=== PATIENT | male | born 1950 | race Caucasian/White ===

== ENCOUNTER 2016-04-07 10:38 | Outpatient (CLI) | payer MEDICAID | END 2016-04-07 10:39 | disposition home or self-care (01) | DX: E11.49 Type 2 diabetes mellitus with other diabetic neurological complication (principal); E03.9 Hypothyroidism, unspecified ==

== ENCOUNTER 2016-07-21 09:23 | Outpatient (CLI) | payer MEDICAID ==
[2016-07-21 18:27] LABS: HEMOGLOBIN A1C 0.77 g/dL
[2016-07-21 18:33] LABS: ALBUMIN/GLOBULIN RATIO 1.4 (1.0-2.2); BILIRUBIN,TOTAL 0.8 mg/dL (0.2-1.0); BUN - BLOOD UREA NITROGEN 20 mg/dL (6-20); CALCIUM 10.1 mg/dL (8.5-10.3); CARBON DIOXIDE - CO2 28 mmol/L (21-32); CHLORIDE 103 mmol/L (101-111); CHOL/HDL RATIO 6.4 (<5.0); CHOLESTEROL 173 mg/dL; CREATININE 0.9 mg/dL (0.6-1.2); GFR - MDRD 85 (>89); GLUCOSE 120 mg/dL (70-100); HDL CHOLESTEROL 27 mg/dL; LDL/HDL RATIO 2.9 (<3.6); POTASSIUM 3.9 mmol/L (3.5-5.0); SODIUM 140 mmol/L (135-145); TOTAL PROTEIN 7.6 g/dL (6.7-8.2); TRIGLYCERIDES 347 mg/dL; VLDL CHOLESTEROL 69 mg/dL
== END 2016-07-21 09:24 | disposition home or self-care (01) ==
LOC: LAB.F 09:23
PROVIDERS: ATTEND Nurse Practitioner Family
DX: E11.49 Type 2 diabetes mellitus with other diabetic neurological complication (principal); I10 Essential (primary) hypertension; E78.1 Pure hyperglyceridemia
CPT/HCPCS: 36415; 80053; 80061; 82043; 83036

== ENCOUNTER 2016-09-29 07:29 | Outpatient (CLI) | payer MEDICAID ==
[2016-09-29 10:47] LABS: HEMOGLOBIN A1C 0.65 g/dL
[2016-09-29 11:02] LABS: BILIRUBIN,DIRECT 0.1 mg/dL (0.1-0.5); BILIRUBIN,TOTAL 0.6 mg/dL (0.2-1.0); CHOLESTEROL 96 mg/dL; HDL CHOLESTEROL 32 mg/dL; LDL/HDL RATIO 1.2 (<3.6); TOTAL PROTEIN 7.4 g/dL (6.7-8.2); TRIGLYCERIDES 125 mg/dL; VLDL CHOLESTEROL 25 mg/dL
== END 2016-09-29 07:30 | disposition home or self-care (01) ==
LOC: LAB.F 07:29
PROVIDERS: ATTEND Nurse Practitioner Family
DX: E78.1 Pure hyperglyceridemia (principal); E78.6 Lipoprotein deficiency; E11.49 Type 2 diabetes mellitus with other diabetic neurological complication
CPT/HCPCS: 36415; 80061; 80076; 83036

== ENCOUNTER 2016-12-15 09:31 | Outpatient (CLI) | payer MEDICAID ==
[2016-12-15 19:07] LABS: HEMOGLOBIN A1C 0.73 g/dL
== END 2016-12-15 09:32 | disposition home or self-care (01) ==
LOC: LAB.F 09:31
PROVIDERS: ATTEND Nurse Practitioner Family
DX: E11.40 Type 2 diabetes mellitus with diabetic neuropathy, unspecified (principal)
CPT/HCPCS: 36415; 83036

== ENCOUNTER 2017-06-19 07:14 | Outpatient (CLI) | payer MEDICARE ==
[2017-06-19 10:44] LABS: BUN - BLOOD UREA NITROGEN 22 mg/dL (6-20); CARBON DIOXIDE - CO2 27 mmol/L (21-32); CHLORIDE 102 mmol/L (101-111); GFR - MDRD 75 (>89); GLUCOSE 130 mg/dL (70-100); SODIUM 137 mmol/L (135-145); URIC ACID 6.6 mg/dL (2.6-7.2)
[2017-06-19 11:17] LABS: HB2 TOTAL 15.3 g/dL; HEMOGLOBIN A1C 0.82 g/dL; HEMOGLOBIN A1C % 7.1 % (4.6-6.2)
== END 2017-06-19 07:15 | disposition home or self-care (01) ==
LOC: LAB.F 07:14
PROVIDERS: ATTEND Nurse Practitioner Family
DX: E11.49 Type 2 diabetes mellitus with other diabetic neurological complication (principal); I10 Essential (primary) hypertension; E03.9 Hypothyroidism, unspecified; M10.9 Gout, unspecified
CPT/HCPCS: 36415; 80048; 83036; 84443; 84550

== ENCOUNTER 2017-09-24 07:12 | Outpatient (CLI) | payer MEDICARE ==
[2017-09-24 11:41] LABS: HEMOGLOBIN A1C 0.69 g/dL; HEMOGLOBIN A1C % 6.7 % (4.6-6.2)
[2017-09-24 11:42] LABS: BUN - BLOOD UREA NITROGEN 21 mg/dL (6-20); CARBON DIOXIDE - CO2 24 mmol/L (21-32); CHLORIDE 106 mmol/L (101-111); CHOL/HDL RATIO 3.5 (<5.0); CHOLESTEROL 116 mg/dL; CREATININE 0.9 mg/dL (0.6-1.2); GFR - MDRD 85 (>89); GLUCOSE 123 mg/dL (70-100); HDL CHOLESTEROL 33 mg/dL; LDL CHOLESTEROL,CALCULATED 52 mg/dL; LDL/HDL RATIO 1.6 (<3.6); SODIUM 138 mmol/L (135-145); VLDL CHOLESTEROL 31 mg/dL
== END 2017-09-24 07:13 | disposition home or self-care (01) ==
LOC: LAB.F 07:12
PROVIDERS: ATTEND Nurse Practitioner Family
DX: E11.49 Type 2 diabetes mellitus with other diabetic neurological complication (principal); E78.1 Pure hyperglyceridemia
CPT/HCPCS: 36415; 80048; 80061; 83036; 83721

== ENCOUNTER 2018-02-04 07:25 | Outpatient (CLI) | payer MEDICARE ==
[2018-02-04 12:23] LABS: HB2 TOTAL 13.9 g/dL; HEMOGLOBIN A1C 0.73 g/dL
== END 2018-02-04 07:26 | disposition home or self-care (01) ==
LOC: LAB.F 07:25
PROVIDERS: ATTEND Nurse Practitioner
DX: E11.49 Type 2 diabetes mellitus with other diabetic neurological complication (principal)
CPT/HCPCS: 36415; 83036

== ENCOUNTER 2018-07-12 12:57 | Outpatient (CLI) | payer MEDICARE ==
--- NOTE | 2018-07-12 14:15 | CT Report ---
Reason: KIDNEY STONES Procedure Date: 07/12/2018 Accession Number: [id number] / [id number] Procedure: CT - Abdomen/Pelvis WO CPT Code: FULL RESULT: EXAM: CT ABDOMEN AND PELVIS (CT KUB) EXAM DATE: 07/12/2018 01:22 PM. CLINICAL HISTORY: Right flank pain, cloudy urine. KIDNEY STONES. COMPARISONS: 07/14/2007. TECHNIQUE: Routine axial helical CT imaging was performed through the abdomen and pelvis without IV contrast. Reconstructions: Coronal and sagittal. In accordance with CT protocol optimization, one or more of the following dose reduction techniques were utilized for this exam: automated exposure control, adjustment of mA and/or KV based on patient size, or use of iterative reconstructive technique. FINDINGS: Evaluation of solid abdominal organs is limited without intravenous contrast. Lung Bases: A simple fluid attenuation right pericardial cyst measures 6.8 cm, mildly increased since 2007. Right Kidney/Ureter: There are 2 punctate nonobstructing stones measuring 2-3 mm. Left Kidney/Ureter: There are several tiny nonobstructing left renal stone is measuring 2-3 mm in the superior collecting system. No hydronephrosis or perinephric inflammation. No ureteral stone. Other Solid Organs: Noncontrast images of the solid organs are grossly unremarkable. Gallbladder/Bile Ducts: There are tiny layering gallstones. No bile duct dilation. Peritoneal Cavity: No bowel obstruction. Probable small diverticulum of the second portion of the duodenum. Mild diverticulosis without diverticulitis. No free fluid, free air or nickolas adenopathy. Pelvic Organs: No bladder stones or wall thickening. The prostate gland is mild to moderately and indents the bladder base, measuring 5.7 cm in diameter. Vasculature: Mild atherosclerosis. No aortic aneurysm. Other: None. IMPRESSION: 1. Tiny nonobstructing renal stones bilaterally. No obstructing stone or hydronephrosis. 2. Enlarged prostate gland. 3. Diverticulosis without diverticulitis. 4. Cholelithiasis. RADIA
== END 2018-07-12 12:58 | disposition home or self-care (01) ==
LOC: DI 12:57
PROVIDERS: ATTEND Physician Assistant Medical
DX: N20.0 Calculus of kidney (principal); N40.0 Benign prostatic hyperplasia without lower urinary tract symptoms; K57.90 Diverticulosis of intestine, part unspecified, without perforation or abscess without bleeding; K80.20 Calculus of gallbladder without cholecystitis without obstruction
CPT/HCPCS: 74176

== ENCOUNTER 2018-10-02 07:11 | Outpatient (CLI) | payer MEDICARE ==
[2018-10-02 10:45] LABS: BASOPHILS % (AUTO) 0.7 %; EOSINOPHILS # (AUTO) 0.5 10^3/uL (0.0-0.7); EOSINOPHILS % (AUTO) 8.4 %; HGB - HEMOGLOBIN 12.8 g/dL (14.0-18.0); LYMPHOCYTES # (AUTO) 2.2 10^3/uL (1.5-3.5); LYMPHOCYTES % (AUTO) 39.1 %; MEAN CORPUSCULAR HEMOGLOBIN 31.3 pg (27.0-31.0); MEAN CORPUSCULAR HGB CONC 32.6 g/dL (32.0-36.0); MEAN CORPUSCULAR VOLUME 96.1 fL (80.0-94.0); MEAN PLATELET VOLUME 10.3 fL (7.4-11.4); MONOCYTES # (AUTO) 0.4 10^3/uL (0.0-1.0); MONOCYTES % (AUTO) 6.5 %; NEUTROPHILS # (AUTO) 2.5 10^3/uL (1.5-6.6); NEUTROPHILS % (AUTO) 44.9 %; PLT - PLATELET COUNT 162 10^3/uL (130-450); RED BLOOD COUNT 4.09 10^6/uL (4.70-6.10); RED CELL DISTRIBUTION WIDTH 14.6 % (12.0-15.0); WHITE BLOOD COUNT 5.6 x10^3/uL (4.8-10.8)
[2018-10-02 10:52] LABS: CREATININE,URINE 84.6 mg/dL; MICROALBUM/CREATININE RATIO,UR 7.1 ug/mg (<30.0); MICROALBUMIN,URINE 0.6 mg/dL (0-300.0)
[2018-10-02 10:53] LABS: BUN - BLOOD UREA NITROGEN 23 mg/dL (6-20); CALCIUM 9.8 mg/dL (8.5-10.3); CARBON DIOXIDE - CO2 24 mmol/L (21-32); CHLORIDE 103 mmol/L (101-111); CHOL/HDL RATIO 3.5 (<5.0); CHOLESTEROL 101 mg/dL; GFR - MDRD 75 (>89); GLUCOSE 122 mg/dL (70-100); HDL CHOLESTEROL 29 mg/dL; LDL CHOLESTEROL,CALCULATED 44 mg/dL; LDL/HDL RATIO 1.5 (<3.6); SODIUM 138 mmol/L (135-145); VLDL CHOLESTEROL 28 mg/dL
[2018-10-02 10:59] LABS: HB2 TOTAL 14.1 g/dL; HEMOGLOBIN A1C 0.8 g/dL; HEMOGLOBIN A1C % 7.3 % (4.6-6.2)
== END 2018-10-02 07:12 | disposition home or self-care (01) ==
LOC: LAB.S 07:11
PROVIDERS: ATTEND Physician Assistant Medical
DX: E11.49 Type 2 diabetes mellitus with other diabetic neurological complication (principal); E78.1 Pure hyperglyceridemia; E03.9 Hypothyroidism, unspecified; I10 Essential (primary) hypertension
CPT/HCPCS: 36415; 80048; 80061; 82043; 82570; 83036; 83721; 84443; 85025

== ENCOUNTER 2018-11-13 11:53 | Outpatient (CLI) | payer MEDICARE | END 2018-11-13 11:54 | disposition home or self-care (01) | LOC: LAB.S 11:53 | PROVIDERS: ATTEND Physician Assistant Medical | DX: M10.9 Gout, unspecified (principal) | CPT/HCPCS: 36415; 84550 ==

== ENCOUNTER 2019-01-16 15:48 | Day surgery (SDC) | payer MEDICARE ==
[2019-01-16 16:32] LABS: BASOPHILS % (AUTO) 0.4 %; EOSINOPHILS # (AUTO) 0.2 10^3/uL (0.0-0.7); EOSINOPHILS % (AUTO) 1.9 %; LYMPHOCYTES # (AUTO) 2.3 10^3/uL (1.5-3.5); LYMPHOCYTES % (AUTO) 22.8 %; MEAN CORPUSCULAR HEMOGLOBIN 31.6 pg (27.0-31.0); MEAN CORPUSCULAR HGB CONC 33.3 g/dL (32.0-36.0); MEAN PLATELET VOLUME 8.6 fL (7.4-11.4); MONOCYTES # (AUTO) 0.8 10^3/uL (0.0-1.0); MONOCYTES % (AUTO) 7.3 %; NEUTROPHILS # (AUTO) 6.9 10^3/uL (1.5-6.6); NEUTROPHILS % (AUTO) 67.2 %; PLT - PLATELET COUNT 152 10^3/uL (130-450); RED BLOOD COUNT 4.43 10^6/uL (4.70-6.10); WHITE BLOOD COUNT 10.3 x10^3/uL (4.8-10.8)
[2019-01-16 17:05] LABS: ALBUMIN 4.6 g/dL (3.2-5.5); ALBUMIN/GLOBULIN RATIO 1.4 (1.0-2.2); CALCIUM 9.8 mg/dL (8.5-10.3); TOTAL PROTEIN 7.9 g/dL (6.7-8.2)
--- NOTE | 2019-01-16 20:46 | Ultrasound Report ---
Reason: right abd pain for few days Procedure Date: 01/16/2019 Accession Number: [id number] / [id number] Procedure: US - Abdomen Limited CPT Code: Final Report FULL RESULT: EXAM: ABDOMEN ULTRASOUND LIMITED, RUQ EXAM DATE: 01/16/2019 08:20 PM. CLINICAL HISTORY: Right abdomen pain for few days. COMPARISON: ABDOMEN/PELVIS W/O 07/12/2018 1:16 PM. TECHNIQUE: Real-time scanning was performed with static images obtained. FINDINGS: Liver: Large with hyperechoic echotexture. Focal hypoechoic area, likely fatty sparing, 6.9 x 3.8 x 5.2 cm. 21 cm. Main portal vein flow: Hepatopetal. Gallbladder: Multiple mobile gallstones with overlying tenderness. Gallbladder wall thickness. Biliary System: CBD measures 8 mm. Dilated. Other: The visualized pancreas and right kidney are unremarkable. No free fluid. IMPRESSION: 1. Large fatty liver. 2. Multiple cholelithiasis with overlying tenderness but no wall thickening. 3. Mildly dilated common bile duct. RADIA
[2019-01-16] MEDS ORDERED: ONDANSETRON 4 MG/2 ML VIAL IVP STA (22:34)
[2019-01-16] MEDS ORDERED: MORPHINE 2 MG/ML CARPUJECT IVP STA (22:34)
--- NOTE | 2019-01-16 22:44 | ED Physician Documentation ---
History of Present Illness - Stated complaint Stated Complaint: RT BACK, SIDE, ABD PAIN - Chief complaint Chief Complaint: Abd Pain - Additonal information Additional information: This is a 68-year-old male with history of diabetes, obesity, who presents with right upper quadrant pain. Patient states that beginning Sunday he began having some discomfort in his right lateral side which radiates from the front of his abdomen towards his back. It has come and gone somewhat and seems to be worse after he eats. The pain increased and prompted him to see primary care provider today, and he had focal tenderness in the right upper quadrants so was sent here for further evaluation. He has had some intermittent nausea, no vomiting. No fever. He was diagnosed with cholelithiasis in the past. Review of Systems Constitutional: denies: Fever Cardiac: denies: Chest pain / pressure Respiratory: denies: Dyspnea GI: reports: Abdominal Pain, Nausea : denies: Dysuria Immunocompromised: denies: Immunocompromised PD PAST MEDICAL HISTORY - Past Medical History Past Medical History: Yes Cardiovascular: Hypertension, High cholesterol Respiratory: None Endocrine/Autoimmune: Type 2 diabetes, HyPOthyroidism GI: GERD, Colon polyps : None HEENT: None Psych: None Musculoskeletal: Osteoarthritis, Gout Derm: None - Past Surgical History Past Surgical History: Yes General: Appendectomy, Colonoscopy Ortho: Shoulder arthroplasty, Carpal Tunnel surgery, Other - Present Medications Home Medications: Ambulatory Orders Medication Instructions Recorded Confirmed Allopurinol [Zyloprim] 300 mg ORAL DAILY 01/16/14 01/19/14 Hydrochlorothiazide 25 mg ORAL DAILY 01/16/14 01/19/14 Levothyroxine [Synthroid] 100 mcg ORAL DAILY 01/16/14 01/19/14 Lisinopril 40 mg ORAL DAILY 01/16/14 01/19/14 Omeprazole Magnesium [Prilosec Otc] 20 mg ORAL DAILY 01/16/14 01/19/14 Metformin HCl [Glucophage Xr] 500 mg ORAL BID 01/09/19 01/09/19 - Allergies Allergies/Adverse Reactions: Allergies Allergy/AdvReac Type Severity Reaction Status Date / Time Penicillins Allergy Rash Verified 01/16/19 16:07 - Social History Does the pt smoke?: No Smoking Status: Never smoker Does the pt drink ETOH?: Yes - POLST Patient has POLST: No PD ED PE NORMAL - Vitals Vital signs reviewed: Yes - General General: Alert and oriented X 3 - HEENT HEENT: Atraumatic - Neck Neck: Supple, no meningeal sign - Cardiac Cardiac: RRR - Respiratory Respiratory: No respiratory distress, Clear bilaterally - Abdomen Abdomen: Other (Soft, obese. Patient has focal tenderness in the right upper quadrant with Positive Issa sign, no guarding. No lower abdominal tenderness.) - Extremities Extremities: No: No deformity - Neuro Neuro: Alert and oriented X 3, Normal speech Results - Vitals Vitals: Vital Signs - 24 hr 01/16/19 01/17/19 01/17/19 16:07 00:20 02:00 Temperature 37.1 C 37.4 C Heart Rate 89 93 88 Respiratory 16 20 16 Rate Blood Pressure 151/79 H 121/70 97/52 L O2 Saturation 96 96 98 01/17/19 01/17/19 01/17/19 05:19 06:25 08:17 Temperature 36.8 C Heart Rate 83 88 86 Respiratory 16 16 16 Rate Blood Pressure 118/66 100/59 L 131/75 H O2 Saturation 94 94 94 Oxygen O2 Source Room air - Labs Labs: Laboratory Tests 01/16/19 01/16/19 01/17/19 16:27 16:27 07:00 WBC 10.3 RBC 4.43 L Hgb 14.0 Hct 42.1 MCV 95.0 H MCH 31.6 H MCHC 33.3 RDW 14.0 Plt Count 152 MPV 8.6 Neut # (Auto) 6.9 H Lymph # (Auto) 2.3 [place] # (Auto) 0.8 Eos # (Auto) 0.2 Baso # (Auto) 0.0 Absolute Nucleated RBC 0.00 Nucleated RBC % 0.0 Sodium 138 Potassium 3.8 Chloride 98 L Carbon Dioxide 28 Anion Gap 12.0 BUN 10 Creatinine 1.0 Estimated GFR (MDRD) 75 L Glucose 122 H POC Whole Bld Glucose Calcium 9.8 Total Bilirubin 1.0 AST 44 H ALT 36 Alkaline Phosphatase 78 Total Protein 7.9 Albumin 4.6 Globulin 3.3 Albumin/Globulin Ratio 1.4 Lipase 38 Urine Color DARK YELLOW Urine Clarity CLEAR Urine pH 6.0 Ur Specific [place] 1.025 Urine Protein NEGATIVE Urine Glucose (UA) NEGATIVE Urine Ketones NEGATIVE Urine Occult Blood NEGATIVE Urine Nitrite NEGATIVE Urine Bilirubin NEGATIVE Urine Urobilinogen 0.2 (NORMAL) Ur Leukocyte Esterase NEGATIVE Ur Microscopic Review NOT INDICATED Urine Culture Comments NOT INDICATED 01/17/19 08:22 WBC RBC Hgb Hct MCV MCH MCHC RDW Plt Count MPV Neut # (Auto) Lymph # (Auto) [place] # (Auto) Eos # (Auto) Baso # (Auto) Absolute Nucleated RBC Nucleated RBC % Sodium Potassium Chloride Carbon Dioxide Anion Gap BUN Creatinine Estimated GFR (MDRD) Glucose POC Whole Bld Glucose 135 H Calcium Total Bilirubin AST ALT Alkaline Phosphatase Total Protein Albumin Globulin Albumin/Globulin Ratio Lipase Urine Color Urine Clarity Urine pH Ur Specific [place] Urine Protein Urine Glucose (UA) Urine Ketones Urine Occult Blood Urine Nitrite Urine Bilirubin Urine Urobilinogen Ur Leukocyte Esterase Ur Microscopic Review Urine Culture Comments - Rads (name of study) RUQ US Radiology: Other (Cholelithiasis with tenderness over the gallbladder sonographically, no wall edema or pericholecystic fluid) PD MEDICAL DECISION MAKING - ED course Complexity details: considered differential (Biliary colic, symptomatically lithiasis, choledocholithiasis, cholecystitis, pancreatitis, gastritis.) ED course: Patient presents with right upper quadrant pain rating to his back that is worse after meals has been ongoing for several days waxing and waning. He does have focal right upper quadrant tenderness and a positive Issa sign on my exam. Labs are drawn and are notable for an elevated AST, although patient has had elevated AST in the past and this may be related to fatty liver disease. He was given morphine and Zofran for his symptoms. Ultrasound is obtained showing cholelithiasis, with no wall edema or pericholecystic fluid. On repeat examination patient continues to have significant tenderness in his right upper quadrant. Given his reproducible and significant tenderness in the right upper quadrant, and the fact that his symptoms are persistent despite pain medications I am concerned that he has cholecystitis. I spoke with Dr. Neves, who can perform cholecystectomy in the morning 8:30 AM. It does not sound like patient meets criteria for observation after discussion with our hospitalist, so we will watch him in the emergency department and he be in the morning. He is made n.p.o., started on maintenance fluids. His home medications were ordered. Pt is in agreement with the plan. Pt will be transferred to OR in the AM. Departure - Departure Disposition: ED Transfer to [facility] Clinical Impression: Cholecystitis Discharge Date/Time: 01/17/19 08:05
[2019-01-17] MEDS ORDERED: LACTATED RINGERS 1,000 ML IV STA (01:40)
[2019-01-17] MEDS ORDERED: LISINOPRIL 5 MG TABLET PO SCH (06:00)
[2019-01-17] MEDS ORDERED: metFORMIN 500 MG TABLET PO SCH (06:00)
[2019-01-17] MEDS ORDERED: NEOSTIGMINE 1 MG/1 ML 10 ML MDV IVP ONE (07:11)
[2019-01-17] MEDS ORDERED: MIDAZOLAM 2 MG/2 ML VIAL IVP ONE (07:11)
[2019-01-17] MEDS ORDERED: GLYCOPYRROLATE 1 MG/5 ML VIAL IVP ONE (07:11)
[2019-01-17] MEDS ORDERED: ROCURONIUM 50 MG/5 ML VIAL IVP ONE (07:11)
[2019-01-17] MEDS ORDERED: ePHEDrine 50 MG/ML VIAL IVP ONE (07:11)
[2019-01-17 07:13] LABS: BILIRUBIN,URINE NEGATIVE (NEGATIVE); GLUCOSE, URINE (UA) NEGATIVE (NEGATIVE); KETONES,URINE (UA) NEGATIVE (NEGATIVE); LEUKOCYTE ESTERASE, URINE NEGATIVE (NEGATIVE); NITRITE,URINE NEGATIVE (NEGATIVE); OCCULT BLOOD,URINE NEGATIVE (NEGATIVE); PROTEIN,URINE NEGATIVE (NEGATIVE); UROBILINOGEN,URINE 0.2 (NORMAL) E.U./dL (NORMAL)
[2019-01-17 07:14] LABS: CLARITY,URINE CLEAR (CLEAR)
[2019-01-17] MEDS ORDERED: cefTRIAXone 1 GM VIAL IVP STA (07:21)
--- NOTE | 2019-01-17 07:22 | ED Physician Documentation ---
ED Addendum - Addendum Addendum: 01/17/19 07:21 Patient was seen by the surgeon in preparation for taking him to the operating room. He requested a gram of Rocephin IV and has been ordered.
[2019-01-17] MEDS ORDERED: metFORMIN 500 MG TABLET PO STA (07:44)
[2019-01-17] MEDS ORDERED: LISINOPRIL 20 MG TABLET PO STA (07:45)
[2019-01-17] MEDS ORDERED: LACTATED RINGERS 1,000 ML IV ONE ×3 (08:17→13:43)
[2019-01-17] MEDS ORDERED: ENOXAPARIN 30 MG/0.3 ML SYRINGE SUBQ ONE (08:24)
--- NOTE | 2019-01-17 09:55 | ANESTHESIA ---
Pre-Anesthesia VS, & Labs - Diagnosis acute cholecystitis - Procedure laparoscopic cholecystectomy Vital Signs: Temp Pulse Resp BP Pulse Ox 36.8 C 86 16 131/75 H 94 01/17/19 08:17 01/17/19 08:17 01/17/19 08:17 01/17/19 08:17 01/17/19 08:17 Height 6 ft Weight (kg) 128 kg Body Mass Index 38.4 - Lab Results Current Lab Results: Laboratory Tests 01/17/19 08:22: POC Whole Bld Glucose 135 H 01/16/19 16:27: Sodium 138, Potassium 3.8, Chloride 98 L, Carbon Dioxide 28, Anion Gap 12.0, BUN 10, Creatinine 1.0, Estimated GFR (MDRD) 75 L, Glucose 122 H , Calcium 9.8, Total Bilirubin 1.0, AST 44 H, ALT 36, Alkaline Phosphatase 78, Total Protein 7.9, Albumin 4.6, Globulin 3.3, Albumin/Globulin Ratio 1.4, Lipase 38 01/16/19 16:27: WBC 10.3, RBC 4.43 L, Hgb 14.0, Hct 42.1, MCV 95.0 H, MCH 31.6 H , MCHC 33.3, RDW 14.0, Plt Count 152, MPV 8.6, Neut # (Auto) 6.9 H, Lymph # (Auto) 2.3, [place] # (Auto) 0.8, Eos # (Auto) 0.2, Baso # (Auto) 0.0, Absolute Nucleated RBC 0.00, Nucleated RBC % 0.0 Fish Bones: 01/16/19 16:27 01/16/19 16:27 Home Medications and Allergies Active Medications Lactated Ringer's (Lr) 1,000 mls @ 100 mls/hr IV .Q10H STA Stop: 01/17/19 11:39 Last Admin: 01/17/19 07:04 Dose: 100 mls/hr Allopurinol [Zyloprim] 300 mg ORAL DAILY 01/16/14 Hydrochlorothiazide 25 mg ORAL DAILY 01/16/14 Levothyroxine [Synthroid] 100 mcg ORAL DAILY 01/16/14 Lisinopril 40 mg ORAL DAILY 01/16/14 Omeprazole Magnesium [Prilosec Otc] 20 mg ORAL DAILY 01/16/14 Metformin HCl [Glucophage Xr] 500 mg ORAL BID 01/09/19 Allergies/Adverse Reactions: Allergies Allergy/AdvReac Type Severity Reaction Status Date / Time Penicillins Allergy Rash Verified 01/16/19 16:07 Anes History & Medical History - Anesthetic History Anesthesia Complications: reports: No previous complications - Medical History Cardiovascular: reports: Hypertension, High cholesterol Pulmonary: reports: None Gastrointestinal: reports: GERD, Colon polyps Urinary: reports: None Musculoskeletal: reports: Osteoarthritis, Gout Endocrine/Autoimmune: reports: Type 2 diabetes, HyPOthyroidism Skin: reports: None Smoking Status: Never smoker - Surgical History General: Appendectomy, Colonoscopy Orthopedic: Shoulder arthroplasty, Carpal Tunnel surgery, Other Exam General: Alert Dental: WNL Mouth Opening: Greater than 4 Fingerbreadths Neck Mobility: Normal Mallampati classification: II Respiratory: Lungs clear Cardiovascular: Regular rate, Normal S1, Normal S2 Plan Anesthesia Type: General Consent for Procedure(s) Verified and Reviewed: Yes Code Status: Attempt Resuscitation ASA classification: 2-Mild systemic disease Is this case an emergency?: Yes
[2019-01-17] MEDS: ONDANSETRON 4 MG/2 ML VIAL ONE ×2 (10:15→13:30)
[2019-01-17] MEDS ORDERED: IOTHALAMATE MEGLUMINE 50 ML VIAL ONE (10:51)
[2019-01-17] MEDS ORDERED: BUPIVACAINE 0.5% PF 30 ML VIAL ONE (10:52)
--- NOTE | 2019-01-17 10:55 | HISTORY & PHYSICAL EXAMINATION ---
HPI - Admitted From Admitted from: ED - History Obtained From Records Reviewed: RN notes reviewed History obtained from: Patient Exam limitations: No limitations - History of Present Illness Severity at the worst: reports: Moderate Pain Quality: reports: Sharp PMH/PSH - Past Medical History Cardiovascular: positive: Hypertension, High cholesterol Respiratory: positive: None Endocrine/Autoimmune: positive: Type 2 diabetes, HyPOthyroidism GI: positive: GERD, Colon polyps : positive: None HEENT: positive: None Psych: positive: None Musculoskeletal: positive: Osteoarthritis, Gout Derm: positive: None MRSA Hx?: No - Past Surgical History General: positive: Appendectomy, Colonoscopy Ortho: positive: Shoulder arthroplasty, Carpal Tunnel surgery, Other Social & Family Hx - Living Situation Living Arrangement: At home - Social History Does the pt smoke?: No Smoking Status: Never smoker Does the pt drink ETOH?: Yes - POLST Patient has POLST: No Meds/Allgy - Home Medications Home Medications: Ambulatory Orders Medication Instructions Recorded Confirmed Allopurinol [Zyloprim] 300 mg ORAL DAILY 01/16/14 01/19/14 Hydrochlorothiazide 25 mg ORAL DAILY 01/16/14 01/19/14 Levothyroxine [Synthroid] 100 mcg ORAL DAILY 01/16/14 01/19/14 Lisinopril 40 mg ORAL DAILY 01/16/14 01/19/14 Omeprazole Magnesium [Prilosec Otc] 20 mg ORAL DAILY 01/16/14 01/19/14 Metformin HCl [Glucophage Xr] 500 mg ORAL BID 01/09/19 01/09/19 - Allergies Allergies/Adverse Reactions: Allergies Allergy/AdvReac Type Severity Reaction Status Date / Time Penicillins Allergy Rash Verified 01/16/19 16:07 Exam - Vital Signs Reviewed Vital Signs: Yes Vital Signs: Vital Signs x48h Temp Pulse Resp BP Pulse Ox 01/17/19 08:17 36.8 C 86 16 131/75 H 94 01/17/19 06:25 88 16 100/59 L 94 01/17/19 05:19 83 16 118/66 94 - Physical Exam General Appearance: positive: Moderate distress Eyes Bilateral: positive: Normal inspection Neck: positive: Nml inspection Respiratory: positive: Chest non-tender, No respiratory distress, Breath sounds nml Abdomen: positive: Tenderness, Guarding (RUQ) Results - Lab Results Fish Bones: 01/16/19 16:27 01/16/19 16:27 Other Lab Results: Lab Results x24hrs 01/17/19 01/17/19 01/16/19 Range/Units 08:22 07:00 16:27 WBC (4.8-10.8) x10^3/uL RBC (4.70-6.10) 10^6/uL Hgb (14.0-18.0) g/dL Hct (42.0-52.0) % MCV (80.0-94.0) fL MCH (27.0-31.0) pg MCHC (32.0-36.0) g/dL RDW (12.0-15.0) % Plt Count (130-450) 10^3/uL MPV (7.4-11.4) fL Neut # (Auto) (1.5-6.6) 10^3/uL Lymph # (Auto) (1.5-3.5) 10^3/uL [place] # (Auto) (0.0-1.0) 10^3/uL Eos # (Auto) (0.0-0.7) 10^3/uL Baso # (Auto) (0.0-0.1) 10^3/uL Absolute Nucleated RBC x10^3/uL Nucleated RBC % /100WBC Sodium 138 (135-145) mmol/L Potassium 3.8 (3.5-5.0) mmol/L Chloride 98 L (101-111) mmol/L Carbon Dioxide 28 (21-32) mmol/L Anion Gap 12.0 (6-13) BUN 10 (6-20) mg/dL Creatinine 1.0 (0.6-1.2) mg/dL Estimated GFR (MDRD) 75 L (>89) Glucose 122 H (70-100) mg/dL POC Whole Bld Glucose 135 H (70 - 100) mg/dL Calcium 9.8 (8.5-10.3) mg/dL Total Bilirubin 1.0 (0.2-1.0) mg/dL AST 44 H (10-42) IU/L ALT 36 (10-60) IU/L Alkaline Phosphatase 78 (42-121) IU/L Total Protein 7.9 (6.7-8.2) g/dL Albumin 4.6 (3.2-5.5) g/dL Globulin 3.3 (2.1-4.2) g/dL Albumin/Globulin Ratio 1.4 (1.0-2.2) Lipase 38 (22-51) U/L Urine Color DARK YELLOW Urine Clarity CLEAR (CLEAR) Urine pH 6.0 (5.0-7.5) PH Ur Specific [place] 1.025 (1.002-1.030) Urine Protein NEGATIVE (NEGATIVE) mg/dL Urine Glucose (UA) NEGATIVE (NEGATIVE) mg/dL Urine Ketones NEGATIVE (NEGATIVE) mg/dL Urine Occult Blood NEGATIVE (NEGATIVE) Urine Nitrite NEGATIVE (NEGATIVE) Urine Bilirubin NEGATIVE (NEGATIVE) Urine Urobilinogen 0.2 (NORMAL) (NORMAL) E.U./dL Ur Leukocyte Esterase NEGATIVE (NEGATIVE) Ur Microscopic Review NOT INDICATED Urine Culture Comments NOT INDICATED 01/16/19 Range/Units 16:27 WBC 10.3 (4.8-10.8) x10^3/uL RBC 4.43 L (4.70-6.10) 10^6/uL Hgb 14.0 (14.0-18.0) g/dL Hct 42.1 (42.0-52.0) % MCV 95.0 H (80.0-94.0) fL MCH 31.6 H (27.0-31.0) pg MCHC 33.3 (32.0-36.0) g/dL RDW 14.0 (12.0-15.0) % Plt Count 152 (130-450) 10^3/uL MPV 8.6 (7.4-11.4) fL Neut # (Auto) 6.9 H (1.5-6.6) 10^3/uL Lymph # (Auto) 2.3 (1.5-3.5) 10^3/uL [place] # (Auto) 0.8 (0.0-1.0) 10^3/uL Eos # (Auto) 0.2 (0.0-0.7) 10^3/uL Baso # (Auto) 0.0 (0.0-0.1) 10^3/uL Absolute Nucleated RBC 0.00 x10^3/uL Nucleated RBC % 0.0 /100WBC Sodium (135-145) mmol/L Potassium (3.5-5.0) mmol/L Chloride (101-111) mmol/L Carbon Dioxide (21-32) mmol/L Anion Gap (6-13) BUN (6-20) mg/dL Creatinine (0.6-1.2) mg/dL Estimated GFR (MDRD) (>89) Glucose (70-100) mg/dL POC Whole Bld Glucose (70 - 100) mg/dL Calcium (8.5-10.3) mg/dL Total Bilirubin (0.2-1.0) mg/dL AST (10-42) IU/L ALT (10-60) IU/L Alkaline Phosphatase (42-121) IU/L Total Protein (6.7-8.2) g/dL Albumin (3.2-5.5) g/dL Globulin (2.1-4.2) g/dL Albumin/Globulin Ratio (1.0-2.2) Lipase (22-51) U/L Urine Color Urine Clarity (CLEAR) Urine pH (5.0-7.5) PH Ur Specific [place] (1.002-1.030) Urine Protein (NEGATIVE) mg/dL Urine Glucose (UA) (NEGATIVE) mg/dL Urine Ketones (NEGATIVE) mg/dL Urine Occult Blood (NEGATIVE) Urine Nitrite (NEGATIVE) Urine Bilirubin (NEGATIVE) Urine Urobilinogen (NORMAL) E.U./dL Ur Leukocyte Esterase (NEGATIVE) Ur Microscopic Review Urine Culture Comments Impression/Plan - Problem List Problem List: Acute cholecystitis/lithiasis Cholecystectomy w/possible IOC
[2019-01-17] MEDS ORDERED: BUPIVACAINE 0.5% PF 30 ML VIAL INFIL ONE ×2 (12:00)
--- NOTE | 2019-01-17 13:14 | IMMEDIATE POSTOPERATIVE NOTE ---
Immediate Postoperative Note - Procedure Note Procedure Date: 01/17/19 Pre-Op Diagnosis: Acute cholecystitis/lithiasis Procedure: [place] Post-Op Diagnosis: Same Primary Surgeon: Arianne Insurance Adviser: Romain Anesthesia Type: General ET tube, Local Findings: Mod severe acute cholecystitis w/ multiple pericholecystic adhesions Complications: No complications Estimated Blood Loss (in cc): 5 Specimens and Cultures: Gallbladder Plan of Care: See [place] post op order set Cont as outpatient same day surgery status
[2019-01-17] MEDS ORDERED: oxyCODONE 5 MG TABLET PO PRN (13:20)
[2019-01-17] MEDS ORDERED: IBUPROFEN 600 MG TABLET PO PRN (13:20)
[2019-01-17] MEDS ORDERED: ONDANSETRON 4 MG/2 ML VIAL IVP PRN (13:20)
[2019-01-17] MEDS ORDERED: ACETAMINOPHEN 325 MG TABLET PO PRN (13:20)
--- NOTE | 2019-01-17 13:22 | Discharge Plan ---
Discharge Plan Problem Reviewed?: Yes Disposition: Home, Self Care Diet: Regular Activity Restrictions: No lifting more than 20# for 6weeks Shower Restrictions: No Driving Restrictions: No Weight Bearing: Full Weight No Smoking: If you smoke, Please STOP! Call for help. Follow-up with: Angeles Landry PA-C [Primary Care Provider] -
[2019-01-17] MEDS ORDERED: SCOPOLAMINE PATCH TOP ONE (13:31)
[2019-01-17] MEDS: HYDROmorphone 1 MG/ML CARPUJECT ONE ×4 (13:31→14:01)
--- NOTE | 2019-01-17 14:01 | CONSULTATION NOTE ---
Referring Provider Consult Date: 01/17/19 History - Past Medical History Cardiovascular: reports: Hypertension, High cholesterol Respiratory: reports: None Endocrine/Autoimmune: reports: Type 2 diabetes, HyPOthyroidism GI: reports: GERD, Colon polyps : reports: None HEENT: reports: None Psych: reports: None Musculoskeletal: reports: Osteoarthritis, Gout Derm: reports: None MRSA Hx?: No - Past Surgical History General: reports: Appendectomy, Colonoscopy Ortho: reports: Shoulder arthroplasty, Carpal Tunnel surgery, Other - Family & Social History Living arrangement: At home - POLST Patient has POLST: No Meds/Allgy - Home Medications Home Medications: Ambulatory Orders Medication Instructions Recorded Confirmed Allopurinol [Zyloprim] 300 mg ORAL DAILY 01/16/14 01/19/14 Hydrochlorothiazide 25 mg ORAL DAILY 01/16/14 01/19/14 Levothyroxine [Synthroid] 100 mcg ORAL DAILY 01/16/14 01/19/14 Lisinopril 40 mg ORAL DAILY 01/16/14 01/19/14 Omeprazole Magnesium [Prilosec Otc] 20 mg ORAL DAILY 01/16/14 01/19/14 Metformin HCl [Glucophage Xr] 500 mg ORAL BID 01/09/19 01/09/19 - Allergies Allergies/Adverse Reactions: Allergies Allergy/AdvReac Type Severity Reaction Status Date / Time Penicillins Allergy Rash Verified 01/16/19 16:07 Exam - Vital Signs Vital Signs: Vital Signs x48h Temp Pulse Resp BP Pulse Ox 01/17/19 13:50 37.2 C 84 14 127/61 95 01/17/19 13:46 37.2 C 87 14 125/63 96 01/17/19 13:40 37.2 C 84 14 125/60 95 01/17/19 13:35 37.2 C 86 14 129/57 L 95 01/17/19 13:30 37.4 C 84 16 127/61 96 01/17/19 13:25 37.4 C 83 16 127/60 96 01/17/19 13:20 37.6 C H 87 16 138/74 H 95 01/17/19 13:13 37.2 C 71 16 135/88 H 94 01/17/19 08:17 36.8 C 86 16 131/75 H 94 01/17/19 06:25 88 16 100/59 L 94 - Physical Exam General Appearance: positive: No acute distress, Moderate distress Conclusion/Plan - Lab Results Fish Bones: 01/16/19 16:27 01/16/19 16:27
[2019-01-17] MEDS: fentaNYL 100 MCG/2 ML VIAL ONE ×2 (14:04→14:16)
[2019-01-17] MEDS ORDERED: oxyCODONE 5 MG TABLET ONE (14:35)
[2019-01-17 15:00] VITALS: BP 122/73
--- NOTE | 2019-01-20 17:27 | OPERATIVE REPORT ---
DATE OF SERVICE: 01/17/2019 Physician: Tra Acuña DO PREOPERATIVE DIAGNOSIS/INDICATIONS: Acute cholecystitis/cholelithiasis. POSTOPERATIVE DIAGNOSIS/INDICATIONS: Acute cholecystitis/cholelithiasis. PROCEDURE: Laparoscopic cholecystectomy. SURGEON: Tra Acuña DO. DIRECTOR OF QUALITY IMPROVEMENT SURGEON: Dr. Hoyos. ANESTHESIA: General endotracheal tube by local assist. [employer]IAL [employer] CLERK: Toy Atwood CRNA. ESTIMATED BLOOD LOSS: 5 mL. FINDINGS: Acute, moderately severe cholecystitis with pericholecystic inflammatory adhesions. COMPLICATIONS: None. CONDITION: Stable upon transport to recovery. HISTORY: The patient is a 68-year-old white male with a finding of acute cholecystitis on physical e xamination as well as imaging. He was ill for approximately 24 hours and was in moderate distress. PROCEDURE IN DETAIL: The patient was taken to the operating room following informed consent, placed on the operating table and prepped and draped in the usual manner. A midline infraumbilical incision was utilized to gain entrance into the abdominal cavity by way of the Lui port. This was secured in the usual manner, the pneumoperitoneum created, and subsequently the 3 working ports were placed under direct vision, and no complications. The gallbladder was identified, and placed on cephalad tr action. It was so enlarged and tense that it had to be drained intracorporeally, and then the infund ibulum was identified and placed on gentle anterolateral traction. Subsequently, the cystic duct and cystic artery were mobilized and dissected. At no time was the common bile duct manipulated, injure d or otherwise harmed. A staple was placed across the cystic duct at the neck of the gallbladder and two more additional gila below those, and the cystic duct divided between the top two gila. T he cystic artery was likewise triply stapled and divided between the top two gila. The gallbladde r was then excised out of the liver bed using electrocautery and eventually removed through the umbil ical port in an EndoCatch bag. Re-examination of the liver bed revealed no bleeding or bile leak res pectively, and after copious irrigation with sterile saline solution and evacuation of as much of the irrigant as possible, a piece of Surgicel was placed in the liver bed for added hemostasis and bacte riostasis as well. The working ports were then withdrawn under direct vision and no bleeding was not ed. The pneumoperitoneum was released. The fascia was closed with several inverted interrupted 0 Vi cryl sutures and the skin margins all joined with undyed subcuticular 4-0 Monocryl. Dermabond was ap plied over the incisions. The patient transported to recovery in stable condition. TD: 01/20/2019 16:03
== END 2019-01-17 07:11 | disposition home or self-care (01) ==
LOC: ED 15:48 → SDS 01-17 07:10
PROVIDERS: ATTEND Surgery
PROC: 0FT44ZZ Resection of Gallbladder, Percutaneous Endoscopic Approach (ICD-10-PCS; principal; 2019-01-17 09:30)
DX: K80.12 Calculus of gallbladder with acute and chronic cholecystitis without obstruction (principal); K83.8 Other specified diseases of biliary tract; K82.8 Other specified diseases of gallbladder; K76.0 Fatty (change of) liver, not elsewhere classified; I10 Essential (primary) hypertension; E11.9 Type 2 diabetes mellitus without complications; K21.9 Gastro-esophageal reflux disease without esophagitis; E66.9 Obesity, unspecified; Z86.010 Personal history of colon polyps; Z79.899 Other long term (current) drug therapy; Z79.84 Long term (current) use of oral hypoglycemic drugs; Z68.38 Body mass index [BMI] 38.0-38.9, adult
CPT/HCPCS: 36415; 47562; 76705; 80053; 81003; 83690; 85025; 96374; 99284; 99285; A9270; J1170; J1650; J3490; J7120; 81001; 87086

== ENCOUNTER 2019-01-21 15:17 | Inpatient (IN) | payer MEDICARE ==
[2019-01-21] MEDS ORDERED: IOVERSOL 320 100 ML VIAL IVP ONE ×2 (15:36→15:57)
[2019-01-21] MEDS ORDERED: SODIUM CHLORIDE 0.9% 1,000 ML IV ONE (15:39)
[2019-01-21] MEDS ORDERED: ACETAMINOPHEN 325 MG TABLET PO STA (15:39)
--- NOTE | 2019-01-21 15:47 | ED Physician Documentation ---
History of Present Illness - Stated complaint Stated Complaint: FEVER, PAIN - POST SURGERY - Chief complaint Chief Complaint: General - History obtained from History obtained from: Patient (Laparoscopic cholecystectomy on the . On or about the next day started to have fevers. He does have abdominal pain, but does not feel like it is in an inappropriate amount for being postoperative. He says that is less than it was preoperative with the gallstones. He also notes a cough. He was sent here by the surgeon for further work-up including but not limited to blood cultures and a CAT scan.) Review of Systems Ten Systems: 10 systems reviewed and negative Constitutional: reports: Fever, Chills Nose: denies: Rhinorrhea / runny nose Throat: denies: Sore throat Cardiac: denies: Chest pain / pressure, Palpitations Respiratory: reports: Cough. denies: Dyspnea GI: reports: Abdominal Pain. denies: Nausea, Constipation PD PAST MEDICAL HISTORY - Past Medical History Cardiovascular: Hypertension, High cholesterol Respiratory: None Endocrine/Autoimmune: Type 2 diabetes, HyPOthyroidism GI: GERD, Colon polyps : None HEENT: None Psych: None Musculoskeletal: Osteoarthritis, Gout Derm: None - Past Surgical History Past Surgical History: Yes General: Appendectomy, Colonoscopy Ortho: Shoulder arthroplasty, Carpal Tunnel surgery, Other - Present Medications Home Medications: Ambulatory Orders Medication Instructions Recorded Confirmed Allopurinol [Zyloprim] 300 mg ORAL DAILY 01/16/14 01/19/14 Hydrochlorothiazide 25 mg ORAL DAILY 01/16/14 01/19/14 Levothyroxine [Synthroid] 100 mcg ORAL DAILY 01/16/14 01/19/14 Lisinopril 40 mg ORAL DAILY 01/16/14 01/19/14 Omeprazole Magnesium [Prilosec Otc] 20 mg ORAL DAILY 01/16/14 01/19/14 Metformin HCl [Glucophage Xr] 500 mg ORAL BID 01/09/19 01/09/19 - Allergies Allergies/Adverse Reactions: Allergies Allergy/AdvReac Type Severity Reaction Status Date / Time Penicillins Allergy Rash Verified 01/21/19 15:19 - Social History Does the pt smoke?: No Smoking Status: Never smoker Does the pt drink ETOH?: Yes - POLST Patient has POLST: No PD ED PE NORMAL - Vitals Vital signs reviewed: Yes (febrile) - General General: Alert and oriented X 3, No acute distress - HEENT HEENT: PERRL, EOMI - Neck Neck: Supple, no meningeal sign, No bony TTP - Cardiac Cardiac: RRR, No murmur - Respiratory Respiratory: No respiratory distress, Other (Diminished at the right base) - Abdomen Abdomen: Other (Minimal right-sided abdominal tenderness, laparoscopic incisions look fine without evidence of infection. No surgical signs. Normal bowel sounds.) - Back Back: No CVA TTP, No spinal TTP - Derm Derm: Normal color, Warm and dry - Extremities Extremities: No edema, No calf tenderness / cord - Neuro Neuro: Alert and oriented X 3, Normal speech Results - Vitals Vitals: Vital Signs - 24 hr 01/21/19 01/21/19 01/21/19 15:19 16:27 16:44 Temperature 39.6 C H 38.1 C H Heart Rate 106 H 96 92 Respiratory 16 20 20 Rate Blood Pressure 127/67 175/69 H 112/51 L O2 Saturation 93 93 92 Oxygen O2 Source Room air - Labs Labs: Laboratory Tests 01/21/19 01/21/19 01/21/19 15:40 15:40 15:40 WBC 13.6 H RBC 3.97 L Hgb 12.6 L Hct 37.1 L MCV 93.5 MCH 31.7 H MCHC 34.0 RDW 13.6 Plt Count 236 MPV 9.0 Neut # (Auto) Not Reportable Lymph # (Auto) Not Reportable [place] # (Auto) Not Reportable Eos # (Auto) Not Reportable Baso # (Auto) Not Reportable Absolute Nucleated RBC Not Reportable Total Counted 100 Band Neuts % (Manual) 11 H Reactive Lymphs % (Man) 1 Abnorm Lymph % (Manual) 0 Nucleated RBC % Not Reportable Neutrophils # (Manual) 10.7 H Lymphocytes # (Manual) 2.0 Monocytes # (Manual) 0.8 Eosinophils # (Manual) 0.0 Basophils # (Manual) 0.0 Differential Comment MANUAL DIFFERENTIAL Manual Slide Review Indicated Platelet Estimate NORMAL (130-450,000) Platelet Morphology NORMAL APPEARANCE RBC Morph Micro Appear NORMAL APPEARANCE Sodium 133 L Potassium 3.6 Chloride 94 L Carbon Dioxide 25 Anion Gap 14.0 H BUN 19 Creatinine 1.2 Estimated GFR (MDRD) 61 L Glucose 131 H Lactic Acid 2.7 H Calcium 9.0 Total Bilirubin 1.1 H AST 78 H ALT 74 H Alkaline Phosphatase 94 Total Protein 7.4 Albumin 3.5 Globulin 3.9 Albumin/Globulin Ratio 0.9 L PD MEDICAL DECISION MAKING - ED course ED course: 68-year-old gentleman few days out from laparoscopic cholecystectomy presents with high fever and some abdominal tenderness. Found to have abdominal abscess. Radiologist felt it was related to perforated appendicitis, but he had a ppendicitis in 08 so that is inconsistent. Dr. Acuña will see him, he had received Levaquin and Flagyl after blood cultures. We spoke with the surgeon at 4:49 PM. Departure - Departure Disposition: ED Transfer to [facility] Clinical Impression: Abdominal abscess Condition: Serious
[2019-01-21 15:50] LABS: BASOPHILS % (AUTO) 0.4 %; EOSINOPHILS % (AUTO) 0.1 %; HGB - HEMOGLOBIN 12.6 g/dL (14.0-18.0); LYMPHOCYTES % (AUTO) 14.1 %; MEAN CORPUSCULAR HEMOGLOBIN 31.7 pg (27.0-31.0); MEAN CORPUSCULAR VOLUME 93.5 fL (80.0-94.0); MONOCYTES % (AUTO) 11.9 %; NEUTROPHILS % (AUTO) 72.3 %; PLT - PLATELET COUNT 236 10^3/uL (130-450); RED BLOOD COUNT 3.97 10^6/uL (4.70-6.10); RED CELL DISTRIBUTION WIDTH 13.6 % (12.0-15.0); WHITE BLOOD COUNT 13.6 x10^3/uL (4.8-10.8)
[2019-01-21 15:54] LABS: ABNORMAL LYMPHS % (MANUAL) 0 %
[2019-01-21] MEDS ORDERED: metroNIDAZOLE 500 MG/100 ML 500 MG/100 ML BAG IV ONE (15:58)
[2019-01-21] MEDS ORDERED: levoFLOXacin 750 MG/150 ML 750 MG/150 ML BAG IV ONE (15:58)
[2019-01-21 16:03] LABS: ALBUMIN 3.5 g/dL (3.2-5.5); ALBUMIN/GLOBULIN RATIO 0.9 (1.0-2.2); BILIRUBIN,TOTAL 1.1 mg/dL (0.2-1.0); CREATININE 1.2 mg/dL (0.6-1.2); TOTAL PROTEIN 7.4 g/dL (6.7-8.2)
[2019-01-21 16:17] LABS: BAND NEUTROPHILS % (MANUAL) 11 %; DIFFERENTIAL COMMENT MANUAL DIFFERENTIAL; LYMPHOCYTES % (MANUAL) 14 %; MONOCYTES # (MANUAL) 0.8 10^3/uL (0.0-1.0); PLATELET ESTIMATE, MANUAL NORMAL (130-450,000) (NORMAL); PLATELET MORPHOLOGY NORMAL APPEARANCE (NORMAL); RBC MORPHOLOGY (MULTIPLE) NORMAL APPEARANCE (NORMAL)
--- NOTE | 2019-01-21 16:32 | XRAY Report ---
Reason: fever cough Procedure Date: 01/21/2019 Accession Number: [id number] / [id number] Procedure: XR - Chest 2 View X-Ray CPT Code: 82585 Final Report FULL RESULT: EXAM: CHEST RADIOGRAPHY EXAM DATE: 01/21/2019 04:10 PM. CLINICAL HISTORY: Fever and cough. COMPARISON: None.. TECHNIQUE: 2 views. FINDINGS: Lungs/Pleura: No focal opacities evident. No pleural effusion. No pneumothorax. Normal volumes. Medial right hemidiaphragm eventration. Mediastinum: Heart and mediastinal contours are unremarkable. Other: None. IMPRESSION: No radiographic evidence of acute cardiopulmonary disease. RADIA
[2019-01-21 16:40] LABS: BILIRUBIN,URINE NEGATIVE (NEGATIVE); GLUCOSE, URINE (UA) NEGATIVE (NEGATIVE); KETONES,URINE (UA) NEGATIVE (NEGATIVE); LEUKOCYTE ESTERASE, URINE NEGATIVE (NEGATIVE); NITRITE,URINE NEGATIVE (NEGATIVE); OCCULT BLOOD,URINE NEGATIVE (NEGATIVE); PH,URINE 5.5 PH (5.0-7.5); PROTEIN,URINE NEGATIVE (NEGATIVE); UROBILINOGEN,URINE 0.2 (NORMAL) E.U./dL (NORMAL)
[2019-01-21 16:45] LABS: CLARITY,URINE CLEAR (CLEAR)
--- NOTE | 2019-01-21 16:45 | CT Report ---
Reason: Postoperative fever status post cholecystectomy Procedure Date: 01/21/2019 Accession Number: [id number] / [id number] Procedure: CT - Abdomen/Pelvis W CPT Code: Final Report FULL RESULT: EXAM: CT ABDOMEN AND PELVIS WITH CONTRAST EXAM DATE: 01/21/2019 03:56 PM. CLINICAL HISTORY: Postoperative fever status post cholecystectomy. COMPARISONS: ABDOMEN US LIMITED 01/16/2019 ABDOMEN/PELVIS W/O 07/12/2018 TECHNIQUE: Routine helical CT imaging was performed through the abdomen and pelvis. IV contrast: OPTI 320 100ML. Enteric contrast: No. Reconstructions: Coronal and sagittal. In accordance with CT protocol optimization, one or more of the following dose reduction techniques were utilized for this exam: automated exposure control, adjustment of mA and/or KV based on patient size, or use of iterative reconstructive technique. FINDINGS: Lung Bases: Stable fluid attenuation right pericardial cyst measuring 6.8 cm. No pleural effusion or pneumothorax. Liver: Stable. Gallbladder/Bile Ducts: Moderate stranding/inflammation of the gallbladder fossa consistent with recent cholecystectomy. Spleen: Stable. Pancreas: Stable. Adrenal Glands: Stable. Kidneys: Stable. No hydronephrosis or hydroureter. Peritoneal Cavity/Bowel: There is a complex fluid collection spanning approximately 6 cm with surrounding mesenteric inflammation adjacent to the cecum in the right lower quadrant - presumed ruptured appendicitis. A few shotty regional lymph nodes are noted. There is no free air. Mild retained stool in the colon. Few scattered diverticula without evidence for active diverticulitis. Pelvic Organs: The bladder and visualized pelvic organs are grossly unremarkable. Vasculature: Scant atherosclerotic calcifications affiliated with the aorta and visceral arteries. There is no aneurysmal dilation. Bones: Multilevel degenerative changes in the lumbar spine. IMPRESSION: 1. Findings consistent with ruptured appendicitis and loculated abscess formation - spanning 6 cm. 2. Surgical changes from recent cholecystectomy. 3. Stable simple pericardial cyst (6.8 cm). RADIA The above call report findings critical results were discussed with Bereket Black by Dr. Angeles Luther at 04:43 PM on 01/21/2019.
[2019-01-21 16:52] LABS: BACTERIA,URINE None Seen /HPF (None Seen); CASTS, URINE 0-2 Hyaline Casts /LPF; RBC,URINE None Seen /HPF (0-5); SQUAMOUS EPITHELIAL CELL,UR RARE Squamous (<= Few)
--- NOTE | 2019-01-21 17:52 | HISTORY & PHYSICAL EXAMINATION ---
HPI - Admitted From Admitted from: ED (Patient (Laparoscopic cholecystectomy on the . On or about the next day started to have fevers. He does have abdominal pain, but does not feel like it is in an inappropriate amount for being postoperative. He says that is less than it was preoperative with the gallstones. He also notes a cough. He was sent here by the surgeon for further work-up including but not limited to blood cultures and a CAT scan.)) - History Obtained From History obtained from: Patient Exam limitations: No limitations - History of Present Illness Severity at the worst: reports: Mild, Moderate Pain Quality: reports: Cramping Timing: reports: Other (Began 5 days post-op lap [place]) Associated symptoms: reports: Diaphoresis, Nausea, General Weakness PMH/PSH - Past Medical History Cardiovascular: positive: Hypertension, High cholesterol Respiratory: positive: None Endocrine/Autoimmune: positive: Type 2 diabetes, HyPOthyroidism GI: positive: GERD, Colon polyps : positive: None HEENT: positive: None Psych: positive: None Musculoskeletal: positive: Osteoarthritis, Gout Derm: positive: None MRSA Hx?: No - Past Surgical History General: positive: Cholecystectomy (Lap [place] 01/16/19), Appendectomy, Colonoscopy Ortho: positive: Shoulder arthroplasty, Carpal Tunnel surgery, Other Social & Family Hx - Social History Does the pt smoke?: No Smoking Status: Never smoker Does the pt drink ETOH?: Yes - POLST Patient has POLST: No Meds/Allgy - Home Medications Home Medications: Ambulatory Orders Medication Instructions Recorded Confirmed Allopurinol [Zyloprim] 300 mg ORAL DAILY 01/16/14 01/21/19 Hydrochlorothiazide 25 mg PO DAILY 01/16/14 01/21/19 Levothyroxine [Synthroid] 100 mcg PO DAILY 01/16/14 01/21/19 Metformin HCl [Glucophage Xr] 500 mg ORAL DAILY 01/09/19 01/21/19 Amitriptyline HCl 25 mg PO QPM 01/21/19 01/21/19 Atorvastatin Calcium 40 mg PO QPM 01/21/19 01/21/19 Gabapentin 300 mg PO TID 01/21/19 01/21/19 Lisinopril 20 mg PO DAILY 01/21/19 01/21/19 Metformin HCl [Metformin HCl ER] 1,000 mg PO QPM 01/21/19 01/21/19 Omeprazole 20 mg PO QDDINNER 01/21/19 01/21/19 - Allergies Allergies/Adverse Reactions: Allergies Allergy/AdvReac Type Severity Reaction Status Date / Time Penicillins Allergy Rash Verified 01/21/19 15:19 Review of Systems - Constitutional Constitutional: reports: Fever, Chills, Poor appetite, Diaphoresis - Gastrointestinal Gastrointestinal: reports: Abdominal pain, Nausea Exam - Vital Signs Reviewed Vital Signs: Yes Vital Signs: Vital Signs x48h Temp Pulse Resp BP Pulse Ox 01/21/19 16:44 38.1 C H 92 20 112/51 L 92 01/21/19 16:27 96 20 175/69 H 93 01/21/19 15:19 39.6 C H 106 H 16 127/67 93 - Physical Exam General Appearance: positive: Alert Eyes Bilateral: positive: Normal inspection Respiratory: positive: Chest non-tender, No respiratory distress, Breath sounds nml Cardiovascular: positive: Regular rate & rhythm Abdomen: positive: Tenderness (Right lower abdominal pain) Results - Lab Results Lab results reviewed: Yes Fish Bones: 01/21/19 15:40 01/21/19 15:40 Other Lab Results: Lab Results x24hrs 01/21/19 01/21/19 01/21/19 Range/Units 16:25 15:40 15:40 WBC (4.8-10.8) x10^3/uL RBC (4.70-6.10) 10^6/uL Hgb (14.0-18.0) g/dL Hct (42.0-52.0) % MCV (80.0-94.0) fL MCH (27.0-31.0) pg MCHC (32.0-36.0) g/dL RDW (12.0-15.0) % Plt Count (130-450) 10^3/uL MPV (7.4-11.4) fL Neut # (Auto) Lymph # (Auto) [place] # (Auto) Eos # (Auto) Baso # (Auto) Absolute Nucleated RBC Total Counted Band Neuts % (Manual) (0 - 10) % Reactive Lymphs % (Man) % Abnorm Lymph % (Manual) % Nucleated RBC % Neutrophils # (Manual) (1.5-6.6) 10^3/uL Lymphocytes # (Manual) (1.5-3.5) 10^3/uL Monocytes # (Manual) (0.0-1.0) 10^3/uL Eosinophils # (Manual) (0-0.7) 10^3/uL Basophils # (Manual) (0-0.1) 10^3/uL Differential Comment Manual Slide Review Platelet Estimate (NORMAL) Platelet Morphology (NORMAL) RBC Morph Micro Appear (NORMAL) Sodium 133 L (135-145) mmol/L Potassium 3.6 (3.5-5.0) mmol/L Chloride 94 L (101-111) mmol/L Carbon Dioxide 25 (21-32) mmol/L Anion Gap 14.0 H (6-13) BUN 19 (6-20) mg/dL Creatinine 1.2 (0.6-1.2) mg/dL Estimated GFR (MDRD) 61 L (>89) Glucose 131 H (70-100) mg/dL Lactic Acid 2.7 H (0.5-2.2) mmol/L Calcium 9.0 (8.5-10.3) mg/dL Total Bilirubin 1.1 H (0.2-1.0) mg/dL AST 78 H (10-42) IU/L ALT 74 H (10-60) IU/L Alkaline Phosphatase 94 (42-121) IU/L Total Protein 7.4 (6.7-8.2) g/dL Albumin 3.5 (3.2-5.5) g/dL Globulin 3.9 (2.1-4.2) g/dL Albumin/Globulin Ratio 0.9 L (1.0-2.2) Urine Color YELLOW Urine Clarity CLEAR (CLEAR) Urine pH 5.5 (5.0-7.5) PH Ur Specific [place] 1.010 (1.002-1.030) Urine Protein NEGATIVE (NEGATIVE) mg/dL Urine Glucose (UA) NEGATIVE (NEGATIVE) mg/dL Urine Ketones NEGATIVE (NEGATIVE) mg/dL Urine Occult Blood NEGATIVE (NEGATIVE) Urine Nitrite NEGATIVE (NEGATIVE) Urine Bilirubin NEGATIVE (NEGATIVE) Urine Urobilinogen 0.2 (NORMAL) (NORMAL) E.U./dL Ur Leukocyte Esterase NEGATIVE (NEGATIVE) Urine RBC None Seen (0-5) /HPF Urine WBC 0-3 (0-3) /HPF Ur Squamous Epith Cells RARE Squamous (<= Few) Urine Bacteria None Seen (None Seen) /HPF Urine Casts 0-2 Hyaline Casts /LPF Urine Culture Comments NOT INDICATED 01/21/19 Range/Units 15:40 WBC 13.6 H (4.8-10.8) x10^3/uL RBC 3.97 L (4.70-6.10) 10^6/uL Hgb 12.6 L (14.0-18.0) g/dL Hct 37.1 L (42.0-52.0) % MCV 93.5 (80.0-94.0) fL MCH 31.7 H (27.0-31.0) pg MCHC 34.0 (32.0-36.0) g/dL RDW 13.6 (12.0-15.0) % Plt Count 236 (130-450) 10^3/uL MPV 9.0 (7.4-11.4) fL Neut # (Auto) Not Reportable Lymph # (Auto) Not Reportable [place] # (Auto) Not Reportable Eos # (Auto) Not Reportable Baso # (Auto) Not Reportable Absolute Nucleated RBC Not Reportable Total Counted 100 Band Neuts % (Manual) 11 H (0 - 10) % Reactive Lymphs % (Man) 1 % Abnorm Lymph % (Manual) 0 % Nucleated RBC % Not Reportable Neutrophils # (Manual) 10.7 H (1.5-6.6) 10^3/uL Lymphocytes # (Manual) 2.0 (1.5-3.5) 10^3/uL Monocytes # (Manual) 0.8 (0.0-1.0) 10^3/uL Eosinophils # (Manual) 0.0 (0-0.7) 10^3/uL Basophils # (Manual) 0.0 (0-0.1) 10^3/uL Differential Comment MANUAL DIFFERENTIAL Manual Slide Review Indicated Platelet Estimate NORMAL (130-450,000) (NORMAL) Platelet Morphology NORMAL APPEARANCE (NORMAL) RBC Morph Micro Appear NORMAL APPEARANCE (NORMAL) Sodium (135-145) mmol/L Potassium (3.5-5.0) mmol/L Chloride (101-111) mmol/L Carbon Dioxide (21-32) mmol/L Anion Gap (6-13) BUN (6-20) mg/dL Creatinine (0.6-1.2) mg/dL Estimated GFR (MDRD) (>89) Glucose (70-100) mg/dL Lactic Acid (0.5-2.2) mmol/L Calcium (8.5-10.3) mg/dL Total Bilirubin (0.2-1.0) mg/dL AST (10-42) IU/L ALT (10-60) IU/L Alkaline Phosphatase (42-121) IU/L Total Protein (6.7-8.2) g/dL Albumin (3.2-5.5) g/dL Globulin (2.1-4.2) g/dL Albumin/Globulin Ratio (1.0-2.2) Urine Color Urine Clarity (CLEAR) Urine pH (5.0-7.5) PH Ur Specific [place] (1.002-1.030) Urine Protein (NEGATIVE) mg/dL Urine Glucose (UA) (NEGATIVE) mg/dL Urine Ketones (NEGATIVE) mg/dL Urine Occult Blood (NEGATIVE) Urine Nitrite (NEGATIVE) Urine Bilirubin (NEGATIVE) Urine Urobilinogen (NORMAL) E.U./dL Ur Leukocyte Esterase (NEGATIVE) Urine RBC (0-5) /HPF Urine WBC (0-3) /HPF Ur Squamous Epith Cells (<= Few) Urine Bacteria (None Seen) /HPF Urine Casts /LPF Urine Culture Comments - Diagnostic Imaging Results Diagnostic Imaging Results: positive: Final report reviewed (Abscess collection Right gutter above the pelvic brim.) Sepsis Event Note (H) - Evaluation Current Stage of Sepsis: Sepsis Possible source of Sepsis: positive: GI tract/intra-abdominal (5 days s/p lap [place]) Impression/Plan - Problem List Problem List: Intra-abdominal abscess Lap drainage
--- NOTE | 2019-01-21 18:02 | ANESTHESIA ---
Pre-Anesthesia VS, & Labs - Diagnosis intra-abdominal abscess - Procedure laparoscopy, possible open exploration for abscess drainage Vital Signs: Temp Pulse Resp BP Pulse Ox 38.1 C H 92 20 112/51 L 92 01/21/19 16:44 01/21/19 16:44 01/21/19 16:44 01/21/19 16:44 01/21/19 16:44 Height 6 ft Weight (kg) 127.2 kg Body Mass Index 38.0 - NPO >8 hours - Lab Results Current Lab Results: Laboratory Tests 01/21/19 15:40: Lactic Acid 2.7 H 01/21/19 15:40: Sodium 133 L, Potassium 3.6, Chloride 94 L, Carbon Dioxide 25, Anion Gap 14.0 H, BUN 19, Creatinine 1.2, Estimated GFR (MDRD) 61 L, Glucose 131 H, Calcium 9.0, Total Bilirubin 1.1 H, AST 78 H, ALT 74 H, Alkaline Phosphatase 94, Total Protein 7.4, Albumin 3.5, Globulin 3.9, Albumin/Globulin Ratio 0.9 L 01/21/19 15:40: WBC 13.6 H, RBC 3.97 L, Hgb 12.6 L, Hct 37.1 L, MCV 93.5, MCH 31.7 H, MCHC 34.0, RDW 13.6, Plt Count 236, MPV 9.0, Neut # (Auto) Not Reportable, Lymph # (Auto) Not Reportable, [place] # (Auto) Not Reportable, Eos # (Auto) Not Reportable, Baso # (Auto) Not Reportable, Absolute Nucleated RBC Not Reportable, Total Counted 100, Band Neuts % (Manual) 11 H, Reactive Lymphs % (Man) 1, Abnorm Lymph % (Manual) 0, Nucleated RBC % Not Reportable, Neutrophils # (Manual) 10.7 H, Lymphocytes # (Manual) 2.0, Monocytes # (Manual) 0.8, Eosinophils # (Manual) 0.0, Basophils # (Manual) 0.0, Differential Comment MANUAL DIFFERENTIAL, Manual Slide Review Indicated, Platelet Estimate NORMAL (130-450,000), Platelet Morphology NORMAL APPEARANCE, RBC Morph Micro Appear NORMAL APPEARANCE Fish Bones: 01/21/19 15:40 01/21/19 15:40 Home Medications and Allergies Home Medications: Ambulatory Orders Amitriptyline HCl 25 mg PO QPM 01/21/19 Atorvastatin Calcium 40 mg PO QPM 01/21/19 Gabapentin 300 mg PO TID 01/21/19 Lisinopril 20 mg PO DAILY 01/21/19 Metformin HCl [Metformin HCl ER] 1,000 mg PO QPM 01/21/19 Omeprazole 20 mg PO QDDINNER 01/21/19 Allopurinol [Zyloprim] 300 mg ORAL DAILY 01/16/14 Hydrochlorothiazide 25 mg PO DAILY 01/16/14 Levothyroxine [Synthroid] 100 mcg PO DAILY 01/16/14 Metformin HCl [Glucophage Xr] 500 mg ORAL DAILY 01/09/19 Amitriptyline HCl 25 mg PO QPM 01/21/19 Atorvastatin Calcium 40 mg PO QPM 01/21/19 Gabapentin 300 mg PO TID 01/21/19 Lisinopril 20 mg PO DAILY 01/21/19 Metformin HCl [Metformin HCl ER] 1,000 mg PO QPM 01/21/19 Omeprazole 20 mg PO QDDINNER 01/21/19 Allergies/Adverse Reactions: Allergies Allergy/AdvReac Type Severity Reaction Status Date / Time Penicillins Allergy Rash Verified 01/21/19 15:19 Anes History & Medical History - Anesthetic History Anesthesia Complications: reports: No previous complications - Medical History Cardiovascular: reports: Hypertension, High cholesterol Pulmonary: reports: None Gastrointestinal: reports: GERD, Colon polyps Urinary: reports: None Musculoskeletal: reports: Osteoarthritis, Gout Endocrine/Autoimmune: reports: Type 2 diabetes, HyPOthyroidism Skin: reports: None Smoking Status: Never smoker - Surgical History General: Cholecystectomy (Lap [place] 01/16/19), Appendectomy, Colonoscopy Orthopedic: Shoulder arthroplasty, Carpal Tunnel surgery, Other Exam General: Alert Dental: WNL Mouth Opening: Greater than 4 Fingerbreadths Mallampati classification: II Thyromental Distance: greater than 6 cm Respiratory: Lungs clear Cardiovascular: Regular rate, Normal S1, Normal S2 Mental/Cognitive Status: Alert/Oriented X3 Plan Anesthesia Type: General Consent for Procedure(s) Verified and Reviewed: Yes Code Status: Attempt Resuscitation ASA classification: 3-Severe systemic disease Is this case an emergency?: Yes
[2019-01-21] MEDS ORDERED: ceFAZolin 1 GM VIAL ONE (18:22)
[2019-01-21] MEDS ORDERED: LIDOCAINE 1%-EPI 1:100000 20 ML MDV ONE (18:23)
[2019-01-21] MEDS ORDERED: ENOXAPARIN 30 MG/0.3 ML SYRINGE SUBQ STA (18:44)
[2019-01-21] MEDS ORDERED: LIDOCAINE-MPF 2% 5 ML VIAL IM ONE (18:55)
[2019-01-21] MEDS ORDERED: NEOSTIGMINE 1 MG/1 ML 10 ML MDV IVP ONE (18:55)
[2019-01-21] MEDS ORDERED: PHENYLEPHRINE 50 MG/5 ML VIAL IV ONE (18:55)
[2019-01-21] MEDS ORDERED: ONDANSETRON 4 MG/2 ML VIAL IVP ONE (18:55)
[2019-01-21] MEDS ORDERED: fentaNYL 100 MCG/2 ML VIAL IVP ONE (18:55)
[2019-01-21] MEDS ORDERED: ROCURONIUM 50 MG/5 ML VIAL IVP ONE (18:55)
[2019-01-21] MEDS ORDERED: LACTATED RINGERS 1,000 ML IV ONE ×2 (18:55→19:55)
[2019-01-21] MEDS ORDERED: MIDAZOLAM 2 MG/2 ML VIAL IVP ONE (18:55)
[2019-01-21] MEDS ORDERED: PROPOFOL 200 MG/20 ML VIAL IVP ONE (18:55)
[2019-01-21] MEDS ORDERED: GLYCOPYRROLATE 1 MG/5 ML VIAL IVP ONE (18:55)
[2019-01-21] MEDS ORDERED: LIDOCAINE 1%-EPI 1:100000 20 ML MDV SUBQ ONE ×2 (19:46)
[2019-01-21] MEDS ORDERED: ceFAZolin 1 GM VIAL IR ONE (19:56)
--- NOTE | 2019-01-21 21:08 | IMMEDIATE POSTOPERATIVE NOTE ---
Immediate Postoperative Note - Procedure Note Procedure Date: 01/21/19 Pre-Op Diagnosis: Intra-abdominal abscess (post-op) Procedure: Lap exploratory Post-Op Diagnosis: Phlegmon. No purulence. Primary Surgeon: [employer] Sales Manager: Magdalene Anesthesia Type: General ET tube Findings: Phlegmonous region of inflammation R lateral gutter Complications: No complications Estimated Blood Loss (in cc): 5 Plan of Care: Continue IV Levoquin and Flagyl Closely monitor See order set
[2019-01-21] MEDS ORDERED: ONDANSETRON 4 MG/2 ML VIAL IVP PRN (21:11)
[2019-01-21] MEDS: HYDROmorphone 1 MG/ML CARPUJECT ONE ×2 (21:16→21:23)
--- NOTE | 2019-01-21 21:23 | Discharge Plan ---
Discharge Plan Problem Reviewed?: Yes Disposition: Home, Self Care Condition: Stable Diet: Regular Activity Restrictions: No lifting of more than 20# x 1mo Shower Restrictions: No Driving Restrictions: Yes (1 week) Weight Bearing: Full Weight No Smoking: If you smoke, Please STOP! Call for help. Follow-up with: Angeles Landry PA-C [Primary Care Provider] -
[2019-01-21] MEDS ORDERED: HYDROmorphone 0.5 MG/0.5 ML SYRINGE ONE (21:41)
[2019-01-21] MEDS: ACETAMINOPHEN 325 MG TABLET PO PRN (22:44)
[2019-01-21] MEDS: oxyCODONE 5 MG TABLET PO PRN (22:45)
[2019-01-22] MEDS: LACTATED RINGERS 1,000 ML IV SCH ×3 (01:03→23:48)
--- NOTE | 2019-01-22 01:27 | OPERATIVE REPORT ---
DATE OF SERVICE: 01/21/2019 Physician: Tra Acuña DO PREOPERATIVE DIAGNOSIS/INDICATIONS: Intraabdominal abscess/phlegmon. POSTOPERATIVE DIAGNOSIS: Phlegmon, no visible sign of purulence. PROCEDURE: Laparoscopic exploratory and drainage of right lateral phlegmon. SURGEON: Tra Acuña M.D. PROFILING MACHINE SETUP OPERATOR: Doris Shin CRNA. TYPE OF ANESTHESIA: General endotracheal tube with local assist. ESTIMATED BLOOD LOSS: 5 mL. FINDINGS: There was no actual abscess or loculated pocket of purulence that I could find. The area of phlegmon; however, showed acute inflammatory changes, and I was able to evacuate some phlegmonous material and placed a 10 mm Hardy-Gallo drain. COMPLICATIONS: None. CONDITION: Stable upon transport to recovery. HISTORY: The patient is a 68-year-old white male, 4 days status post uncomplicated laparoscopic chol ecystectomy for severe acute cholecystitis/cholelithiasis. He apparently began to develop a fever fo llowing discharge and has progressed to chills and sweats associated with this. He came to the [facility] today, and I felt he needed to be imaged and have blood work drawn, so he was sent to the emergency department for that. He was found to have a leukocytosis and a CT scan indicating a phlegmonous pos sible abscess loculated area in the right lower quadrant, resembling a ruptured appendicitis. The [facility], however, has already had a ruptured appendicitis a number of years ago and underwent an open a ppendectomy for that. DESCRIPTION OF PROCEDURE: After informed consent was obtained, the patient was taken to the operatin g room, and under the above-mentioned anesthetic, prepped and draped in the usual sterile manner. An intraumbilical incision was utilized through the prior umbilical incision to gain entrance into the abdominal cavity. The Lui trocar was placed and secured in the usual fashion, and a 0.10 mm scope introduced. No obvious sign of purulence was identified and 3 additional 5 mm ports were placed, up per left quadrant, right upper quadrant, and suprapubic area to assist with mobilization of the bowel and omentum. The omentum in the liver bed was very densely adhered, and no evidence for purulence o n some minimal mobilization of this. The main area of inflammatory phlegmonous change was over in th e right lateral gutter area, above the pelvic brim, but again no purulent pus pocket was identified. After irrigation, and some more mobilization of this, I decided to place the drain, and this was bro ught out through the upper right quadrant incision. At this time, there was no bleeding or other nile dence of intraabdominal complication, and after a correct sponge and needle count was reported, the w orking ports were withdrawn under direct vision, and no bleeding was noted. The Lui trocar was wi thdrawn after the pneumoperitoneum was released, and the fascia closed with 2-0 Vicryl sutures. The skin margins were joined with undyed subcuticular 4-0 Monocryl, Dermabond over that, and the patient transported to recovery in stable condition. Of course, the drain was sewn in with 2-0 Ethilon and a ppropriately dressed. TD: 01/21/2019 21:23
[2019-01-22] MEDS: oxyCODONE 5 MG TABLET PO PRN ×2 (03:22→22:57)
[2019-01-22] MEDS: IBUPROFEN 600 MG TABLET PO PRN ×3 (03:23→22:57)
--- NOTE | 2019-01-22 12:05 | PROVIDER PROGRESS NOTE ---
Subjective - General Procedure Date: 01/21/19 Post Op Days: 1 Procedure Performed: Lap exploratory - Review of Systems Wound/Incisions: positive: Healing well, Other (TEJAS drain w/serosanguinous drainage) Drain Type: TEJAS Drain Output Description: serosanguinous Approximate mls Output: See nursing General: positive: Other (Improved after surgery. Nofurther fever,chills,diaphoresis) Pulmonary: positive: No symptoms Cardiovascular: positive: No symptoms Gastrointestinal: positive: No symptoms Genitourinary: positive: Retention (Had to be straight cathed x 1) Objective - Patient Data Reviewed Vital Signs: Yes Vital Signs: Vital Signs x48h Temp Pulse Resp BP Pulse Ox 01/22/19 09:45 36.4 C L 67 16 105/53 L 97 01/22/19 07:08 36.5 C 66 16 112/59 L 95 Weight: Weight 01/20/19 01/21/19 01/22/19 23:59 23:59 23:59 Weight (kg) 127.2 kg Intake & Output: Intake and Output Totals x24h 01/20/19 01/21/19 01/22/19 23:59 23:59 23:59 Intake Total 1250 1000 Output Total 5 700 Balance 1245 300 - Lab Results Lab Results: 01/21/19 15:40 01/21/19 15:40 Other Lab Results: Lab Results x24hrs 01/22/19 01/21/19 01/21/19 Range/Units 05:20 21:26 16:25 WBC (4.8-10.8) x10^3/uL RBC (4.70-6.10) 10^6/uL Hgb (14.0-18.0) g/dL Hct (42.0-52.0) % MCV (80.0-94.0) fL MCH (27.0-31.0) pg MCHC (32.0-36.0) g/dL RDW (12.0-15.0) % Plt Count (130-450) 10^3/uL MPV (7.4-11.4) fL Neut # (Auto) Lymph # (Auto) [place] # (Auto) Eos # (Auto) Baso # (Auto) Absolute Nucleated RBC Total Counted Band Neuts % (Manual) (0 - 10) % Reactive Lymphs % (Man) % Abnorm Lymph % (Manual) % Nucleated RBC % Neutrophils # (Manual) (1.5-6.6) 10^3/uL Lymphocytes # (Manual) (1.5-3.5) 10^3/uL Monocytes # (Manual) (0.0-1.0) 10^3/uL Eosinophils # (Manual) (0-0.7) 10^3/uL Basophils # (Manual) (0-0.1) 10^3/uL Differential Comment Manual Slide Review Platelet Estimate (NORMAL) Platelet Morphology (NORMAL) RBC Morph Micro Appear (NORMAL) Sodium (135-145) mmol/L Potassium (3.5-5.0) mmol/L Chloride (101-111) mmol/L Carbon Dioxide (21-32) mmol/L Anion Gap (6-13) BUN (6-20) mg/dL Creatinine (0.6-1.2) mg/dL Estimated GFR (MDRD) (>89) Glucose (70-100) mg/dL POC Whole Bld Glucose 120 H (70 - 100) mg/dL Lactic Acid 2.0 (0.5-2.2) mmol/L Calcium (8.5-10.3) mg/dL Total Bilirubin (0.2-1.0) mg/dL AST (10-42) IU/L ALT (10-60) IU/L Alkaline Phosphatase (42-121) IU/L Total Protein (6.7-8.2) g/dL Albumin (3.2-5.5) g/dL Globulin (2.1-4.2) g/dL Albumin/Globulin Ratio (1.0-2.2) Urine Color YELLOW Urine Clarity CLEAR (CLEAR) Urine pH 5.5 (5.0-7.5) PH Ur Specific [place] 1.010 (1.002-1.030) Urine Protein NEGATIVE (NEGATIVE) mg/dL Urine Glucose (UA) NEGATIVE (NEGATIVE) mg/dL Urine Ketones NEGATIVE (NEGATIVE) mg/dL Urine Occult Blood NEGATIVE (NEGATIVE) Urine Nitrite NEGATIVE (NEGATIVE) Urine Bilirubin NEGATIVE (NEGATIVE) Urine Urobilinogen 0.2 (NORMAL) (NORMAL) E.U./dL Ur Leukocyte Esterase NEGATIVE (NEGATIVE) Urine RBC None Seen (0-5) /HPF Urine WBC 0-3 (0-3) /HPF Ur Squamous Epith Cells RARE Squamous (<= Few) Urine Bacteria None Seen (None Seen) /HPF Urine Casts 0-2 Hyaline Casts /LPF Urine Culture Comments NOT INDICATED 01/21/19 01/21/19 01/21/19 Range/Units 15:40 15:40 15:40 WBC 13.6 H (4.8-10.8) x10^3/uL RBC 3.97 L (4.70-6.10) 10^6/uL Hgb 12.6 L (14.0-18.0) g/dL Hct 37.1 L (42.0-52.0) % MCV 93.5 (80.0-94.0) fL MCH 31.7 H (27.0-31.0) pg MCHC 34.0 (32.0-36.0) g/dL RDW 13.6 (12.0-15.0) % Plt Count 236 (130-450) 10^3/uL MPV 9.0 (7.4-11.4) fL Neut # (Auto) Not Reportable Lymph # (Auto) Not Reportable [place] # (Auto) Not Reportable Eos # (Auto) Not Reportable Baso # (Auto) Not Reportable Absolute Nucleated RBC Not Reportable Total Counted 100 Band Neuts % (Manual) 11 H (0 - 10) % Reactive Lymphs % (Man) 1 % Abnorm Lymph % (Manual) 0 % Nucleated RBC % Not Reportable Neutrophils # (Manual) 10.7 H (1.5-6.6) 10^3/uL Lymphocytes # (Manual) 2.0 (1.5-3.5) 10^3/uL Monocytes # (Manual) 0.8 (0.0-1.0) 10^3/uL Eosinophils # (Manual) 0.0 (0-0.7) 10^3/uL Basophils # (Manual) 0.0 (0-0.1) 10^3/uL Differential Comment MANUAL DIFFERENTIAL Manual Slide Review Indicated Platelet Estimate NORMAL (130-450,000) (NORMAL) Platelet Morphology NORMAL APPEARANCE (NORMAL) RBC Morph Micro Appear NORMAL APPEARANCE (NORMAL) Sodium 133 L (135-145) mmol/L Potassium 3.6 (3.5-5.0) mmol/L Chloride 94 L (101-111) mmol/L Carbon Dioxide 25 (21-32) mmol/L Anion Gap 14.0 H (6-13) BUN 19 (6-20) mg/dL Creatinine 1.2 (0.6-1.2) mg/dL Estimated GFR (MDRD) 61 L (>89) Glucose 131 H (70-100) mg/dL POC Whole Bld Glucose (70 - 100) mg/dL Lactic Acid 2.7 H (0.5-2.2) mmol/L Calcium 9.0 (8.5-10.3) mg/dL Total Bilirubin 1.1 H (0.2-1.0) mg/dL AST 78 H (10-42) IU/L ALT 74 H (10-60) IU/L Alkaline Phosphatase 94 (42-121) IU/L Total Protein 7.4 (6.7-8.2) g/dL Albumin 3.5 (3.2-5.5) g/dL Globulin 3.9 (2.1-4.2) g/dL Albumin/Globulin Ratio 0.9 L (1.0-2.2) Urine Color Urine Clarity (CLEAR) Urine pH (5.0-7.5) PH Ur Specific [place] (1.002-1.030) Urine Protein (NEGATIVE) mg/dL Urine Glucose (UA) (NEGATIVE) mg/dL Urine Ketones (NEGATIVE) mg/dL Urine Occult Blood (NEGATIVE) Urine Nitrite (NEGATIVE) Urine Bilirubin (NEGATIVE) Urine Urobilinogen (NORMAL) E.U./dL Ur Leukocyte Esterase (NEGATIVE) Urine RBC (0-5) /HPF Urine WBC (0-3) /HPF Ur Squamous Epith Cells (<= Few) Urine Bacteria (None Seen) /HPF Urine Casts /LPF Urine Culture Comments - Current Medications Current Medications: Current Medications Generic Name Dose Route Start Last Admin Trade Name Freq PRN Reason Stop Dose Admin Acetaminophen 650 mg 01/21/19 21:11 01/21/19 22:44 Tylenol PO 650 mg Q6H PRN Administration Pain or Fever > 38C (100.4F) Lactated Ringer's 1,000 mls @ 100 mls/hr 01/21/19 23:45 01/22/19 11:47 Lr IV 100 mls/hr .Q10H DAYAMI Administration Ibuprofen 600 mg 01/21/19 21:11 01/22/19 03:23 Motrin PO 600 mg Q6HR PRN Administration PAIN Oxycodone HCl 5 mg 01/21/19 21:11 01/22/19 03:22 Roxicodone PO 5 mg Q4HR PRN Administration PAIN ABX Reporting Has patient been on IV antibiotics over the past 48 hours?: Yes Impression/Plan - Problem List Problem List: POD#1 s/p lap exploratory and drainage phlegmon RLQ Much improved. Will discharge at 1415 w/drain and instructions Rx: Levaquin 750mgpo q/daily x 7 days Flagyl 500mg po tid x 7 days F/U as scheduled 01/29/19
[2019-01-22] MEDS: metroNIDAZOLE 500 MG/100 ML 500 MG/100 ML BAG IV SCH ×2 (12:13→20:16)
[2019-01-22] MEDS: levoFLOXacin 750 MG/150 ML 750 MG/150 ML BAG IV SCH (12:13)
[2019-01-22] MEDS ORDERED: SODIUM CHLORIDE FLUSH 0.9% 10 ML SYRINGE IVP PRN (15:47)
[2019-01-22] MEDS: ACETAMINOPHEN 325 MG TABLET PO PRN (15:52)
[2019-01-22] MEDS: SODIUM CHLORIDE FLUSH 0.9% 10 ML SYRINGE IVP SCH (18:00)
[2019-01-23] MEDS: metroNIDAZOLE 500 MG/100 ML 500 MG/100 ML BAG IV SCH ×2 (04:02→11:26)
[2019-01-23] MEDS: SODIUM CHLORIDE FLUSH 0.9% 10 ML SYRINGE IVP SCH ×2 (04:02→09:01)
[2019-01-23 05:15] LABS: BASOPHILS % (AUTO) 0.4 %; EOSINOPHILS # (AUTO) 0.1 10^3/uL (0.0-0.7); EOSINOPHILS % (AUTO) 1.4 %; HGB - HEMOGLOBIN 10.9 g/dL (14.0-18.0); LYMPHOCYTES # (AUTO) 1.3 10^3/uL (1.5-3.5); LYMPHOCYTES % (AUTO) 17.1 %; MEAN CORPUSCULAR HEMOGLOBIN 31.6 pg (27.0-31.0); MEAN CORPUSCULAR HGB CONC 33.3 g/dL (32.0-36.0); MEAN CORPUSCULAR VOLUME 94.8 fL (80.0-94.0); MEAN PLATELET VOLUME 8.8 fL (7.4-11.4); MONOCYTES # (AUTO) 0.8 10^3/uL (0.0-1.0); MONOCYTES % (AUTO) 10.6 %; NEUTROPHILS # (AUTO) 5.4 10^3/uL (1.5-6.6); NEUTROPHILS % (AUTO) 69.1 %; PLT - PLATELET COUNT 189 10^3/uL (130-450); RED BLOOD COUNT 3.45 10^6/uL (4.70-6.10); RED CELL DISTRIBUTION WIDTH 13.9 % (12.0-15.0); WHITE BLOOD COUNT 7.8 x10^3/uL (4.8-10.8)
[2019-01-23 05:24] LABS: ALBUMIN 2.5 g/dL (3.2-5.5); ALBUMIN/GLOBULIN RATIO 0.7 (1.0-2.2); BILIRUBIN,TOTAL 0.9 mg/dL (0.2-1.0); CALCIUM 8.8 mg/dL (8.5-10.3); TOTAL PROTEIN 6.2 g/dL (6.7-8.2)
[2019-01-23 07:50] VITALS: BP 125/65
[2019-01-23] MEDS ORDERED: POLYETHYLENE GLYCOL 3350 17 GM PACKET PO SCH (09:00)
--- NOTE | 2019-01-23 10:28 | PROVIDER PROGRESS NOTE ---
Subjective - General Admit Date: 01/22/19 Procedure Date: 01/21/19 Post Op Days: 2 Procedure Performed: Lap exploratory - Review of Systems Wound/Incisions: positive: Healing well, Other (TEJAS drain w/serosanguinous drainage) Drain Type: TEJAS Drain Output Description: serosanguinous Approximate mls Output: 20cc overnight General: positive: No symptoms (Patient feels well.), Other (Improved after surgery. Nofurther fever,chills,diaphoresis) Pulmonary: positive: No symptoms Cardiovascular: positive: No symptoms Gastrointestinal: positive: No symptoms Genitourinary: positive: Retention (Had to be straight cathed x 1) Objective - Patient Data Reviewed Vital Signs: Yes Vital Signs: Vital Signs x48h Temp Pulse Resp BP Pulse Ox 01/23/19 07:47 36.4 C L 71 19 125/65 95 Weight: Weight 01/21/19 01/22/19 01/23/19 23:59 23:59 23:59 Weight (kg) 127.2 kg Intake & Output: Intake and Output Totals x24h 01/21/19 01/22/19 01/23/19 23:59 23:59 23:59 Intake Total 1250 3135.000 460 Output Total 5 1430 320 Balance 1245 1705.000 140 - Lab Results Lab Results: 01/23/19 05:05 01/23/19 05:05 Other Lab Results: Lab Results x24hrs 01/23/19 01/23/19 01/23/19 Range/Units 05:05 05:05 05:05 WBC 7.8 (4.8-10.8) x10^3/uL RBC 3.45 L (4.70-6.10) 10^6/uL Hgb 10.9 L (14.0-18.0) g/dL Hct 32.7 L (42.0-52.0) % MCV 94.8 H (80.0-94.0) fL MCH 31.6 H (27.0-31.0) pg MCHC 33.3 (32.0-36.0) g/dL RDW 13.9 (12.0-15.0) % Plt Count 189 (130-450) 10^3/uL MPV 8.8 (7.4-11.4) fL Neut # (Auto) 5.4 (1.5-6.6) 10^3/uL Lymph # (Auto) 1.3 L (1.5-3.5) 10^3/uL [place] # (Auto) 0.8 (0.0-1.0) 10^3/uL Eos # (Auto) 0.1 (0.0-0.7) 10^3/uL Baso # (Auto) 0.0 (0.0-0.1) 10^3/uL Absolute Nucleated RBC 0.00 x10^3/uL Nucleated RBC % 0.0 /100WBC Sodium 138 (135-145) mmol/L Potassium 3.5 (3.5-5.0) mmol/L Chloride 100 L (101-111) mmol/L Carbon Dioxide 30 (21-32) mmol/L Anion Gap 8.0 (6-13) BUN 16 (6-20) mg/dL Creatinine 1.0 (0.6-1.2) mg/dL Estimated GFR (MDRD) 75 L (>89) Glucose 122 H (70-100) mg/dL Calcium 8.8 (8.5-10.3) mg/dL Total Bilirubin 0.9 (0.2-1.0) mg/dL AST 61 H (10-42) IU/L ALT 56 (10-60) IU/L Alkaline Phosphatase 79 (42-121) IU/L Lactate Dehydrogenase 98 (91-225) IU/L Total Protein 6.2 L (6.7-8.2) g/dL Albumin 2.5 L (3.2-5.5) g/dL Globulin 3.7 (2.1-4.2) g/dL Albumin/Globulin Ratio 0.7 L (1.0-2.2) - Current Medications Current Medications: Current Medications Generic Name Dose Route Start Last Admin Trade Name Freq PRN Reason Stop Dose Admin Acetaminophen 650 mg 01/21/19 21:11 01/22/19 15:52 Tylenol PO 650 mg Q6H PRN Administration Pain or Fever > 38C (100.4F) Lactated Ringer's 1,000 mls @ 100 mls/hr 01/21/19 23:45 01/22/19 23:48 Lr IV 100 mls/hr .Q10H DAYAMI Administration Levofloxacin 750 mg in 150 mls @ 100 mls/hr 01/22/19 12:00 01/22/19 14:37 Levaquin 750 Mg/150 Ml IV Infused Q24H DAYAMI Infusion Metronidazole 500 mg in 100 mls @ 100 mls/hr 01/22/19 12:00 01/23/19 05:02 Flagyl 500 Mg/100 Ml IV Infused Q8H DAYAMI Infusion Ibuprofen 600 mg 01/21/19 21:11 01/22/19 22:57 Motrin PO 600 mg Q6HR PRN Administration PAIN Oxycodone HCl 5 mg 01/21/19 21:11 01/22/19 22:57 Roxicodone PO 5 mg Q4HR PRN Administration PAIN Polyethylene Glycol 17 gm 01/23/19 09:00 01/23/19 09:01 Miralax PO 17 gm DAILY DAYAMI Administration Sodium Chloride 10 ml 01/22/19 17:00 01/23/19 09:01 Normal Saline Flush 0.9% IVP Not Given 0100,0900,1700 [facility] - Physical Exam Abdomen: positive: Non-tender (JPdrain removed and dressed) ABX Reporting Has patient been on IV antibiotics over the past 48 hours?: Yes Impression/Plan - Problem List Problem List: Sepsis resolved Dschg Rx Levaquin 750mg po q/daily x 7days Flagyl 500mg po tid x 7 days Follow up in office as scheduled
--- NOTE | 2019-01-23 10:32 | Discharge Plan ---
Discharge Plan Problem Reviewed?: Yes Disposition: Home, Self Care Condition: Good Prescriptions: levoFLOXacin [Levaquin] 750 mg PO QD #21 tablet metroNIDAZOLE [Flagyl] 500 mg PO Q8H #42 tablet Diet: Regular Activity Restrictions: No lifting of more than 20# x 1mo Shower Restrictions: No Driving Restrictions: Yes (1 week) Weight Bearing: Full Weight Instruction Topics: Laparotomy Exploratory, Tube Hardy Gallo Drainage Care No Smoking: If you smoke, Please STOP! Call for help. Follow-up with: Angeles Landry PA-C [Primary Care Provider] -
--- NOTE | 2019-01-23 10:35 | DISCHARGE SUMMARY ---
"Discharge Summary Admit Date: 01/21/19 Discharge Date: 01/23/19 Discharging Provider: ragini Condition at Discharge: Good Discharge Disposition: 01 Home, Self Care - DIAGNOSES Admission Diagnoses: Intra-abdominal abscess s/p lap [place] 01/17/19 Discharge Diagnoses with Status of Each Condition: Sepsis resolved - HPI History of Present Illness: Pt underwent uncomplicated lap [place] for mod-severe acute cholecystitis/lithiasis 01/17/19 and went home in [facility]. A couple of days later he began to suffer from fever/chills, nausea. He presented to my office 01/21/19 and I sent him to the ED for labs and imaging. CTrevealed a multil oculated phlegmon in the RLQ. He had a leukocytosis and LH of 2.7. I took him to surgery for exp laparoscopy where a phlegmonous area in the RLQ was identified but no pus pocket or purulence of any kind was encountered. I irrigated the area copiously w/abx saline and placed a 10mm TEJAS drain. His post op course was complicated by a fever spike but his LH is now normal. Heis now alert and feeling well. No abd tenderness. Incisions healing well. He wishes to go home and I feel this is reasonable although I will keep him on the Levaquin and Flagyl for a week. - CONSULTS | PROCEDURES Procedures: Exp laparoscopy and drainage - HOSPITAL COURSE Hospital Course: Seeabove - ALLERGIES Allergies/Adverse Reactions: Allergies Allergy/AdvReac Type Severity Reaction Status Date / Time Penicillins Allergy Rash Verified 01/21/19 15:19 - MEDICATIONS Home Medications: Ambulatory Orders Medication Instructions Recorded Confirmed Allopurinol [Zyloprim] 300 mg ORAL DAILY 01/16/14 01/21/19 Hydrochlorothiazide 25 mg PO DAILY 01/16/14 01/21/19 Levothyroxine [Synthroid] 100 mcg PO DAILY 01/16/14 01/21/19 Metformin HCl [Glucophage Xr] 500 mg ORAL DAILY 01/09/19 01/21/19 Amitriptyline HCl 25 mg PO QPM 01/21/19 01/21/19 Atorvastatin Calcium 40 mg PO QPM 01/21/19 01/21/19 Gabapentin 300 mg PO TID 01/21/19 01/21/19 Lisinopril 20 mg PO DAILY 01/21/19 01/21/19 Metformin HCl [Metformin HCl ER] 1,000 mg PO QPM 01/21/19 01/21/19 Omeprazole 20 mg PO QDDINNER 01/21/19 01/21/19 levoFLOXacin [Levaquin] 750 mg PO QD #21 tablet 01/22/19 metroNIDAZOLE [Flagyl] 500 mg PO Q8H #42 tablet 01/22/19 - PHYSICAL EXAM AT DISCHARGE General Appearance: positive: No acute distress, Alert Eyes Bilateral: positive: Normal inspection Respiratory: positive: Chest non-tender, No respiratory distress Abdomen: positive: Non-tender - LABS Result Diagrams: 01/23/19 05:05 01/23/19 05:05 - SEPSIS Current Stage of Sepsis: Sepsis Possible source of Sepsis: GI tract/intra-abdominal (5 days s/p lap [place]) - FOLLOW UP Follow Up: As scheduled - TIME SPENT Time Spent in Discharge (Minutes): 30"
[2019-01-23] MEDS: levoFLOXacin 750 MG/150 ML 750 MG/150 ML BAG IV SCH (12:33)
[2019-01-23] MEDS: ACETAMINOPHEN 325 MG TABLET PO PRN (15:08)
[2019-01-23] MEDS: oxyCODONE 5 MG TABLET PO PRN (15:09)
== END 2019-01-23 15:15 | disposition home or self-care (01) | DRG 871 ==
LOC: ED 15:17 → SDS 17:22 → MS3 20:18 → SDS 01-22 15:46 → MS3 01-22 15:47
PROVIDERS: ADMIT Surgery; ATTEND Surgery
PROC: 0W9G4ZZ Drainage of Peritoneal Cavity, Percutaneous Endoscopic Approach (ICD-10-PCS; principal; 2019-01-21 18:45)
DX: A41.9 Sepsis, unspecified organism (principal); K65.1 Peritoneal abscess; R33.9 Retention of urine, unspecified; I10 Essential (primary) hypertension; E11.9 Type 2 diabetes mellitus without complications; E78.00 Pure hypercholesterolemia, unspecified; E03.9 Hypothyroidism, unspecified; M19.90 Unspecified osteoarthritis, unspecified site; M10.9 Gout, unspecified; K21.9 Gastro-esophageal reflux disease without esophagitis; Z90.49 Acquired absence of other specified parts of digestive tract; Z88.0 Allergy status to penicillin; Z79.899 Other long term (current) drug therapy; Z79.84 Long term (current) use of oral hypoglycemic drugs; Z87.898 Personal history of other specified conditions
CPT/HCPCS: 36415; 49329; 51701; 71046; 74177; 80053; 81001; 81599; 83605; 83615; 85025; 87040; 99283; 99285; A9270; J1170; J1650; J7120; Q9967; 87086

== ENCOUNTER 2019-01-31 13:39 | Outpatient (CLI) | payer MEDICARE ==
[2019-01-31] MEDS ORDERED: IOVERSOL 320 100 ML VIAL IVP ONE ×2 (13:43→19:03)
[2019-01-31] MEDS ORDERED: IOVERSOL 320 50 ML VIAL ONE (13:43)
[2019-01-31] MEDS ORDERED: IOVERSOL 320 50 ML VIAL PO ONE (19:05)
--- NOTE | 2019-02-03 00:52 | CT Report ---
Reason: INTRAABDOMINAL ABSCESS Procedure Date: 01/31/2019 Accession Number: [id number] / [id number] Procedure: CT - Abdomen/Pelvis W CPT Code: Final Report FULL RESULT: EXAM: CT ABDOMEN AND PELVIS EXAM DATE: 01/31/2019 03:05 PM. CLINICAL HISTORY: Follow-up intra-abdominal abscess. COMPARISONS: ABDOMEN/PELVIS W/ 01/21/2019 3:51 PM. TECHNIQUE: Routine helical CT imaging was performed through the abdomen and pelvis. IV contrast: OPTI 320 90ML. Enteric contrast: Yes. Reconstructions: Coronal and sagittal. In accordance with CT protocol optimization, one or more of the following dose reduction techniques were utilized for this exam: automated exposure control, adjustment of mA and/or KV based on patient size, or use of iterative reconstructive technique. FINDINGS: Lung Bases: Mild bibasilar atelectasis. Pericardial cyst again seen on the right. Liver: Possible fatty infiltration. Gallbladder/Bile Ducts: Status post cholecystectomy. Minimal amount of residual fluid or hematoma in the gallbladder fossa. Gas previously seen in the gallbladder fossa has resolved. Spleen: Enlarged at 16.5 cm. Pancreas: Normal. Adrenal Glands: Normal. Kidneys: Small nonobstructing stones in both kidneys. No masses or hydronephrosis. Peritoneal Cavity/Bowel: No bowel obstruction seen. No free air. No ascites. Colonic diverticula without evidence of diverticulitis. Prominent yoni hepatis lymph nodes, unchanged. Residual inflammatory changes are seen in the right lower quadrant but no definite residual abscess is noted. Probable appendix measuring 10 mm. Pelvic Organs: Small amount of air in the urinary bladder. Has the patient been catheterized? The visualized pelvic organs are otherwise unremarkable. Vasculature: Mild atherosclerosis. No aortic aneurysm. Bones: Degenerative changes in the spine. Ankylosis of the sacroiliac joints. Other: None. IMPRESSION: 1. There is some residual inflammatory change in the right lower quadrant but no definite residual abscess is seen. 2. Probable borderline dilated appendix measuring 10 mm. 3. Fatty liver and splenomegaly. 4. Evolving post cholecystectomy changes are seen in the gallbladder fossa. 5. Small nonobstructing stones in both kidneys. RADIA
== END 2019-01-31 13:40 | disposition home or self-care (01) ==
LOC: DI 13:39
PROVIDERS: ATTEND Surgery
DX: K76.0 Fatty (change of) liver, not elsewhere classified (principal); R16.1 Splenomegaly, not elsewhere classified; N20.0 Calculus of kidney; Z90.49 Acquired absence of other specified parts of digestive tract
CPT/HCPCS: 74177; Q9967

== ENCOUNTER 2019-02-14 07:28 | Outpatient (CLI) | payer MEDICARE | END 2019-02-14 07:29 | disposition home or self-care (01) | LOC: LAB.S 07:28 | PROVIDERS: ATTEND Physician Assistant Medical | DX: M10.9 Gout, unspecified (principal) | CPT/HCPCS: 36415; 84550 ==

== ENCOUNTER 2019-02-28 07:05 | Outpatient (CLI) | payer MEDICARE ==
[2019-02-28 10:06] LABS: BASOPHILS % (AUTO) 0.6 %; EOSINOPHILS # (AUTO) 0.4 10^3/uL (0.0-0.7); EOSINOPHILS % (AUTO) 6.3 %; HGB - HEMOGLOBIN 13.4 g/dL (14.0-18.0); LYMPHOCYTES # (AUTO) 2.6 10^3/uL (1.5-3.5); LYMPHOCYTES % (AUTO) 39.1 %; MEAN CORPUSCULAR HEMOGLOBIN 31.1 pg (27.0-31.0); MEAN CORPUSCULAR HGB CONC 32.5 g/dL (32.0-36.0); MEAN CORPUSCULAR VOLUME 95.6 fL (80.0-94.0); MEAN PLATELET VOLUME 10.1 fL (7.4-11.4); MONOCYTES # (AUTO) 0.5 10^3/uL (0.0-1.0); MONOCYTES % (AUTO) 7.6 %; NEUTROPHILS # (AUTO) 3.1 10^3/uL (1.5-6.6); NEUTROPHILS % (AUTO) 46.1 %; PLT - PLATELET COUNT 178 10^3/uL (130-450); RED BLOOD COUNT 4.31 10^6/uL (4.70-6.10); RED CELL DISTRIBUTION WIDTH 14.7 % (12.0-15.0); WHITE BLOOD COUNT 6.7 x10^3/uL (4.8-10.8)
[2019-02-28 10:16] LABS: ALBUMIN 4.5 g/dL (3.2-5.5); ALBUMIN/GLOBULIN RATIO 1.4 (1.0-2.2); CALCIUM 9.7 mg/dL (8.5-10.3); TOTAL PROTEIN 7.8 g/dL (6.7-8.2)
== END 2019-02-28 07:06 | disposition home or self-care (01) ==
LOC: LAB.S 07:05
PROVIDERS: ATTEND Surgery
DX: K65.1 Peritoneal abscess (principal)
CPT/HCPCS: 36415; 80053; 85025

== ENCOUNTER 2019-04-04 07:00 | Outpatient (CLI) | payer MEDICARE ==
[2019-04-04 10:10] LABS: HEMOGLOBIN A1C 0.68 g/dL; HEMOGLOBIN A1C % 6.9 % (4.6-6.2)
[2019-04-04 10:27] LABS: ALBUMIN 4.3 g/dL (3.2-5.5); BILIRUBIN,DIRECT 0.2 mg/dL (0.1-0.5); TOTAL PROTEIN 7.2 g/dL (6.7-8.2)
== END 2019-04-04 07:01 | disposition home or self-care (01) ==
LOC: LAB.S 07:00
PROVIDERS: ATTEND Physician Assistant Medical
DX: E11.49 Type 2 diabetes mellitus with other diabetic neurological complication (principal); R74.8 Abnormal levels of other serum enzymes
CPT/HCPCS: 36415; 80076; 83036

== ENCOUNTER 2019-05-12 09:01 | Emergency (ER) | payer MEDICARE ==
[2019-05-12 09:38] LABS: BASOPHILS % (AUTO) 0.6 %; EOSINOPHILS # (AUTO) 0.4 10^3/uL (0.0-0.7); EOSINOPHILS % (AUTO) 6.5 %; HGB - HEMOGLOBIN 13.5 g/dL (14.0-18.0); LYMPHOCYTES # (AUTO) 1.7 10^3/uL (1.5-3.5); LYMPHOCYTES % (AUTO) 30.6 %; MEAN CORPUSCULAR HEMOGLOBIN 31.8 pg (27.0-31.0); MEAN CORPUSCULAR HGB CONC 33.8 g/dL (32.0-36.0); MEAN CORPUSCULAR VOLUME 94.1 fL (80.0-94.0); MEAN PLATELET VOLUME 9.1 fL (7.4-11.4); MONOCYTES # (AUTO) 0.4 10^3/uL (0.0-1.0); MONOCYTES % (AUTO) 6.5 %; NEUTROPHILS % (AUTO) 55.6 %; PLT - PLATELET COUNT 141 10^3/uL (130-450); RED BLOOD COUNT 4.25 10^6/uL (4.70-6.10); RED CELL DISTRIBUTION WIDTH 14.4 % (12.0-15.0); WHITE BLOOD COUNT 5.4 x10^3/uL (4.8-10.8)
[2019-05-12] MEDS ORDERED: KETOROLAC 30 MG/ML VIAL IVP STA (09:42)
[2019-05-12] MEDS ORDERED: SODIUM CHLORIDE 0.9% 1,000 ML IV ONE (09:42)
[2019-05-12] MEDS ORDERED: ONDANSETRON 4 MG/2 ML VIAL IVP STA (09:42)
--- NOTE | 2019-05-12 09:44 | ED Physician Documentation ---
PD HPI ABD PAIN - Stated complaint Stated Complaint: R SIDE BACK PX - Chief complaint Chief Complaint: Abd Pain - History obtained from History obtained from: Patient - History of Present Illness Timing - onset: Last night (69-year-old gentleman with kidney history of conservatively managed renal colic presents with pain, it was mild last night on the right side in the back. A more severe today radiating into the right groin. It is consistent with prior episode of renal colic. Denies fevers or chills. Of note he had a coworker that was sick, that person evidently tested negative for coronavirus but his boss is requesting that this patient be tested. He has no cough or fever and as such does not fit current criteria for testing.) Review of Systems Ten Systems: 10 systems reviewed and negative Constitutional: denies: Fever, Chills Cardiac: denies: Chest pain / pressure, Palpitations Respiratory: denies: Dyspnea, Cough PD PAST MEDICAL HISTORY - Past Medical History Cardiovascular: Hypertension, High cholesterol Respiratory: None Endocrine/Autoimmune: Type 2 diabetes, HyPOthyroidism GI: GERD, Colon polyps : None HEENT: None Psych: None Musculoskeletal: Osteoarthritis, Gout Derm: None - Past Surgical History Past Surgical History: Yes General: Cholecystectomy (Lap [place] 01/16/19), Appendectomy, Colonoscopy Ortho: Shoulder arthroplasty, Carpal Tunnel surgery, Other - Present Medications Home Medications: Ambulatory Orders Medication Instructions Recorded Confirmed Allopurinol [Zyloprim] 300 mg ORAL DAILY 01/16/14 01/21/19 Hydrochlorothiazide 25 mg PO DAILY 01/16/14 01/21/19 Levothyroxine [Synthroid] 100 mcg PO DAILY 01/16/14 01/21/19 Metformin HCl [Glucophage Xr] 500 mg ORAL DAILY 01/09/19 01/21/19 Amitriptyline HCl 25 mg PO QPM 01/21/19 01/21/19 Atorvastatin Calcium 40 mg PO QPM 01/21/19 01/21/19 Gabapentin 300 mg PO TID 01/21/19 01/21/19 Metformin HCl [Metformin HCl ER] 1,000 mg PO QPM 01/21/19 01/21/19 Omeprazole 20 mg PO QDDINNER 01/21/19 01/21/19 lisinopriL [Lisinopril] 20 mg PO DAILY 11/26/19 11/26/19 levoFLOXacin [Levaquin] 750 mg PO QD #21 tablet 01/22/19 metroNIDAZOLE [Flagyl] 500 mg PO Q8H #42 tablet 01/22/19 Hydrocodone/Acetaminophen 1 - 2 each PO Q6H PRN #14 tablet 05/12/19 [Hydrocodon-Acetaminophen 5-325] Tamsulosin [Flomax] 0.4 mg PO DAILY #14 capsule 05/12/19 - Allergies Allergies/Adverse Reactions: Allergies Allergy/AdvReac Type Severity Reaction Status Date / Time Penicillins Allergy Rash Verified 05/12/19 09:14 - Social History Does the pt smoke?: No Smoking Status: Never smoker Does the pt drink ETOH?: Yes - POLST Patient has POLST: No PD ED PE NORMAL - Vitals Vital signs reviewed: Yes - General General: Alert and oriented X 3 - Cardiac Cardiac: RRR, No murmur - Respiratory Respiratory: No respiratory distress, Clear bilaterally - Abdomen Abdomen: Normal bowel sounds, Soft, Non tender - Back Back: No CVA TTP - Derm Derm: Normal color, Warm and dry - Extremities Extremities: No edema, No calf tenderness / cord - Neuro Neuro: Alert and oriented X 3, Normal speech Results - Vitals Vitals: Vital Signs - 24 hr 05/12/19 05/12/19 09:09 10:39 Temperature 36.7 C Heart Rate 68 64 Respiratory 20 14 Rate Blood Pressure 147/75 H 139/61 H O2 Saturation 98 98 Oxygen O2 Source Room air - Labs Labs: Laboratory Tests 05/12/19 05/12/19 05/12/19 09:29 09:29 10:53 WBC 5.4 RBC 4.25 L Hgb 13.5 L Hct 40.0 L MCV 94.1 H MCH 31.8 H MCHC 33.8 RDW 14.4 Plt Count 141 MPV 9.1 Neut # (Auto) 3.0 Lymph # (Auto) 1.7 [place] # (Auto) 0.4 Eos # (Auto) 0.4 Baso # (Auto) 0.0 Absolute Nucleated RBC 0.00 Nucleated RBC % 0.0 Sodium 141 Potassium 3.8 Chloride 106 Carbon Dioxide 25 Anion Gap 10.0 BUN 17 Creatinine 1.1 Estimated GFR (MDRD) 67 L Glucose 177 H Calcium 10.1 Total Bilirubin 0.6 AST 61 H ALT 47 Alkaline Phosphatase 81 Total Protein 7.5 Albumin 4.3 Globulin 3.2 Albumin/Globulin Ratio 1.3 Lipase 82 H Urine Color YELLOW Urine Clarity CLEAR Urine pH 6.0 Ur Specific [place] 1.020 Urine Protein NEGATIVE Urine Glucose (UA) NEGATIVE Urine Ketones NEGATIVE Urine Occult Blood MODERATE H Urine Nitrite NEGATIVE Urine Bilirubin NEGATIVE Urine Urobilinogen 0.2 (NORMAL) Ur Leukocyte Esterase NEGATIVE Ur Microscopic Review INDICATED Urine Culture Comments Not Reportable - Rads (name of study) CT KUB Radiology: EMP read contemporaneously (2 mm right UVJ J stone with mild hydronephrosis and hydroureter) PD MEDICAL DECISION MAKING - ED course ED course: 69-year-old gentleman presents with recurrent renal colic, found to have 2 mm right UVJ stone. Pain was easy to control with Toradol here. Departure - Departure Disposition: 01 Home, Self Care Clinical Impression: Renal colic Condition: Good Record reviewed to determine appropriate education?: Yes Instructions: ED Stone Renal W Colic Prescriptions: Hydrocodone/Acetaminophen [Hydrocodon-Acetaminophen 5-325] 1 - 2 each PO Q6H PRN #14 tablet PRN Reason: pain Tamsulosin [Flomax] 0.4 mg PO DAILY #14 capsule Comments: Call your doctor to arrange a follow-up appointment, make the next available appointment. In the interim, return anytime if worse or if new symptoms develop.
[2019-05-12 10:02] LABS: ALBUMIN 4.3 g/dL (3.2-5.5); ALBUMIN/GLOBULIN RATIO 1.3 (1.0-2.2); BILIRUBIN,TOTAL 0.6 mg/dL (0.2-1.0); CALCIUM 10.1 mg/dL (8.5-10.3); CREATININE 1.1 mg/dL (0.6-1.2); TOTAL PROTEIN 7.5 g/dL (6.7-8.2)
--- NOTE | 2019-05-12 10:35 | CT Report ---
Reason: right flank pain Procedure Date: 05/12/2019 Accession Number: [id number] / [id number] Procedure: CT - Abdomen/Pelvis WO CPT Code: Final Report FULL RESULT: EXAM: CT ABDOMEN AND PELVIS (CT KUB) EXAM DATE: 05/12/2019 10:16 AM. CLINICAL HISTORY: Right flank pain. COMPARISONS: ABDOMEN/PELVIS W/ 01/31/2019 3:00 PM. TECHNIQUE: Routine axial helical CT imaging was performed through the abdomen and pelvis without IV contrast. Reconstructions: Coronal and sagittal. In accordance with CT protocol optimization, one or more of the following dose reduction techniques were utilized for this exam: automated exposure control, adjustment of mA and/or KV based on patient size, or use of iterative reconstructive technique. FINDINGS: Lung Bases: Lung bases appear clear. Stable right epicardial cyst. Right Kidney/Ureter: There is a 2 mm calculus at the right UVJ causing mild right-sided hydronephrosis and minimal right-sided hydroureter. There is a nonobstructing 1 mm calculus laterally in the mid pole of the right kidney. Left Kidney/Ureter: There are adjacent 1-2 mm calculi in the mid pole of the left kidney. No left-sided hydronephrosis or hydroureter. Other Solid Organs: Noncontrast images of the solid organs are grossly unremarkable. Gallbladder/Bile Ducts: Previous cholecystectomy. No biliary ductal dilatation. Peritoneal Cavity: Scattered diverticula of the sigmoid, without evidence of diverticulitis or colitis. No bowel obstruction. No evidence of appendicitis. Pelvic Organs: No bladder stones or wall thickening. Noncontrast images of the visualized pelvic organs are unremarkable. Vasculature: Unremarkable. Other: None. IMPRESSION: 2 mm calculus at the right UVJ causing mild right-sided hydronephrosis and minimal right-sided hydroureter. RADIA
[2019-05-12 10:39] VITALS: BP 139/61
[2019-05-12 11:01] LABS: BILIRUBIN,URINE NEGATIVE (NEGATIVE); GLUCOSE, URINE (UA) NEGATIVE (NEGATIVE); KETONES,URINE (UA) NEGATIVE (NEGATIVE); LEUKOCYTE ESTERASE, URINE NEGATIVE (NEGATIVE); NITRITE,URINE NEGATIVE (NEGATIVE); OCCULT BLOOD,URINE MODERATE (NEGATIVE); PROTEIN,URINE NEGATIVE (NEGATIVE); UROBILINOGEN,URINE 0.2 (NORMAL) E.U./dL (NORMAL)
[2019-05-12 11:07] LABS: CLARITY,URINE CLEAR (CLEAR)
[2019-05-12 11:11] LABS: BACTERIA,URINE Few /HPF (None Seen); SQUAMOUS EPITHELIAL CELL,UR MOD Squamous (<= Few)
== END 2019-05-12 11:18 | disposition home or self-care (01) ==
LOC: ED 09:01
DX: N13.2 Hydronephrosis with renal and ureteral calculous obstruction (principal); I10 Essential (primary) hypertension; E11.9 Type 2 diabetes mellitus without complications; Z79.84 Long term (current) use of oral hypoglycemic drugs
CPT/HCPCS: 36415; 74176; 80053; 81001; 81003; 83690; 85025; 87086; 96361; 96374; 99284

== ENCOUNTER 2019-06-27 12:12 | Emergency (ER) | payer MEDICARE ==
[2019-06-27 12:43] LABS: BASOPHILS # (AUTO) 0.1 10^3/uL (0.0-0.1); BASOPHILS % (AUTO) 0.6 %; EOSINOPHILS # (AUTO) 0.1 10^3/uL (0.0-0.7); EOSINOPHILS % (AUTO) 0.6 %; HGB - HEMOGLOBIN 13.1 g/dL (14.0-18.0); LYMPHOCYTES # (AUTO) 0.4 10^3/uL (1.5-3.5); LYMPHOCYTES % (AUTO) 4.5 %; MEAN CORPUSCULAR HEMOGLOBIN 31.9 pg (27.0-31.0); MEAN CORPUSCULAR HGB CONC 34.1 g/dL (32.0-36.0); MEAN CORPUSCULAR VOLUME 93.4 fL (80.0-94.0); MEAN PLATELET VOLUME 9.6 fL (7.4-11.4); MONOCYTES # (AUTO) 0.3 10^3/uL (0.0-1.0); MONOCYTES % (AUTO) 3.2 %; NEUTROPHILS % (AUTO) 90.6 %; PLT - PLATELET COUNT 122 10^3/uL (130-450); RED BLOOD COUNT 4.11 10^6/uL (4.70-6.10); RED CELL DISTRIBUTION WIDTH 14.6 % (12.0-15.0); WHITE BLOOD COUNT 8.9 x10^3/uL (4.8-10.8)
[2019-06-27 12:56] LABS: ALBUMIN 4.2 g/dL (3.2-5.5); ALBUMIN/GLOBULIN RATIO 1.5 (1.0-2.2); BILIRUBIN,TOTAL 1.1 mg/dL (0.2-1.0); CALCIUM 9.8 mg/dL (8.5-10.3); CREATININE 1.4 mg/dL (0.6-1.2)
[2019-06-27] MEDS ORDERED: SODIUM CHLORIDE 0.9% 1,000 ML IV ONE (13:04)
[2019-06-27 13:37] LABS: BILIRUBIN,URINE NEGATIVE (NEGATIVE); GLUCOSE, URINE (UA) NEGATIVE (NEGATIVE); KETONES,URINE (UA) NEGATIVE (NEGATIVE); LEUKOCYTE ESTERASE, URINE NEGATIVE (NEGATIVE); NITRITE,URINE NEGATIVE (NEGATIVE); OCCULT BLOOD,URINE TRACE-INTA (NEGATIVE); PH,URINE 5.5 PH (5.0-7.5); PROTEIN,URINE TRACE mg/dL (NEGATIVE); UROBILINOGEN,URINE 0.2 (NORMAL) E.U./dL (NORMAL)
[2019-06-27 13:43] LABS: CLARITY,URINE CLEAR (CLEAR)
[2019-06-27] MEDS ORDERED: ACETAMINOPHEN 325 MG TABLET PO STA (14:51)
[2019-06-27] MEDS ORDERED: IBUPROFEN 600 MG TABLET PO STA (14:51)
--- NOTE | 2019-06-27 14:51 | XRAY Report ---
Reason: fever Procedure Date: 06/27/2019 Accession Number: [id number] / [id number] Procedure: XR - Chest 1 View X-Ray CPT Code: 69956 Final Report FULL RESULT: EXAM: CHEST RADIOGRAPHY EXAM DATE: 06/27/2019 02:14 PM. CLINICAL HISTORY: Fever. COMPARISON: CHEST 2 VIEW 01/21/2019 3:42 PM ABDOMEN/PELVIS W/O 05/12/2019 10:06 AM. TECHNIQUE: 1 view. FINDINGS: Lungs/Pleura: No evidence of acute consolidation or effusion. No pneumothorax. Mediastinum: Heart size is within normal limits. Focal opacity within the right medial lung bases consistent with epicardiac cyst. Other: None. IMPRESSION: No acute intrathoracic plain film abnormality. RADIA
[2019-06-27] MEDS ORDERED: IOVERSOL 320 100 ML VIAL IVP ONE ×2 (15:59→16:26)
--- NOTE | 2019-06-27 16:52 | CT Report ---
Reason: L flank pain Procedure Date: 06/27/2019 Accession Number: [id number] / [id number] Procedure: CT - Abdomen/Pelvis W CPT Code: Final Report FULL RESULT: EXAM: CT ABDOMEN AND PELVIS EXAM DATE: 06/27/2019 04:24 PM. CLINICAL HISTORY: Left flank pain. COMPARISONS: ABDOMEN/PELVIS W/O 05/12/2019 10:06 AM. TECHNIQUE: Routine helical CT imaging was performed through the abdomen and pelvis. IV contrast: OPTI 320 100 mL. Enteric contrast: No. Reconstructions: Coronal and sagittal. In accordance with CT protocol optimization, one or more of the following dose reduction techniques were utilized for this exam: automated exposure control, adjustment of mA and/or KV based on patient size, or use of iterative reconstructive technique. FINDINGS: Lung Bases: Stable right pericardial cyst measuring up to 8 x 5 cm in axial plane. Lung bases clear. Liver: Hepatic steatosis and hepatomegaly. Gallbladder/Bile Ducts: Surgically absent gallbladder. No intrahepatic or extrahepatic biliary ductal dilatation. Spleen: Normal. Pancreas: Normal. Adrenal Glands: Normal. Kidneys: Punctate nonobstructing stones in the left kidney measuring up to 1.5 mm in diameter. No suspicious renal lesions. No hydronephrosis. Normal course and caliber of the ureters without evidence of stones. Peritoneal Cavity/Bowel: Normal caliber of the small bowel without evidence of obstruction. No focal bowel wall thickening or inflammation. Descending and sigmoid colon diverticulosis without CT evidence of acute diverticulitis. The appendix is well visualized and normal. Peritoneum: No retroperitoneal lymphadenopathy. Pelvic Organs: Mild nonspecific prostatic enlargement. Vasculature: No aneurysms or other significant abnormality. Bones: No significant abnormality. Other: None. IMPRESSION: 1. No acute findings in the abdomen or pelvis including no obstructing ureteral stones. 2. Several tiny nonobstructing intrarenal stones in the left kidney. 3. Descending and sigmoid colon diverticulosis without CT evidence of acute diverticulitis. 4. Hepatic steatosis and hepatomegaly. 5. Mild nonspecific prostatic enlargement. 6. Several tiny nonobstructing intrarenal stones in the left kidney. RADIA
--- NOTE | 2019-06-27 17:04 | ED Physician Documentation ---
PD HPI ABD PAIN - Stated complaint Stated Complaint: BACK PX - Chief complaint Chief Complaint: Abd Pain - History obtained from History obtained from: Patient - Additional information Additional information: Patient comes emergency department complaining of right flank pain and fever.The patient denies any other symptoms. No frontal abdominal pain. No dysuria. No nausea, vomiting, or diarrhea. No cough or shortness of breath. No sore throat, rhinorrhea, or ear pain. The patient has a history of kidney stones and was seen last month for the same. He was found to have a small, 2 mm stone in his left ureter at that time. Patient states he has not noticed whether he has passed it or not. The patient states that he was feeling totally fine yesterday and just began to have a fever today. However, he does not feel all that bad in other ways he states except for the ongoing flank pain, which she has had for some weeks. Patient denies any other complaints at this time. No sick contact s. Review of Systems Ten Systems: 10 systems reviewed and negative Constitutional: reports: Fever. denies: Chills, Myalgias, Fatigue, Sweats Eyes: reports: Reviewed and negative Ears: reports: Reviewed and negative Nose: reports: Reviewed and negative Throat: reports: Reviewed and negative Cardiac: reports: Reviewed and negative Respiratory: reports: Reviewed and negative GI: reports: Abdominal Pain (Flank) : reports: Reviewed and negative Skin: reports: Reviewed and negative Musculoskeletal: reports: Reviewed and negative Neurologic: reports: Reviewed and negative Psychiatric: reports: Reviewed and negative Endocrine: reports: Reviewed and negative Immunocompromised: reports: Reviewed and negative PD PAST MEDICAL HISTORY - Past Medical History Past Medical History: Yes Cardiovascular: Hypertension, High cholesterol Respiratory: None Endocrine/Autoimmune: Type 2 diabetes, HyPOthyroidism GI: GERD, Colon polyps : Kidney stones HEENT: None Psych: None Musculoskeletal: Osteoarthritis, Gout Derm: None - Past Surgical History Past Surgical History: Yes General: Cholecystectomy, Appendectomy, Colonoscopy Ortho: Shoulder arthroplasty, Carpal Tunnel surgery, Other - Present Medications Home Medications: Ambulatory Orders Medication Instructions Recorded Confirmed Allopurinol [Zyloprim] 300 mg ORAL DAILY 01/16/14 01/21/19 Hydrochlorothiazide 25 mg PO DAILY 01/16/14 01/21/19 Levothyroxine [Synthroid] 100 mcg PO DAILY 01/16/14 01/21/19 Metformin HCl [Glucophage Xr] 500 mg ORAL DAILY 01/09/19 01/21/19 Amitriptyline HCl 25 mg PO QPM 01/21/19 01/21/19 Atorvastatin Calcium 40 mg PO QPM 01/21/19 01/21/19 Gabapentin 300 mg PO TID 01/21/19 01/21/19 Metformin HCl [Metformin HCl ER] 1,000 mg PO QPM 01/21/19 01/21/19 Omeprazole 20 mg PO QDDINNER 01/21/19 01/21/19 lisinopriL [Lisinopril] 20 mg PO DAILY 01/21/19 01/21/19 levoFLOXacin [Levaquin] 750 mg PO QD #21 tablet 01/22/19 metroNIDAZOLE [Flagyl] 500 mg PO Q8H #42 tablet 01/22/19 Hydrocodone/Acetaminophen 1 - 2 each PO Q6H PRN #14 tablet 05/12/19 [Hydrocodon-Acetaminophen 5-325] Tamsulosin [Flomax] 0.4 mg PO DAILY #14 capsule 05/12/19 - Allergies Allergies/Adverse Reactions: Allergies Allergy/AdvReac Type Severity Reaction Status Date / Time Penicillins Allergy Rash Verified 06/27/19 12:17 - Social History Does the pt smoke?: No Smoking Status: Never smoker Does the pt drink ETOH?: Yes Does the pt have substance abuse?: No - POLST Patient has POLST: No PD ED PE NORMAL - Vitals Vital signs reviewed: Yes - General General: Alert and oriented X 3, No acute distress (Patient is overall fairly well-appearing.), Well developed/nourished - HEENT HEENT: Atraumatic, PERRL, EOMI, Moist mucous membranes - Neck Neck: Supple, no meningeal sign - Cardiac Cardiac: RRR, No murmur, Strong equal pulses - Respiratory Respiratory: No respiratory distress, Clear bilaterally - Abdomen Abdomen: Soft, Non tender, Non distended - Back Back: Other (Moderate tenderness to palpation, right CVA.) - Derm Derm: Normal color, Warm and dry, No rash - Extremities Extremities: No deformity, No edema, No calf tenderness / cord - Neuro Neuro: Alert and oriented X 3, regional guide 2-12 intact, No motor deficit, No sensory deficit, Normal speech - Psych Psych: Normal mood, Normal affect Results - Vitals Vitals: Oxygen O2 Source Room air - Labs Labs: Laboratory Tests 06/27/19 06/27/19 06/27/19 12:38 12:38 13:20 WBC 8.9 RBC 4.11 L Hgb 13.1 L Hct 38.4 L MCV 93.4 MCH 31.9 H MCHC 34.1 RDW 14.6 Plt Count 122 L MPV 9.6 Neut # (Auto) 8.0 H Lymph # (Auto) 0.4 L [place] # (Auto) 0.3 Eos # (Auto) 0.1 Baso # (Auto) 0.1 Absolute Nucleated RBC 0.00 Nucleated RBC % 0.0 Sodium 135 Potassium 3.6 Chloride 100 L Carbon Dioxide 24 Anion Gap 11.0 BUN 23 H Creatinine 1.4 H Estimated GFR (MDRD) 51 L Glucose 200 H Calcium 9.8 Total Bilirubin 1.1 H AST 81 H ALT 49 Alkaline Phosphatase 88 Total Protein 7.0 Albumin 4.2 Globulin 2.8 Albumin/Globulin Ratio 1.5 Lipase 45 Urine Color DARK YELLOW Urine Clarity CLEAR Urine pH 5.5 Ur Specific [place] 1.025 Urine Protein TRACE Urine Glucose (UA) NEGATIVE Urine Ketones NEGATIVE Urine Occult Blood TRACE-INTA Urine Nitrite NEGATIVE Urine Bilirubin NEGATIVE Urine Urobilinogen 0.2 (NORMAL) Ur Leukocyte Esterase NEGATIVE Ur Microscopic Review NOT INDICATED Urine Culture Comments NOT INDICATED Influenza A (Rapid) Influenza B (Rapid) 06/27/19 14:11 WBC RBC Hgb Hct MCV MCH MCHC RDW Plt Count MPV Neut # (Auto) Lymph # (Auto) [place] # (Auto) Eos # (Auto) Baso # (Auto) Absolute Nucleated RBC Nucleated RBC % Sodium Potassium Chloride Carbon Dioxide Anion Gap BUN Creatinine Estimated GFR (MDRD) Glucose Calcium Total Bilirubin AST ALT Alkaline Phosphatase Total Protein Albumin Globulin Albumin/Globulin Ratio Lipase Urine Color Urine Clarity Urine pH Ur Specific [place] Urine Protein Urine Glucose (UA) Urine Ketones Urine Occult Blood Urine Nitrite Urine Bilirubin Urine Urobilinogen Ur Leukocyte Esterase Ur Microscopic Review Urine Culture Comments Influenza A (Rapid) Negative Influenza B (Rapid) Negative - Rads (name of study) chest xr Radiology: Final report received, EMP read indepedently, See rad report (Final radiologist impression: No acute intrathoracic plain film abnormality.) CT abdomen pelvis Radiology: Final report received, EMP read indepedently, See rad report (Final radiologist impression: No acute findings in the abdomen or pelvis including no obstructing ureteral stones; several tiny obstructing intrarenal stones in the left kidney; descending and sigmoid colon diverticulosis without CT evidence of acute diverticulitis; hepatic steatosis and hepatomegaly; mild nonspecific prostatic enlargement.) PD MEDICAL DECISION MAKING - ED course Complexity details: reviewed old records, reviewed results, re-evaluated patient, considered differential, d/w patient ED course: The patient was treated with IV fluids and antipyretics, and initially, worked up with urinalysis. I suspected most probably, given the patient's Positive and negative symptoms, that he most likely had a urinary tract infection of some sort. However, the patient's urinalysis was completely negative. At this point, I was concerned given the patient's age and height of fever, so I did order further work-up, including labs, influenza testing, chest x-ray, and COVID analysis. Patient's influenza and chest x-ray were negative. His labs showed a normal white blood cell count. He was hemodynamically stable and did begin to defervesce in the emergency department. He reported feeling much better. I finally ordered a CT scan of the abdomen and pelvis to assess his flank pain and fever, but this was also negative for acute or concerning findings. I discussed with the patient that despite extensive work-up, I have not found a cause of his fever and flank pain. I discussed with the patient that he will need to quarantine until his COVID results are back. I discussed with him that if he develops more specific symptoms, including worsening abdominal pain or respiratory symptoms, he should return to the emergency department. We have also discussed home management of symptoms. Departure - Departure Disposition: 01 Home, Self Care Clinical Impression: Flank pain Fever Qualifiers: Fever type: unspecified Qualified Code(s): R50.9 - Fever, unspecified Condition: Stable Instructions: ED Abdominal Pain Unkn Cause, ED Fever Unconf Cause Comments: Extensive work-up has not revealed a cause of your fever. You do not have any kidney stones that are actually passing at this time. Your influenza test, urinalysis, and chest x-ray are negative. Your COVID test is pending at this time. Until you get results back, you should self quarantine at home. Discharge Date/Time: 06/27/19 17:32
[2019-06-27 17:32] VITALS: BP 114/65
== END 2019-06-27 17:32 | disposition home or self-care (01) ==
LOC: ED 12:12
DX: R10.9 Unspecified abdominal pain (principal); R50.9 Fever, unspecified; I10 Essential (primary) hypertension; E11.9 Type 2 diabetes mellitus without complications; Z79.84 Long term (current) use of oral hypoglycemic drugs; Z20.828 Contact with and (suspected) exposure to other viral communicable diseases
CPT/HCPCS: 36415; 71045; 74177; 80053; 81003; 83690; 85025; 87275; 87276; 96360; 99283; 99284; A9270; Q9967; U0004; 81001; 81599; 87086

== ENCOUNTER 2020-03-24 07:11 | Outpatient (CLI) | payer MEDICARE ==
[2020-03-24 14:55] LABS: BASOPHILS # (AUTO) 0.1 10^3/uL (0.0-0.1); EOSINOPHILS # (AUTO) 0.3 10^3/uL (0.0-0.7); EOSINOPHILS % (AUTO) 6.2 %; HGB - HEMOGLOBIN 13.9 g/dL (14.0-18.0); LYMPHOCYTES % (AUTO) 40.7 %; MEAN CORPUSCULAR HEMOGLOBIN 30.5 pg (27.0-31.0); MEAN CORPUSCULAR HGB CONC 32.3 g/dL (32.0-36.0); MEAN CORPUSCULAR VOLUME 94.7 fL (80.0-94.0); MEAN PLATELET VOLUME 10.7 fL (7.4-11.4); MONOCYTES # (AUTO) 0.4 10^3/uL (0.0-1.0); MONOCYTES % (AUTO) 7.7 %; NEUTROPHILS # (AUTO) 2.1 10^3/uL (1.5-6.6); NEUTROPHILS % (AUTO) 44.2 %; PLT - PLATELET COUNT 146 10^3/uL (130-450); RED BLOOD COUNT 4.55 10^6/uL (4.70-6.10); RED CELL DISTRIBUTION WIDTH 14.6 % (12.0-15.0); WHITE BLOOD COUNT 4.8 x10^3/uL (4.8-10.8)
[2020-03-24 15:18] LABS: ALBUMIN 4.3 g/dL (3.2-5.5); ALBUMIN/GLOBULIN RATIO 1.3 (1.0-2.2); ALKALINE PHOSPHATASE 111 IU/L (42-121); ALT ALANINE AMINOTRANSFERASE 52 IU/L (10-60); AST ASPARTATE AMINOTRANSFERASE 69 IU/L (10-42); BUN - BLOOD UREA NITROGEN 18 mg/dL (6-20); CALCIUM 10.1 mg/dL (8.5-10.3); CARBON DIOXIDE - CO2 25 mmol/L (21-32); CHLORIDE 100 mmol/L (101-111); CHOLESTEROL 159 mg/dL; CREATININE 0.9 mg/dL (0.6-1.2); GLUCOSE 305 mg/dL (70-100); HDL CHOLESTEROL 32 mg/dL; HEMOGLOBIN A1c% 11.3 % (4.27-6.07); LDL CHOLESTEROL,CALCULATED 47 mg/dL; LDL/HDL RATIO 1.5 (<3.6); TOTAL PROTEIN 7.7 g/dL (6.7-8.2); VLDL CHOLESTEROL 80 mg/dL
== END 2020-03-24 07:12 | disposition home or self-care (01) ==
LOC: LAB.S 07:11
PROVIDERS: ATTEND Internal Medicine
DX: I10 Essential (primary) hypertension (principal); E11.49 Type 2 diabetes mellitus with other diabetic neurological complication; Z12.5 Encounter for screening for malignant neoplasm of prostate; E03.9 Hypothyroidism, unspecified; D64.9 Anemia, unspecified; Z11.59 Encounter for screening for other viral diseases; R74.8 Abnormal levels of other serum enzymes
CPT/HCPCS: 36415; 80053; 80061; 83036; 84443; 85025; G0103; 83721; 84153

== ENCOUNTER 2020-05-19 07:15 | Outpatient (CLI) | payer MEDICARE | END 2020-05-19 07:16 | disposition home or self-care (01) | LOC: LAB.S 07:15 | PROVIDERS: ATTEND Internal Medicine | DX: E11.8 Type 2 diabetes mellitus with unspecified complications (principal) | CPT/HCPCS: 36415; 82985 ==

== ENCOUNTER 2020-07-28 08:07 | Outpatient (CLI) | payer MEDICARE ==
[2020-07-28 15:29] LABS: CHOL/HDL RATIO 4.1 (<5.0); CHOLESTEROL 142 mg/dL; HDL CHOLESTEROL 35 mg/dL; LDL CHOLESTEROL,CALCULATED 71 mg/dL; TRIGLYCERIDES 179 mg/dL; VLDL CHOLESTEROL 36 mg/dL
[2020-07-28 20:29] LABS: ESTIMATED AVERAGE GLUCOSE 171 mg/dL (70-100); HEMOGLOBIN A1c% 7.6 % (4.27-6.07)
== END 2020-07-28 08:08 | disposition home or self-care (01) ==
LOC: LAB.S 08:07
PROVIDERS: ATTEND Internal Medicine
DX: E78.1 Pure hyperglyceridemia (principal); E11.8 Type 2 diabetes mellitus with unspecified complications
CPT/HCPCS: 36415; 80061; 83036; 83721

== ENCOUNTER 2021-05-10 07:21 | Outpatient (CLI) | payer MEDICARE ==
[2021-05-10 15:01] LABS: EOSINOPHILS # (AUTO) 0.4 10^3/uL (0.0-0.7); EOSINOPHILS % (AUTO) 9.4 %; HCT - HEMATOCRIT 38.1 % (42.0-52.0); HGB - HEMOGLOBIN 12.3 g/dL (14.0-18.0); LYMPHOCYTES # (AUTO) 1.4 10^3/uL (1.5-3.5); LYMPHOCYTES % (AUTO) 36.4 %; MEAN CORPUSCULAR HEMOGLOBIN 30.5 pg (27.0-31.0); MEAN CORPUSCULAR HGB CONC 32.3 g/dL (32.0-36.0); MEAN CORPUSCULAR VOLUME 94.5 fL (80.0-94.0); MEAN PLATELET VOLUME 10.6 fL (7.4-11.4); MONOCYTES # (AUTO) 0.3 10^3/uL (0.0-1.0); MONOCYTES % (AUTO) 8.1 %; NEUTROPHILS # (AUTO) 1.8 10^3/uL (1.5-6.6); NEUTROPHILS % (AUTO) 44.8 %; PLT - PLATELET COUNT 120 10^3/uL (130-450); RED BLOOD COUNT 4.03 10^6/uL (4.70-6.10); RED CELL DISTRIBUTION WIDTH 15.3 % (12.0-15.0); WHITE BLOOD COUNT 3.9 x10^3/uL (4.8-10.8)
[2021-05-10 15:20] LABS: ALBUMIN 3.8 g/dL (3.2-5.5); ALBUMIN/GLOBULIN RATIO 1.2 (1.0-2.2); ALKALINE PHOSPHATASE 104 IU/L (42-121); ALT ALANINE AMINOTRANSFERASE 42 IU/L (10-60); AST ASPARTATE AMINOTRANSFERASE 73 IU/L (10-42); BILIRUBIN,TOTAL 0.9 mg/dL (0.2-1.0); BUN - BLOOD UREA NITROGEN 14 mg/dL (6-20); CHOL/HDL RATIO 4.8 (<5.0); CHOLESTEROL 153 mg/dL; GFR - MDRD 74 (>89); HDL CHOLESTEROL 32 mg/dL; LDL CHOLESTEROL,CALCULATED 73 mg/dL; LDL/HDL RATIO 2.3 (<3.6); TRIGLYCERIDES 238 mg/dL; VLDL CHOLESTEROL 48 mg/dL
[2021-05-10 15:25] LABS: CREATININE,URINE 96.2 mg/dL; MICROALBUM/CREATININE RATIO,UR 13.5 ug/mg (<30.0); MICROALBUMIN,URINE 1.3 mg/dL (0-300.0)
[2021-05-10 15:26] LABS: THYROID STIMULATING HORMONE 2.73 uIU/mL (0.34-5.60)
[2021-05-10 16:06] LABS: CALCIUM 9.4 mg/dL (8.5-10.3); CARBON DIOXIDE - CO2 25 mmol/L (21-32); CHLORIDE 98 mmol/L (101-111); GLUCOSE 207 mg/dL (70-100); POTASSIUM 3.7 mmol/L (3.5-5.0); SODIUM 132 mmol/L (135-145)
[2021-05-10 20:02] LABS: ESTIMATED AVERAGE GLUCOSE 255 mg/dL (70-100); HEMOGLOBIN A1c% 10.5 % (4.27-6.07)
== END 2021-05-10 07:22 | disposition home or self-care (01) ==
LOC: LAB.S 07:21
PROVIDERS: ATTEND Internal Medicine
DX: I10 Essential (primary) hypertension (principal); E78.1 Pure hyperglyceridemia; E11.8 Type 2 diabetes mellitus with unspecified complications; E03.9 Hypothyroidism, unspecified
CPT/HCPCS: 36415; 80053; 80061; 82043; 82570; 83036; 83721; 84443; 85025

== ENCOUNTER 2021-05-18 09:45 | Outpatient (CLI) | payer MEDICARE ==
--- NOTE | 2021-05-18 13:11 | XRAY Report ---
PROCEDURE: Knee 4 View BILAT INDICATIONS: KNEE JOINT PAIN.BILAT TECHNIQUE: 4 views of the bilateral knee(s) were acquired. COMPARISON: None. FINDINGS: Bones: No fractures or dislocations. No suspicious bony lesions. Mild to moderate bilateral tricom partmental osteoarthritis is seen more prominent in lateral femoral tibial compartment of right knee. No patella subluxation is seen. Soft tissues: No joint effusion. No suspicious soft tissue calcifications. IMPRESSION: Right worse than left bilateral tricompartmental osteoarthritis as above. No fracture or dislocation. No significant joint effusion. Reviewed by: Gio Oglesby MD on 05/18/2021 1:10 PM PDT Approved by: Gio Oglesby MD on 05/18/2021 1:10 PM PDT Station ID: [id number]
== END 2021-05-18 09:46 | disposition home or self-care (01) ==
LOC: DI 09:45
PROVIDERS: ATTEND Internal Medicine
DX: M17.0 Bilateral primary osteoarthritis of knee (principal)

== ENCOUNTER 2021-05-27 11:58 | Outpatient (CLI) | payer MEDICARE ==
--- NOTE | 2021-05-27 12:44 | XRAY Report ---
PROCEDURE: Lumbar Spine w/Flex/Ext INDICATIONS: CHRNOIC LOW BACK PAIN TECHNIQUE: 5 views of the lumbar spine acquired. COMPARISON: None. FINDINGS: Bones: 5 [id number] vertebrae are present. There is straightening of normal lumbar lordosis. M inimal retrolisthesis at L1-2 and L2-3 levels are seen. Degenerative endplate changes and bilateral f acet arthrosis throughout lumbar spine is noted.. No vertebral body compression fractures. No suspi cious bony lesions. Soft tissues: Overlying bowel gas pattern is normal. No suspicious soft tissue calcifications. Flexion/extension: There is decreased range of motion with suggestion of abnormal motion at L1-2 and L2-3 levels seen on lateral extension view. IMPRESSION: 1. Degenerative disc disease throughout lumbar spine. No acute compression fracture. Minimal retrolis thesis at L1-2 and L2-3 levels. 2. Decreased range of motion on lateral flexion and extension views with suggestion of abnormal motio n seen at L1-2 and L2-3 levels on lateral extension view. Reviewed by: Gio Oglesby MD on 05/27/2021 12:43 PM PDT Approved by: Gio Oglesby MD on 05/27/2021 12:43 PM PDT Station ID: [id number]
== END 2021-05-27 11:59 | disposition home or self-care (01) ==
LOC: DI 11:58
PROVIDERS: ATTEND Internal Medicine
DX: M43.16 Spondylolisthesis, lumbar region (principal); M47.816 Spondylosis without myelopathy or radiculopathy, lumbar region; M51.36 Other intervertebral disc degeneration, lumbar region

== ENCOUNTER 2021-12-16 07:14 | Outpatient (CLI) | payer MEDICARE ==
[2021-12-16 14:55] LABS: CALCIUM 10.2 mg/dL (8.5-10.3); POTASSIUM 4.3 mmol/L (3.5-5.0)
[2021-12-16 20:20] LABS: CREATININE,URINE 62.2 mg/dL; MICROALBUM/CREATININE RATIO,UR 27.3 ug/mg (<30.0); MICROALBUMIN,URINE 1.7 mg/dL (0-300.0)
[2021-12-16 21:50] LABS: ESTIMATED AVERAGE GLUCOSE 151 mg/dL (70-100); HEMOGLOBIN A1c% 6.9 % (4.27-6.07)
== END 2021-12-16 07:15 | disposition home or self-care (01) ==
LOC: LAB.S 07:14
PROVIDERS: ATTEND Registered Nurse
DX: E11.8 Type 2 diabetes mellitus with unspecified complications (principal)
CPT/HCPCS: 36415; 80048; 82043; 82570; 83036

== ENCOUNTER 2022-04-06 10:51 | Outpatient (CLI) | payer MEDICARE ==
[2022-04-06 21:00] LABS: ESTIMATED AVERAGE GLUCOSE 157 mg/dL (70-100); HEMOGLOBIN A1c% 7.1 % (4.27-6.07)
== END 2022-04-06 10:52 | disposition home or self-care (01) ==
LOC: LAB.S 10:51
PROVIDERS: ATTEND Nurse Practitioner
DX: E11.65 Type 2 diabetes mellitus with hyperglycemia (principal)
CPT/HCPCS: 36415; 83036

== ENCOUNTER 2022-05-26 08:00 | Outpatient (CLI) | payer MEDICARE | END 2022-05-26 23:59 | disposition home or self-care (01) | LOC: LAB.S 08:00 | PROVIDERS: ATTEND Physician Assistant Medical | DX: R10.9 Unspecified abdominal pain (principal) | CPT/HCPCS: 87086 ==

== ENCOUNTER 2022-06-01 07:00 | Outpatient (CLI) | payer MEDICARE ==
--- NOTE | 2022-06-02 07:07 | XRAY Report ---
PROCEDURE: Thoracic Spine 3 View INDICATIONS: THORACIC BACK PAIN TECHNIQUE: 2 views of the thoracic spine were acquired. COMPARISON: None. FINDINGS: Bones: No fractures or dislocations. No suspicious bony lesions. 12 pairs of ribs are noted, and a ppear intact where visualized. Slight rightward curvature, centered at T5. Soft tissues: No paravertebral stripe thickening. IMPRESSION: No acute bony abnormality. Reviewed by: Ab Senior on 06/01/2022 1:02 PM PDT Approved by: Ab Senior on 06/01/2022 1:02 PM PDT Station ID: [id number]
== END 2022-06-01 23:59 | disposition home or self-care (01) ==
LOC: DI.S 07:00
PROVIDERS: ATTEND Emergency Medicine
DX: M54.6 Pain in thoracic spine (principal)

== ENCOUNTER 2022-08-15 07:05 | Outpatient (CLI) | payer MEDICARE ==
[2022-08-15 21:13] LABS: ESTIMATED AVERAGE GLUCOSE 131 mg/dL (70-100); HEMOGLOBIN A1c% 6.2 % (4.27-6.07)
== END 2022-08-15 07:06 | disposition home or self-care (01) ==
LOC: LAB.S 07:05
PROVIDERS: ATTEND Nurse Practitioner
DX: E11.65 Type 2 diabetes mellitus with hyperglycemia (principal)
CPT/HCPCS: 36415; 83036

== ENCOUNTER 2022-10-07 08:00 | Outpatient (CLI) | payer MEDICARE | END 2022-10-07 23:59 | disposition home or self-care (01) | LOC: LAB.S 08:00 | PROVIDERS: ATTEND Emergency Medicine | DX: L03.116 Cellulitis of left lower limb (principal) | CPT/HCPCS: 87070; 87205 ==

== ENCOUNTER 2022-12-20 08:55 | Outpatient (CLI) | payer MEDICARE ==
[2022-12-20 14:37] LABS: EOSINOPHILS # (AUTO) 0.4 10^3/uL (0.0-0.7); EOSINOPHILS % (AUTO) 10.9 %; HCT - HEMATOCRIT 29.9 % (42.0-52.0); HGB - HEMOGLOBIN 9.4 g/dL (14.0-18.0); LYMPHOCYTES # (AUTO) 1.2 10^3/uL (1.5-3.5); LYMPHOCYTES % (AUTO) 29.4 %; MEAN CORPUSCULAR HEMOGLOBIN 29.4 pg (27.0-31.0); MEAN CORPUSCULAR HGB CONC 31.4 g/dL (32.0-36.0); MEAN CORPUSCULAR VOLUME 93.4 fL (80.0-94.0); MEAN PLATELET VOLUME 10.9 fL (7.4-11.4); MONOCYTES # (AUTO) 0.4 10^3/uL (0.0-1.0); MONOCYTES % (AUTO) 8.9 %; NEUTROPHILS % (AUTO) 49.6 %; PLT - PLATELET COUNT 149 10^3/uL (130-450); RED CELL DISTRIBUTION WIDTH 16.1 % (12.0-15.0); WHITE BLOOD COUNT 4.1 x10^3/uL (4.8-10.8)
[2022-12-20 15:05] LABS: THYROID STIMULATING HORMONE 2.21 uIU/mL (0.34-5.60)
[2022-12-20 15:47] LABS: ALBUMIN 3.6 g/dL (3.2-5.5); ALBUMIN/GLOBULIN RATIO 1.2 (1.0-2.2); BILIRUBIN,TOTAL 0.7 mg/dL (0.2-1.0); CALCIUM 10.6 mg/dL (8.5-10.3); CREATININE 0.9 mg/dL (0.6-1.3); POTASSIUM 4.5 mmol/L (3.5-4.5); TOTAL PROTEIN 6.6 g/dL (6.4-8.9)
[2022-12-20 20:48] LABS: ESTIMATED AVERAGE GLUCOSE 126 mg/dL (70-100)
--- NOTE | 2022-12-20 21:33 | XRAY Report ---
PROCEDURE: Chest 2 View X-Ray INDICATIONS: HYPERTENSION TECHNIQUE: 2 views of the chest were acquired. COMPARISON: None. FINDINGS: Surgical changes and devices: None. Lungs and pleura: No pleural effusions or pneumothorax. Lungs are clear. Mediastinum: Mediastinal contours appear normal. Heart size is normal. Bones and chest wall: No suspicious bony lesions. Overlying soft tissues appear unremarkable. IMPRESSION: No acute cardiopulmonary process. Reviewed by: Gio Ramey MD on 12/20/2022 9:32 PM PDT Approved by: Gio Ramey MD on 12/20/2022 9:32 PM PDT Station ID: [id number]
== END 2022-12-20 23:59 | disposition home or self-care (01) ==
LOC: DI.S 08:55
PROVIDERS: ATTEND Physician Assistant
DX: I10 Essential (primary) hypertension (principal); I83.009 Varicose veins of unspecified lower extremity with ulcer of unspecified site
CPT/HCPCS: 36415; 80053; 83036; 84443; 85025

== ENCOUNTER 2022-12-25 07:15 | Outpatient (CLI) | payer MEDICARE ==
[2022-12-25 14:43] LABS: ABSOLUTE RETICS # AUTO 0.066 10^6/uL (0.020-0.110); RED BLOOD COUNT 3.11 10^6/uL (4.70-6.10); RETICULOCYTE COUNT % (AUTO) 2.12 % (0.5-2.3)
[2022-12-25 17:30] LABS: FERRITIN 14.6 ng/mL (23.9-336.2)
== END 2022-12-25 07:16 | disposition home or self-care (01) ==
LOC: LAB.S 07:15
PROVIDERS: ATTEND Internal Medicine
DX: D64.9 Anemia, unspecified (principal); I83.009 Varicose veins of unspecified lower extremity with ulcer of unspecified site; L97.909 Non-pressure chronic ulcer of unspecified part of unspecified lower leg with unspecified severity
CPT/HCPCS: 36415; 82607; 82728; 82746; 83540; 84466; 85045

== ENCOUNTER 2023-01-30 07:18 | Outpatient (CLI) | payer MEDICARE ==
[2023-01-30 14:35] LABS: ABSOLUTE RETICS # AUTO 0.069 10^6/uL (0.020-0.110); EOSINOPHILS # (AUTO) 0.5 10^3/uL (0.0-0.7); EOSINOPHILS % (AUTO) 11.9 %; HCT - HEMATOCRIT 28.2 % (42.0-52.0); HGB - HEMOGLOBIN 8.7 g/dL (14.0-18.0); LYMPHOCYTES # (AUTO) 1.2 10^3/uL (1.5-3.5); LYMPHOCYTES % (AUTO) 30.6 %; MEAN CORPUSCULAR HEMOGLOBIN 29.4 pg (27.0-31.0); MEAN CORPUSCULAR HGB CONC 30.9 g/dL (32.0-36.0); MEAN CORPUSCULAR VOLUME 95.3 fL (80.0-94.0); MEAN PLATELET VOLUME 11.1 fL (7.4-11.4); MONOCYTES # (AUTO) 0.4 10^3/uL (0.0-1.0); MONOCYTES % (AUTO) 9.6 %; NEUTROPHILS # (AUTO) 1.9 10^3/uL (1.5-6.6); NEUTROPHILS % (AUTO) 46.7 %; PLT - PLATELET COUNT 130 10^3/uL (130-450); RED BLOOD COUNT 2.96 10^6/uL (4.70-6.10); RED CELL DISTRIBUTION WIDTH 18.6 % (12.0-15.0); RETICULOCYTE COUNT % (AUTO) 2.32 % (0.5-2.3); WHITE BLOOD COUNT 4.1 x10^3/uL (4.8-10.8)
[2023-01-30 14:51] LABS: ALBUMIN 3.5 g/dL (3.2-5.5); ALBUMIN/GLOBULIN RATIO 1.5 (1.0-2.2); BILIRUBIN,TOTAL 0.7 mg/dL (0.2-1.0); CALCIUM 10.4 mg/dL (8.5-10.3); CREATININE 1.1 mg/dL (0.6-1.3); POTASSIUM 4.1 mmol/L (3.5-4.5); TOTAL PROTEIN 5.9 g/dL (6.4-8.9)
[2023-01-30 15:09] LABS: FERRITIN 21.2 ng/mL (23.9-336.2)
== END 2023-01-30 07:19 | disposition home or self-care (01) ==
LOC: LAB.S 07:18
PROVIDERS: ATTEND Physician Assistant Medical
DX: D64.9 Anemia, unspecified (principal)
CPT/HCPCS: 36415; 80053; 82607; 82728; 82746; 83540; 84466; 85025; 85045

== ENCOUNTER 2023-02-12 07:02 | Outpatient (CLI) | payer MEDICARE ==
[2023-02-12 15:14] LABS: ABSOLUTE RETICS # AUTO 0.117 10^6/uL (0.020-0.110); BASOPHILS # (AUTO) 0.1 10^3/uL (0.0-0.1); BASOPHILS % (AUTO) 1.1 %; EOSINOPHILS # (AUTO) 0.5 10^3/uL (0.0-0.7); EOSINOPHILS % (AUTO) 9.7 %; HGB - HEMOGLOBIN 9.2 g/dL (14.0-18.0); LYMPHOCYTES # (AUTO) 1.3 10^3/uL (1.5-3.5); LYMPHOCYTES % (AUTO) 27.4 %; MEAN CORPUSCULAR HEMOGLOBIN 30.2 pg (27.0-31.0); MEAN CORPUSCULAR HGB CONC 30.7 g/dL (32.0-36.0); MEAN CORPUSCULAR VOLUME 98.4 fL (80.0-94.0); MONOCYTES # (AUTO) 0.5 10^3/uL (0.0-1.0); MONOCYTES % (AUTO) 9.9 %; NEUTROPHILS # (AUTO) 2.4 10^3/uL (1.5-6.6); NEUTROPHILS % (AUTO) 51.3 %; PLT - PLATELET COUNT 149 10^3/uL (130-450); RED BLOOD COUNT 3.05 10^6/uL (4.70-6.10); RED CELL DISTRIBUTION WIDTH 20.3 % (12.0-15.0); RETICULOCYTE COUNT % (AUTO) 3.83 % (0.5-2.3); WHITE BLOOD COUNT 4.8 x10^3/uL (4.8-10.8)
[2023-02-12 15:16] LABS: SLIDE REVIEW? Indicated
[2023-02-12 15:34] LABS: FERRITIN 215.5 ng/mL (23.9-336.2)
[2023-02-12 15:35] LABS: PLATELET MORPHOLOGY NORMAL APPEARANCE (NORMAL); RBC MORPHOLOGY (MULTIPLE) 2+ ANISOCYTOSIS (NORMAL)
[2023-02-12 15:36] LABS: PLATELET ESTIMATE, MANUAL NORMAL (130-450,000) (NORMAL)
== END 2023-02-12 07:03 | disposition home or self-care (01) ==
LOC: LAB.S 07:02
PROVIDERS: ATTEND Physician Assistant Medical
DX: D64.9 Anemia, unspecified (principal)
CPT/HCPCS: 36415; 82728; 83540; 84466; 85025; 85045

== ENCOUNTER 2023-03-29 07:11 | Outpatient (CLI) | payer MEDICARE ==
[2023-03-29 14:54] LABS: BASOPHILS % (AUTO) 0.7 %; EOSINOPHILS # (AUTO) 0.5 10^3/uL (0.0-0.7); EOSINOPHILS % (AUTO) 13.1 %; HCT - HEMATOCRIT 32.6 % (42.0-52.0); HGB - HEMOGLOBIN 10.2 g/dL (14.0-18.0); LYMPHOCYTES # (AUTO) 1.3 10^3/uL (1.5-3.5); LYMPHOCYTES % (AUTO) 33.1 %; MEAN CORPUSCULAR HEMOGLOBIN 30.7 pg (27.0-31.0); MEAN CORPUSCULAR HGB CONC 31.3 g/dL (32.0-36.0); MEAN CORPUSCULAR VOLUME 98.2 fL (80.0-94.0); MEAN PLATELET VOLUME 10.8 fL (7.4-11.4); MONOCYTES # (AUTO) 0.4 10^3/uL (0.0-1.0); MONOCYTES % (AUTO) 10.1 %; NEUTROPHILS # (AUTO) 1.7 10^3/uL (1.5-6.6); NEUTROPHILS % (AUTO) 42.8 %; PLT - PLATELET COUNT 124 10^3/uL (130-450); RED BLOOD COUNT 3.32 10^6/uL (4.70-6.10); RED CELL DISTRIBUTION WIDTH 18.3 % (12.0-15.0); WHITE BLOOD COUNT 4.1 x10^3/uL (4.8-10.8)
== END 2023-03-29 07:12 | disposition home or self-care (01) ==
LOC: LAB.S 07:11
PROVIDERS: ATTEND Physician Assistant Medical
DX: D64.9 Anemia, unspecified (principal)
CPT/HCPCS: 36415; 85025

== ENCOUNTER 2023-04-16 07:13 | Outpatient (CLI) | payer MEDICARE ==
[2023-04-16 15:37] LABS: CALCIUM 10.2 mg/dL (8.5-10.3); POTASSIUM 4.1 mmol/L (3.5-4.5)
[2023-04-16 15:51] LABS: ABSOLUTE RETICS # AUTO 0.068 10^6/uL (0.020-0.110); BASOPHILS # (AUTO) 0.1 10^3/uL (0.0-0.1); BASOPHILS % (AUTO) 1.2 %; EOSINOPHILS # (AUTO) 0.6 10^3/uL (0.0-0.7); HCT - HEMATOCRIT 32.4 % (42.0-52.0); HGB - HEMOGLOBIN 10.3 g/dL (14.0-18.0); LYMPHOCYTES # (AUTO) 1.5 10^3/uL (1.5-3.5); LYMPHOCYTES % (AUTO) 34.4 %; MEAN CORPUSCULAR HEMOGLOBIN 31.3 pg (27.0-31.0); MEAN CORPUSCULAR HGB CONC 31.8 g/dL (32.0-36.0); MEAN CORPUSCULAR VOLUME 98.5 fL (80.0-94.0); MEAN PLATELET VOLUME 10.5 fL (7.4-11.4); MONOCYTES # (AUTO) 0.4 10^3/uL (0.0-1.0); MONOCYTES % (AUTO) 9.8 %; NEUTROPHILS # (AUTO) 1.8 10^3/uL (1.5-6.6); NEUTROPHILS % (AUTO) 40.6 %; PLT - PLATELET COUNT 120 10^3/uL (130-450); RED BLOOD COUNT 3.29 10^6/uL (4.70-6.10); RED CELL DISTRIBUTION WIDTH 17.6 % (12.0-15.0); RETICULOCYTE COUNT % (AUTO) 2.08 % (0.5-2.3); WHITE BLOOD COUNT 4.3 x10^3/uL (4.8-10.8)
[2023-04-16 15:57] LABS: ESTIMATED AVERAGE GLUCOSE 120 mg/dL (70-100); FERRITIN 48.8 ng/mL (23.9-336.2); HEMOGLOBIN A1c% 5.8 % (4.27-6.07)
== END 2023-04-16 07:14 | disposition home or self-care (01) ==
LOC: LAB.S 07:13
PROVIDERS: ATTEND Physician Assistant Medical
DX: E11.49 Type 2 diabetes mellitus with other diabetic neurological complication (principal); D64.9 Anemia, unspecified
CPT/HCPCS: 36415; 80048; 82607; 82728; 82746; 83036; 83540; 84466; 85025; 85045

== ENCOUNTER 2023-05-21 07:00 | Outpatient (CLI) | payer MEDICARE ==
--- NOTE | 2023-05-21 11:34 | XRAY Report ---
PROCEDURE: Ribs w/PA Chest 3+V RT INDICATIONS: RIGHT SIDED RIB PAIN TECHNIQUE: 5 views of the ribs were acquired, along with a single view chest. COMPARISON: Chest radiograph on December 20, 2022. FINDINGS: Surgical changes and devices: Cholecystectomy clips. Bones and chest wall: No fractures or dislocations. No suspicious bony lesions. Overlying soft tis sues appear unremarkable. Lungs and pleura: No pleural effusions or pneumothorax. Lungs appear clear. Mediastinum: Mediastinal contours appear normal. Heart size is normal. IMPRESSION: No displaced rib fracture or pneumothorax. Reviewed by: Jayro Azar MD on 05/21/2023 11:33 AM PDT Approved by: Jayro Azar MD on 05/21/2023 11:33 AM PDT Station ID: [id number]
== END 2023-05-21 23:59 | disposition home or self-care (01) ==
LOC: DI.S 07:00
PROVIDERS: ATTEND Registered Nurse
DX: R07.81 Pleurodynia (principal)

== ENCOUNTER 2023-06-05 16:08 | Outpatient (CLI) | payer MEDICARE ==
--- NOTE | 2023-06-05 17:17 | CT Report ---
PROCEDURE: Head WO INDICATIONS: HEAD INJURY, SLURRED SPEECH TECHNIQUE: Noncontrast 4.5 mm thick angled axial sections acquired from the foramen magnum to the vertex. For r adiation dose reduction, the following was used: automated exposure control, adjustment of mA and/or kV according to patient size. COMPARISON: None. FINDINGS: Image quality: Excellent. The ventricular system and cortical sulci demonstrate atrophy, consistent for patient's stated age. There are areas of hypodensity in the periventricular and subcortical white matter. There is no acut e intra or extra-axial fluid collection. No acute hemorrhage, mass lesion or midline shift. Brainst em is unremarkable. Globes are symmetrical. Sinuses are aerated with minimal scattered areas of mucosal thickening.. Osse ous structures are intact. IMPRESSION: 1. No acute intracranial process. 2. Mild atrophy and chronic microvascular ischemic changes. Reviewed by: Xiomara Shah MD on 06/05/2023 5:16 PM PDT Approved by: Xiomara Shah MD on 06/05/2023 5:16 PM PDT Station ID: [id number]
== END 2023-06-05 16:09 | disposition home or self-care (01) ==
LOC: DI 16:08
PROVIDERS: ATTEND Physician Assistant Medical
DX: S09.90XA Unspecified injury of head, initial encounter (principal); R47.81 Slurred speech; R53.83 Other fatigue

== ENCOUNTER 2023-06-12 07:09 | Outpatient (CLI) | payer MEDICARE ==
[2023-06-12 14:51] LABS: ABSOLUTE RETICS # AUTO 0.068 10^6/uL (0.020-0.110); BASOPHILS % (AUTO) 0.8 %; EOSINOPHILS # (AUTO) 0.4 10^3/uL (0.0-0.7); EOSINOPHILS % (AUTO) 11.1 %; HCT - HEMATOCRIT 32.1 % (42.0-52.0); HGB - HEMOGLOBIN 9.9 g/dL (14.0-18.0); LYMPHOCYTES # (AUTO) 1.5 10^3/uL (1.5-3.5); LYMPHOCYTES % (AUTO) 36.4 %; MEAN CORPUSCULAR HEMOGLOBIN 31.3 pg (27.0-31.0); MEAN CORPUSCULAR HGB CONC 30.8 g/dL (32.0-36.0); MEAN CORPUSCULAR VOLUME 101.6 fL (80.0-94.0); MEAN PLATELET VOLUME 10.5 fL (7.4-11.4); MONOCYTES # (AUTO) 0.4 10^3/uL (0.0-1.0); MONOCYTES % (AUTO) 10.3 %; NEUTROPHILS # (AUTO) 1.7 10^3/uL (1.5-6.6); NEUTROPHILS % (AUTO) 41.4 %; PLT - PLATELET COUNT 130 10^3/uL (130-450); RED BLOOD COUNT 3.16 10^6/uL (4.70-6.10); RED CELL DISTRIBUTION WIDTH 16.5 % (12.0-15.0); RETICULOCYTE COUNT % (AUTO) 2.15 % (0.5-2.3)
[2023-06-12 15:25] LABS: FERRITIN 38.6 ng/mL (23.9-336.2)
[2023-06-12 16:11] LABS: ALBUMIN 3.3 g/dL (3.2-5.5); ALBUMIN/GLOBULIN RATIO 1.1 (1.0-2.2); CALCIUM 10.5 mg/dL (8.5-10.3); POTASSIUM 4.2 mmol/L (3.5-4.5); TOTAL PROTEIN 6.2 g/dL (6.4-8.9)
[2023-06-12 20:14] LABS: ESTIMATED AVERAGE GLUCOSE 105 mg/dL (70-100); HEMOGLOBIN A1c% 5.3 % (4.27-6.07)
== END 2023-06-12 07:10 | disposition home or self-care (01) ==
LOC: LAB.S 07:09
PROVIDERS: ATTEND Physician Assistant Medical
DX: D64.9 Anemia, unspecified (principal); R53.83 Other fatigue
CPT/HCPCS: 36415; 80053; 81599; 82607; 82728; 82746; 83036; 83540; 83880; 84466; 85025; 85045

== ENCOUNTER 2023-07-18 07:06 | Outpatient (CLI) | payer MEDICARE ==
[2023-07-18 15:09] LABS: THYROID STIMULATING HORMONE 1.57 uIU/mL (0.34-5.60)
[2023-07-18 21:12] LABS: ESTIMATED AVERAGE GLUCOSE 114 mg/dL (70-100); HEMOGLOBIN A1c% 5.6 % (4.27-6.07)
== END 2023-07-18 07:07 | disposition home or self-care (01) ==
LOC: LAB.S 07:06
PROVIDERS: ATTEND Physician Assistant Medical
DX: E11.8 Type 2 diabetes mellitus with unspecified complications (principal); E03.9 Hypothyroidism, unspecified
CPT/HCPCS: 36415; 80048; 82043; 82570; 83036; 84443

== ENCOUNTER 2023-08-09 13:26 | Outpatient (CLI) | payer MEDICARE ==
[2023-08-09 20:12] LABS: BASOPHILS # (AUTO) 0.1 10^3/uL (0.0-0.1); BASOPHILS % (AUTO) 1.1 %; EOSINOPHILS # (AUTO) 0.5 10^3/uL (0.0-0.7); EOSINOPHILS % (AUTO) 12.1 %; HCT - HEMATOCRIT 32.8 % (42.0-52.0); HGB - HEMOGLOBIN 10.8 g/dL (14.0-18.0); LYMPHOCYTES # (AUTO) 1.5 10^3/uL (1.5-3.5); LYMPHOCYTES % (AUTO) 33.8 %; MEAN CORPUSCULAR HEMOGLOBIN 32.3 pg (27.0-31.0); MEAN CORPUSCULAR HGB CONC 32.9 g/dL (32.0-36.0); MEAN CORPUSCULAR VOLUME 98.2 fL (80.0-94.0); MEAN PLATELET VOLUME 10.3 fL (7.4-11.4); MONOCYTES # (AUTO) 0.4 10^3/uL (0.0-1.0); MONOCYTES % (AUTO) 8.5 %; NEUTROPHILS % (AUTO) 44.5 %; PLT - PLATELET COUNT 128 10^3/uL (130-450); RED BLOOD COUNT 3.34 10^6/uL (4.70-6.10); RED CELL DISTRIBUTION WIDTH 15.9 % (12.0-15.0); WHITE BLOOD COUNT 4.5 x10^3/uL (4.8-10.8)
[2023-08-09 20:43] LABS: % IRON SATURATION 19 % (20-50); AMYLASE 58 U/L (28-100); CHOL/HDL RATIO 4.3 (<5.0); CHOLESTEROL 164 mg/dL; CRP - C-REACTIVE PROTEIN < 0.5 mg/dL (<0.5); HDL CHOLESTEROL 38 mg/dL; IRON 66 ug/dL (50-212); LDL CHOLESTEROL,CALCULATED 72 mg/dL; LDL/HDL RATIO 1.9 (<3.6); LIPASE 115 U/L (11-82); MAGNESIUM 1.4 mg/dL (1.7-2.3); PHOSPHORUS 1.3 mg/dL (2.5-5.0); TOTAL IRON BINDING CAPACITY 343 ug/dL (250-450); TRANSFERRIN 245 mg/dL (203-362); TRIGLYCERIDES 270 mg/dL (48-352); URIC ACID 4.8 mg/dL (4.4-7.6); VLDL CHOLESTEROL 54 mg/dL
[2023-08-09 20:51] LABS: FERRITIN 27.8 ng/mL (23.9-336.2)
== END 2023-08-09 13:27 | disposition home or self-care (01) ==
LOC: LAB.S 13:26
PROVIDERS: ATTEND Internal Medicine
DX: E83.52 Hypercalcemia (principal); R74.8 Abnormal levels of other serum enzymes; D64.9 Anemia, unspecified; L30.9 Dermatitis, unspecified
CPT/HCPCS: 36415; 80061; 81599; 82150; 82306; 82330; 82728; 83540; 83690; 83721; 83735; 84100; 84466; 84550; 85025; 86140

== ENCOUNTER 2023-08-10 12:11 | Outpatient (CLI) | payer MEDICARE ==
[2023-08-10 13:19] LABS: BASOPHILS # (AUTO) 0.1 10^3/uL (0.0-0.1); BASOPHILS % (AUTO) 1.1 %; EOSINOPHILS # (AUTO) 0.6 10^3/uL (0.0-0.7); EOSINOPHILS % (AUTO) 12.8 %; HCT - HEMATOCRIT 32.6 % (42.0-52.0); HGB - HEMOGLOBIN 10.9 g/dL (14.0-18.0); LYMPHOCYTES # (AUTO) 1.6 10^3/uL (1.5-3.5); LYMPHOCYTES % (AUTO) 35.6 %; MEAN CORPUSCULAR HEMOGLOBIN 32.3 pg (27.0-31.0); MEAN CORPUSCULAR HGB CONC 33.4 g/dL (32.0-36.0); MEAN CORPUSCULAR VOLUME 96.7 fL (80.0-94.0); MEAN PLATELET VOLUME 9.1 fL (7.4-11.4); MONOCYTES # (AUTO) 0.4 10^3/uL (0.0-1.0); MONOCYTES % (AUTO) 9.3 %; NEUTROPHILS # (AUTO) 1.9 10^3/uL (1.5-6.6); PLT - PLATELET COUNT 118 10^3/uL (130-450); RED BLOOD COUNT 3.37 10^6/uL (4.70-6.10); RED CELL DISTRIBUTION WIDTH 15.2 % (12.0-15.0); WHITE BLOOD COUNT 4.6 x10^3/uL (4.8-10.8)
[2023-08-10 13:29] LABS: CALCIUM, IONIZED 1.3 mmol/L (1.15-1.33); VBG PH 7.393 (7.31-7.41)
[2023-08-10 13:41] LABS: ALBUMIN 3.6 g/dL (3.2-5.5); ALBUMIN/GLOBULIN RATIO 1.2 (1.0-2.2); BILIRUBIN,DIRECT 0.26 mg/dL (0.03-0.18); CALCIUM 10.7 mg/dL (8.5-10.3); CREATININE 1.1 mg/dL (0.6-1.3); POTASSIUM 3.8 mmol/L (3.5-4.5); TOTAL PROTEIN 6.5 g/dL (6.4-8.9)
== END 2023-08-10 12:12 | disposition home or self-care (01) ==
LOC: LAB 12:11
PROVIDERS: ATTEND Internal Medicine
DX: E83.52 Hypercalcemia (principal); R74.8 Abnormal levels of other serum enzymes; D64.9 Anemia, unspecified
CPT/HCPCS: 36415; 80053; 81599; 82248; 82306; 82330; 82977; 83970; 85025

== ENCOUNTER 2023-08-16 07:11 | Outpatient (CLI) | payer MEDICARE ==
[2023-08-16 15:35] LABS: INR 1.2 (0.8-1.2)
== END 2023-08-16 07:12 | disposition home or self-care (01) ==
LOC: LAB.S 07:11
PROVIDERS: ATTEND Internal Medicine
DX: R16.0 Hepatomegaly, not elsewhere classified (principal); R74.8 Abnormal levels of other serum enzymes
CPT/HCPCS: 36415; 82550; 82784; 85610; 86038; 86334; 86376

== ENCOUNTER 2023-08-22 07:51 | Outpatient (CLI) | payer MEDICARE ==
[2023-08-22] MEDS ORDERED: iohexoL-300 100 ML VIAL ONE (08:07)
[2023-08-22] MEDS ORDERED: DIATRIZOATE MEGLU/DIATRIZO SOD 30 ML BOTTLE PO ONE (08:07)
[2023-08-22] MEDS: iohexoL-300 100 ML VIAL IVP ONE (09:57)
[2023-08-22] MEDS: DIATRIZOATE MEGLU/DIATRIZO SOD 30 ML BOTTLE PO ONE (10:28)
--- NOTE | 2023-08-22 19:45 | CT Report ---
PROCEDURE: Abdomen/Pelvis W INDICATIONS: S/P CHOLECYSTECTOMY, ELEVATED LAPS, SPENOMEGALY CONTRAST: Omni 300 100ml TECHNIQUE: After the administration of intravenous contrast, a CT scan of the abdomen and pelvis was performed. Images were recorded and evaluated at appropriate window settings. Reformats: coronal and sagittal. F or radiation dose reduction, the following was used: automated exposure control, adjustment of mA and /or kV according to patient size. COMPARISON: 07/15, 05/12/2019. FINDINGS: Image quality: Diagnostic. Lower chest: Stable right pericardial, partially imaged. Lung bases are clear. Heart size is normal. Liver: Hepatic steatosis. Nodular liver contour suggestive of cirrhosis. No focal intrahepatic lesion s. Gallbladder: Surgically absent. Biliary tree: No intrahepatic or extrahepatic dilation, accounting for age. Spleen: Enlarged. Pancreas: No pancreatic ductal dilation. Adrenals: No adrenal nodule. Kidneys and ureters: No hydronephrosis. No renal cystic lesion which requires follow up. No solid mas s. Bilateral ureters are normal in course and caliber. Tiny punctate non-obstructing bilateral renal sto magdalene. Stomach, bowel and peritoneum: No gastric or small bowel dilation. No abnormal wall thickening. No pa thologic free fluid. Small duodenal diverticulum. Colonic diverticulosis without acute diverticuliti s. Normal appendix. Lymph nodes: No central or retroperitoneal adenopathy.Prominent periportal lymph nodes. Vessels: No infrarenal aortic aneurysm. Patent portal vein. Findings of portal hypertension with nume nadira right abdominal, periportal varices. PELVIS Reproductive organs: Prominent prostate gland. Bladder: No abnormal wall thickening, accounting for underdistention. Pelvic lymph nodes: No pelvic adenopathy by size criteria. Bones: No aggressive osseous abnormality. No acute compression fractures. Multilevel spondylosis. Other: No significant ventral or inguinal hernia. IMPRESSION: CT abdomen and pelvis without acute abnormalities. Cirrhosis and splenomegaly with findings consistent with portal hypertension. Status post cholecystectomy. Hepatic steatosis. Non-obstructing tiny punctate bilateral renal stones. Other chronic findings as above. Reviewed by: Patel Mckeon MD on 08/22/2023 7:44 PM PDT Approved by: Patel Mckeon MD on 08/22/2023 7:44 PM PDT Station ID: [id number]
== END 2023-08-22 07:52 | disposition home or self-care (01) ==
LOC: DI 07:51
PROVIDERS: ATTEND Internal Medicine
DX: R74.8 Abnormal levels of other serum enzymes (principal); R16.1 Splenomegaly, not elsewhere classified; R16.0 Hepatomegaly, not elsewhere classified; E83.42 Hypomagnesemia; E83.52 Hypercalcemia; K74.60 Unspecified cirrhosis of liver; Z90.49 Acquired absence of other specified parts of digestive tract; K76.0 Fatty (change of) liver, not elsewhere classified; N20.0 Calculus of kidney; K57.30 Diverticulosis of large intestine without perforation or abscess without bleeding; K76.6 Portal hypertension; R59.0 Localized enlarged lymph nodes
CPT/HCPCS: 74177; Q9963; Q9967

== ENCOUNTER 2023-09-12 07:33 | Outpatient (CLI) | payer MEDICARE ==
[2023-09-12 15:48] LABS: BASOPHILS # (AUTO) 0.1 10^3/uL (0.0-0.1); BASOPHILS % (AUTO) 1.2 %; EOSINOPHILS # (AUTO) 0.5 10^3/uL (0.0-0.7); EOSINOPHILS % (AUTO) 13.4 %; HCT - HEMATOCRIT 33.8 % (42.0-52.0); HGB - HEMOGLOBIN 10.6 g/dL (14.0-18.0); LYMPHOCYTES # (AUTO) 1.3 10^3/uL (1.5-3.5); LYMPHOCYTES % (AUTO) 31.8 %; MEAN CORPUSCULAR HEMOGLOBIN 31.6 pg (27.0-31.0); MEAN CORPUSCULAR HGB CONC 31.4 g/dL (32.0-36.0); MEAN CORPUSCULAR VOLUME 100.9 fL (80.0-94.0); MONOCYTES # (AUTO) 0.4 10^3/uL (0.0-1.0); MONOCYTES % (AUTO) 8.7 %; NEUTROPHILS # (AUTO) 1.8 10^3/uL (1.5-6.6); NEUTROPHILS % (AUTO) 44.7 %; PLT - PLATELET COUNT 114 10^3/uL (130-450); RED BLOOD COUNT 3.35 10^6/uL (4.70-6.10); RED CELL DISTRIBUTION WIDTH 16.2 % (12.0-15.0)
[2023-09-12 16:15] LABS: MAGNESIUM 1.9 mg/dL (1.7-2.3)
[2023-09-12 16:37] LABS: FERRITIN 82.1 ng/mL (23.9-336.2)
[2023-09-13 08:11] LABS: IMMUNOGLOBULIN A (IGA) 340 mg/dL (61-437); IMMUNOGLOBULIN G (IGG) 1168 mg/dL (603-1613); IMMUNOGLOBULIN M (IGM) 214 mg/dL (15-143)
== END 2023-09-12 07:34 | disposition home or self-care (01) ==
LOC: LAB.S 07:33
PROVIDERS: ATTEND Internal Medicine
DX: E83.52 Hypercalcemia (principal); D89.2 Hypergammaglobulinemia, unspecified; E83.42 Hypomagnesemia; D64.9 Anemia, unspecified; R79.89 Other specified abnormal findings of blood chemistry
CPT/HCPCS: 36415; 82330; 82728; 82784; 83540; 83735; 84155; 84165; 84466; 85025; 86334

== ENCOUNTER 2023-10-19 08:40 | Outpatient (CLI) | payer MEDICARE ==
--- NOTE | 2023-10-19 13:56 | MRI Report ---
PROCEDURE: Brain WO INDICATIONS: SLURRED SPEECH TECHNIQUE: Noncontrast axial T1 spin echo, axial T2 fast spin echo, sagittal and axial FLAIR, coronal T2 fast sp in echo, axial gradient echo, axial diffusion and ADC through the brain. COMPARISON: CT head 06/05/2023 FINDINGS: Image quality: Excellent. CSF Spaces: Basal cisterns are patent. No extra-axial fluid collections. Ventricles are normal in size and shape. Brain: No intracranial masses or hemorrhage. Ortiz/white matter interface is normal. Brainstem appe ars normal. Diffusion-weighted images demonstrate no acute ischemic insult. No chronic ischemic ins ults. Normal intravascular flow voids are present. Skull and face: Calvarium has normal marrow signal. Orbits appear normal. Sinuses: Sinuses demonstrate minimal mucosal thickening. IMPRESSION: 1. No acute intracranial process. 2. Mild atrophy and chronic microvascular ischemic changes. Reviewed by: Xiomara Shah MD on 10/19/2023 1:54 PM PDT Approved by: Xiomara Shah MD on 10/19/2023 1:54 PM PDT Station ID: [id number]
== END 2023-10-19 08:41 | disposition home or self-care (01) ==
LOC: DI 08:40
PROVIDERS: ATTEND Internal Medicine
DX: G31.9 Degenerative disease of nervous system, unspecified (principal); I67.82 Cerebral ischemia; R47.81 Slurred speech

== ENCOUNTER 2023-11-07 11:38 | Outpatient (CLI) | payer MEDICARE | END 2023-11-07 11:39 | disposition home or self-care (01) | LOC: LAB.S 11:38 | PROVIDERS: ATTEND Internal Medicine | DX: E11.8 Type 2 diabetes mellitus with unspecified complications (principal); Z87.442 Personal history of urinary calculi | CPT/HCPCS: 81599 ==

== ENCOUNTER 2025-01-24 16:25 | Inpatient (IN) ==
--- NOTE | 2025-01-24 16:42 | ED Physician Documentation ---
History of Present Illness Stated complaint Stated Complaint: AMS Chief complaint Chief Complaint: Fever History obtained from History obtained from: Patient History of Present Illness Timing: Prior to arrival Additonal information Additional information: Patient 74-year-old male with past medical history of cirrhosis, history of diabetes, history of hypothyroidism presents to the emergency department with increased confusion and fatigue and fevers today. Patient recently had stent placed on 01/19. He removed the stent by himself on the at recommendations of urology. Per family patient has been worsening over the last few days he currently resides at home. He is much more altered today they note that in the past he has been altered secondary to a high ammonia level secondary to a history of a cirrhosis [place] Coma Scale Assess Eye opening: Spontaneous Verbal response: Confused Motor response: Obeys Commands Total score: 14 Meds/Allgy Home Medications Ambulatory Orders Medication Instructions Recorded Confirmed tamsulosin 0.4 mg capsule 0.8 mg (2 x 0.4 mg) PO QDAY 30 06/30/24 01/24/25 days #60 caps hydrocortisone 2.5 % topical cream 1 applic MN QDAY MN N itching 14 09/11/24 01/24/25 with perineal applicator days #30 grams Permanent Disabled Placard #1 ea 11/13/24 01/24/25 allopurinol 300 mg tablet 300 mg PO DAILY 90 days #90 tabs 11/13/24 01/24/25 gabapentin 300 mg capsule 600 mg (2 x 300 mg) PO HS 90 days 11/13/24 01/24/25 #180 caps lactulose 10 gram/15 mL oral 20 g (30 mL) PO QAM AND Q HS liver 11/13/24 01/24/25 solution (Enulose) cirrhosis #946 mL levothyroxine 100 mcg tablet 100 mcg PO DAILY 90 days #90 tabs 11/13/24 01/24/25 omeprazole 20 mg capsule,delayed 20 mg PO QDAY PRN RE #90 caps 11/13/24 01/24/25 release blood sugar diagnostic (WangluotianxiaTouch #100 ea 11/18/2412/28 Verio test strips) blood-glucose meter (OneTouch #1 ea 11/18/24 01/24/25 Verio Flex Meter) lancets 33 gauge (OneTouch Deldennis #100 ea 11/18/24 Plus Lancet) metformin 500 mg tablet,extended 500 mg PO BID #180 ta bs 01/06/25 01/24/25 release 24 hr (Glucophage XR) trazodone 50 mg tablet 50 mg PO QDAY #90 tabs 01/1401/24/25 phenazopyridine 200 mg tablet 200 mg PO TID PRN pain 9 doses #9 01/19/25 tabs tramadol 50 mg tablet 50 mg PO BID PRN pain #10 ta bs 01/19/25 01/24/25 Allergies Allergies Allergy/AdvReac Type Severity Reaction Status Date / Time Penicillins Allergy Rash Verified 01/24/25 16:34 PFSH Active Problems All Active Problems (Updated 01/24/25 @ 18:31 by ) UTI (urinary tract infection) (Acute) Altered mental status (Acute) RAMSES (acute kidney injury) (Acute) Cirrhosis (Acute) Contusion of left middle finger (Acute) Finger injury (Acute) Poor balance (Acute) Venous stasis dermatitis (Acute) Visit for suture removal (Acute) Cirrhosis (Acute) Encounter for wound care (Acute) Laceration of left hand (Acute) HTN (hypertension) (Chronic) Skin lesion of chest wall (Acute) Pancytopenia (Acute) Atopic dermatitis (Acute) Ureteral stone (Acute) Anemia (Acute) Tinea cruris (Acute) Strain of chest wall (Acute) Cellulitis (Acute) Iron deficiency anemia (Acute) Kidney stones (Acute) Bilateral flank pain (Acute) Hematuria (Acute) Peripheral edema (Acute) Hypothyroid (Acute) Peripheral neuropathy (Acute) Itch (Acute) Rash (Acute) Neuroforaminal stenosis of lumbar spine (Acute) Low back pain with sciatica (Acute) Pasteurella cellulitis due to cat bite (Acute) Insomnia (Acute) Psoriasiform dermatitis (Acute) Hepatic encephalopathy (Acute) Healthcare maintenance (Acute) Confusion and disorientation (Acute) BMI 39.0-39.9,adult (Acute) Cellulitis of right leg (Acute) Monoclonal gammopathy of undetermined significance (Acute) Cirrhosis of liver (Acute) Sleep apnea (Acute) Diabetic foot (Acute) Splenomegaly, congestive, chronic (Acute) Portal hypertension (Acute) Dermatitis (Acute) Diabetes mellitus type 2, controlled, with complications (Acute) Hypertension (Acute 12/20/22) Gout (Acute 11/05/12) GERD (gastroesophageal reflux disease) (Acute 11/05/12) Diabetic peripheral neuropathy (Acute 07/21/16) Anemia (Acute 12/21/22) Foreign body of left heel (Acute) Hypercalcemia (Acute) Non-pressure chronic ulcer of other part of right lower leg limited to breakdown of skin (Acute) Non-pressure chronic ulcer of other part of left lower leg limited to breakdown of skin (Acute) Venous insufficiency (chronic) (peripheral) (Acute) Flank pain (Acute) Fever (Acute) Renal colic (Acute) Abdominal abscess (Acute) Cholecystitis (Acute) Medical History Medical History Colon polyp Obstructive sleep apnea Chest pain Decompensated liver disease Cholelithiasis (11/13/18) Cholecystitis, acute (01/16/19) Cellulitis of left lower limb (10/07/22) Bright red blood per rectum (04/13/23) H/O renal calculi Surgical History Surgical History History of esophagogastroduodenoscopy (EGD) H/O colonoscopy Hx of cholecystectomy H/O laparoscopy abdominal cyst H/O shoulder surgery right x3 S/P right rotator cuff repair History of open reduction and internal fixation (ORIF) procedure left ankle Hx of appendectomy H/O arthroscopy of right knee History of carpal tunnel release right hand Family History Family History Father Heart disease Diabetes Heart attack Mother H/O mastoidectomy Cancer Social History Social History (Updated 01/24/25 @ 17:01 by Hope Mcgill RN) Smoking Status: Former smoker If you are a former smoker, when did you quit? 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 HENMT normocephalic, head/scalp atraumatic and hearing grossly normal bilaterally Eyes PERRL, EOMs intact bilaterally and conjunctivae normal Neck/C-Spine visual inspection normal Chest inspection of chest normal Respiratory breath sounds equal bilaterally, normal respiratory effort and clear to auscultation bilaterally Cardiovascular normal heart rate noted, regular rhythm noted, no gallop and no rub Gastrointestinal Abdomen soft and nontender on examination Results Vitals Vitals: Vital Signs - 24 hr 01/24/25 16:27 01/24/25 16:53 01/24/25 17:10 Temperature 38.9 C H Temperature Source Oral Pulse Rate 111 H 119 H Respiratory Rate 24 21 Blood Pressure 129/69 138/87 H O2 Saturation 99 100 O2 Source Room air Room air Pain Intensity 0 0 0 01/24/25 17:41 Temperature 37.4 C Temperature Source Oral Pulse Rate 118 H Respiratory Rate 15 Blood Pressure 134/86 H O2 Saturation 100 O2 Source Room air Pain Intensity 0 Oxygen O2 Source Room air Labs Labs: Laboratory Tests 01/24/25 01/24/25 16:40 16:50 WBC 15.3 H RBC 3.53 L Hgb 11.5 L Hct 37.0 L MCV 104.8 H MCH 32.6 H MCHC 31.1 L RDW 19.4 H Plt Count 142 MPV 9.5 Neut # (Auto) 12.6 H Lymph # (Auto) 1.3 L [place] # (Auto) 1.0 Eos # (Auto) 0.1 Baso # (Auto) 0.1 Absolute Nucleated RBC 0.00 Nucleated RBC % 0.0 Sodium 151 H Potassium 4.9 H Chloride 118 H Carbon Dioxide 21 Anion Gap 12.0 BUN 24 H Creatinine 1.4 H Estimated GFR (MDRD) 50 L Glucose 105 H Lactic Acid 7.4 H* Calcium 11.7 H Total Bilirubin 2.4 H AST 107 H ALT 38 Alkaline Phosphatase 101 Ammonia 62.4 Total Protein 5.4 L Albumin 2.8 L Globulin 2.6 Albumin/Globulin Ratio 1.1 Urine Color ORANGE Urine Clarity CLEAR Urine pH 6.0 Ur Specific [place] 1.025 Urine Protein TRACE Urine Glucose (UA) NEGATIVE Urine Ketones NEGATIVE Urine Occult Blood MODERATE Urine Nitrite NEGATIVE Urine Bilirubin NEGATIVE Urine Urobilinogen 0.2 (NORMAL) Ur Leukocyte Esterase TRACE H Urine RBC TNTC H Urine WBC 6-10 H Urine WBC Clumps PRESENT Ur Epithelial Cells RARE Transitional Ur Squamous Epith Cells FEW Squamous Urine Bacteria Rare Urine Culture Comments INDICATED PD Medical Decision Making ED course Complexity details: reviewed old records and reviewed results ED course: Patient 74-year-old male presenting to the emergency department from home with increasing altered mental status fevers and fatigue. Patient recently had on 0 for a ureteral stent which he removed at home on Sunday. Per he has progressively worsened with increasing confusion and is febrile on arrival at 102. Patient tachycardic and sepsis criteria met here in the ED. IV fluids were started and labs are pending at this time will scan head and abdomen to evaluate for altered mental status and possible pyelonephritis versus abscess given worsening symptoms post ureteral stent CT abd pelvis: No acute abnormality is seen. No hydronephrosis is seen. CT head: No imaging explanation is found for the patient's presenting symptoms.To the limits of this noncontrast study, no findings of masses or mass effect can be seen. Similar to the prior. CXR: Mild interstitial opacities, may represent mild pulmonary edema versus atypical infection. Labs remarkable here in the emergency department for leukocytosis of 15.3 has mild anemia 11.5 but this appears stable for him patient significantly hyponatremic at 151 with potassium of 4.9 and a creatinine of 1.4. Baseline closer to 1.0 for patient he has elevated lactic acid of 7.4 antibiotics of ceftriaxone and vancomycin ordered and a slight elevation of AST at 107 however this is baseline for patient with history of cirrhosis. He has a normal and ammonia level and a CT head that is negative symptoms most likely secondary to sepsis. His CT abdomen shows no acute intra-abdominal process or hydronephrosis seen. Urine concerning for red blood cells or white blood cells. Patient did have an episode of bigeminy here in the ED not captured on EKG but he has some mild persistent tachycardia. Blood pressure remained stable he is on lactated Ringer's for his hypernatremia pending urine and serum osmolality at this time. Discussed Case with Dr. La over the phone and he reviewed imaging recommends continue with antibiotics patient had recent E. coli UTI about a month ago and it was pansensitive. Recommends getting bladder for second void as it appeared full on the CT to him. Recommends Fregoso for adequate drainage and believes it is most likely urosepsis even though the urine looks fine so far.. Discussed case with And who accepts patient to the ICU at this time. Discharge Plan Discharge Patient Disposition: 66 [facility] DC/Xfer Condition: Stable Clinical Impression: Cirrhosis, RAMSES (acute kidney injury), Altered mental status, UTI (urinary tract infection)
[2025-01-24 16:51] LABS: HCT - HEMATOCRIT 37.0 % (42.0-52.0); HGB - HEMOGLOBIN 11.5 g/dL (14.0-18.0); MEAN PLATELET VOLUME 9.5 fL (7.4-11.4); NRBC ABSOLUTE COUNT (AUTO) 0.00 x10^3/uL; NUCLEATED RED BLOOD CELLS AUTO 0.0 /100WBC; PLT - PLATELET COUNT 142 10^3/uL (130-450); RED CELL DISTRIBUTION WIDTH 19.4 % (12.0-15.0)
[2025-01-24] MEDS: SODIUM CHLORIDE 0.9% 1,000 ML IV STA (16:57)
[2025-01-24 17:13] LABS: GLUCOSE, URINE (UA) NEGATIVE (NEGATIVE); KETONES,URINE (UA) NEGATIVE (NEGATIVE); OCCULT BLOOD,URINE MODERATE (NEGATIVE)
--- NOTE | 2025-01-24 17:13 | XRAY Report ---
PROCEDURE: XR Chest 1V INDICATIONS: Sepsis TECHNIQUE: One view of the chest was acquired. COMPARISON: None. FINDINGS: Surgical changes and devices: None. Lungs and pleura: Mild central pulmonary vascular congestion. Mild interstitial opacities. No pleural effusion. No pneumothorax Mediastinum: Mediastinal contours appear normal. Heart size is normal. Bones and chest wall: No suspicious bony lesions. Overlying soft tissues appear unremarkable. IMPRESSION: Mild interstitial opacities, may represent mild pulmonary edema versus atypical infection. Reviewed by: Jeremiah Brian MD on 01/24/2025 5:09 PM PST Approved by: Jeremiah Brian MD on 01/24/2025 5:09 PM PST Station ID: [email or web address]
[2025-01-24 17:14] LABS: EPITHELIAL CELLS,UR RARE Transitional /HPF (<= Few); SQUAMOUS EPITHELIAL CELL,UR FEW Squamous (<= Few); WBC CLUMPS,URINE PRESENT
[2025-01-24 17:15] LABS: ALT ALANINE AMINOTRANSFERASE 38.0 IU/L (10-60); AST ASPARTATE AMINOTRANSFERASE 107.0 IU/L (10-42); BUN - BLOOD UREA NITROGEN 24.0 mg/dL (6-20); CARBON DIOXIDE - CO2 21.0 mmol/L (21-32); CREATININE 1.4 mg/dL (0.6-1.3); GFR - MDRD 50.0 (>89)
[2025-01-24] MEDS: LACTATED RINGERS 1,000 ML IV STA (17:21)
--- OUTSIDE RECORDS SUMMARY | 2025-01-24 17:47 | EXTERNAL MEDICAL SUMMARY RPT | Continuity of Care Document ---
Author Organization [place] Address [address] [place] [id number] Phone Problems date description facility 2024-11-05 09:56 Iron deficiency anemia, [facility]ied [facility] 2024-11-05 09:56 Encounter for genera l adult medical examination without abnormal findings [facility] 2024-11-05 09:56 Encounter for screen ing for diseases of the blood and blood-forming organs and certain disorders involving the immune mechanism [facility] 2024-11-06 00:04 Iron deficiency anemia, [facility]speci fied [facility] 2024-11-06 00:04 Encounter for genera l adult medical examination without abnormal findings [facility] 2024-11-06 00:04 Encounter for screen ing for diseases of the blood and blood-forming organs and certain disorders involving the immune mechanism [facility] 2024-11-06 09:34 Encounter for genera l adult medical examination without abnormal findings [facility] 2024-11-11 06:31 Calculus of ureter [facility] 2024-11-11 06:31 Personal history of urinary andrei culi [facility] 2024-11-14 00:01 Iron deficiency anemia, [facility] 2024-11-14 00:01 Other pancytopenia [facility] 2024-11-14 00:01 Hypothyroidism, unspecified [facility] 2024-11-14 00:01 Type 2 diabetes rosalino itus with unspecified complications [facility] 2024-11-14 00:01 Polyneuropathy, unspecified [facility] 2024-11-14 00:01 Essential (primary) [facility]ensio [facility] 2024-11-14 00:01 Gastro-esophageal reflux diseas e without esophagitis [facility] 2024-11-14 00:01 Alcoholic cirrhosis of liver wi thout ascites [facility] 2024-11-14 00:01 Hepatic failure, unspecified wi thout coma [facility] 2024-11-14 00:01 Unspecified cirrhosis of liver [facility] 2024-11-14 00:01 Gout, unspecified [facility] 2024-11-14 00:01 [facility]24-[facility]-14 10:01 Calculus of ureter [facility] 2024-11-14 10:01 Personal history of urinary andrei culi [facility] 2024-11-14 10:02 Calculus of ureter [facility] 2024-11-14 10:02 Personal history of urinary andrei culi [facility] 2024-11-18 09:15 Calculus of ureter [facility] 2024-11-18 09:15 Personal history of urinary andrei culi [facility] 2024-11-18 10:14 Laceration without f oreign body of left hand, [facility] 2024-11-21 08:21 Calculus of ureter [facility] 2024-11-21 08:21 Personal history of urinary andrei culi [facility] 2024-11-21 08:51 Cellulitis of other sites [facility] 2024-11-21 08:51 Laceration without f oreign body of left hand, [facility] 2024-11-24 08:47 Calculus of ureter [facility] 2024-11-24 08:47 Personal history of urinary andrei culi [facility] 2024-11-25 00:02 Calculus of ureter [facility] 2024-11-25 00:02 Personal history of urinary andrei culi [facility] 2024-11-26 08:20 Calculus of ureter [facility] 2024-11-29 00:02 Laceration without f oreign body of left hand, [facility] 00:02 Encounter for other specified a [facility]tercare [facility] 2024-12-02 00:02 Biliary cirrhosis, unspecified [facility] 2024-12-02 00:02 Encounter for removal of suture s [facility] 2024-12-11 14:59 Calculus of ureter [facility] 2024-12-11 15:03 Calculus of ureter [facility] 2024-12-15 06:37 [facility]culus [facility] ureter [facility] 2024-12-16 00:01 Calculus of ureter [facility] 2024-12-18 09:39 Calculus of ureter [facility] 2024-12-18 09:39 Hematuria, unspecified [facility] 2024-12-18 09:40 Calculus of ureter [facility] 2024-12-18 09:40 Hematuria, unspecified [facility] 2024-12-18 13:41 Hematuria, unspecified [facility] 2024-12-19 10:09 Hematuria, unspecified [facility] 2024-12-23 09:34 Encounter for observ ation for other suspected diseases and conditions ruled out [facility] 2024-12-24 09:40 Obstructive sleep apnea (adult) (pediatric) [facility] 2024-12-29 06:12 Contusion of left mi ddle finger without damage to nail, initial encounter [facility] 2024-12-29 13:52 Unspecified cirrhosis of liver [facility] 2024-12-30 07:09 Unspecified cirrhosis of liver [facility] 2024-12-30 07:14 Unspecified injury o f unspecified wrist, hand and finger(s), initial encounter [facility] 2024-12-30 07:17 Unspecified cirrhosis of liver [facility] 2024-12-30 07:19 Unspecified injury o f unspecified wrist, hand and finger(s), initial encounter [facility] 2024-12-30 08:16 Unspecified injury o f unspecified wrist, hand and finger(s), initial encounter [facility] 2024-12-31 00:03 Unspecified injury o f unspecified wrist, hand and finger(s), initial encounter [facility] 2024-12-31 00:06 Unspecified cirrhosis of liver [facility] 2025-01-09 07:23 Unspecified cirrhosis of liver [facility] 2025-01-12 07:55 Unspecified cirrhosis of liver [facility] 2025-01-12 08:00 Unspecified cirrhosis of liver [facility] [facility] 2025-01-12 09:08 Unspecified cirrhosis of liver [facility] 2025-01-13 00:06 Unspecified cirrhosis of liver [facility] 2025-01-14 16:07 Tinea cruris [facility] 2025-01-14 16:07 Strain of muscle and tendon of front wall of thorax, initial encounter [facility] 2025-01-14 16:14 Iron deficiency anemia, unspeci fied [facility] 2025-01-14 16:14 Anemia, [facility] 2025-01-14 16:14 [facility], [facility]25-[facility]-14 16:14 Type 2 diabetes mellitus with d iabetic polyneuropathy [facility] 2025-01-14 16:14 Type 2 diabetes rosalino itus with unspecified complications [facility] 2025-01-14 16:14 Insomnia, unspecified [facility] 2025-01-14 16:14 Essential (primary) hypertensio n [facility] 2025-01-14 16:14 Gout, unspecified [facility] 2025-01-14 16:14 Localized edema [facility] 2025-01-16 14:11 Unspecified cirrhosis of liver [facility] 2025-01-19 10:15 Calculus of ureter [facility] 2025-01-20 09:39 Calculus of ureter [facility] 2025-01-21 01:55 Unspecified cirrhosis of liver [facility] Results/Labs test date facility value unit notes Result panel 1 LDL/HDL RATIO 2024-11-05 10:10 [facility] 1.2 (missing) (missing) MEAN CORPUSCULAR VOLUME 2024-11-05 10:10 [facility] 101.4 fl (missing) PLT - PLATELET COUNT 2024-11-05 10:10 [facility] 125 10 3/ul (missing) VLDL CHOLESTEROL 2024-11-05 10:10 [facility] 13 mg/dl (missing) CHOLESTEROL 2024-11-05 10:10 [facility] 156 mg/dl Total Cholesterol Risk Classification Cholesterol Level Risk Classification <200 mg/dL Desirable 200-239 mg/dL Borderline High >240 mg/dL High As of August 2022 testing method has changed, this may include reference ranges. IRON 2024-11-05 10:10 [facility] 169 ug/dl As of August 2022 testing method has changed, this may include reference ranges. CHOL/HDL RATIO 2024-11-05 10:10 [facility] 2.4 (missing) NATIONAL CHOLESTEROL GUIDELINE [facility] ([facility]) guidelines for classificaton, testing and management of cholesterol levels in adults over 20 years of age. This new classification creates three categories of risk for coronary heart disease, regardless of age or sex, according to total amd LDL cholesterols levels: Based on total cholesterol level Desirable <200 mg/dl Borderline-high 200-239 mg/dl High >=240 mg/dl Based on cholesterol ratio CHD RISK CHOL/HDL RATIO MALE FEMALE 0.5 x Average 3.4 3.3 1.0 x Average 5.0 4.4 2.0 x Average 9.6 7.1 3.0 x Average 13.5 11.0 RED BLOOD COUNT 2024-11-05 10:10 [facility] 2.88 10 6/ul (missing) RED CELL DISTRIBUTION WIDTH 2024-11-05 10:10 [facility] 20.2 % (missing) HCT - HEMATOCRIT 2024-11-05 10:10 [facility] 29.2 % (missing) MEAN CORPUSCULAR HGB CONC 2024-11-05 10:10 [facility] 31.2 g/dl (missing) MEAN CORPUSCULAR HEMOGLOBIN 2024-11-05 10:10 [facility] 31.6 pg (missing) FERRITIN 2024-11-05 10:10 [facility] 34.9 ng/ml (missing) WHITE BLOOD COUNT 2024-11-05 10:10 [facility] 5.8 x10 3/ul (missing) HDL CHOLESTEROL 2024-11-05 10:10 [facility] 64 mg/dl Coronary Heart Disease Risk Classification HDL Level Risk factor < 40 mg/dL major risk > 60 mg/dL negative risk As of August 2022 testing method has changed, this may include reference ranges. TRIGLYCERIDES 2024-11-05 10:10 [facility] 66 mg/dl Triglyceride Risk Classification <150 mg/dL Normal 150-199 mg/dL Borderline High 200-499 mg/dL High >500 mg/dL Very High As of August 2022 testing method has changed, this may include reference ranges. LDL CHOLESTEROL,CALCULAT ED 2024-11-05 10:10 [facility] 79 mg/dl LDLD REFERENCE RANGE AND CARDIOVASCULAR RISK: <130 mg/dL Desirable 130-159 mg/dL Borderline High Risk >160 mg/dL High Risk HGB - HEMOGLOBIN 2024-11-05 10:10 [facility] 9.1 g/dl (missing) MEAN PLATELET VOLUME 2024-11-05 10:10 [facility] 9.4 fl (missing) Result panel 2 CEFEPIME 2024-12-18 09:20 [facility] <=0.12 (missing) (missing) ERTAPENEM 2024-12-18 09:20 [facility] <=0.12 (missing) (missing) LEVOFLOXACIN 2024-12-18 09:20 [facility] <=0.12 (missing) (missing) CEFTRIAXONE 2024-12-18 09:20 [facility] <=0.25 (missing) (missing) CIPROFLOXACIN 2024-12-18 09:20 [facility] <=0.25 (missing) (missing) IMIPENEM 2024-12-18 09:20 [facility] <=0.25 (missing) (missing) GENTAMICIN 2024-12-18 09:20 [facility] <=1 (missing) (missing) TOBRAMYCIN 2024-12-18 09:20 [facility] <=1 (missing) (missing) NITROFURANTOIN 2024-12-18 09:20 [facility] <=16 (missing) (missing) TRIMETHOPRIM/SULFA METHOXAZOLE 2024-12-18 09:20 [facility] <=20 (missing) (missing) CEFAZOLIN 2024-12-18 09:20 [facility] <=4 (missing) (missing) AMPICILLIN/SULBACT AM 2024-12-18 09:20 [facility] 4 (missing) (missing) CUL, URINE 2024-12-18 09:20 [facility] 5050,000-100,000 CFU/mL (missing) (missing) AMPICILLIN 2024-12-18 09:20 [facility] 8 (missing) This organism is NEGATIVE for Extended Spectrum Beta Lactamase O:ESCCOL 2024-12-18 09:20 [facility] ESCCOLESCHERICHIA COLIESCHERICHIA COLI (missing) (missing) CUL, URINE 2024-12-18 09:20 [facility] IDMICID/SOPHIA COM* (missing) (missing) CUL, URINE 2024-12-18 09:20 [facility] SENSISENSITIVITIES TO FOLLOW (missing) (missing) CUL, URINE 2024-12-18 09:20 [facility] UCC.6COLONY COUNT (missing) (missing) Result panel 3 ABNORMAL LYMPHS % (MANUAL) 2024-12-30 07:10 [facility] 0 % (missing) BASOPHILS # (MANUAL) 2024-12-30 07:10 [facility] 0.2 10 3/ul (missing) MONOCYTES # (MANUAL) 2024-12-30 07:10 [facility] 0.7 10 3/ul (missing) ALBUMIN/GLOBULIN RATIO 2024-12-30 07:10 [facility] 0.9 (missing ) (missing) CREATININE 2024-12-30 07:10 [facility] 1.1 mg/dl As of August 2022 testing method has changed, this may include reference ranges. INR 2024-12-30 07:10 [facility] 1.4 (missing ) Oral Anticoagulant Indication INR range Venous Thrombosis, P.E. 2.0 - 3.0 Mechanical Valve 2.5 - 3.5 LYMPHOCYTES # (MANUAL) 2024-12-30 07:10 [facility] 1.7 10 3/ul (missing) MEAN PLATELET VOLUME 2024-12-30 07:10 [facility] 10.1 fl (missing) CALCIUM 2024-12-30 07:10 [facility] 10.7 mg/dl As of August 2022 testing method has changed, this may include reference ranges. TOTAL CELLS COUNTED 2024-12-30 07:10 [facility] 100 (missing ) (missing) MEAN CORPUSCULAR VOLUME 2024-12-30 07:10 [facility] 105.2 fl (missing) ALKALINE PHOSPHATASE 2024-12-30 07:10 [facility] 107 iu/l As of August 2022 testing method has changed, this may include reference ranges. CHLORIDE 2024-12-30 07:10 [facility] 110 mmol/l As of August 2022 testing method has changed, this may include reference ranges. PLT - PLATELET COUNT 2024-12-30 07:10 [facility] 137 10 3/ul (missing) SODIUM 2024-12-30 07:10 [facility] 139 mmol/l Unknown BUN - BLOOD UREA NITROGEN 2024-12-30 07:10 [facility] 14 mg/dl As of August 2022 testing method has changed, this may include reference ranges. PT - PROTHROMBIN TIME 2024-12-30 07:10 [facility] 15.6 secs N UNK RED CELL DISTRIBUTION WIDTH 2024-12-30 07:10 [facility] 16.8 % (missing) BAND NEUTROPHILS % (MANUAL) 2024-12-30 07:10 [facility] 2 % (missing) EOSINOPHILS # (MANUAL) 2024-12-30 07:10 [facility] 2.0 10 3/ul (missing) NEUTROPHILS # (MANUAL) 2024-12-30 07:10 [facility] 2.0 10 3/ul (missing) BILIRUBIN,TOTAL 2024-12-30 07:10 [facility] 2.0 mg/dl As of August 2022 testing method has changed, this may include reference ranges. ALBUMIN 2024-12-30 07:10 [facility] 2.5 g/dl As of August 2022 testing method has changed, this may include reference ranges. GLOBULIN 2024-12-30 07:10 [facility] 2.7 g/dl (missing) RED BLOOD COUNT 2024-12-30 07:10 [facility] 2.89 10 6/ul (missing) CARBON DIOXIDE - CO2 2024-12-30 07:10 [facility] 25 mmol/l As of August 2022 testing method has changed, this may include reference ranges. HCT - HEMATOCRIT 2024-12-30 07:10 [facility] 30.4 % (missing) MEAN CORPUSCULAR HGB CONC 2024-12-30 07:10 [facility] 31.9 g/dl (missing) MEAN CORPUSCULAR HEMOGLOBIN 2024-12-30 07:10 [facility] 33.6 pg (missing) ANION GAP 2024-12-30 07:10 [facility] 4.0 (missing ) (missing) POTASSIUM 2024-12-30 07:10 [facility] 4.6 mmol/l As of August 2022 testing method has changed, this may include reference ranges. ALT ALANINE AMINOTRANSFERASE 2024-12-30 07:10 [facility] 44 iu/l As of August 2022 testing method has changed, this may include reference ranges. TOTAL PROTEIN 2024-12-30 07:10 [facility] 5.2 g/dl As of August 2022 testing method has changed, this may include reference ranges. WHITE BLOOD COUNT 2024-12-30 07:10 [facility] 6.5 x10 3/ul (missing) GFR - MDRD 2024-12-30 07:10 [facility] 66 (missing ) The IDMS-traceable MDRD Study Equation has been validated extensively in and populations between the ages of 18 and 70 with impaired kidney function (eGFR < 60 mL/min/1.73m2) and has shown good performance for patients with all common causes of kidney disease. Although this equation has not been validated for patients older than 70, an MDRD-derived eGFR may still be a useful tool for providers caring for patients older than 70. References: http://www.nkdep .nih.gov/lab-car luation/gfr/crea tinine-stand ardization, last updated April 2011. AST ASPARTATE AMINOTRANSFERASE 2024-12-30 07:10 [facility] 79 iu/l As of August 2022 testing method has changed, this may include reference ranges. HGB - HEMOGLOBIN 2024-12-30 07:10 [facility] 9.7 g/dl (missing) GLUCOSE 2024-12-30 07:10 [facility] 93 mg/dl As of August 2022 testing method has changed, this may include reference ranges. DIFFERENTIAL COMMENT 2024-12-30 07:10 [facility] MANUAL DIFFERENTIAL (missing ) (missing) Result panel 4 HERED.HEMOCHROMATOSIS DNA 2025-01-12 07:55 [facility] (missing) (missing) Hereditary Hemochromatosis Result: c.845G>A (p.Wla311Xma) - Not Detected c.187C>G (p.Fjw23Aqw) - Not Detected c.193A>T (p.Pvd83Apw) - Not Detected Not associated with increased risk to develop clinical symptoms of Hereditary Hemochromatosis. In symptomatic individuals, other causes of iron overload should be evaluated. See Additional Information and Comments Please Note: Additional Clinical Information: Hereditary hemochromatosis (HFE related) is an autosomal recessive iron storage disorder. Patients may have a genetic diagnosis of hereditary hemochromatosis and never show clinical symptoms. Clinical symptoms typically appear between 40 to 60 years in males and after menopause in females. Signs and symptoms may include organ damage, primarily in the liver, risk for hepatocellular carcinoma, diabetes, and heart disease due to iron accumulation. Life expectancy may be decreased in individuals who develop cirrhosis. Treatment for clinically symptomatic individuals may include therapeutic phlebotomy. Liver transplant may be used to treat end stage liver failure. For preventive care, monitoring for iron overload is recommended for patients who are homozygous for c.845G>A (p.Srq879Quz) and have yet to experience clinical symptoms. Comments: The most common HFE variants associated with hereditary hemochromatosis are c.845G>A (p.Zov142Lgj), c.187C>G (p.Era91Ivi), c.193A>T (p.Qot57Ekq). While patients homozygous for c.845G>A (p.Bdj177Qox) are the most likely to present clinical symptoms, less than 10% develop clinically significant iron overload with tissue and organ damage. Genetic counseling is recommended to discuss the potential clinical implications of positive results, as well as recommendations for testing family members. Genetic Coordinators are available for health care providers to discuss results [place] [phone] [phone] Test Details: Three variants analyzed: c.845G>A (p.Kjt801Jom), commonly referred to as C282Y c.187C>G (p.Une76Iyb), commonly referred to as H63D c.193A>T (p.Kgt85Nuq), commonly referred to as S65C Methods/Limitations: DNA Analysis of the HFE gene (NM_[id number]) was performed by PCR amplification followed by restriction enzyme digestion analyses. Results must be combined with clinical information for the most accurate interpretation. Molecular-based testing is highly accurate, but as in any laboratory test, diagnostic errors may occur. False positive or false negative results may occur for reasons that include genetic variants, blood transfusions, bone marrow transplantation, somatic or tissue-specific mosaicism, mislabeled samples, or erroneous representation of family relationships. This test was developed and its performance characteristics determined by [facility]. It has not been cleared or approved by the Food and Drug Administration. Technical Component [facility] at [facility] Professional Component performed by: Mini Paul, PhD, [facility] [id number], [facility], [address] [facility] [id number] Performing Labs 01: - [facility], [address] [place] [address] Dir: Krissy Hopkins, [facility] For inquiries, the physician may contact Branch: [phone] Lab: [phone] NUCLEATED RED BLOOD CELLS AUTO 2025-01-12 07:55 [facility] 0.0 /100wbc (missing) NRBC ABSOLUTE COUNT (AUTO) 2025-01-12 07:55 [facility] 0.00 x10 3/ul (missing) BASOPHILS # (AUTO) 2025-01-12 07:55 [facility] 0.1 10 3/ul (missing) MONOCYTES # (AUTO) 2025-01-12 07:55 [facility] 0.6 10 3/ul (missing) RBC MORPHOLOGY (MULTIPLE) 2025-01-12 07:55 [facility] 1+ ANISOCYTOSIS (missing) (missing) RBC MORPHOLOGY (MULTIPLE) 2025-01-12 07:55 [facility] 1+ HYPOCHROMASIA (missing) (missing) ALBUMIN/GLOBULIN RATIO 2025-01-12 07:55 [facility] 1.0 (missing) (missing) CREATININE 2025-01-12 07:55 [facility] 1.0 mg/dl As of August 2022 testing method has changed, this may include reference ranges. INR 2025-01-12 07:55 [facility] 1.3 (missing) Oral Anticoagulant Indication INR range Venous Thrombosis, P.E. 2.0 - 3.0 Mechanical Valve 2.5 - 3.5 BILIRUBIN,TOTAL 2025-01-12 07:55 [facility] 1.9 mg/dl As of August 2022 testing method has changed, this may include reference ranges. MEAN PLATELET VOLUME 2025-01-12 07:55 [facility] 10.2 fl (missing) HGB - HEMOGLOBIN 2025-01-12 07:55 [facility] 10.5 g/dl (missing) ALKALINE PHOSPHATASE 2025-01-12 07:55 [facility] 100 iu/l As of August 2022 testing method has changed, this may include reference ranges. MEAN CORPUSCULAR VOLUME 2025-01-12 07:55 [facility] 103.1 fl (missing) CALCIUM 2025-01-12 07:55 [facility] 11.5 mg/dl As of August 2022 testing method has changed, this may include reference ranges. CHLORIDE 2025-01-12 07:55 [facility] 110 mmol/l As of August 2022 testing method has changed, this may include reference ranges. PLT - PLATELET COUNT 2025-01-12 07:55 [facility] 137 10 3/ul (missing) PT - PROTHROMBIN TIME 2025-01-12 07:55 [facility] 14.2 secs N UNK SODIUM 2025-01-12 07:55 [facility] 140 mmol/l Unknown BUN - BLOOD UREA NITROGEN 2025-01-12 07:55 [facility] 16 mg/dl As of August 2022 testing method has changed, this may include reference ranges. RED CELL DISTRIBUTION WIDTH 2025-01-12 07:55 [facility] 17.2 % (missing) ANION GAP 2025-01-12 07:55 [facility] 2.0 (missing) (missing) NEUTROPHILS # (AUTO) 2025-01-12 07:55 [facility] 2.2 10 3/ul (missing) LYMPHOCYTES # (AUTO) 2025-01-12 07:55 [facility] 2.4 10 3/ul (missing) ALBUMIN 2025-01-12 07:55 [facility] 2.6 g/dl As of August 2022 testing method has changed, this may include reference ranges. EOSINOPHILS # (AUTO) 2025-01-12 07:55 [facility] 2.7 10 3/ul (missing) GLOBULIN 2025-01-12 07:55 [facility] 2.7 g/dl (missing) CARBON DIOXIDE - CO2 2025-01-12 07:55 [facility] 28 mmol/l As of August 2022 testing method has changed, this may include reference ranges. RED BLOOD COUNT 2025-01-12 07:[address] [facility] 3.20 10 6/ul (missing) MEAN CORPUSCULAR HGB CONC 2025-01-12 07:55 [facility] 31.8 g/dl (missing) MEAN CORPUSCULAR HEMOGLOBIN 2025-01-12 07:55 [facility] 32.8 pg (missing) HCT - HEMATOCRIT 2025-01-12 07:[address] [facility] [facility] 33.0 % (missing) ALT ALANINE AMINOTRANSFERASE 2025-01-12 07:[address] [facility] 35 iu/l As of August 2022 testing method has changed, this may include reference ranges. POTASSIUM 2025-01-12 07:55 [facility] 4.3 mmol/l As of August 2022 testing method has changed, this may include reference ranges. TOTAL PROTEIN 2025-01-12 07:55 [facility] 5.3 g/dl As of August 2022 testing method has changed, this may include reference ranges. AST ASPARTATE AMINOTRANSFERASE 2025-01-12 07:55 [facility] 59 iu/l As of August 2022 testing method has changed, this may include reference ranges. GFR - MDRD 2025-01-12 07:55 [facility] 73 (missing) The IDMS-traceable MDRD Study Equation has been validated extensively in and populations between the ages of 18 and 70 with impaired kidney function (eGFR < 60 mL/min/1.73m2) and has shown good performance for patients with all common causes of kidney disease. Although this equation has not been validated for patients older than 70, an MDRD-derived eGFR may still be a useful tool for providers caring for patients older than 70. References: http://www.nkdep.nih. gov/lab-evaluation/gf r/creatinine-stand ardization, last updated April 2011. WHITE BLOOD COUNT 2025-01-12 07:55 [employer] 8.1 x10 3/ul (missing) GLUCOSE 2025-01-12 07:55 [employer] 98 mg/dl As of August 2022 testing method has changed, this may include reference ranges. SLIDE REVIEW? 2025-01-12 07:55 [employer] Indicated (missing) (missing) DIFFERENTIAL COMMENT 2025-01-12 07:55 [employer] MANUAL=AUTO DIFF (missing) MANUAL DIFFERENTIAL AGREES WITH AUTO DIFFERENTIAL PLATELET ESTIMATE, MANUAL 2025-01-12 07:55 [employer] NORMAL (130-450,000) (missing) (missing) PLATELET MORPHOLOGY 2025-01-12 07:55 [employer] NORMAL APPEARANCE (missing) (missing) Result panel 5 MISC TEST [facility] 2025-01-12 08:04 [employer] COMMENT (missing) Phosphatidylethanol (PEth) 356856 Phosphatidylethanol (PEth) Test Ordered: 227310 Phosphatidylethanol (PEth) PHOSPHATIDYLETHANOL Negative MX Reference Range: . Phosphatidylethanol (PEth) Negative ng/mL MX Reference Range: . Analyzed compound: PEth 16:0/18:1. 2-arbeuvuol-0-dkbnws-fh-umghesi-3-phosphoethanol. Analysis performed by Liquid Chromatography with Tandem Mass Spectrometry (LC/MS/MS). Detection limit: 20 ng/mL PEth levels in excess of 20 ng/mL are considered evidence of moderate to heavy ethanol consumption. However, the [facility] Abuse [facility] (CSAT) advises caution in interpretation and use of biomarkers alone to assess alcohol use. Results should be interpreted in the context of all available clinical and behavioral information. Reference: Substance Abuse and Mental Health Services Administration (2012). 'The Role of Biomarkers in the Treatment of Alcohol Use Disorders', 2012 Revision. Advisory, Volume 11, Issue 2. This test was developed and its performance characteristics determined by [employer]. It has not been cleared or approved by the Food and Drug Administration. Performed at: [facility] [address] [place] [phone] [employer]: Mckenna Moore [facility], Phone: [phone] Performed at: [place] [address], [place], [place] [id number] [employer]: Jesus Mota MD, Phone: [phone] Result panel 6 GLUCOSE, WHOLE BLOOD 2025-01-19 09:01 [facility] 113 (missing) (missing) Result panel 7 GLUCOSE, WHOLE BLOOD 2025-01-19 10:35 [facility] 109 (missing) (missing) Result panel 8 NUCLEATED RED BLOOD CELLS AUTO 2025-01-24 16:40 [facility] 0.0 /100wbc (missing) NRBC ABSOLUTE COUNT (AUTO) 2025-01-24 16:40 [facility] 0.00 x10 3/ul (missing) BASOPHILS # (AUTO) 2025-01-24 16:40 [facility] 0.1 10 3/ul (missing) EOSINOPHILS # (AUTO) 2025-01-24 16:40 [facility] 0.1 10 3/ul (missing) MONOCYTES # (AUTO) 2025-01-24 16:40 [facility] 1.0 10 3/ul (missing) LYMPHOCYTES # (AUTO) 2025-01-24 16:40 [facility] 1.3 10 3/ul (missing) MEAN CORPUSCULAR VOLUME 2025-01-24 16:40 [facility] 104.8 fl (missing) HGB - HEMOGLOBIN 2025-01-24 16:40 [facility] 11.5 g /dl (missing) NEUTROPHILS # (AUTO) 2025-01-24 16:40 [facility] 12.6 10 3/ul (missing) PLT - PLATELET COUNT 2025-01-24 16:40 [facility] 142 10 3/ul (missing) WHITE BLOOD COUNT 2025-01-24 16:40 [facility] 15.3 x10 3/ul (missing) RED CELL DISTRIBUTION WIDTH 2025-01-24 16:40 [employer] 19.4 % (missing) RED BLOOD COUNT 2025-01-24 16:40 [employer] 3.53 10 6/ul (missing) MEAN CORPUSCULAR HGB CONC 2025-01-24 16:40 [employer] 31.1 g/dl (missing) MEAN CORPUSCULAR HEMOGLOBIN 2025-01-24 16:40 [employer] 32.6 pg (missing) HCT - HEMATOCRIT 2025-01-24 16:40 [employer] [facility] 37.0 % (missing) AMMONIA 2025-01-24 16:40 [facility] [facility] 62.4 umol/l As of August 2022 testing method has changed, this may include reference ranges. LACTIC ACID, VENOUS 2025-01-24 16:40 [employer] [facility] 7.4 mmol/l Y Critical result LAC 7.4 mmol/L called to and read back by GABRIELA/MADISON SEN at 24-Jan-2025 17:17 by fortino. As of August 2022 testing method has changed, this may include reference ranges. MEAN PLATELET VOLUME 2025-01-24 16:40 [employer] 9.5 fl (missing) Result panel 9 UROBILINOGEN,URINE 2025-01-24 16:50 [facility] [facility] 0.2 (NORMAL) e.u./dl (missing) SPECIFIC GRAVITY,URINE 2025-01-24 16:50 [employer] [facility] 1.025 (missing) (missing) ALBUMIN/GLOBULIN RATIO 2025-01-24 16:50 [facility] 1.1 (missing) (missing) CREATININE 2025-01-24 16:50 [facility] 1.4 mg/dl As of August 2022 testing method has changed, this may include reference ranges. ALKALINE PHOSPHATASE 2025-01-24 16:50 [facility] 101 iu/l As of August 2022 testing method has changed, this may include reference ranges. GLUCOSE 2025-01-24 16:50 [facility] [facility] 105 mg/dl As of August 2022 testing method has changed, this may include reference ranges. AST ASPARTATE AMINOTRANSFERASE 2025-01-24 16:50 [facility] 107 iu/l Slightly Hemolyzed: Results may be affected. As of August 2022 testing method has changed, this may include reference ranges. CALCIUM 2025-01-24 16:50 [facility] 11.7 mg/dl As of August 2022 testing method has changed, this may include reference ranges. CHLORIDE 2025-01-24 16:50 [facility] 118 mmol/l As of August 2022 testing method has changed, this may include reference ranges. ANION GAP 2025-01-24 16:50 [facility] 12.0 (missing) (missing) SODIUM 2025-01-24 16:50 [facility] 151 mmol/l (missing) BILIRUBIN,TOTAL 2025-01-24 16:50 [facility] 2.4 mg/dl As of August 2022 testing method has changed, this may include reference ranges. GLOBULIN 2025-01-24 16:50 [facility] 2.6 g/dl (missing) ALBUMIN 2025-01-24 16:50 [facility] 2.8 g/dl As of August 2022 testing method has changed, this may include reference ranges. CARBON DIOXIDE - CO2 2025-01-24 16:50 [employer] [facility] [employer] 21 mmol/l As of August 2022 testing method has changed, this may include reference ranges. BUN - BLOOD UREA NITROGEN 2025-01-24 16:50 [facility] [facility] 24 mg/dl As of August 2022 testing method has changed, this may include reference ranges. ALT ALANINE AMINOTRANSFERASE 2025-01-24 16:50 [employer] [facility] 38 iu/l As of August 2022 testing method has changed, this may include reference ranges. POTASSIUM 2025-01-24 16:50 [employer] [facility] 4.9 mmol/l Slightly Hemolyzed: Results may be affected. As of August 2022 testing method has changed, this may include reference ranges. TOTAL PROTEIN 2025-01-24 16:50 [employer] 5.4 g/dl As of August 2022 testing method has changed, this may include reference ranges. GFR - MDRD 2025-01-24 16:50 [employer] [facility] 50 (missing) The IDMS-traceable MDRD Study Equation has been validated extensively in and populations between the ages of 18 and 70 with impaired kidney function (eGFR < 60 mL/min/1.73m2) and has shown good performance for patients with all common causes of kidney disease. Although this equation has not been validated for patients older than 70, an MDRD-derived eGFR may still be a useful tool for providers caring for patients older than 70. References: http://www.nkde p.nih.gov/lab-e valuation/gfr/c reatinine-stand ardization, last updated April 2011. WBC,URINE 2025-01-24 16:50 [facility] 6-10 /hpf (missing) PH,URINE 2025-01-24 16:50 [facility] 6.0 ph (missing) CLARITY,URINE 2025-01-24 16:50 [facility] CLEAR (missing) (missing) SQUAMOUS EPITHELIAL CELL,UR 2025-01-24 16:50 [facility] FEW [employer] (missing) (missing) UR CULTURE IF IND 2025-01-24 16:50 [facility] INDICATED (missing) (missing) OCCULT BLOOD,URINE 2025-01-24 16:50 [facility] MODERATE (missing) (missing) NITRITE,URINE 2025-01-24 16:50 [facility] NEGATIVE (missing) (missing) BILIRUBIN,URINE 2025-01-24 16:50 [facility] NEGATIVE (missing) Bilirubin can be influenced by color interference. Please correlate positive results with clinical presentation GLUCOSE, URINE (UA) 2025-01-24 16:50 [facility] NEGATIVE mg/dl (missing) KETONES,URINE (UA) 2025-01-24 16:50 [facility] NEGATIVE mg/dl (missing) COLOR,URINE 2025-01-24 16:50 [facility] ORANGE (missing) URINE CATHETERIZED WBC CLUMPS,URINE 2025-01-24 16:50 [facility] PRESENT (missing) (missing) EPITHELIAL CELLS,UR 2025-01-24 16:50 [facility] RARE Transitional /hpf (missing) BACTERIA,URINE 2025-01-24 16:50 [facility] Rare /hpf (missing) RBC,URINE 2025-01-24 16:50 [facility] TNTC /hpf (missing) LEUKOCYTE ESTERASE, URINE 2025-01-24 16:50 [employer] TRACE (missing) (missing) PROTEIN,URINE 2025-01-24 16:50 [employer] TRACE mg/dl (missing) Social History date description facility
--- NOTE | 2025-01-24 18:02 | CT Report ---
PROCEDURE: CT Head WO INDICATIONS: ams TECHNIQUE: CT of the head was performed, without intravenous contrast. Reformats: Coronal and sagittal. For radiation dose reduction, the following was used: automated exposure control, adjustment of mA and/or kV according to patient size. COMPARISON: 10/12/2024, 06/05/2023. Correlation is made with the accompanying imaging. FINDINGS: Image quality: Diagnostic. CSF spaces: Basal cisterns are patent. A mild arachnoid cyst can be seen involving the posterior aspect of the posterior fossa. Ventricles are normal in size and shape. Brain: No midline shift. No intracranial mass effect or hemorrhage. Ortiz- white matter interface is normal. Symmetric calcification of the basal ganglia can be seen, which is considered to be within normal limits for age. Age- appropriate brain parenchymal volume loss and chronic small vessel ischemic change can be seen. Skull and face: Calvarium and visualized facial bones are intact, without suspicious lesions. Sinuses: Visualized sinuses and mastoids are clear. IMPRESSION: No imaging explanation is found for the patient's presenting symptoms. To the limits of this noncontrast study, no findings of masses or mass effect can be seen. Similar to the prior. Reviewed by: Víctor Cartagena MD on 01/24/2025 4:59 PM [facility] Approved by: Víctor Cartagena MD on 01/24/2025 4:59 PM [facility] Station ID: [id number]
--- NOTE | 2025-01-24 18:07 | CT Report ---
PROCEDURE: CT Abdomen/Pelvis W INDICATIONS: recent stent procedure CONTRAST: OMNI 300 100 ML TECHNIQUE: After the administration of intravenous contrast, a CT scan of the abdomen and pelvis was performed. Images were recorded and evaluated at appropriate window settings. Reformats: coronal and sagittal. For radiation dose reduction, the following was used: automated exposure control, adjustment of mA and/or kV according to patient size. COMPARISON: 12/15/2024, 08/21/2024. Correlation is made with the accompanying imaging. FINDINGS: Image quality: Diagnostic. Lower chest: On the right, there is a prominent pericardial cyst. Liver: No solid mass. Gallbladder: Removed. Biliary tree: No intrahepatic or extrahepatic dilation, accounting for age. Spleen: No splenomegaly. Pancreas: No pancreatic ductal dilation. Adrenals: No adrenal nodule. Kidneys and ureters: No hydronephrosis. No renal cystic lesion which requires follow up. No solid mass. Nonobstructing left-sided kidney stones are seen that measure up to 3 mm. Stomach, bowel and peritoneum: No gastric or small bowel dilation. No abnormal wall thickening. No pathologic free fluid. Lymph nodes: No central or retroperitoneal adenopathy. Vessels: No infrarenal aortic aneurysm. Patent portal vein. Atherosclerotic calcification is seen. PELVIS Reproductive organs: Unremarkable. Bladder: No abnormal wall thickening. Pelvic lymph nodes: No pelvic adenopathy by size criteria. Bones: No aggressive osseous abnormality. Focal L5-S1 degenerative change is seen. Milder degenerative changes are seen elsewhere. Other: Bilateral fat-containing inguinal hernias are seen, right worse than left. IMPRESSION: No acute abnormality is seen. No hydronephrosis is seen. Additional findings: Prominent right-sided cyst, stable Cholecystectomy Nonobstructing left-sided kidney stones Fat-containing bilateral inguinal hernias Reviewed by: Víctor Cartagena MD on 01/24/2025 5:03 PM [place] Approved by: Víctor Cartagena MD on 01/24/2025 5:03 PM [facility] Station ID: [id number]
[2025-01-24] MEDS: cefTRIAXone 1 GM VIAL IVP STA (18:13)
[2025-01-24] MEDS ORDERED: VANCOMYCIN 1 GM VIAL ONE (18:29)
--- OUTSIDE RECORDS SUMMARY | 2025-01-24 18:32 | EXTERNAL MEDICAL SUMMARY RPT | Continuity of Care Document ---
Author Organization [facility] Address [address] [place] [id number] Phone Problems date description facility 2024-11-05 09:56 Iron deficiency anemia, unspeci fied [facility] 2024-11-05 09:56 Encounter for genera l adult medical examination without abnormal findings [facility] 2024-11-05 09:56 Encounter for screen ing for diseases of the blood and blood-forming organs and certain disorders involving the immune mechanism [facility] 2024-11-06 00:04 Iron deficiency anemia, unspeci fied [facility] 2024-11-06 00:04 Encounter for genera l adult medical examination without abnormal findings [facility] 2024-11-06 00:04 Encounter for screen ing for diseases of the blood and blood-forming organs and certain disorders involving the immune mechanism [facility] 2024-11-06 09:34 Encounter for genera l adult medical examination without abnormal findings [facility] 2024-11-11 06:31 Calculus of ureter [facility] 2024-11-11 06:31 Personal history of urinary andrei culi [facility] 2024-11-14 00:01 Iron deficiency anemia, unspec[facility]ied [facility] 2024-11-14 00:01 Other pancytopenia [facility] 2024-11-14 00:01 Hypothyroidism, unspecified [facility] 2024-11-14 00:01 Type 2 diabetes rosalino itus with unspecified complications [facility] 2024-11-14 00:01 Polyneuropathy, unspecified [facility] 2024-11-14 00:01 Essential (primary) hypertensio n [facility] 2024-11-14 00:01 Gastro-esophageal reflux diseas e without esophagitis [facility] 2024-11-14 00:01 Alcoholic cirrhosis of liver wi thout ascites [facility] 2024-11-14 00:01 Hepatic failure, unspecified wi thout coma [facility] 2024-11-14 00:01 Unspecified cirrhosis of liver [facility] 2024-11-14 00:01 Gout, unspecified [facility] 2024-11-14 00:01 Localized edema [facility] 2024-11-14 10:01 Calculus of ureter [facility] 2024-11-14 10:01 Personal history of urinary andrei culi [facility] 2024-11-14 10:02 Calculus of ureter [facility] 2024-11-14 10:02 Personal history of urinary andrei culi [facility] 2024-11-18 09:15 Calculus of ureter [facility] 2024-11-18 09:15 Personal history of urinary andrei culi [facility] 2024-11-18 10:14 Laceration without f oreign body of left hand, initial encounter [facility] 2024-11-21 08:21 Calculus of ureter [facility] 2024-11-21 08:21 Personal history of urinary andrei culi [facility] 2024-11-21 08:51 Cellulitis of other sites [facility] 2024-11-21 08:51 Laceration without f oreign body of left hand, initial encounter [facility] 2024-11-24 08:47 Calculus of ureter [facility] 2024-11-24 08:47 Personal history of urinary andrei culi [facility] 2024-11-25 00:02 Calculus of ureter [facility] 2024-11-25 00:02 Personal history of urinary andrei culi [facility] 2024-11-26 08:20 Calculus of ureter [facility] 2024-11-29 00:02 Laceration without f oreign body of left hand, subsequent encounter [facility] 2024-11-29 00:02 Encounter for other specified a ftercare [facility] 2024-12-02 00:02 Biliary cirrhosis, unspecified [facility] 2024-12-02 00:02 Encounter for removal of suture s [facility] 2024-12-11 14:59 Calculus of ureter [facility] 2024-12-11 15:03 Calculus of ureter [facility] 2024-12-15 06:37 Calculus of ureter [facility] 2024-12-16 00:01 Calculus of ureter [facility] 2024-12-18 09:39 Calculus of ureter [facility] 2024-12-18 09:39 Hematuria, unspecified [facility] 2024-12-18 09:40 Calculus of ureter [facility] 2024-12-18 09:40 Hematuria, unspecified [facility] 2024-12-18 13:41 Hematuria, unspecified [facility] 2024-12-19 10:09 Hematuria, unspecified [facility] 2024-12-23 09:34 Encounter for observ ation for other suspected diseases and conditions ruled out [facility] 2024-12-24 09:40 Obstructive sleep apnea (adult) (pediatric) [facility] 2024-12-29 06:12 Contusion of left mi ddle finger without damage to nail, initial encounter [facility] 2024-12-29 13:52 Unspecified cirrhosis of liver [facility] 2024-12-30 07:09 Unspecified cirrhosis of liver [facility] 2024-12-30 07:14 Unspecified injury o f unspecified wrist, hand and finger(s), initial encounter [facility] 2024-12-30 07:17 Unspecified cirrhosis of liver [facility] 2024-12-30 07:19 Unspecified injury o f unspecified wrist, hand and finger(s), initial encounter [facility] 2024-12-30 08:16 Unspecified injury o f unspecified wrist, hand and finger(s), initial encounter [facility] 2024-12-31 00:03 Unspecified injury o f unspecified wrist, hand and finger(s), initial encounter [facility] 2024-12-31 00:06 Unspecified cirrhosis of liver [facility] 2025-01-09 07:23 Unspecified cirrhosis of liver [facility] 2025-01-12 07:55 Unspecified cirrhosis of liver [facility] 2025-01-12 08:00 Unspecified cirrhosis of liver [facility] 2025-01-12 09:08 Unspecified cirrhosis of liver [facility] 2025-01-13 00:06 Unspecified cirrhosis of liver [facility] 2025-01-14 16:07 Tinea cruris [facility] 2025-01-14 16:07 Strain of muscle and tendon of front wall of thorax, initial encounter [facility] 2025-01-14 16:14 Iron deficiency anemia, unspeci fied [email or web address] 2025-01-14 16:14 Anemia, unspecified [facility] 2025-01-14 16:14 Hypothyroidism, unspecified [facility] 2025-01-14 16:14 Type 2 diabetes mellitus with d iabetic polyneuropathy [facility] 2025-01-14 16:14 Type 2 diabetes rosalino itus with unspecified complications [facility] 2025-01-14 16:14 Insomnia, unspecified [email or web address] 2025-01-14 16:14 Essential (primary) hypertensio n [facility] 2025-01-14 16:14 Gout, unspecified [email or web address] 2025-01-14 16:14 Localized edema [facility] 2025-01-16 14:11 Unspecified cirrhosis of liver [facility] 2025-01-19 10:15 Calculus of ureter [email or web address] 2025-01-20 09:39 Calculus of ureter [email or web address] 2025-01-21 01:55 Unspecified cirrhosis of liver [facility] Results/Labs test date facility value unit notes Result panel 1 LDL/HDL RATIO 2024-11-05 10:10 [facility] 1.2 (missing) (missing) MEAN CORPUSCULAR VOLUME 2024-11-05 10:10 [facility] 101.4 fl (missing) PLT - PLATELET COUNT 2024-11-05 10:10 [facility] 125 10 3/ul (missing) VLDL CHOLESTEROL 2024-11-05 10:10 [facility] 13 mg/dl (missing) CHOLESTEROL 2024-11-05 10:10 [facility] 156 mg/dl Total Cholesterol Risk Classification Cholesterol Level Risk Classification <200 mg/dL Desirable 200-239 mg/dL Borderline High >240 mg/dL High As of August 2022 testing method has changed, this may include reference ranges. IRON 2024-11-05 10:10 [facility] 169 ug/dl As of August 2022 testing method has changed, this may include reference ranges. CHOL/HDL RATIO 2024-11-05 10:10 [facility] 2.4 (missing) NATIONAL CHOLESTEROL GUIDELINE NATIONAL HEART, [...] 13.5 11.0 RED BLOOD COUNT 2024-11-05 10:10 [facility] 2.88 10 6/ul (missing) RED CELL DISTRIBUTION WIDTH 2024-11-05 10:10 [facility] 20.2 % (missing) HCT - HEMATOCRIT 2024-11-05 10:10 [facility] 29.2 % (missing) MEAN CORPUSCULAR HGB CONC 2024-11-05 10:10 [facility] 31.2 g/dl (missing) MEAN CORPUSCULAR HEMOGLOBIN 2024-11-05 10:10 [facility] 31.6 pg (missing) FERRITIN 2024-11-05 10:10 [facility] 34.9 ng/ml (missing) WHITE BLOOD COUNT 2024-11-05 10:10 [facility] 5.8 x10 3/ul (missing) HDL CHOLESTEROL 2024-11-05 10:10 [facility] 64 mg/dl Coronary Heart Disease Risk Classification HDL Level Risk factor < 40 mg/dL major risk > 60 mg/dL negative risk As of August 2022 testing method has changed, this may include reference ranges. TRIGLYCERIDES 2024-11-05 10:10 [facility] 66 mg/dl Triglyceride Risk Classification <150 mg/dL Normal 150-199 mg/dL Borderline High 200-499 mg/dL High >500 mg/dL Very High As of August 2022 testing method has changed, this may include reference ranges. LDL CHOLESTEROL,CALCULAT ED 2024-11-05 10:10 [facility] 79 mg/dl LDLD REFERENCE RANGE AND CARDIOVASCULAR RISK: <130 mg/dL Desirable 130-159 mg/dL Borderline High Risk >160 mg/dL High Risk HGB - HEMOGLOBIN 2024-11-05 10:10 [facility] 9.1 g/dl (missing) MEAN PLATELET VOLUME 2024-11-05 10:10 [facility] 9.4 fl (missing) Result panel 2 CEFEPIME [...] Health <=1 (missing) (missing) NITROFURANTOIN 2024-12-18 09:20 [facility] <=16 (missing) (missing) TRIMETHOPRIM/SULFA METHOXAZOLE 2024-12-18 09:20 [facility] <=20 (missing) (missing) CEFAZOLIN 2024-12-18 09:20 [facility] <=4 (missing) (missing) AMPICILLIN/SULBACT AM 2024-12-18 09:20 [facility] 4 (missing) (missing) CUL, URINE 2024-12-18 09:20 [facility] 5050,000-100,000 CFU/mL (missing) (missing) AMPICILLIN 2024-12-18 09:20 [facility] 8 (missing) This organism is NEGATIVE for Extended Spectrum Beta Lactamase O:ESCCOL 2024-12-18 09:20 [facility] ESCCOLESCHERICHIA COLIESCHERICHIA COLI (missing) (missing) CUL, URINE 2024-12-18 09:20 [facility] IDMICID/SOPHIA COM* (missing) (missing) CUL, URINE 2024-12-18 09:20 [facility] SENSISENSITIVITIES TO FOLLOW (missing) (missing) CUL, URINE 2024-12-18 09:20 [facility] UCC.6COLONY COUNT (missing) (missing) Result panel 3 ABNORMAL LYMPHS % (MANUAL) 2024-12-30 07:10 [facility] 0 % (missing) BASOPHILS # (MANUAL) 2024-12-30 07:10 [facility] 0.2 10 3/ul (missing) MONOCYTES # (MANUAL) 2024-12-30 07:10 [facility] 0.7 10 3/ul (missing) ALBUMIN/GLOBULIN RATIO 2024-12-30 07:10 [facility] 0.9 (missing ) (missing) CREATININE 2024-12-30 07:10 [facility] 1.1 mg/dl As of August 2022 testing method has changed, this may include reference ranges. INR 2024-12-30 07:10 [facility] 1.4 (missing ) Oral Anticoagulant Indication INR range Venous Thrombosis, P.E. 2.0 - 3.0 Mechanical Valve 2.5 - 3.5 LYMPHOCYTES # (MANUAL) 2024-12-30 07:10 [facility] 1.7 10 3/ul (missing) MEAN PLATELET VOLUME 2024-12-30 07:10 [facility] 10.1 fl (missing) CALCIUM 2024-12-30 07:10 [facility] 10.7 mg/dl As of August 2022 testing method has changed, this may include reference ranges. TOTAL CELLS COUNTED 2024-12-30 07:10 [facility] 100 (missing ) (missing) MEAN CORPUSCULAR VOLUME 2024-12-30 07:10 [facility] 105.2 fl (missing) ALKALINE PHOSPHATASE 2024-12-30 07:10 [facility] 107 iu/l As of August 2022 testing method has changed, this may include reference ranges. CHLORIDE 2024-12-30 07:10 [facility] 110 mmol/l As of August 2022 testing method has changed, this may include reference ranges. PLT - PLATELET COUNT 2024-12-30 07:10 [facility] 137 10 3/ul (missing) SODIUM 2024-12-30 07:10 [facility] 139 mmol/l Unknown BUN - BLOOD UREA NITROGEN 2024-12-30 07:10 [facility] 14 mg/dl As of August 2022 testing method has changed, this may include reference ranges. PT - PROTHROMBIN TIME 2024-12-30 07:10 [facility] 15.6 secs N UNK RED CELL DISTRIBUTION WIDTH 2024-12-30 07:10 [facility] 16.8 % (missing) BAND NEUTROPHILS % (MANUAL) 2024-12-30 07:10 [facility] 2 % (missing) EOSINOPHILS # (MANUAL) 2024-12-30 07:10 [facility] 2.0 10 3/ul (missing) NEUTROPHILS # (MANUAL) 2024-12-30 07:10 [facility] 2.0 10 3/ul (missing) BILIRUBIN,TOTAL 2024-12-30 07:10 [facility] 2.0 mg/dl As of August 2022 testing method has changed, this may include reference ranges. ALBUMIN 2024-12-30 07:10 [facility] 2.5 g/dl As of August 2022 testing method has changed, this may include reference ranges. GLOBULIN 2024-12-30 07:10 [facility] 2.7 g/dl (missing) RED BLOOD COUNT 2024-12-30 07:10 [facility] 2.89 10 6/ul (missing) CARBON DIOXIDE - CO2 2024-12-30 07:10 [facility] 25 mmol/l As of August 2022 testing method has changed, this may include reference ranges. HCT - HEMATOCRIT 2024-12-30 07:10 [facility] 30.4 % (missing) MEAN CORPUSCULAR HGB CONC 2024-12-30 07:10 [facility] 31.9 g/dl (missing) MEAN CORPUSCULAR HEMOGLOBIN 2024-12-30 07:10 [facility] 33.6 pg (missing) ANION GAP 2024-12-30 07:10 [facility] 4.0 (missing ) (missing) POTASSIUM 2024-12-30 07:10 [facility] 4.6 mmol/l As of August 2022 testing method has changed, this may include reference ranges. ALT ALANINE AMINOTRANSFERASE 2024-12-30 07:10 [facility] 44 iu/l As of August 2022 testing method has changed, this may include reference ranges. TOTAL PROTEIN 2024-12-30 07:10 [facility] 5.2 g/dl As of August 2022 testing method has changed, this may include reference ranges. WHITE BLOOD COUNT 2024-12-30 07:10 [facility] 6.5 x10 3/ul (missing) GFR - MDRD 2024-12-30 07:10 [facility] 66 (missing ) The IDMS-traceable MDRD Study [...] April 2011. AST ASPARTATE AMINOTRANSFERASE 2024-12-30 07:10 [facility] 79 iu/l As of August 2022 testing method has changed, this may include reference ranges. HGB - HEMOGLOBIN 2024-12-30 07:10 [facility] 9.7 g/dl (missing) GLUCOSE 2024-12-30 07:10 [facility] 93 mg/dl As of August 2022 testing method has changed, this may include reference ranges. DIFFERENTIAL COMMENT 2024-12-30 07:10 [facility] MANUAL DIFFERENTIAL (missing ) (missing) Result panel 4 HERED.HEMOCHROMATOSIS DNA 2025-01-12 07:55 [facility] (missing) (missing) Hereditary Hemochromatosis Result: c.845G>A (p.Yfz866Igj) - Not Detected c.187C>G (p.Upz58Pjy) - Not Detected c.193A>T (p.Cfd33Tuf) - Not Detected Not associated with increased [...] for patients who are homozygous for c.845G>A (p.Uwr284Nww) and have yet to experience clinical symptoms. Comments: The most common HFE variants associated with hereditary hemochromatosis are c.845G>A (p.Qro793Eie), c.187C>G (p.Jye99Pxo), c.193A>T (p.Zdu97Feu). While patients homozygous for c.845G>A (p.Rwb843Jbr) are the most likely to present clinical symptoms, less than 10% develop clinically significant iron overload with tissue and organ damage. Genetic counseling is recommended to discuss the potential clinical implications of positive results, as well as recommendations for testing family members. Genetic Coordinators are available for health care providers to discuss results at [phone] ([phone]). Test Details: Three variants analyzed: c.845G>A (p.Jrw306Jir), commonly referred to as C282Y c.187C>G (p.Bex20Uxl), commonly referred to as H63D c.193A>T (p.Lja38Mln), commonly referred to as S65C Methods/Limitations: DNA [...] developed and its performance characteristics determined by [employer]. It has not been cleared or approved by the Food and Drug Administration. Technical [facility] Professional Component performed by: Mini Paul, PhD, [facility] [id number], [facility], [address] [facility] [address] Performing Labs 01: - [facility], [address] [place] [address] Dir: Krissy Hopkins, [facility] For inquiries, the physician may contact Branch: [phone] Lab: [phone] NUCLEATED RED BLOOD CELLS AUTO 2025-01-12 07:55 [facility] 0.0 /100wbc (missing) NRBC ABSOLUTE COUNT (AUTO) 2025-01-12 07:55 [facility] 0.00 x10 3/ul (missing) BASOPHILS # (AUTO) 2025-01-12 07:55 [facility] 0.1 10 3/ul (missing) MONOCYTES # (AUTO) 2025-01-12 07:55 [facility] 0.6 10 3/ul (missing) RBC MORPHOLOGY (MULTIPLE) 2025-01-12 07:55 [facility] 1+ ANISOCYTOSIS (missing) (missing) RBC MORPHOLOGY (MULTIPLE) 2025-01-12 07:55 [facility] 1+ HYPOCHROMASIA (missing) (missing) ALBUMIN/GLOBULIN RATIO 2025-01-12 07:55 [facility] 1.0 (missing) (missing) CREATININE 2025-01-12 07:55 [facility] 1.0 mg/dl As of August 2022 testing method has changed, this may include reference ranges. INR 2025-01-12 07:55 [facility] 1.3 (missing) Oral Anticoagulant Indication INR range Venous Thrombosis, P.E. 2.0 - 3.0 Mechanical Valve 2.5 - 3.5 BILIRUBIN,TOTAL 2025-01-12 07:55 [facility] 1.9 mg/dl As of August 2022 testing method has changed, this may include reference ranges. MEAN PLATELET VOLUME 2025-01-12 07:55 [facility] 10.2 fl (missing) HGB - HEMOGLOBIN 2025-01-12 07:55 [facility] 10.5 g/dl (missing) ALKALINE PHOSPHATASE 2025-01-12 07:55 [facility] 100 iu/l As of August 2022 testing method has changed, this may include reference ranges. MEAN CORPUSCULAR VOLUME 2025-01-12 07:55 [facility] 103.1 fl (missing) CALCIUM 2025-01-12 07:55 [facility] 11.5 mg/dl As of August 2022 testing method has changed, this may include reference ranges. CHLORIDE 2025-01-12 07:55 [facility] 110 mmol/l As of August 2022 testing method has changed, this may include reference ranges. PLT - PLATELET COUNT 2025-01-12 07:55 [facility] 137 10 3/ul (missing) PT - PROTHROMBIN TIME 2025-01-12 07:55 [facility] 14.2 secs N UNK SODIUM 2025-01-12 07:55 [facility] 140 mmol/l Unknown BUN - BLOOD UREA NITROGEN 2025-01-12 07:55 [facility] 16 mg/dl As of August 2022 testing method has changed, this may include reference ranges. RED CELL DISTRIBUTION WIDTH 2025-01-12 07:55 [facility] 17.2 % (missing) ANION GAP 2025-01-12 07:55 [facility] 2.0 (missing) (missing) NEUTROPHILS # (AUTO) 2025-01-12 07:55 [facility] 2.2 10 3/ul (missing) LYMPHOCYTES # (AUTO) 2025-01-12 07:55 [facility] 2.4 10 3/ul (missing) ALBUMIN 2025-01-12 07:55 [facility] 2.6 g/dl As of August 2022 testing method has changed, this may include reference ranges. EOSINOPHILS # (AUTO) 2025-01-12 07:55 [facility] 2.7 10 3/ul (missing) GLOBULIN 2025-01-12 07:55 [facility] 2.7 g/dl (missing) CARBON DIOXIDE - CO2 2025-01-12 07:55 [facility] 28 mmol/l As of August 2022 testing method has changed, this may include reference ranges. RED BLOOD COUNT 2025-01-12 07:55 [facility] 3.20 10 6/ul (missing) MEAN CORPUSCULAR HGB CONC 2025-01-12 07:55 [facility] 31.8 g/dl (missing) MEAN CORPUSCULAR HEMOGLOBIN 2025-01-12 07:55 [facility] 32.8 pg (missing) HCT - HEMATOCRIT 2025-01-12 07:55 [facility] 33.0 % (missing) ALT ALANINE AMINOTRANSFERASE 2025-01-12 07:55 [facility] 35 iu/l As of August 2022 testing method has changed, this may include reference ranges. POTASSIUM 2025-01-12 07:55 [facility] 4.3 mmol/l As of August 2022 testing method has changed, this may include reference ranges. TOTAL PROTEIN 2025-01-12 07:55 [facility] 5.3 g/dl As of August 2022 testing method has changed, this may include reference ranges. AST ASPARTATE AMINOTRANSFERASE 2025-01-12 07:55 [facility] 59 iu/l As of August 2022 testing method has changed, this may include reference ranges. GFR - MDRD 2025-01-12 07:55 [facility] 73 (missing) The IDMS-traceable MDRD Study Equation [...] April 2011. WHITE BLOOD COUNT 2025-01-12 07:55 [facility] 8.1 x10 3/ul (missing) GLUCOSE 2025-01-12 07:55 [facility] 98 mg/dl As of August 2022 testing method has changed, this may include reference ranges. SLIDE REVIEW? 2025-01-12 07:55 [facility] Indicated (missing) (missing) DIFFERENTIAL COMMENT 2025-01-12 07:55 [facility] MANUAL=AUTO DIFF (missing) MANUAL DIFFERENTIAL AGREES WITH AUTO DIFFERENTIAL PLATELET ESTIMATE, MANUAL 2025-01-12 07:55 [facility] NORMAL (130-450,000) (missing) (missing) PLATELET MORPHOLOGY 2025-01-12 07:55 [facility] NORMAL APPEARANCE (missing) (missing) Result panel 5 MISC TEST [facility] 2025-01-12 08:04 [facility] COMMENT (missing) Phosphatidylethanol (PEth) [id number] Phosphatidylethanol (PEth) Test Ordered: [id number] Phosphatidylethanol (PEth) PHOSPHATIDYLETHANOL Negative MX Reference Range: . Phosphatidylethanol (PEth) Negative ng/mL MX Reference Range: . Analyzed compound: [facility]th 16:0/18:1. 8-yhfxtdwwr-5-mmmvzb-gf-urkfwkd-3-phosphoethanol. Analysis performed by Liquid Chromatography with [employer] [...] developed and its performance characteristics determined by [employer]. It has not been cleared or approved by the Food and Drug Administration. Performed at: [facility] [employer] [address] [place] [id number] Clinical Education Academic Coordinator: Mckenna Moore [facility], Phone: [phone] Performed at: [place] [address], [place], [place] [id number] Clinical Education Academic Coordinator: Jesus Mota MD, Phone: [phone] Result panel 6 GLUCOSE, WHOLE BLOOD 2025-01-19 [...] (missing) RED CELL DISTRIBUTION WIDTH 2025-01-24 16:40 [facility] 19.4 % (missing) RED BLOOD COUNT 2025-01-24 16:40 [facility] 3.53 10 6/ul (missing) MEAN CORPUSCULAR HGB CONC 2025-01-24 16:40 [facility] 31.1 g/dl (missing) MEAN CORPUSCULAR HEMOGLOBIN 2025-01-24 16:40 [facility] 32.6 pg (missing) HCT - HEMATOCRIT 2025-01-24 16:40 [facility] 37.0 % (missing) AMMONIA 2025-01-24 16:40 [facility] 62.4 umol/l As of August 2022 testing method has changed, this may include reference ranges. LACTIC ACID, VENOUS 2025-01-24 16:40 [facility] 7.4 mmol/l Y Critical result LAC 7.4 mmol/L called to and read back by GABRIELA/MADISON SEN at 24-Jan-2025 17:17 by fortino. As of August 2022 testing method has changed, this may include reference ranges. MEAN PLATELET VOLUME 2025-01-24 16:40 [facility] 9.5 fl (missing) Result panel 9 UROBILINOGEN,URINE 2025-01-24 16:50 [facility] 0.2 (NORMAL) e.u./dl (missing) SPECIFIC GRAVITY,URINE 2025-01-24 16:50 [facility] 1.025 (missing) (missing) ALBUMIN/GLOBULIN RATIO 2025-01-24 16:50 [facility] 1.1 (missing) (missing) CREATININE 2025-01-24 16:50 [facility] 1.4 mg/dl As of August 2022 testing method has changed, this may include reference ranges. ALKALINE PHOSPHATASE 2025-01-24 16:50 [facility] 101 iu/l As of August 2022 testing method has changed, this may include reference ranges. GLUCOSE 2025-01-24 16:50 [facility] 105 mg/dl As of August 2022 testing method has changed, this may include reference ranges. AST ASPARTATE AMINOTRANSFERASE 2025-01-24 16:50 [facility] 107 iu/l Slightly Hemolyzed: Results may be affected. As of August 2022 testing method has changed, this may include reference ranges. CALCIUM 2025-01-24 16:50 [facility] 11.7 mg/dl As of August 2022 testing method has changed, this may include reference ranges. CHLORIDE 2025-01-24 16:50 [facility] 118 mmol/l As of August 2022 testing method has changed, this may include reference ranges. ANION GAP 2025-01-24 16:50 [facility] 12.0 (missing) (missing) SODIUM 2025-01-24 16:50 [facility] 151 mmol/l (missing) BILIRUBIN,TOTAL 2025-01-24 16:50 [facility] 2.4 mg/dl As of August 2022 testing method has changed, this may include reference ranges. GLOBULIN 2025-01-24 16:50 [facility] 2.6 g/dl (missing) ALBUMIN 2025-01-24 16:50 [facility] 2.8 g/dl As of August 2022 testing method has changed, this may include reference ranges. CARBON DIOXIDE - CO2 2025-01-24 16:50 [facility] 21 mmol/l As of August 2022 testing method has changed, this may include reference ranges. BUN - BLOOD UREA NITROGEN 2025-01-24 16:50 [facility] 24 mg/dl As of August 2022 testing method has changed, this may include reference ranges. ALT ALANINE AMINOTRANSFERASE 2025-01-24 16:50 [facility] 38 iu/l As of August 2022 testing method has changed, this may include reference ranges. POTASSIUM 2025-01-24 16:50 [facility] 4.9 mmol/l Slightly Hemolyzed: Results may be affected. As of August 2022 testing method has changed, this may include reference ranges. TOTAL PROTEIN 2025-01-24 16:50 [facility] 5.4 g/dl As of August 2022 testing method has changed, this may include reference ranges. GFR - MDRD 2025-01-24 16:50 [facility] 50 (missing) The IDMS-traceable MDRD Study Equation [...] /hpf (missing) LEUKOCYTE ESTERASE, URINE 2025-01-24 16:50 [facility] TRACE (missing) (missing) PROTEIN,URINE 2025-01-24 16:50 [facility] TRACE mg/dl (missing) Social History date description facility
[2025-01-24] MEDS: ACETAMINOPHEN 500 MG TABLET PO STA (18:35)
[2025-01-24] MEDS: VANCOMYCIN INJ 2 GM in SODIUM CHLORIDE 0.9% 500 ML IV STA (18:35)
--- NOTE | 2025-01-24 19:05 | HISTORY & PHYSICAL EXAMINATION ---
Chief Complaint Chief Complaint Chief Complaint: AMS History of Present Illness Admitted From Admitted From:: home History Obtained From Records Reviewed: hepatology consult Dec 2024, derm consult , PCP note 01/06/25, urology 12/28 History obtained from: Patient and daughter Kathryn at bedside Exam Limitations: patient with AMS History of Present Illness HPI Comment/Other: 74-year-old male who presents to the emergency department via EMS this evening with fever and altered mental status. He has a past medical history of diabetes, MASH, hypothyroidism. He had a urological procedure on 01/19/2025. This was cystoscopy with right ureteroscopy, laser lithotripsy and right ureteral stent placement. He pulled the stent on 1125 as instructed at home. Since that time he has not been doing well. He has been aching all over and has not gotten out of bed. He has eaten once in the last several days. His family has been concerned and noted his worsening and he has refused to come to the hospital several times. He complains of aching all over. He is not able to give much history he seems to understand my questions but then does not give me an answer.He also complains of itching all over. He has had this problem for many many months. He was recently diagnosed with end-stage cirrhosis and is being treated for hepatic encephalopathy. He is on lactulose 20 g twice daily. He has not had a bowel movement for several days because he is not eating. He has had fever at home. he is not having any cough or cold symptoms. His daughter Kathryn is at the bedside and gives most of the history. She states that he is DNR DNI. She states that his Lexi is his surrogate medical decision maker. He does not have a POLST. Meds/Allgy Home Medications Ambulatory Orders Medication Instructions Recorded Confirmed tamsulosin 0.4 mg capsule 0.8 mg (2 x 0.4 mg) PO QDAY 30 06/30/24 01/24/25 days #60 caps hydrocortisone 2.5 % topical cream 1 applic ND QDAY ND N itching 14 09/11/24 01/24/25 with perineal applicator days #30 grams Permanent Disabled Placard #1 ea 11/13/24 01/24/25 allopurinol 300 mg tablet 300 mg PO DAILY 90 days #90 tabs 11/13/24 01/24/25 gabapentin 300 mg capsule 600 mg (2 x 300 mg) PO HS 90 days 11/13/24 01/24/25 #180 caps lactulose 10 gram/15 mL oral 20 g (30 mL) PO QAM AND Q HS liver 11/13/24 01/24/25 solution (Enulose) cirrhosis #946 mL levothyroxine 100 mcg tablet 100 mcg PO DAILY 90 days #90 tabs 11/13/24 01/24/25 omeprazole 20 mg capsule,delayed 20 mg PO QDAY PRN RE #90 caps 11/13/24 01/24/25 release blood sugar diagnostic (OneTouch #100 ea 11/18/2412/28 Verio test strips) blood-glucose meter (OneTouch #1 ea 11/18/24 01/24/25 Verio Flex Meter) lancets 33 gauge (OneTouch Delica #100 ea 11/18/24 Plus Lancet) metformin 500 mg tablet,extended 500 mg PO BID #180 ta bs 01/06/25 01/24/25 release 24 hr (Glucophage XR) trazodone 50 mg tablet 50 mg PO QDAY #90 tabs 01/1401/24/25 phenazopyridine 200 mg tablet 200 mg PO TID PRN pain 9 doses #9 01/19/25 01/24/25 tabs tramadol 50 mg tablet 50 mg PO BID PRN pain #10 ta bs 01/19/25 01/24/25 Allergies Allergies Allergy/AdvReac Type Severity Reaction Status Date / Time Penicillins Allergy Rash Verified 01/24/25 16:34 PFSH Active Problems All Active Problems (Updated 01/24/25 @ 20:25 by PATRICIA Mclaughlin) Hypernatremia (Acute) Hyperkalemia (Acute) Sepsis (Acute) Dermatitis (Acute) UTI (urinary tract infection) (Acute) Altered mental status (Acute) RAMSES (acute kidney injury) (Acute) Cirrhosis (Acute) Contusion of left middle finger (Acute) Finger injury (Acute) Poor balance (Acute) Venous stasis dermatitis (Acute) Visit for suture removal (Acute) Cirrhosis (Acute) Encounter for wound care (Acute) Laceration of left hand (Acute) HTN (hypertension) (Chronic) Skin lesion of chest wall (Acute) Pancytopenia (Acute) Atopic dermatitis (Acute) Ureteral stone (Acute) Anemia (Acute) Tinea cruris (Acute) Strain of chest wall (Acute) Cellulitis (Acute) Iron deficiency anemia (Acute) Kidney stones (Acute) Bilateral flank pain (Acute) Hematuria (Acute) Peripheral edema (Acute) Hypothyroid (Acute) Peripheral neuropathy (Acute) Itch (Acute) Rash (Acute) Neuroforaminal stenosis of lumbar spine (Acute) Low back pain with sciatica (Acute) Pasteurella cellulitis due to cat bite (Acute) Insomnia (Acute) Psoriasiform dermatitis (Acute) Hepatic encephalopathy (Acute) Healthcare maintenance (Acute) Confusion and disorientation (Acute) BMI 39.0-39.9,adult (Acute) Cellulitis of right leg (Acute) Monoclonal gammopathy of undetermined significance (Acute) Cirrhosis of liver (Acute) Sleep apnea (Acute) Diabetic foot (Acute) Splenomegaly, congestive, chronic (Acute) Portal hypertension (Acute) Diabetes mellitus type 2, controlled, with complications (Acute) Hypertension (Acute 12/20/22) Gout (Acute 11/05/12) GERD (gastroesophageal reflux disease) (Acute 11/05/12) Diabetic peripheral neuropathy (Acute 07/21/16) Anemia (Acute 12/21/22) Foreign body of left heel (Acute) Hypercalcemia (Acute) Non-pressure chronic ulcer of other part of right lower leg limited to breakdown of skin (Acute) Non-pressure chronic ulcer of other part of left lower leg limited to breakdown of skin (Acute) Venous insufficiency (chronic) (peripheral) (Acute) Flank pain (Acute) Fever (Acute) Renal colic (Acute) Abdominal abscess (Acute) Cholecystitis (Acute) Medical History Medical History (Updated 01/24/25 @ 20:25 by PATRICIA Mclaughlin) Colon polyp Obstructive sleep apnea Chest pain Decompensated liver disease Cholelithiasis (11/13/18) Cholecystitis, acute (01/16/19) Cellulitis of left lower limb (10/07/22) Bright red blood per rectum (04/13/23) H/O renal calculi Surgical History Surgical History History of esophagogastroduodenoscopy (EGD) H/O colonoscopy Hx of cholecystectomy H/O laparoscopy abdominal cyst H/O shoulder surgery right x3 S/P right rotator cuff repair History of open reduction and internal fixation (ORIF) procedure left ankle Hx of appendectomy H/O arthroscopy of right knee History of carpal tunnel release right hand Family History Family History Father Heart disease Diabetes Heart attack Mother H/O mastoidectomy Cancer Social History Social History (Updated 01/24/25 @ 17:01 by Hope Mcgill RN) Smoking Status: Former smoker If you are a former smoker, when did you quit? 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 does not drive. Exam Exam Vital Signs: Vital Signs x48h Temp Pulse Pulse Resp BP BP Pulse Ox 01/24/25 21:00 36.5 C 106 H 16 155/57 H 100 01/24/25 20:00 104 H 22 102/77 99 01/24/25 19:03 36.4 C 107 H 23 149/87 H 97 01/24/25 18:47 108 H 20 148/86 H 99 01/24/25 18:22 115 H 20 150/89 H 100 01/24/25 17:41 37.4 C 118 H 15 134/86 H 100 01/24/25 17:10 119 H 21 138/87 H 100 01/24/25 16:27 38.9 C H 111 H 24 129/69 99 Constitutional sleepy, appears ill, appears chronically ill HENMT normocephalic, head/scalp atraumatic, hearing grossly normal bilaterally and nasal mucous membranes normal mucous membranes are dry, blood staining on his teeth Eyes conjunctivae normal and no scleral icterus Neck/C-Spine visual inspection normal and trachea midline Lymph no lymphadenopathy noted Chest inspection of chest normal Respiratory breath sounds equal bilaterally, normal respiratory effort and clear to auscultation bilaterally Cardiovascular regular rhythm noted and no murmur tacycardia Gastrointestinal abdomen soft to palpation and nontender to palpation Genitourinary bilateral CVA tenderness Extremities severe dermatitis with erythema, mild edema and skin scaling below the knees. Neurology no movement abnormality noted and no focal motor deficit noted oriented to self, place and year, knows who is daughter is, knows why he is here. Skin on the skin of his trunk he has xerosis with fine scaling and underlying angiopathy- diffuse telangectasia Sepsis Event Note (H) Evaluation Current Stage of Sepsis: Sepsis Possible source of Sepsis: positive Genitourinary Sepsis Criteria Sepsis Criteria: Recorded Heart Rate greater than 90 bpm, WBC count greater than 12,000 or less than 4000, REWORKER: altered consciousness (unrelated to primary neuro pathology), Renal: urine output less than 0.5ml/kg/hr for 2 hours or creatinine gr, Metabolic: lactate > 2 mmol/L and Hepatic: Bilirubin greater than 2mg/dl Conclusion/Plan Problem List (1) Sepsis: Plan: This patient meets sepsis criteria and will be admitted to the ICU. He is tachycardic. His lactate is 7. He has altered mental status. His creatinine is above baseline. His white blood cell count is 15.3. I believe his sepsis is of urinary origin. He had recent instrumentation of the urinary tract. His urinalysis appears infected. He has blood cultures drawn by the ED prior to the start of antibiotics. His chest x-ray does show some interstitial opacities. This could be an atypical infection. Given his overall clinical appearance I think it safest to cover for both pulmonary and genitourinary etiologies of his sepsis. Due to his degree of critical illness and the appearance of enlargement of his bladder on the CT scan I am going to place a Fregoso catheter for accurate ins and outs. Lactate remains around 7 after 2L fluid, I am giving another liter of fluid and repeating the lactate in 2 hours. discussed this patient with Carolee Hodges PA-C in the ED and will admit to inpatient status, to the ICU, to treat his sepsis. Will support him with fluids, trend lactate, strictly monitor his I/O. (2) UTI (urinary tract infection): Plan: He is postop day 5 cystoscopy ureteroscopy lithotripsy with stent placement. He has been sick at home for about 3 days. Not getting out of bed running a fever. He has had minimal oral intake is not urinating much at all at home. On exam the patient has bilateral CVA tenderness. His urine culture is pending at this time. He also has blood cultures pending. His urinalysis is significant for a trace of leukocyte esterase, too numerous to count red blood cells 6-10 white blood cells. He has had recent instrumentation of the urinary tract , therefore should be covered with vancomycin. He had an E. coli urinary tract infection about a month ago which was pansensitive. I will treat him therefore with ceftriaxone in addition. I discussed this patient with Chuy La, urology. he has reviewed the CT showing no obstruction, no hydronephrosis, non obstructing ureteral stones, 3mm, on the left side. (3) RAMSES (acute kidney injury): Plan: Likely due to acute illness and dehydration. Baseline Cr is normal, around 1.0, it is mildly up at 1.4, 40% higher than baseline. I am treating his sepsis and (4) Cirrhosis: Plan: He has been seen by hepatology at [facility] earlier this month. being treated with BID lactulose, which per their note is appropriate. He has portal HTN, and the recommendation is for EGD annually to assess for esophageal varicies. this remains pending. He has a hx of pancytopenia. last seen by Dr Monique of oncology 09/24/2024. Note reviewed. Dr. 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 HE has been struggling with severe pruritis which is very lifestyle limiting and making him miserable. it was recommended that he stop antihistamines. (5) Dermatitis: Plan: This dermatitis and severe pruritus may be related to his liver disease. I am going to try some cholestyramine, 4 mg twice daily and see how the patient does with this. There is also some evidence that rifampin can be helpful. With the patient's cirrhosis and hepatic encephalopathy may be helpful to start him on rifaximin. I am not sure if he can afford this expensive medication but we can look into this further dependent on how successful treatment with cholestyramine is. (6) Hyperkalemia: Plan: On admission has a potassium of 4.9. I believe this is due to volume contraction. He has received 2 L of fluids in the emergency department. Due to his elevated lactate I am giving him an additional liter on arrival here to the floor and will repeat the BMP with the next lactic acid draw. (7) Hypernatremia: Plan: Sodium of 151 on admission, likely due to volume contraction. Repeat BMP with next lab draw while trending lactate. (8) Hypothyroid: Plan: Home Synthroid, 100 mcg daily will be resumed once medication reconciliation is complete. Qualifiers: Hypothyroidism type: unspecified Qualified Code(s): E03.9 - Hypothyroidism, unspecified (9) Diabetes mellitus type 2, controlled, with complications: Plan: Most recent hemoglobin A1c in February 2024 at 5.5%. Patient is on metformin at home. This will be held while he is in the hospital looking back several years his hemoglobin A1c has been as high as 10.5%.. He has lost a significant amount of weight. Looking back several years ago his weight was 117 kg. He is currently 109 kg. I wonder if he still needs the metformin. I have started him on a diabetic diet and sliding scale insulin. (10) Hypertension: Plan: He is tachycardic and hypertensive this evening. At home he is on Lasix 20 mg every other day. This is per the primary care note on 01/06/2025. He is also on lisinopril 20 mg/day. I will resume these home medications when it is appropriate and once medication reconciliation is complete. Qualifiers: Hypertension type: primary hypertension Qualified Code(s): I10 - Essential (primary) hypertension Plan I have spent 85 minutes in the care of this patient today. This includes time [id number], review and ordering of diagnostic imaging and laboratory studies and consultation with other providers. Monitoring the patient's signs symptoms, evaluation of medication effectiveness and patient's response to treatment. Lab Results Lab results reviewed: Yes 01/24/25 16:40 01/24/25 16:50 Diagnostic Imaging Results Diagnostic Imaging Results: positive Final report reviewed
[2025-01-24] MEDS: SODIUM CHLORIDE 0.9% 1,000 ML IV SCH ×2 (20:00→20:57)
[2025-01-24] MEDS: SODIUM CHLORIDE 0.9% 500 ML IV ONE (20:15)
[2025-01-24] MEDS: LACTULOSE 10 GM /15 ML UDC PO SCH (20:46)
[2025-01-24] MEDS: CHOLESTYRAMINE 4 GM PACKET PO SCH (20:46)
[2025-01-24] MEDS: oxyCODONE 5 MG TABLET PO PRN (20:47)
[2025-01-24] MEDS: TAMSULOSIN 0.4 MG CAPSULE PO SCH (20:47)
[2025-01-24] MEDS: INSULIN LISPRO 300 UNIT/3 ML PEN SUBQ SCH (20:48)
[2025-01-24] MEDS: AZITHROMYCIN INJ 500 MG in SODIUM CHLORIDE 0.9% 250 ML IV SCH (21:16)
[2025-01-24 22:23] LABS: BUN - BLOOD UREA NITROGEN 22.0 mg/dL (6-20); CARBON DIOXIDE - CO2 16.0 mmol/L (21-32); CREATININE 1.2 mg/dL (0.6-1.3); GFR - MDRD 60.0 (>89)
[2025-01-25] MEDS: SODIUM CHLORIDE FLUSH 0.9% 10 ML SYRINGE IVP SCH (01:06)
[2025-01-25 04:38] LABS: HCT - HEMATOCRIT 32.3 % (42.0-52.0); HGB - HEMOGLOBIN 10.2 g/dL (14.0-18.0); MEAN PLATELET VOLUME 8.8 fL (7.4-11.4); NRBC ABSOLUTE COUNT (AUTO) 0.00 x10^3/uL; NUCLEATED RED BLOOD CELLS AUTO 0.0 /100WBC; PLT - PLATELET COUNT 91 10^3/uL (130-450); RED CELL DISTRIBUTION WIDTH 19.5 % (12.0-15.0)
[2025-01-25 04:40] LABS: VBG PH 7.462 (7.31-7.41)
[2025-01-25 04:54] LABS: BUN - BLOOD UREA NITROGEN 23.0 mg/dL (6-20); CARBON DIOXIDE - CO2 24.0 mmol/L (21-32); CREATININE 1.2 mg/dL (0.6-1.3); GFR - MDRD 60.0 (>89); PHOSPHORUS 2.3 mg/dL (2.5-5.0)
[2025-01-25] MEDS: LEVOTHYROXINE 100 MCG TABLET PO SCH (06:04)
[2025-01-25] MEDS: LACTATED RINGERS 1,000 ML IV SCH (06:28)
[2025-01-25] MEDS: ACETAMINOPHEN 325 MG TABLET PO PRN (08:45)
[2025-01-25] MEDS: ENOXAPARIN 40 MG/0.4 ML SYRINGE SUBQ SCH (08:45)
[2025-01-25] MEDS: POTASSIUM PHOSPHATE 15 MMOL in SODIUM CHLORIDE 0.9% 250 ML IV ONE (09:06)
[2025-01-25 09:22] LABS: ESTIMATED AVERAGE GLUCOSE 74 mg/dL (70-100); HEMOGLOBIN A1c% 4.2 % (4.27-6.07)
--- NOTE | 2025-01-25 09:37 | PROVIDER PROGRESS NOTE ---
Subjective Prog Note Date Prog Note Date: 01/25/25 Prog Note Time: 09:37 Subjective Pt reports feeling: No change Subjective: Pt is still altered (place and person only), relates he is still very uncomfortable and itchy, feels like he "has to get up", or reposition. He relates his main concern today is his Lactulose medication, and pt was reassured by PA student that his back on a therapeutic dose during his stay here. Pt denies any respiratory s/s, endorses feverish feeling but denies rigors, is largely unable to answer other ROS questions appropriately due to mentation. Current Medications Current Medications Current Medications: Current Medications Generic Name Dose Route Start Last Admin Trade Name Freq PRN Reason Stop Dose Admin Acetaminophen 650 mg 01/24/25 18:19 01/25/25 08:45 Acetaminophen 325 Mg Tablet PO 650 mg Q4HR PRN Administration Pain 1 to 4, or Fever Cholestyramine/Sucrose 4 gm 01/24/25 21:00 01/25/25 08:45 Cholestyramine 4 Gm Packet PO 4 gm BID DAYAMI Administration Enoxaparin Sodium 40 mg 01/25/25 09:00 01/25/25 08:45 Enoxaparin 40 Mg/0.4 Ml Syringe SUBQ 40 mg DAILY DAYAMI Administration Azithromycin 500 mg/ Sodium 250 mls @ 250 mls/hr 01/24/25 21:00 01/24/25 23:04 Chloride IV 01/26/25 21:59 Infused Q24H DAYAMI Infusion Ceftriaxone Sodium 2 gm/ 100 mls @ 200 mls/hr 01/25/25 18:00 Sodium Chloride IV 01/29/25 18:29 Q24H DAYAMI Vancomycin HCl 1.5 gm/ Sodium 500 mls @ 250 mls/hr 01/25/25 18:00 Chloride IV Q24H DAYAMI Potassium Phosphate 15 mmol/ 255 mls @ 42.5 mls/hr 01/25/25 05:08 01/25/25 09:15 Sodium Chloride IV 01/25/25 11:07 42.5 mls/hr ONCE ONE Infusion Lactated Ringer's 1,000 mls @ 125 mls/hr 01/25/25 06:00 01/25/25 06:28 Lr IV 125 mls/hr .Q8H DAYAMI Administration Insulin Human Lispro 1 - 5 unit 01/24/25 21:00 01/25/25 08:45 Insulin Lispro 300 Unit/3 Ml Pen SUBQ Not Given 0800,1200,1700,2100 [facility] Protocol Lactulose 20 gm 01/24/25 21:00 01/25/25 08:45 Lactulose 10 Gm /15 Ml Udc PO 20 gm BID DAYAMI Administration Levothyroxine Sodium 100 mcg 01/25/25 07:00 01/25/25 06:04 Levothyroxine 100 Mcg Tablet PO 100 mcg QDAC DAYAMI Administration Oxycodone HCl 5 mg 01/24/25 18:19 01/25/25 06:03 Oxycodone 5 Mg Tablet PO 5 mg Q4HR PRN Administration Pain 5 to 7 Sodium Chloride 10 ml 01/24/25 18:19 Sodium Chloride Flush 0.9% 10 Ml Syringe IVP PRN PRN NEEDED PER PROVIDER ORDERS Sodium Chloride 10 ml 01/25/25 01:00 01/25/25 08:46 Sodium Chloride Flush 0.9% 10 Ml Syringe IVP 10 ml 0100,0900,1700 DAYAMI Administration Tamsulosin HCl 0.8 mg 01/24/25 21:00 01/24/25 20:47 Tamsulosin 0.4 Mg Capsule PO 0.8 mg HS DAYAMI Administration Trazodone HCl 50 mg 01/24/25 21:00 01/24/25 22:30 Trazodone 50 Mg Tablet PO 50 mg HS DAYAMI Administration Objective Vital Signs/Intake & Output Reviewed Vital Signs: Yes Vital Signs: Vital Signs x48h Temp Pulse Resp BP BP Pulse Ox 01/25/25 08:00 36.3 C L 111 H 16 101/54 L 98 01/25/25 07:00 35.9 C L 105 H 13 123/64 96 01/25/25 06:00 36.1 C L 106 H 23 113/55 L 98 01/25/25 05:00 36.1 C L 100 20 106/52 L 99 01/25/25 04:00 36.4 C L 109 H 23 111/52 L 96 01/25/25 03:00 36.3 C L 108 H 12 120/54 L 99 01/25/25 02:00 36.3 C L 113 H 10 L 107/70 99 Intake & Output: Intake & Output 01/22/25 01/23/25 01/24/25 01/25/25 23:59 23:59 23:59 23:59 Intake Total 3250 / 3250 2364 / 2364 Output Total 253 / 253 245 / 245 Balance 2997 / 2997 2119 / 2119 Weight (kg) 109 kg 111 kg Objective General Appearance: positive Moderate distress Eyes Bilateral: positive Normal inspection; negative No scleral icterus (Minor scleral icterus observed, but improved from previous night. ) Neck: positive Nml inspection Respiratory: positive No respiratory distress and Breath sounds nml Cardiovascular: positive Regular rate & rhythm and Systolic murmur (PA student believes he can appreciate a 2/6 holosystolic murmur) Abdomen: positive Nml bowel sounds, No distention and Other (Pt endorses suprapubic tenderness on palpation, positive fluid wave.); negative Guarding, Rebound or Mass Skin: positive Warm, Dry, Skin rash and Other (Xerosis, telengectasias noted on UE and abdomen; xerosis and flaky plaques with erythematous margins noted on bilat LE, onchomycosis observed, no diabetic foot ulceration appreciated. ); negative No rash Extremities: positive Pedal edema (2+ pitting edema in LE bilat) Neurologic/Psychiatric: positive Disoriented to time; negative Oriented x3 Lab Results 01/25/25 11:59 01/25/25 14:56 Other Labs: Lab Results x24hrs 01/25/25 01/25/25 01/24/25 Range/Units 07:47 04:27 21:59 WBC 6.6 (4.8-10.8) x10^3/uL RBC 3.10 L (4.70-6.10) 10^6/uL Hgb 10.2 L (14.0-18.0) g/dL Hct 32.3 L (42.0-52.0) % MCV 104.2 H (80.0-94.0) fL MCH 32.9 H (27.0-31.0) pg MCHC 31.6 L (32.0-36.0) g/dL RDW 19.5 H (12.0-15.0) % Plt Count 91 L (130-450) 10^3/uL MPV 8.8 (7.4-11.4) fL Neut # (Auto) 4.7 (1.5-6.6) 10^3/uL Lymph # (Auto) 1.3 L (1.5-3.5) 10^3/uL Broome # (Auto) 0.5 (0.0-1.0) 10^3/uL Eos # (Auto) 0.1 (0.0-0.7) 10^3/uL Baso # (Auto) 0.0 (0.0-0.1) 10^3/uL Absolute Nucleated RBC 0.00 x10^3/uL Nucleated RBC % 0.0 /100WBC VBG pH 7.462 H (7.31-7.41) Ionized Calcium 1.55 H* (1.09-1.30) mmol/L Sodium 147 H (135-145) mmol/L Potassium 3.4 L (3.5-4.5) mmol/L Chloride 118 H (101-111) mmol/L Carbon Dioxide 24 (21-32) mmol/L Anion Gap 5.0 L (6-13) BUN 23 H (6-20) mg/dL Creatinine 1.2 (0.6-1.3) mg/dL Estimated GFR (MDRD) 60 L (>89) Glucose 106 H (74-104) mg/dL POC Whole Bld Glucose 97 (70-100) mg/dL Lactic Acid 3.4 H* 6.4 H* (0.5-2.2) mmol/L Calcium 11.4 H (8.5-10.3) mg/dL Phosphorus 2.3 L (2.5-5.0) mg/dL Magnesium 1.8 (1.7-2.3) mg/dL Total Bilirubin (0.2-1.0) mg/dL AST (10-42) IU/L ALT (10-60) IU/L Alkaline Phosphatase (42-121) IU/L Ammonia (18-72) umol/L Total Protein (6.4-8.9) g/dL Albumin (3.2-5.5) g/dL Globulin (2.1-4.2) g/dL Albumin/Globulin Ratio (1.0-2.2) Urine Color Urine Clarity (CLEAR) Urine pH (5.0-7.5) PH Ur Specific [place] (1.002-1.030) Urine Protein (NEGATIVE) mg/dL Urine Glucose (UA) (NEGATIVE) mg/dL Urine Ketones (NEGATIVE) mg/dL Urine Occult Blood (NEGATIVE) Urine Nitrite (NEGATIVE) Urine Bilirubin (NEGATIVE) Urine Urobilinogen (NORMAL) E.U./dL Ur Leukocyte Esterase (NEGATIVE) Urine RBC (0-5) /HPF Urine WBC (0-3) /HPF Urine WBC Clumps Ur Epithelial Cells (<= Few) /HPF Ur Squamous Epith Cells (<= Few) Urine Bacteria (None Seen) /HPF Urine Culture Comments Nasal Screen MRSA (PCR) (NEGATIVE) 01/24/25 01/24/25 01/24/25 Range/Units 21:39 20:18 19:36 WBC (4.8-10.8) x10^3/uL RBC (4.70-6.10) 10^6/uL Hgb (14.0-18.0) g/dL Hct (42.0-52.0) % MCV (80.0-94.0) fL MCH (27.0-31.0) pg MCHC (32.0-36.0) g/dL RDW (12.0-15.0) % Plt Count (130-450) 10^3/uL MPV (7.4-11.4) fL Neut # (Auto) (1.5-6.6) 10^3/uL Lymph # (Auto) (1.5-3.5) 10^3/uL Broome # (Auto) (0.0-1.0) 10^3/uL Eos # (Auto) (0.0-0.7) 10^3/uL Baso # (Auto) (0.0-0.1) 10^3/uL Absolute Nucleated RBC x10^3/uL Nucleated RBC % /100WBC VBG pH (7.31-7.41) Ionized Calcium (1.09-1.30) mmol/L Sodium 146 H (135-145) mmol/L Potassium 3.7 (3.5-4.5) mmol/L Chloride 117 H (101-111) mmol/L Carbon Dioxide 16 L (21-32) mmol/L Anion Gap 13.0 (6-13) BUN 22 H (6-20) mg/dL Creatinine 1.2 (0.6-1.3) mg/dL Estimated GFR (MDRD) 60 L (>89) Glucose 137 H (74-104) mg/dL POC Whole Bld Glucose 117 (70-100) mg/dL Lactic Acid 7.3 H* (0.5-2.2) mmol/L Calcium 11.1 H (8.5-10.3) mg/dL Phosphorus (2.5-5.0) mg/dL Magnesium (1.7-2.3) mg/dL Total Bilirubin (0.2-1.0) mg/dL AST (10-42) IU/L ALT (10-60) IU/L Alkaline Phosphatase (42-121) IU/L Ammonia (18-72) umol/L Total Protein (6.4-8.9) g/dL Albumin (3.2-5.5) g/dL Globulin (2.1-4.2) g/dL Albumin/Globulin Ratio (1.0-2.2) Urine Color Urine Clarity (CLEAR) Urine pH (5.0-7.5) PH Ur Specific [place] (1.002-1.030) Urine Protein (NEGATIVE) mg/dL Urine Glucose (UA) (NEGATIVE) mg/dL Urine Ketones (NEGATIVE) mg/dL Urine Occult Blood (NEGATIVE) Urine Nitrite (NEGATIVE) Urine Bilirubin (NEGATIVE) Urine Urobilinogen (NORMAL) E.U./dL Ur Leukocyte Esterase (NEGATIVE) Urine RBC (0-5) /HPF Urine WBC (0-3) /HPF Urine WBC Clumps Ur Epithelial Cells (<= Few) /HPF Ur Squamous Epith Cells (<= Few) Urine Bacteria (None Seen) /HPF Urine Culture Comments Nasal Screen MRSA (PCR) (NEGATIVE) 01/24/25 01/24/25 01/24/25 Range/Units 19:00 16:50 16:40 WBC 15.3 H (4.8-10.8) x10^3/uL RBC 3.53 L (4.70-6.10) 10^6/uL Hgb 11.5 L (14.0-18.0) g/dL Hct 37.0 L (42.0-52.0) % MCV 104.8 H (80.0-94.0) fL MCH 32.6 H (27.0-31.0) pg MCHC 31.1 L (32.0-36.0) g/dL RDW 19.4 H (12.0-15.0) % Plt Count 142 (130-450) 10^3/uL MPV 9.5 (7.4-11.4) fL Neut # (Auto) 12.6 H (1.5-6.6) 10^3/uL Lymph # (Auto) 1.3 L (1.5-3.5) 10^3/uL Broome # (Auto) 1.0 (0.0-1.0) 10^3/uL Eos # (Auto) 0.1 (0.0-0.7) 10^3/uL Baso # (Auto) 0.1 (0.0-0.1) 10^3/uL Absolute Nucleated RBC 0.00 x10^3/uL Nucleated RBC % 0.0 /100WBC VBG pH (7.31-7.41) Ionized Calcium (1.09-1.30) mmol/L Sodium 151 H (135-145) mmol/L Potassium 4.9 H (3.5-4.5) mmol/L Chloride 118 H (101-111) mmol/L Carbon Dioxide 21 (21-32) mmol/L Anion Gap 12.0 (6-13) BUN 24 H (6-20) mg/dL Creatinine 1.4 H (0.6-1.3) mg/dL Estimated GFR (MDRD) 50 L (>89) Glucose 105 H (74-104) mg/dL POC Whole Bld Glucose (70-100) mg/dL Lactic Acid 7.4 H* (0.5-2.2) mmol/L Calcium 11.7 H (8.5-10.3) mg/dL Phosphorus (2.5-5.0) mg/dL Magnesium (1.7-2.3) mg/dL Total Bilirubin 2.4 H (0.2-1.0) mg/dL AST 107 H (10-42) IU/L ALT 38 (10-60) IU/L Alkaline Phosphatase 101 (42-121) IU/L Ammonia 62.4 (18-72) umol/L Total Protein 5.4 L (6.4-8.9) g/dL Albumin 2.8 L (3.2-5.5) g/dL Globulin 2.6 (2.1-4.2) g/dL Albumin/Globulin Ratio 1.1 (1.0-2.2) Urine Color ORANGE Urine Clarity CLEAR (CLEAR) Urine pH 6.0 (5.0-7.5) PH Ur Specific [place] 1.025 (1.002-1.030) Urine Protein TRACE (NEGATIVE) mg/dL Urine Glucose (UA) NEGATIVE (NEGATIVE) mg/dL Urine Ketones NEGATIVE (NEGATIVE) mg/dL Urine Occult Blood MODERATE (NEGATIVE) Urine Nitrite NEGATIVE (NEGATIVE) Urine Bilirubin NEGATIVE (NEGATIVE) Urine Urobilinogen 0.2 (NORMAL) (NORMAL) E.U./dL Ur Leukocyte Esterase TRACE H (NEGATIVE) Urine RBC TNTC H (0-5) /HPF Urine WBC 6-10 H (0-3) /HPF Urine WBC Clumps PRESENT Ur Epithelial Cells RARE Transitional (<= Few) /HPF Ur Squamous Epith Cells FEW Squamous (<= Few) Urine Bacteria Rare (None Seen) /HPF Urine Culture Comments INDICATED Nasal Screen MRSA (PCR) NEGATIVE (NEGATIVE) Diagnostic Imaging Diagnostic Imaging Results: positive Final report reviewed and Read independently Sepsis Event Note (H) Evaluation Current Stage of Sepsis: Sepsis Possible source of Sepsis: positive Genitourinary Sepsis Criteria Sepsis Criteria: Recorded Heart Rate greater than 90 bpm, WBC count greater than 12,000 or less than 4000, [employer] REPA[employer]ER: altered consciousness (unrelated to primary neuro pathology), Renal: urine output less than 0.5ml/kg/hr for 2 hours or creatinine gr, Metabolic: lactate > 2 mmol/L and Hepatic: Bilirubin greater than 2mg/dl Assessment/Plan Problem List (1) Sepsis: Impression: Hospital day 2 Condition: Pt presented with positive sepsis criteria of likely urinary source of infection, following a ureteral instrumentation procedure and lithotripsy some 5 days prior and ill-feeling over the last ~3-4 days. Pt is SIRS negative today, with improving vitals and reduction in WBC and Lactate dropping to 3.7, no return of fever, and reasonable alternative explanation of mental status changes. His chest x-ray also shows some interstitial opacities, and given his overall clinical appearance I think it safest to cover for both pulmonary and genitourinary etiologies of his sepsis. Due to his degree of critical illness and the appearance of enlargement of his bladder on the CT scan, pt placed on Fregoso catheter for close monitoring I/O. Pt is on day 2/3 of Azithromycin 500mg/day IV, day 2/5 Ceftriaxone 2g/day IV, and one dose Vancomycin 2g IV, and is showing improvement. Pharmacy and providers have agreed to d/c Vancomycin today due to resulted blod cx with Gram positive cocci and appropriate coverage will be achieved with Azithromycin and Ceftriaxone. Pt has shown a marked reduction in Lactate (7.3 --> 3.7) and in Leukocytosis (15.3 --> 6.6) today in response to ABX therapy, and pt presents an improving clinical picture from an infective standpoint. Assistance: Systemic infection control, fluid support, IV ABX, metabolic monitoring, lactate monitoring, electrolyte replenishment, RAMSES therapy. Risk: Risk of discontinued care at this time would likely result in worsened sepsis, decompensation, and . Expected LOS: ~2-3 days Monitor: Vitals, lactate, WBC, renal and hepatic function, electrolytes, and infective picture for inadequate ABX coverage or resistance. Evaluate: WBC, lactate, CMP, CBC. Assess/add: Trend lactate, additional blood cx to rule out competing/refractory organismal venegas. Treat: Azithromycin 500mg/day IV, Ceftriaxone 2g/day IV, and one dose Vancomycin 2g IV (2) UTI (urinary tract infection): Impression: He is postop day 6 cystoscopy ureteroscopy lithotripsy with stent placement. He has been sick at home for about 4 days. Not getting out of bed and running a fever. He has had minimal oral intake and has not been urinating much at home. On today's exam, pt did not endorse any CVA tenderness, which is an improvement from his presentation yesterday, but did endorse suprapubic tenderness. Further subjective history of dysuria today occluded by pt's continued altered mental status. His urine culture is still pending at this time, and his blood cultures have returned Gram positive cocci. His urinalysis was significant at admit for a trace of leukocyte esterase, too numerous to count red blood cells 6-10 white blood cells. He has had recent instrumentation of the urinary tract , therefore we covered with one dose Vancomycin 2g IV . He had an E. coli urinary tract infection about a month ago which was pansensitive, and we have also treated with Azithromycin 500mg/day IV, Ceftriaxone 2g/day IV. Pt has shown a marked reduction in Lactate (7.3 --> 3.4) and in Leukocytosis (15.3 --> 6.6) in response to ABX therapy, and pt presents an improving clinical picture from an infective standpoint. Patient was discussed yesterday with Chuy La, urology. He has reviewed the CT showing no obstruction, no hydronephrosis, non obstructing ureteral stones, 3mm, on the left side, and no perinephric fat stranding was appreciated by radiology on CT. Monitor: Continue to monitor for infective picture and for s/s of dysuria or any objective urine signs (cloudiness, purulence, nickolas hematuria, brown urine) Evaluate: Given the improving clinical picture of his UTI, we will continue to evaluate for any refractory infection or changes in treatment course. Assess/add: Guideline directed treatment does not indicate a repeat UA at this time for improving treatment, but if picture changes, we may reconsider. Urine output and gross appearance in conjunction with dysuria s/s will be continually assessed, continue to liase with specialists as pertinent. . Treat: Azithromycin 500mg/day IV, Ceftriaxone 2g/day IV, and one dose Vancomycin 2g IV. (3) RAMSES (acute kidney injury): Impression: Likely due to acute illness, dehydration, possibly compounded by diabetic and hepatic histories. Baseline Cr is normal, around 1.0, it is mildly up at 1.4, 40% higher than baseline. Pt microalbumin-creatinine ratio is high at 46.6, in conjunction with a non- Anion gap acidosis (albumin-corrected Agap of 15.0mEq/L.) FeNa unavailable due to lack of urine sodium on urine analysis. BUN:Cr is 19.2, and we are considering prerenal, renal, and postrenal causes at this time. We are treating his sepsis and monitoring the ongoing electrolyte derangments of Sodium (147), Potassium (3.4), Chloride (118), and Phosphate (2.3) Sodium is being managed with restricted sodium intake and addressing volume status, due to initial suspicion of contractive etiology. Chloride is likewise being managed with volume increase. Potassium and phosphate are being managed concurrently with K-Phos, 15mmol in NS, at 42.5mls/hr. Volume is being managed with NS and LR at a rate of 125ml/hr IV. Will reassess fluid resuscitation requirements throughout treatment course. We will continue to assess and monitor for changes in renal function, and consider alternative treatment course if further pathology develops (nephrotic/nephritic syndromes, ATN, etc) Monitor: Monitor urine output, electrolyte balances, acid/base relationship, I/O, and volume status over course of stay. Evaluate: Continue to monitor for improvement/deterioration, consider alternative management. Assess/add: May consider adding a repeat UA if gross urologic changes indicate reevaluation of renal function and if necessary to dx renal syndromes. Treat: Fluid, electrolyte replacement (K-Phos), address acidosis if worsens. (4) Cirrhosis: Impression: He has been seen by hepatology at [facility] earlier this month, being treated with BID lactulose, which per their note is appropriate. He has portal HTN, and the recommendation is for EGD annually to assess for esophageal varicies, which remains pending. He has a hx of pancytopenia. Last seen by Dr Monique of oncology 09/24/2024. Note reviewed. Dr. 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 Pt was positive for fluid wave last night, but it is less apparent today, and no obvious abd distension suggestive of a high degree of ascites. He has been struggling with severe pruritis, continuing to today's physical exam, which is very lifestyle limiting and making him miserable, and it was recommended that he stop antihistamines. We have added on Cholestyramine/Sucrose 4g BID for the pruritus, due to suspicion of liver salt metabolite etiology. We are continuing patient's at-home dosing of Lactulose 20g BID. Pt's scleral icterus and global jaundice have improved since last night's admission, but altered mental status continues, with pt alert to person and place and year, but not to day, month. Per daughter Kathryn, this may be closer to his current true baseline, but still want to monitor for continued ammonia chelation with lactulose to clear hepatic encephalopathy from AMS picture. Monitor: Monitor pruritus, mental status, skin findings. Evaluate: Follow skin and eye findings of jaundice, monitor for ascites. Assess/add: CMP for LFTs, could follow ammonia but may be low utility, continue to liase with specialists as pertinent. (5) Dermatitis: Impression: Pt dermatitis is non-improved today, and further exacerbated by increased bilat LE edema. Nursing staff expressed concern with continued SCD use with this stasis dermatitis, mentioning risk of opening/worsening wounds in the LE. Will consider a possible compression stocking for DVT-prophylaxis and improvement of blood/fluid return. Pt reports pruritus is likewise non-improved, continuing Cholestyramine/Sucrose. Monitor: Continue to watch skin findings, watching closely for wound development, healing status, pruritus, and adequacy of DVT prophy/blood and fluid return. Evaluate: Watch for improved response in pruritus, reduction in edema, healing in skin. Assess/add: No specific testing. Treat: Cholestyramine/Sucrose 4gm BID. (6) Hyperkalemia: Impression: On admission has a potassium of 4.9, improved today to 3.4 I believe this was due to volume contraction. He has received 2 L of fluids in the emergency department, and has continued to receive fluids in the ICU. Will continue to monitor and assess for further treatment need, including any cardiac rhythm changes. (7) Hypernatremia: Impression: Sodium of 151 on admission, likely due to volume contraction, improved to 147 today with fluid replenishment. Will continue to monitor and assess for response to volume repletion. (8) Hypothyroid: Impression: Home Synthroid, 100 mcg daily will be resumed once medication reconciliation is complete. May consider adding a TSH/T4/T3 test battery if indicated. Qualifiers: Hypothyroidism type: unspecified Qualified Code(s): E03.9 - Hypothyroidism, unspecified (9) Diabetes mellitus type 2, controlled, with complications: Impression: Pt is diabetic, have been managing glycemic control with SSI (Lispro) based on established BGL-dependent dosing protocols. Given pt's latest A1C value of 4.2 and repeated euglycemic values, bloog glucose management is being discontinued at this time. (10) Hypertension: Impression: He is tachycardic and hypertensive this evening. At home he is on Lasix 20 mg every other day. This is per the primary care note on 01/06/2025. He is also on lisinopril 20 mg/day. We will resume these home medications when it is appropriate and once medication reconciliation is complete. Qualifiers: Hypertension type: primary hypertension Qualified Code(s): I10 - Essential (primary) hypertension
[2025-01-25 12:14] LABS: HCT - HEMATOCRIT 34.0 % (42.0-52.0); HGB - HEMOGLOBIN 10.5 g/dL (14.0-18.0); MEAN PLATELET VOLUME 9.1 fL (7.4-11.4); NRBC ABSOLUTE COUNT (AUTO) 0.00 x10^3/uL; NUCLEATED RED BLOOD CELLS AUTO 0.0 /100WBC; PLT - PLATELET COUNT 90 10^3/uL (130-450); RED CELL DISTRIBUTION WIDTH 19.2 % (12.0-15.0)
[2025-01-25 12:27] LABS: BUN - BLOOD UREA NITROGEN 23.0 mg/dL (6-20); CARBON DIOXIDE - CO2 23.0 mmol/L (21-32); CREATININE 1.1 mg/dL (0.6-1.3); GFR - MDRD 66.0 (>89)
--- NOTE | 2025-01-25 13:44 | ADVANCE CARE PLANNING NOTE ---
Advance Care Planning Planning Encounter Date: 01/25/25 Parties in Attendance: Tori Oliver PA-C, daughter Kathryn, Lexi, son Elan Decisional Capacity of the Patient: oriented x2, not able to participate. Diagnosis for Encounter (1) Sepsis: (2) UTI (urinary tract infection): (3) RAMSES (acute kidney injury): (4) Cirrhosis: (5) Dermatitis: (6) Hyperkalemia: (7) Hypernatremia: (8) Hypothyroid: Qualifiers: Hypothyroidism type: unspecified Qualified Code(s): E03.9 - Hypothyr oidism, unspecified (9) Diabetes mellitus type 2, controlled, with complications: (10) Hypertension: Qualifiers: Hypertension type: primary hypertension Qualified Code(s): I10 - Essential (primary) hypertension Encounter Subjective/Patient's Story: This discussion happened in the waiting room of the hospital lobby area with family. Staff are completing tasks with Elan this AM and family is gathered here. He has always been an active and able man. He has provided for his family in bed and involved father. He has a recent diagnosis of liver failure and there is some embarrassment within the family about this. His states that as soon as she mentions that her has liver failure people automatically think that he is a drinker. He has never been a heavy consumer of alcohol and now has completely stopped drinking any alcohol at all since his liver cirrhosis diagnosis. I reassured her that we recognize that this diagnosis is metabolic in origin. Family seems somewhat relieved that we as registered medical assistant do understand that it is not alcohol use that his put Elan in this situation with his liver cirrhosis. Over the last several years he has stopped driving except for close to home. He does occasionally drive even though he is not supposed to but usually just to the pharmacy up in [place]. He has been sleeping more and more and spends most of his time either in his bed or in his chair. He has obstructive sleep apnea and he is not always compliant with his CPAP machine. Objective/Medical Story: Metabolic liver disease leading to liver cirrhosis and liver failure. End-stage liver disease with hepatic encephalopathy being treated with lactulose. Severe pruritus associated with this, most likely although the etiology of his skin problems is not completely clear. He has been seen by dermatology had multiple skin biopsies without an answer. He has been on courses of prednisone which have helped minimally. Recently seen by hepatology at [facility] and told that he had about a year left to live. His family really took it to heart when the steam and power superintendent told them quality over quantity in his life. Elan also strongly believes this. Elan has group B strep bacteremia. This presented as urosepsis. He is being treated appropriately. But due to his liver disease is not clearing lactate and away that most patients would. His electrolyte abnormalities are resolving with treatment and he has a mild RAMSES which has resolved with fluid administration. He has hypercalcemia which has been present in the outpatient environment for about 2 years. I am not certain this has been worked up. Goals of Care: Quality over quantity. DNR DNI Patient is not alert and oriented enough to sign his own POLST and at this time we will not complete a POLST because I believe that in the next several days he should be competent to sign his own POLST. I discussed with the family the possibility of ceasing treatment for his bacteremia. At this point that is not something they are ready to do and that is quite understandable as his quality of life has been reasonably good up until the last several weeks. We talked about the possibility of him needing to be transferred for a transesophageal echocardiogram and further treatment for bacteremia. They are not sure they want to do this either. There are many variations in his care and we can do what seems best for the patient and the family. I reassured the patient and family that we do not have to make these decisions immediately. Plan: DNR/DNI. Hopefully can medically treat this patient to improvement so that he might complete his own POLST. Code Status: Do Not Attempt Resuscitation Time spent on advance care plannin minutes
--- NOTE | 2025-01-25 13:48 | CONSULTATION NOTE ---
Chief Complaint Chief Complaint Chief Complaint: AMS History of Present Illness Admitted From Admitted From:: ER History Obtained From Records Reviewed: EMR, imaging History obtained from: pt Exam Limitations: none History of Present Illness HPI Comment/Other: Elan is a 74 yo M well known to me with recent right URS/LL/Stent 01/19 which was uncomplicated. He removed his stent as instructed 01/21. Afterwards he had myalgias and AMS, possibly febrile at home. He was brought in for evaluation. He was admitted for septic shock management. He had elevated lactate to 7, UA concerning for infection, WBC 15. CT scan was quite benign with no inflammation on my read. He was started on broad spectrum abx. Today his Blood Cx show possible strep agalactiae. A aldana catheter was placed yesterday to ensure adequate drainage and for I/O. He has multiple medical comorbidities including significant liver dysfunction and skin wounds on his lower legs He is feeling a bit better today PFSH Active Problems All Active Problems (Updated 01/24/25 @ 20:25 by PATRICIA Mclaughlin) Hypernatremia (Acute) Hyperkalemia (Acute) Sepsis (Acute) Dermatitis (Acute) UTI (urinary tract infection) (Acute) Altered mental status (Acute) RAMSES (acute kidney injury) (Acute) Cirrhosis (Acute) Contusion of left middle finger (Acute) Finger injury (Acute) Poor balance (Acute) Venous stasis dermatitis (Acute) Visit for suture removal (Acute) Cirrhosis (Acute) Encounter for wound care (Acute) Laceration of left hand (Acute) HTN (hypertension) (Chronic) Skin lesion of chest wall (Acute) Pancytopenia (Acute) Atopic dermatitis (Acute) Ureteral stone (Acute) Anemia (Acute) Tinea cruris (Acute) Strain of chest wall (Acute) Cellulitis (Acute) Iron deficiency anemia (Acute) Kidney stones (Acute) Bilateral flank pain (Acute) Hematuria (Acute) Peripheral edema (Acute) Hypothyroid (Acute) Peripheral neuropathy (Acute) Itch (Acute) Rash (Acute) Neuroforaminal stenosis of lumbar spine (Acute) Low back pain with sciatica (Acute) Pasteurella cellulitis due to cat bite (Acute) Insomnia (Acute) Psoriasiform dermatitis (Acute) Hepatic encephalopathy (Acute) Healthcare maintenance (Acute) Confusion and disorientation (Acute) BMI 39.0-39.9,adult (Acute) Cellulitis of right leg (Acute) Monoclonal gammopathy of undetermined significance (Acute) Cirrhosis of liver (Acute) Sleep apnea (Acute) Diabetic foot (Acute) Splenomegaly, congestive, chronic (Acute) Portal hypertension (Acute) Diabetes mellitus type 2, controlled, with complications (Acute) Hypertension (Acute 12/20/22) Gout (Acute 11/05/12) GERD (gastroesophageal reflux disease) (Acute 11/05/12) Diabetic peripheral neuropathy (Acute 07/21/16) Anemia (Acute 12/21/22) Foreign body of left heel (Acute) Hypercalcemia (Acute) Non-pressure chronic ulcer of other part of right lower leg limited to breakdown of skin (Acute) Non-pressure chronic ulcer of other part of left lower leg limited to breakdown of skin (Acute) Venous insufficiency (chronic) (peripheral) (Acute) Flank pain (Acute) Fever (Acute) Renal colic (Acute) Abdominal abscess (Acute) Cholecystitis (Acute) Medical History Medical History (Updated 01/24/25 @ 20:25 by PATRICIA Mclaughlin) Colon polyp Obstructive sleep apnea Chest pain Decompensated liver disease Cholelithiasis (11/13/18) Cholecystitis, acute (01/16/19) Cellulitis of left lower limb (10/07/22) Bright red blood per rectum (04/13/23) H/O renal calculi Surgical History Surgical History History of esophagogastroduodenoscopy (EGD) H/O colonoscopy Hx of cholecystectomy H/O laparoscopy abdominal cyst H/O shoulder surgery right x3 S/P right rotator cuff repair History of open reduction and internal fixation (ORIF) procedure left ankle Hx of appendectomy H/O arthroscopy of right knee History of carpal tunnel release right hand Family History Family History Father Heart disease Diabetes Heart attack Mother H/O mastoidectomy Cancer Social History Social History (Updated 01/24/25 @ 17:01 by Hope Mcgill RN) Smoking Status: Former smoker If you are a former smoker, when did you quit? 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 Service: No POLST Patient has POLST: No POLST CPR Status: Do Not Attempt Resuscitation (DNAR) / Allow Natural Meds/Allgy Home Medications Ambulatory Orders Medication Instructions Recorded Confirmed tamsulosin 0.4 mg capsule 0.8 mg (2 x 0.4 mg) PO QDAY 30 06/30/24 01/24/25 days #60 caps hydrocortisone 2.5 % topical cream 1 applic DC QDAY DC N itching 14 09/11/24 01/24/25 with perineal applicator days #30 grams Permanent Disabled Placard #1 ea 11/13/24 01/24/25 allopurinol 300 mg tablet 300 mg PO DAILY 90 days #90 tabs 11/13/24 01/24/25 gabapentin 300 mg capsule 600 mg (2 x 300 mg) PO HS 90 days 11/13/24 01/24/25 #180 caps lactulose 10 gram/15 mL oral 20 g (30 mL) PO QAM AND Q HS liver 11/13/24 01/24/25 solution (Enulose) cirrhosis #946 mL levothyroxine 100 mcg tablet 100 mcg PO DAILY 90 days #90 tabs 11/13/24 01/24/25 omeprazole 20 mg capsule,delayed 20 mg PO QDAY PRN RE #90 caps 11/13/24 01/24/25 release blood sugar diagnostic (MicroCHIPSTouch #100 ea 11/18/2412/28 Verio test strips) blood-glucose meter (OneTouch #1 ea 11/18/24 01/24/25 Verio Flex Meter) lancets 33 gauge (OneTouch Delica #100 ea 11/18/24 Plus Lancet) metformin 500 mg tablet,extended 500 mg PO BID #180 ta bs 01/06/25 01/24/25 release 24 hr (Glucophage XR) trazodone 50 mg tablet 50 mg PO QDAY #90 tabs 01/1401/24/25 phenazopyridine 200 mg tablet 200 mg PO TID PRN pain 9 doses #9 01/19/25 01/24/25 tabs tramadol 50 mg tablet 50 mg PO BID PRN pain #10 ta bs 01/19/25 01/24/25 Allergies Allergies Allergy/AdvReac Type Severity Reaction Status Date / Time Penicillins Allergy Rash Verified 01/24/25 16:34 Results Lab Results Lab results reviewed: Yes 01/25/25 11:59 01/25/25 11:59 Other Lab Results: Lab Results x24hrs 01/25/25 01/25/25 01/25/25 Range/Units 12:12 12:09 11:59 WBC 7.0 (4.8-10.8) x10^3/uL RBC 3.22 L (4.70-6.10) 10^6/uL Hgb 10.5 L (14.0-18.0) g/dL Hct 34.0 L (42.0-52.0) % MCV 105.6 H (80.0-94.0) fL MCH 32.6 H (27.0-31.0) pg MCHC 30.9 L (32.0-36.0) g/dL RDW 19.2 H (12.0-15.0) % Plt Count 90 L (130-450) 10^3/uL MPV 9.1 (7.4-11.4) fL Neut # (Auto) 4.5 (1.5-6.6) 10^3/uL Lymph # (Auto) 1.6 (1.5-3.5) 10^3/uL Motley # (Auto) 0.6 (0.0-1.0) 10^3/uL Eos # (Auto) 0.3 (0.0-0.7) 10^3/uL Baso # (Auto) 0.0 (0.0-0.1) 10^3/uL Absolute Nucleated RBC 0.00 x10^3/uL Nucleated RBC % 0.0 /100WBC VBG pH (7.31-7.41) Ionized Calcium (1.09-1.30) mmol/L Sodium 146 H (135-145) mmol/L Potassium 3.6 (3.5-4.5) mmol/L Chloride 116 H (101-111) mmol/L Carbon Dioxide 23 (21-32) mmol/L Anion Gap 7.0 (6-13) BUN 23 H (6-20) mg/dL Creatinine 1.1 (0.6-1.3) mg/dL Estimated GFR (MDRD) 66 L (>89) Glucose 148 H (74-104) mg/dL POC Whole Bld Glucose 148 (70-100) mg/dL Estimat Average Glucose (70-100) mg/dL Hemoglobin A1c % (4.27-6.07) % Lactic Acid 3.7 H* (0.5-2.2) mmol/L Calcium 11.8 H (8.5-10.3) mg/dL Phosphorus (2.5-5.0) mg/dL Magnesium (1.7-2.3) mg/dL Total Bilirubin (0.2-1.0) mg/dL AST (10-42) IU/L ALT (10-60) IU/L Alkaline Phosphatase (42-121) IU/L Ammonia (18-72) umol/L Total Protein (6.4-8.9) g/dL Albumin (3.2-5.5) g/dL Globulin (2.1-4.2) g/dL Albumin/Globulin Ratio (1.0-2.2) Urine Color Urine Clarity (CLEAR) Urine pH (5.0-7.5) PH Ur Specific [place] (1.002-1.030) Urine Protein (NEGATIVE) mg/dL Urine Glucose (UA) (NEGATIVE) mg/dL Urine Ketones (NEGATIVE) mg/dL Urine Occult Blood (NEGATIVE) Urine Nitrite (NEGATIVE) Urine Bilirubin (NEGATIVE) Urine Urobilinogen (NORMAL) E.U./dL Ur Leukocyte Esterase (NEGATIVE) Urine RBC (0-5) /HPF Urine WBC (0-3) /HPF Urine WBC Clumps Ur Epithelial Cells (<= Few) /HPF Ur Squamous Epith Cells (<= Few) Urine Bacteria (None Seen) /HPF Urine Culture Comments Nasal Screen MRSA (PCR) (NEGATIVE) 01/25/25 01/25/25 01/24/25 Range/Units 07:47 04:27 21:59 WBC 6.6 (4.8-10.8) x10^3/uL RBC 3.10 L (4.70-6.10) 10^6/uL Hgb 10.2 L (14.0-18.0) g/dL Hct 32.3 L (42.0-52.0) % MCV 104.2 H (80.0-94.0) fL MCH 32.9 H (27.0-31.0) pg MCHC 31.6 L (32.0-36.0) g/dL RDW 19.5 H (12.0-15.0) % Plt Count 91 L (130-450) 10^3/uL MPV 8.8 (7.4-11.4) fL Neut # (Auto) 4.7 (1.5-6.6) 10^3/uL Lymph # (Auto) 1.3 L (1.5-3.5) 10^3/uL Motley # (Auto) 0.5 (0.0-1.0) 10^3/uL Eos # (Auto) 0.1 (0.0-0.7) 10^3/uL Baso # (Auto) 0.0 (0.0-0.1) 10^3/uL Absolute Nucleated RBC 0.00 x10^3/uL Nucleated RBC % 0.0 /100WBC VBG pH 7.462 H (7.31-7.41) Ionized Calcium 1.55 H* (1.09-1.30) mmol/L Sodium 147 H (135-145) mmol/L Potassium 3.4 L (3.5-4.5) mmol/L Chloride 118 H (101-111) mmol/L Carbon Dioxide 24 (21-32) mmol/L Anion Gap 5.0 L (6-13) BUN 23 H (6-20) mg/dL Creatinine 1.2 (0.6-1.3) mg/dL Estimated GFR (MDRD) 60 L (>89) Glucose 106 H (74-104) mg/dL POC Whole Bld Glucose 97 (70-100) mg/dL Estimat Average Glucose 74 (70-100) mg/dL Hemoglobin A1c % 4.2 L (4.27-6.07) % Lactic Acid 3.4 H* 6.4 H* (0.5-2.2) mmol/L Calcium 11.4 H (8.5-10.3) mg/dL Phosphorus 2.3 L (2.5-5.0) mg/dL Magnesium 1.8 (1.7-2.3) mg/dL Total Bilirubin (0.2-1.0) mg/dL AST (10-42) IU/L ALT (10-60) IU/L Alkaline Phosphatase (42-121) IU/L Ammonia (18-72) umol/L Total Protein (6.4-8.9) g/dL Albumin (3.2-5.5) g/dL Globulin (2.1-4.2) g/dL Albumin/Globulin Ratio (1.0-2.2) Urine Color Urine Clarity (CLEAR) Urine pH (5.0-7.5) PH Ur Specific [place] (1.002-1.030) Urine Protein (NEGATIVE) mg/dL Urine Glucose (UA) (NEGATIVE) mg/dL Urine Ketones (NEGATIVE) mg/dL Urine Occult Blood (NEGATIVE) Urine Nitrite (NEGATIVE) Urine Bilirubin (NEGATIVE) Urine Urobilinogen (NORMAL) E.U./dL Ur Leukocyte Esterase (NEGATIVE) Urine RBC (0-5) /HPF Urine WBC (0-3) /HPF Urine WBC Clumps Ur Epithelial Cells (<= Few) /HPF Ur Squamous Epith Cells (<= Few) Urine Bacteria (None Seen) /HPF Urine Culture Comments Nasal Screen MRSA (PCR) (NEGATIVE) 01/24/25 01/24/25 01/24/25 Range/Units 21:39 20:18 19:36 WBC (4.8-10.8) x10^3/uL RBC (4.70-6.10) 10^6/uL Hgb (14.0-18.0) g/dL Hct (42.0-52.0) % MCV (80.0-94.0) fL MCH (27.0-31.0) pg MCHC (32.0-36.0) g/dL RDW (12.0-15.0) % Plt Count (130-450) 10^3/uL MPV (7.4-11.4) fL Neut # (Auto) (1.5-6.6) 10^3/uL Lymph # (Auto) (1.5-3.5) 10^3/uL Motley # (Auto) (0.0-1.0) 10^3/uL Eos # (Auto) (0.0-0.7) 10^3/uL Baso # (Auto) (0.0-0.1) 10^3/uL Absolute Nucleated RBC x10^3/uL Nucleated RBC % /100WBC VBG pH (7.31-7.41) Ionized Calcium (1.09-1.30) mmol/L Sodium 146 H (135-145) mmol/L Potassium 3.7 (3.5-4.5) mmol/L Chloride 117 H (101-111) mmol/L Carbon Dioxide 16 L (21-32) mmol/L Anion Gap 13.0 (6-13) BUN 22 H (6-20) mg/dL Creatinine 1.2 (0.6-1.3) mg/dL Estimated GFR (MDRD) 60 L (>89) Glucose 137 H (74-104) mg/dL POC Whole Bld Glucose 117 (70-100) mg/dL Estimat Average Glucose (70-100) mg/dL Hemoglobin A1c % (4.27-6.07) % Lactic Acid 7.3 H* (0.5-2.2) mmol/L Calcium 11.1 H (8.5-10.3) mg/dL Phosphorus (2.5-5.0) mg/dL Magnesium (1.7-2.3) mg/dL Total Bilirubin (0.2-1.0) mg/dL AST (10-42) IU/L ALT (10-60) IU/L Alkaline Phosphatase (42-121) IU/L Ammonia (18-72) umol/L Total Protein (6.4-8.9) g/dL Albumin (3.2-5.5) g/dL Globulin (2.1-4.2) g/dL Albumin/Globulin Ratio (1.0-2.2) Urine Color Urine Clarity (CLEAR) Urine pH (5.0-7.5) PH Ur Specific [place] (1.002-1.030) Urine Protein (NEGATIVE) mg/dL Urine Glucose (UA) (NEGATIVE) mg/dL Urine Ketones (NEGATIVE) mg/dL Urine Occult Blood (NEGATIVE) Urine Nitrite (NEGATIVE) Urine Bilirubin (NEGATIVE) Urine Urobilinogen (NORMAL) E.U./dL Ur Leukocyte Esterase (NEGATIVE) Urine RBC (0-5) /HPF Urine WBC (0-3) /HPF Urine WBC Clumps Ur Epithelial Cells (<= Few) /HPF Ur Squamous Epith Cells (<= Few) Urine Bacteria (None Seen) /HPF Urine Culture Comments Nasal Screen MRSA (PCR) (NEGATIVE) 01/24/25 01/24/25 01/24/25 Range/Units 19:00 16:50 16:40 WBC 15.3 H (4.8-10.8) x10^3/uL RBC 3.53 L (4.70-6.10) 10^6/uL Hgb 11.5 L (14.0-18.0) g/dL Hct 37.0 L (42.0-52.0) % MCV 104.8 H (80.0-94.0) fL MCH 32.6 H (27.0-31.0) pg MCHC 31.1 L (32.0-36.0) g/dL RDW 19.4 H (12.0-15.0) % Plt Count 142 (130-450) 10^3/uL MPV 9.5 (7.4-11.4) fL Neut # (Auto) 12.6 H (1.5-6.6) 10^3/uL Lymph # (Auto) 1.3 L (1.5-3.5) 10^3/uL Motley # (Auto) 1.0 (0.0-1.0) 10^3/uL Eos # (Auto) 0.1 (0.0-0.7) 10^3/uL Baso # (Auto) 0.1 (0.0-0.1) 10^3/uL Absolute Nucleated RBC 0.00 x10^3/uL Nucleated RBC % 0.0 /100WBC VBG pH (7.31-7.41) Ionized Calcium (1.09-1.30) mmol/L Sodium 151 H (135-145) mmol/L Potassium 4.9 H (3.5-4.5) mmol/L Chloride 118 H (101-111) mmol/L Carbon Dioxide 21 (21-32) mmol/L Anion Gap 12.0 (6-13) BUN 24 H (6-20) mg/dL Creatinine 1.4 H (0.6-1.3) mg/dL Estimated GFR (MDRD) 50 L (>89) Glucose 105 H (74-104) mg/dL POC Whole Bld Glucose (70-100) mg/dL Estimat Average Glucose (70-100) mg/dL Hemoglobin A1c % (4.27-6.07) % Lactic Acid 7.4 H* (0.5-2.2) mmol/L Calcium 11.7 H (8.5-10.3) mg/dL Phosphorus (2.5-5.0) mg/dL Magnesium (1.7-2.3) mg/dL Total Bilirubin 2.4 H (0.2-1.0) mg/dL AST 107 H (10-42) IU/L ALT 38 (10-60) IU/L Alkaline Phosphatase 101 (42-121) IU/L Ammonia 62.4 (18-72) umol/L Total Protein 5.4 L (6.4-8.9) g/dL Albumin 2.8 L (3.2-5.5) g/dL Globulin 2.6 (2.1-4.2) g/dL Albumin/Globulin Ratio 1.1 (1.0-2.2) Urine Color ORANGE Urine Clarity CLEAR (CLEAR) Urine pH 6.0 (5.0-7.5) PH Ur Specific [place] 1.025 (1.002-1.030) Urine Protein TRACE (NEGATIVE) mg/dL Urine Glucose (UA) NEGATIVE (NEGATIVE) mg/dL Urine Ketones NEGATIVE (NEGATIVE) mg/dL Urine Occult Blood MODERATE (NEGATIVE) Urine Nitrite NEGATIVE (NEGATIVE) Urine Bilirubin NEGATIVE (NEGATIVE) Urine Urobilinogen 0.2 (NORMAL) (NORMAL) E.U./dL Ur Leukocyte Esterase TRACE H (NEGATIVE) Urine RBC TNTC H (0-5) /HPF Urine WBC 6-10 H (0-3) /HPF Urine WBC Clumps PRESENT Ur Epithelial Cells RARE Transitional (<= Few) /HPF Ur Squamous Epith Cells FEW Squamous (<= Few) Urine Bacteria Rare (None Seen) /HPF Urine Culture Comments INDICATED Nasal Screen MRSA (PCR) NEGATIVE (NEGATIVE) Diagnostic Imaging Results Diagnostic Imaging Results: positive Read independently Exam Exam Vital Signs: Vital Signs x48h Temp Pulse Resp BP BP BP Pulse Ox 01/25/25 13:00 98 14 163/47 H 97 01/25/25 12:00 102 H 12 123/81 98 01/25/25 10:00 100 12 105/67 98 01/25/25 09:00 115 H 18 127/64 96 01/25/25 08:00 36.3 C L 111 H 16 101/54 L 98 01/25/25 07:00 35.9 C L 105 H 13 123/64 96 01/25/25 06:00 36.1 C L 106 H 23 113/55 L 98 NAD obese Conclusion/Plan Problem List (1) Sepsis: Plan: Sepsis and septic shock which is improving with empiric antibiotics likely from urinary source after ureteroscopy. CT scan is quite benign and shows no inflammation. It is also possible the source is from elsewhere. Will see what his urine culture grows. No acute intervention required. I recommend Aldana catheter when in the ICU setting but okay to remove at discretion of primary team Call me with any questions or concerns (2) UTI (urinary tract infection): (3) RAMSES (acute kidney injury): (4) Cirrhosis: (5) Dermatitis: (6) Hyperkalemia: (7) Hypernatremia: (8) Hypothyroid: Qualifiers: Hypothyroidism type: unspecified Qualified Code(s): E03.9 - Hypothyroidism, unspecified (9) Diabetes mellitus type 2, controlled, with complications: (10) Hypertension: Qualifiers: Hypertension type: primary hypertension Qualified Code(s): I10 - Essential (primary) hypertension Lab Results Lab results reviewed: Yes 01/25/25 11:59 01/25/25 11:59 Diagnostic Imaging Results Diagnostic Imaging Results: positive Read independently
[2025-01-25 15:29] LABS: ALT ALANINE AMINOTRANSFERASE 46.0 IU/L (10-60); AST ASPARTATE AMINOTRANSFERASE 133.0 IU/L (10-42); BUN - BLOOD UREA NITROGEN 24.0 mg/dL (6-20); CARBON DIOXIDE - CO2 23.0 mmol/L (21-32); CREATININE 1.2 mg/dL (0.6-1.3); GFR - MDRD 60.0 (>89)
[2025-01-25] MEDS: SODIUM CHLORIDE 0.9% 500 ML IV ONE (16:54)
[2025-01-25] MEDS: cefTRIAXone 2 GM in SODIUM CHLORIDE 0.9% MINIBAG 100 ML IV SCH (17:47)
[2025-01-25] MEDS: VANCOMYCIN INJ 1.5 GM in SODIUM CHLORIDE 0.9% 500 ML IV SCH (18:41)
[2025-01-25] MEDS: POTASSIUM CHLORIDE 20 MEQ TABLET PO ONE (20:43)
[2025-01-25] MEDS: SODIUM CHLORIDE FLUSH 0.9% 10 ML SYRINGE IVP PRN (20:44)
[2025-01-26 05:00] LABS: VBG PH 7.486 (7.31-7.41)
[2025-01-26 05:06] LABS: HCT - HEMATOCRIT 32.4 % (42.0-52.0); HGB - HEMOGLOBIN 10.2 g/dL (14.0-18.0); MEAN PLATELET VOLUME 9.8 fL (7.4-11.4); NRBC ABSOLUTE COUNT (AUTO) 0.00 x10^3/uL; NUCLEATED RED BLOOD CELLS AUTO 0.0 /100WBC; PLT - PLATELET COUNT 87 10^3/uL (130-450); RED CELL DISTRIBUTION WIDTH 19.0 % (12.0-15.0)
[2025-01-26 05:24] LABS: BUN - BLOOD UREA NITROGEN 21.0 mg/dL (6-20); CARBON DIOXIDE - CO2 24.0 mmol/L (21-32); CREATININE 1.1 mg/dL (0.6-1.3); GFR - MDRD 66.0 (>89); PHOSPHORUS 2.7 mg/dL (2.5-5.0)
[2025-01-26 05:44] LABS: PLATELET ESTIMATE, MANUAL DECREASED (<130,000) (NORMAL); SLIDE REVIEW? Indicated
[2025-01-26 05:46] LABS: PLATELET MORPHOLOGY NORMAL APP (NORMAL); WBC MORPHOLOGY (MULTIPLE) NORMAL APPEARANCE (NORMAL)
[2025-01-26] MEDS: MAGNESIUM OXIDE 400 MG TABLET PO ONE (06:35)
--- NOTE | 2025-01-26 07:33 | PROVIDER PROGRESS NOTE ---
Subjective Prog Note Date Prog Note Date: 01/26/25 Prog Note Time: 07:33 Subjective Pt reports feeling: Improved Subjective: Pt mental status is largely unchanged from yesterday, and given the history of his baseline mental status from family, is likely at baseline now. Pt moderately somnolent, but is easily rouseable. Pt relates that his itching is still present, although he relates that his chest and stomach feeling cold and general pain is his biggest concern this morning. Pt related he needed to have a bowel movement this morning, but had so far been unsuccessful. Goals of care have been discussed with family members as of last night. Pt related he had been constantly thirsty, and pt family relates he keeps gallon jugs of water at home and drinks from them often. Pt assessment for POLST signature competence still pending, as is family decision for further treatment including transfer for [facility] or d/c to home, potentially involving palliative care. Current Medications Current Medications Current Medications: Current Medications Generic Name Dose Route Start Last Admin Trade Name Freq PRN Reason Stop Dose Admin Acetaminophen 650 mg 01/24/25 18:19 01/25/25 08:45 Acetaminophen 325 Mg Tablet PO 650 mg Q4HR PRN Administration Pain 1 to 4, or Fever Cholestyramine/Sucrose 4 gm 01/24/25 21:00 01/25/25 20:43 Cholestyramine 4 Gm Packet PO 4 gm BID DAYAMI Administration Enoxaparin Sodium 40 mg 01/25/25 09:00 01/25/25 08:45 Enoxaparin 40 Mg/0.4 Ml Syringe SUBQ 40 mg DAILY DAYAMI Administration Hydroxyzine Pamoate 50 mg 01/25/25 14:44 01/25/25 17:07 Hydroxyzine Pamoate 25 Mg Capsule PO 50 mg Q6H PRN Administration Itching Azithromycin 500 mg/ Sodium 250 mls @ 250 mls/hr 01/24/25 21:00 01/25/25 22:14 Chloride IV 01/26/25 21:59 Infused Q24H DAYAMI Infusion Ceftriaxone Sodium 2 gm/ 100 mls @ 200 mls/hr 01/25/25 18:00 01/25/25 18:20 Sodium Chloride IV 01/29/25 18:29 Infused Q24H DAYAMI Infusion Lactated Ringer's 1,000 mls @ 100 mls/hr 01/25/25 06:00 01/26/25 05:24 Lr IV 100 mls/hr .Q10H DAYAIM Administration Lactulose 20 gm 01/24/25 21:00 01/25/25 20:43 Lactulose 10 Gm /15 Ml Udc PO 20 gm BID DAYAMI Administration Levothyroxine Sodium 100 mcg 01/25/25 07:00 01/26/25 06:35 Levothyroxine 100 Mcg Tablet PO 100 mcg QDAC DAYAMI Administration Oxycodone HCl 5 mg 01/24/25 18:19 01/25/25 10:58 Oxycodone 5 Mg Tablet PO 5 mg Q4HR PRN Administration Pain 5 to 7 Potassium Chloride 20 meq 01/26/25 08:00 Potassium Chloride 20 Meq Tablet PO 01/26/25 08:01 ONCE ONE Protocol Sodium Chloride 10 ml 01/24/25 18:19 01/25/25 20:44 Sodium Chloride Flush 0.9% 10 Ml Syringe IVP 10 ml PRN PRN Administration NEEDED PER PROVIDER ORDERS Sodium Chloride 10 ml 01/25/25 01:00 01/26/25 00:22 Sodium Chloride Flush 0.9% 10 Ml Syringe IVP Not Given 0100,0900,1700 DAYAMI Tamsulosin HCl 0.8 mg 01/24/25 21:00 01/25/25 20:43 Tamsulosin 0.4 Mg Capsule PO 0.8 mg HS DAYAMI Administration Trazodone HCl 50 mg 01/24/25 21:00 01/25/25 20:43 Trazodone 50 Mg Tablet PO 50 mg HS DAYAMI Administration Objective Vital Signs/Intake & Output Reviewed Vital Signs: Yes Vital Signs: Vital Signs x48h Temp Pulse Resp BP Pulse Ox 01/26/25 07:00 100 14 130/63 98 01/26/25 06:00 102 H 10 L 145/99 H 98 01/26/25 05:00 103 H 13 135/70 H 96 01/26/25 04:00 36 C L 97 15 127/70 96 01/26/25 03:00 36.1 C L 97 9 L 116/73 99 01/26/25 02:05 36.1 C L 107 H 11 L 140/85 H 99 01/26/25 01:00 98 12 116/80 98 01/26/25 00:00 98 13 127/79 98 Intake & Output: Intake & Output 01/23/25 01/24/25 01/25/25 01/26/25 23:59 23:59 23:59 23:59 Intake Total 3250 / 3250 5560 / 5560 1143 / 1143 Output Total 253 / 253 689 / 689 256 / 256 Balance 2997 / 2997 4871 / 4871 887 / 887 Weight (kg) 109 kg 111 kg 113 kg Objective General Appearance: positive Mild distress and Moderate distress Eyes Bilateral: positive Normal inspection and PERRL ENT: negative No signs of dehydration (Oral mucosa still dry-appearing, but increased bilat edema in UE ) Neck: positive Nml inspection Respiratory: positive No respiratory distress and Rales (Minor fine basal rales bilat) Cardiovascular: positive Regular rate & rhythm and Diastolic murmur; negative No murmur Abdomen: positive Non-tender (Pt continues to deny CVA tenderness), Nml bowel sounds and No distention Skin: positive Color nml and Warm; negative No rash Extremities: positive Pedal edema and Other (UE bilateral edema noted) Neurologic/Psychiatric: positive Disoriented to time and Other (Oriented to self, , place, recent holiday, but transient orientation to why he is being treated. ) Lab Results 01/26/25 04:48 01/26/25 13:45 Other Labs: Lab Results x24hrs 01/26/25 01/26/25 01/25/25 Range/Units 04:48 04:48 15:06 WBC 6.0 (4.8-10.8) x10^3/uL RBC 3.10 L (4.70-6.10) 10^6/uL Hgb 10.2 L (14.0-18.0) g/dL Hct 32.4 L (42.0-52.0) % MCV 104.5 H (80.0-94.0) fL MCH 32.9 H (27.0-31.0) pg MCHC 31.5 L (32.0-36.0) g/dL RDW 19.0 H (12.0-15.0) % Plt Count 87 L (130-450) 10^3/uL MPV 9.8 (7.4-11.4) fL Neut # (Auto) 2.8 (1.5-6.6) 10^3/uL Lymph # (Auto) 1.7 (1.5-3.5) 10^3/uL Cascade # (Auto) 0.5 (0.0-1.0) 10^3/uL Eos # (Auto) 1.0 H (0.0-0.7) 10^3/uL Baso # (Auto) 0.1 (0.0-0.1) 10^3/uL Absolute Nucleated RBC 0.00 x10^3/uL Nucleated RBC % 0.0 /100WBC Manual Slide Review Indicated WBC Morphology NORMAL APPEARANCE (NORMAL) Platelet Estimate DECREASED (<130,000) (NORMAL) Platelet Morphology NORMAL MANE (NORMAL) RBC Morph Micro Appear 1+ ECHINOCYTES 2+ ANISOCYTOSIS (NORMAL) VBG pH 7.486 H (7.31-7.41) Ionized Calcium 1.59 H* (1.09-1.30) mmol/L Sodium 147 H (135-145) mmol/L Potassium 3.9 (3.5-4.5) mmol/L Chloride 119 H (101-111) mmol/L Carbon Dioxide 24 (21-32) mmol/L Anion Gap 4.0 L (6-13) BUN 21 H (6-20) mg/dL Creatinine 1.1 (0.6-1.3) mg/dL Estimated GFR (MDRD) 66 L (>89) Glucose 93 (74-104) mg/dL POC Whole Bld Glucose (70-100) mg/dL Estimat Average Glucose (70-100) mg/dL Hemoglobin A1c % (4.27-6.07) % Lactic Acid 4.2 H* (0.5-2.2) mmol/L Calcium 11.7 H (8.5-10.3) mg/dL Phosphorus 2.7 (2.5-5.0) mg/dL Magnesium 1.8 (1.7-2.3) mg/dL Total Bilirubin (0.2-1.0) mg/dL AST (10-42) IU/L ALT (10-60) IU/L Alkaline Phosphatase (42-121) IU/L Total Protein (6.4-8.9) g/dL Albumin (3.2-5.5) g/dL Globulin (2.1-4.2) g/dL Albumin/Globulin Ratio (1.0-2.2) TSH 4.64 (0.34-5.60) uIU/mL Total Intact PTH 124 H (12-88) pg/mL 01/25/25 01/25/25 01/25/25 Range/Units 14:56 12:12 12:09 WBC (4.8-10.8) x10^3/uL RBC (4.70-6.10) 10^6/uL Hgb (14.0-18.0) g/dL Hct (42.0-52.0) % MCV (80.0-94.0) fL MCH (27.0-31.0) pg MCHC (32.0-36.0) g/dL RDW (12.0-15.0) % Plt Count (130-450) 10^3/uL MPV (7.4-11.4) fL Neut # (Auto) (1.5-6.6) 10^3/uL Lymph # (Auto) (1.5-3.5) 10^3/uL Cascade # (Auto) (0.0-1.0) 10^3/uL Eos # (Auto) (0.0-0.7) 10^3/uL Baso # (Auto) (0.0-0.1) 10^3/uL Absolute Nucleated RBC x10^3/uL Nucleated RBC % /100WBC Manual Slide Review WBC Morphology (NORMAL) Platelet Estimate (NORMAL) Platelet Morphology (NORMAL) RBC Morph Micro Appear (NORMAL) VBG pH (7.31-7.41) Ionized Calcium (1.09-1.30) mmol/L Sodium 146 H (135-145) mmol/L Potassium 3.6 (3.5-4.5) mmol/L Chloride 116 H (101-111) mmol/L Carbon Dioxide 23 (21-32) mmol/L Anion Gap 7.0 (6-13) BUN 24 H (6-20) mg/dL Creatinine 1.2 (0.6-1.3) mg/dL Estimated GFR (MDRD) 60 L (>89) Glucose 166 H (74-104) mg/dL POC Whole Bld Glucose 148 (70-100) mg/dL Estimat Average Glucose (70-100) mg/dL Hemoglobin A1c % (4.27-6.07) % Lactic Acid 3.7 H* (0.5-2.2) mmol/L Calcium 12.0 H* (8.5-10.3) mg/dL Phosphorus (2.5-5.0) mg/dL Magnesium (1.7-2.3) mg/dL Total Bilirubin 1.7 H (0.2-1.0) mg/dL AST 133 H (10-42) IU/L ALT 46 (10-60) IU/L Alkaline Phosphatase 95 (42-121) IU/L Total Protein 4.8 L (6.4-8.9) g/dL Albumin 2.5 L (3.2-5.5) g/dL Globulin 2.3 (2.1-4.2) g/dL Albumin/Globulin Ratio 1.1 (1.0-2.2) TSH (0.34-5.60) uIU/mL Total Intact PTH (12-88) pg/mL 01/25/25 01/25/25 01/25/25 Range/Units 11:59 07:47 04:27 WBC 7.0 (4.8-10.8) x10^3/uL RBC 3.22 L (4.70-6.10) 10^6/uL Hgb 10.5 L (14.0-18.0) g/dL Hct 34.0 L (42.0-52.0) % MCV 105.6 H (80.0-94.0) fL MCH 32.6 H (27.0-31.0) pg MCHC 30.9 L (32.0-36.0) g/dL RDW 19.2 H (12.0-15.0) % Plt Count 90 L (130-450) 10^3/uL MPV 9.1 (7.4-11.4) fL Neut # (Auto) 4.5 (1.5-6.6) 10^3/uL Lymph # (Auto) 1.6 (1.5-3.5) 10^3/uL Cascade # (Auto) 0.6 (0.0-1.0) 10^3/uL Eos # (Auto) 0.3 (0.0-0.7) 10^3/uL Baso # (Auto) 0.0 (0.0-0.1) 10^3/uL Absolute Nucleated RBC 0.00 x10^3/uL Nucleated RBC % 0.0 /100WBC Manual Slide Review WBC Morphology (NORMAL) Platelet Estimate (NORMAL) Platelet Morphology (NORMAL) RBC Morph Micro Appear (NORMAL) VBG pH (7.31-7.41) Ionized Calcium (1.09-1.30) mmol/L Sodium 146 H (135-145) mmol/L Potassium 3.6 (3.5-4.5) mmol/L Chloride 116 H (101-111) mmol/L Carbon Dioxide 23 (21-32) mmol/L Anion Gap 7.0 (6-13) BUN 23 H (6-20) mg/dL Creatinine 1.1 (0.6-1.3) mg/dL Estimated GFR (MDRD) 66 L (>89) Glucose 148 H (74-104) mg/dL POC Whole Bld Glucose 97 (70-100) mg/dL Estimat Average Glucose 74 (70-100) mg/dL Hemoglobin A1c % 4.2 L (4.27-6.07) % Lactic Acid (0.5-2.2) mmol/L Calcium 11.8 H (8.5-10.3) mg/dL Phosphorus (2.5-5.0) mg/dL Magnesium (1.7-2.3) mg/dL Total Bilirubin (0.2-1.0) mg/dL AST (10-42) IU/L ALT (10-60) IU/L Alkaline Phosphatase (42-121) IU/L Total Protein (6.4-8.9) g/dL Albumin (3.2-5.5) g/dL Globulin (2.1-4.2) g/dL Albumin/Globulin Ratio (1.0-2.2) TSH (0.34-5.60) uIU/mL Total Intact PTH (12-88) pg/mL Diagnostic Imaging Diagnostic Imaging Results: positive Final report reviewed and Read independently Diagnostic Imaging Comments: Still waiting on the STAT ECHO order to be officially read for valvular vegetations secondary to GBS infection. ABX Reporting Has patient been on IV antibiotics over the past 48 hours?: Yes Sepsis Event Note (H) Evaluation Current Stage of Sepsis: Sepsis Possible source of Sepsis: positive Genitourinary Sepsis Criteria Sepsis Criteria: Recorded Heart Rate greater than 90 bpm, [employer]: altered consciousness (unrelated to primary neuro pathology), Renal: urine output less than 0.5ml/kg/hr for 2 hours or creatinine gr, Metabolic: lactate > 2 mmol/L and Hepatic: Bilirubin greater than 2mg/dl Assessment/Plan Problem List (1) Sepsis: Impression: Hospital day 3 Condition: Pt presented with positive sepsis criteria of likely urinary source of infection, following a ureteral instrumentation procedure and lithotripsy some 5 days prior and ill-feeling over the last ~3-4 days. Pt continues to be SIRS negative today, with improving vitals and reduction in WBC but Lactate has risen today to 4.2 from 3.7 yesterday with no return of fever, and reasonable alternative explanation of mental status changes. His chest x-ray also showed some interstitial opacities, so ABX coverage has been selected for UTI/pulmonary organism dual coverage. Pt has been on Fregoso catheter for close monitoring I/O and due to acuity. Pt is on day 3/ of Azithromycin 500mg/day IV, day 3/5 Ceftriaxone 2g/day IV, and is showing improvement. Pt Vancomycin was discontinued yesterday. Continue to trend lactate. Blood cx yesterday resulted with Gram positive cocci (GBS), and resulted this morning early showing CoNS, so sample contamination cannot be necessarily ruled out, nor can original contamination through uretural stent. Sensitivity studies not yet returned. Pt did already receive x2 days of Vancomycin, which is recommended empiric agent for CoNS with methicillin resistance. F/u blood cx ordered for later today to try to r/o surface contamination. Will determine what appropriate care home ABX is appropriate once d/c setting is ascertained. Assistance: Systemic infection control, fluid support, IV ABX, metabolic monitoring, lactate monitoring, electrolyte replenishment, RAMSES therapy. Risk: Risk of discontinued care at this time would likely result in worsened sepsis, decompensation, and . Expected LOS: ~2 days Monitor: Vitals, lactate, WBC, renal and hepatic function, electrolytes, and infective picture for inadequate ABX coverage or resistance. Evaluate: WBC, lactate, CMP, CBC. Assess/add: Continue to trend lactate. Blood cx yesterday resulted with Gram positive cocci (GBS), and resulted this morning early showing CoNS, so sample contamination cannot be necessarily ruled out, nor can original contamination through uretural stent. Sensitivity studies not yet returned. Pt did already receive x2 days of Vancomycin, which is recommended empiric agent for CoNS with methicillin resistance. F/u blood cx ordered for later today to try to r/o surface contamination. Treat: Azithromycin 500mg/day IV, Ceftriaxone 2g/day IV. Vancomycin d/c'd 11/30 AM (2) UTI (urinary tract infection): Impression: He is postop day 6 cystoscopy ureteroscopy lithotripsy with stent placement. He has been sick at home for about 4 days. Not getting out of bed and running a fever. He has had minimal oral intake and has not been urinating much at home. On today's exam, pt continued to deny any CVA tenderness, which is an improvement from his original presentation, and this morning denied suprapubic tenderness, which is likewise an improvement from yesterday. His urine culture resulted negative today at 1200, and his blood cultures have returned Gram positive cocci. His urinalysis was significant at admit for a trace of leukocyte esterase, too numerous to count red blood cells 6-10 white blood cells. He has had recent instrumentation of the urinary tract , therefore we covered with one dose Vancomycin 2g IV. He had an E. coli urinary tract infection about a month ago which was pansensitive, and we have also treated with Azithromycin 500mg/day IV, Ceftriaxone 2g/day IV. Pt has shown a marked reduction in Lactate (7.3 --> 3.4) and in Leukocytosis (15.3 --> 6.6) in response to ABX therapy, and pt presents an improving clinical picture from an infective standpoint. Patient was discussed throughout care with Chuy La, urology. He has reviewed the CT showing no obstruction, no hydronephrosis, non obstructing ureteral stones, 3mm, on the left side, and no perinephric fat stranding was appreciated by radiology on CT. Monitor: Continue to monitor for infective picture and for s/s of dysuria or any objective urine signs (cloudiness, purulence, nickolas hematuria, brown urine) Evaluate: Given the improving clinical picture of his UTI, we will continue to evaluate for any refractory infection or changes in treatment course. Assess/add: Guideline directed treatment does not indicate a repeat UA at this time for improving treatment, but if picture changes, we may reconsider. Urine output and gross appearance in conjunction with dysuria s/s will be continually assessed, continue to liase with specialists as pertinent. . Treat: Azithromycin 500mg/day IV, Ceftriaxone 2g/day IV, and one dose Vancomycin 2g IV, which has been d/c'd. (3) RAMSES (acute kidney injury): Impression: Likely due to acute illness, dehydration, possibly compounded by diabetic and hepatic histories. Baseline Cr is normal, around 1.0, it is mildly up at 1.4, 40% higher than baseline. Pt microalbumin-creatinine ratio was high at 46.6 yesterday, in conjunction with a non-Anion gap acidosis (albumin-corrected Agap of 15.0mEq/L yesterday to 7.8mEq/L today) FeNa unavailable due to lack of urine sodium on urine analysis. BUN:Cr is 19.09 We are treating his sepsis and monitoring the ongoing electrolyte derangments of Sodium (147), Potassium (3.4), Chloride (119), and Phosphate (2.7) Sodium is being managed with restricted sodium intake and addressing volume status, due to initial suspicion of contractive etiology. Chloride is likewise being managed with volume increase. Potassium and phosphate have been d/c'd as of yesterday. Volume is being managed LR at a rate of 200ml/hr IV, changed from 125ml/hr today at noon. Will reassess fluid resuscitation requirements throughout treatment course. We will continue to assess and monitor for changes in renal function, and consider alternative treatment course if further pathology develops. Monitor: Monitor urine output, electrolyte balances, acid/base relationship, I/O, and volume status over course of stay. Evaluate: Continue to monitor for improvement/deterioration, consider alternative management. Assess/add: May consider adding a repeat UA if gross urologic changes indicate reevaluation of renal function and if necessary to dx renal syndromes. Treat: Fluid, close electrolyte monitoring, address acidosis if worsens. (4) Cirrhosis: Impression: He has been seen by hepatology at [facility] earlier this month, being treated with BID lactulose, which per their note is appropriate. He has portal HTN, and the recommendation is for EGD annually to assess for esophageal varicies, which remains pending. MELD score is 12, using INR drawn on the of this month and other values from current labs. Child-Steven score 8-9, depending on conservative or liberal interpretation of encephalopathy grading in the presence of concurrent sepsis and azotemia compounding encephalopathy evaluation. He has a hx of pancytopenia. Last seen by Dr Monique of oncology 09/24/2024. Note reviewed. Dr. 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 Pt was positive for fluid wave on admission night, but it is less apparent over the last two days. Pt has had no obvious abd distension suggestive of a high degree of ascites. He has been struggling with severe pruritis, continuing to today's physical exam, which is very lifestyle limiting and making him miserable, and it was recommended that he stop antihistamines. We are continuing Cholestyramine/Sucrose, stepping up from 4g BID to 8g BID for the pruritus, due to suspicion of liver etiology. We are continuing patient's at-home dosing of Lactulose 20g BID. Pt's scleral icterus and global jaundice have improved since admission, but altered mental status continues, with pt alert to person and place and year, but not to day, month, which is consistent with his status yesterday and his baseline per daughter. Monitor: Monitor pruritus, mental status, skin findings. Evaluate: Follow skin and eye findings of jaundice, monitor for ascites. Assess/add: CMP for LFTs, could follow ammonia but may be low utility, continue to liase with specialists as pertinent. (5) Hyperparathyroidism: Impression: Based on continued refractory asymptomatic hypercalcemia, both in service (11.4- 12 during stay) and extending back to 2022, along with continued nephrolithiasis and elevated PTH (124) we suspect an additional dx of primary hyperparathyroidism. Care team discussed risk/benefit of a bisphosphonate, but given administration difficulties along with risk of erosive esophagitis, we are waiting at this time. Pt is notably not an appropriate candidate for surgical resection at this time. K-Phos has also been discontinued at this time. We will continue to fluid resuscitate, and will reassess more definitive tx measures as pt care progresses. Monitor: Monitor for clinical findings of hypercalcemia and revisit definitive measures. Evaluate: Continue to evaluate fluid/calcium relationship and whether more direct medical management indicated. Assess/add: Assess serum calcium/PTH/phosphate relationship over time. Treat: Will consider bisphosphonte therapy or surgery if risk/benefit improves. (6) Dermatitis: Impression: Pt dermatitis is non-improved today, but LE edema is improved today. Nursing staff expressed concern with continued SCD use with this stasis dermatitis, mentioning risk of opening/worsening wounds in the LE. We have moved to compression stockings for DVT-prophylaxis and improvement of blood/fluid return. Pt reports pruritus likewise non-improved, continuing Cholestyramine/Sucrose. Monitor: Continue to watch skin findings, watching closely for wound development, healing status, pruritus, and adequacy of DVT prophy/blood and fluid return. Evaluate: Watch for improved response in pruritus, reduction in edema, healing in skin. Assess/add: No specific testing. Treat: Continue Cholestyramine/Sucrose 4gm BID. (7) Hyperkalemia: Impression: On admission has a potassium of 4.9, improved over course of stay to 3.9. Likely due to volume contraction. He has received 2 L of fluids in the emergency department, and has continued to receive aggressive fluid resuscitation in the ICU, moving from 125mL/hr LR to 200 mL/hr Lr. Will continue to monitor and assess for further treatment need, including any cardiac rhythm changes or further derangement. (8) Hypernatremia: Impression: Sodium of 151 on admission, likely due to volume contraction, stable 147 today with fluid replenishment. Will continue to monitor and assess for response to volume repletion. (9) Hypothyroid: Impression: Home Synthroid, 100 mcg daily will be resumed once medication reconciliation is complete. May consider adding a TSH/T4/T3 test battery if indicated. 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 Given pt's latest A1C value of 4.2 and repeated euglycemic values, bloog glucose management is being discontinued at this time. (11) Hypertension: Impression: He is tachycardic and hypertensive this evening. At home he is on Lasix 20 mg every other day. This is per the primary care note on 01/06/2025. He is also on lisinopril 20 mg/day. We will resume these home medications when it is appropriate and once medication reconciliation is complete. Qualifiers: Hypertension type: primary hypertension Qualified Code(s): I10 - Essential (primary) hypertension
[2025-01-26] MEDS: POTASSIUM CHLORIDE 20 MEQ TABLET PO ONE (08:11)
[2025-01-26] MEDS: CETIRIZINE 10 MG TABLET PO SCH (12:21)
--- NOTE | 2025-01-26 12:57 | ECHO Report ---
Version: 1 Study ID: [id number] Adult Echocardiogram Report Name: [address] Study Date: 01/25/2025, 11: 24 AM BP: 105 / 67 mmHg Patient Location: ICU^2303^01 HR: 101 bpm : 1950 (MM/DD/YYYY) Gender: Male Height: 71 in Age: 74 Years Weight: 244 lb BSA: 2.29 m² Reason For Study: GBS bacteremia History: No previous study. Tachycardia during test. Interpretation Summary There is mild concentric increase in the wall thickness of the left ventricle. Global left ventricular systolic function is normal. The visual left ventricular ejection fraction is estimated at 50 to 55%. The right ventricular systolic function is normal. There is mild valvular aortic stenosis. Left Ventricle: The left ventricle is normal in size. There is mild concentric increase in the wall thickness of the left ventricle. No thrombus seen in the left ventricle. The calculated ejection fraction, as determined by the biplane method of disks, is 54%. Global left ventricular systolic function is normal. The visual left ventricular ejection fraction is estimated at 50 to 55%. Right Ventricle: The right ventricle is normal size. TAPSE is consistent with normal right ventricular function. The tricuspid annular plane systolic excursion (TAPSE) measurement is 3.3 cm. The right ventricular systolic function is normal. Aortic Valve: The aortic valve is moderately calcified. Cannot exclude aortic valve vegetation. There is mild valvular aortic stenosis. Trace aortic regurgitation is present. Mitral Valve: The mitral valve leaflets are mildly thickened. There is mild mitral stenosis. There is mild mitral regurgitation. Tricuspid Valve: The tricuspid valve is normal in structure and function. There is no tricuspid stenosis. Trace tricuspid regurgitation present. Pulmonic Valve: The pulmonic valve is normal in structure and function. There is no pulmonic valvular stenosis. Trace pulmonic valvular regurgitation is present. Left Atrium: The left atrium is severely dilated. Right Atrium: The right atrium is mildly dilated. IVC Not seen. Atrial Septum: The interatrial septum appears normal, without evidence of shunt by 2D imaging and color Doppler. Aorta: The ascending aorta is normal in size. Aortic arch not imaged. The sinuses of Valsalva are normal in size. Pulmonary Artery: The pulmonary artery is normal size. Pulmonary artery systolic pressure could not be estimated due to an insufficient tricuspid regurgitant jet. IVC not seen. Pericardium/Pleural Space: A small pericardial effusion is present. Left Ventricle IVSd: 1.20 cm LVIDd: 5.3 cm LVPWd: 1.23 cm LVIDs: 4.0 cm EDV(MOD-sp4): 193.1 ml LVLd ap4: 9.4 cm ESV(MOD-sp4): 96.5 ml ESV(sp4-el): 132.3 ml LVLs ap4: 8.5 cm EDV(MOD-sp2): 199.2 ml ESV(MOD-sp2): 98.6 ml Right Ventricle TAPSE: 3.3 cm RV S John: 19.8 cm/sec Atria LA dimension: 5.8 cm LAV(MOD-sp4): 106.7 ml LAV(MOD-sp2): 102.6 ml Aortic Valve LVOT diam: 2.22 cm LV V1 mean P.5 mmHg LV V1 mean: 97.1 cm/sec LV V1 VTI: 33.4 cm Ao V2 VTI: 55.3 cm Ao mean P.4 mmHg Ao V2 mean: 185.1 cm/sec LV V1 max: 148.8 cm/sec LV V1 max P.9 mmHg Ao max P.6 mmHg Ao V2 max: 248.2 cm/sec MMode/2D Measurements & Calculations BMI: 34.0 kilograms/m² BSA([facility]): 2.39 m² EDV(MOD-sp2): 199.2 ml EDV(MOD-sp4): 193.1 ml ESV(MOD-sp2): 98.6 ml ESV(MOD-sp4): 96.5 ml ESV(sp4-el): 132.3 ml IVSd: 1.20 cm LA A4C-A/L: 31.0 cm² LA dimension: 5.8 cm LA ESV-A/L: 136.0 ml LA Vol Index: 56.6 ml/m² LAV(MOD-sp2): 102.6 ml LAV(MOD-sp4): 106.7 ml LVIDd: 5.3 cm LVIDs: 4.0 cm LVLd ap4: 9.4 cm LVLs ap4: 8.5 cm LVOT diam: 2.22 cm LVPWd: 1.23 cm RA A4Cs: 21.4 cm² TAPSE: 3.3 cm Doppler Measurements & Calculations Ao max P.6 mmHg Ao mean P.4 mmHg Ao V2 max: 248.2 cm/sec Ao V2 mean: 185.1 cm/sec Ao V2 VTI: 55.3 cm LV V1 max: 148.8 cm/sec LV V1 max P.9 mmHg LV V1 mean: 97.1 cm/sec LV V1 mean P.5 mmHg LV V1 VTI: 33.4 cm PA max P.2 mmHg PA V2 max: 194.7 cm/sec RV S John: 19.8 cm/sec Other Measurements & Calculations KRYSTINA(I,D): 2.35 cm² KRYSTINA(V,D): 2.33 cm² EDV(Teich): 134.7 ml EF(MOD-sp2): 50.5 % EF(MOD-sp4): 50.0 % EF(sp-el): 43.6 % EF(Teich): 49.4 % ESV(Teich): 68.2 ml FS: 25.2 % LVOT area: 3.9 cm² SV(LVOT): 129.8 ml SV(MOD-sp4): 96.5 ml MD Claudette Rizo 01/26/2025, 12: 56 PM Ordering Physician: Tori Oliver Referring Physician: Carolee Hodges Performed By: JONEL
[2025-01-26 13:59] LABS: VBG PH 7.651 (7.31-7.41)
[2025-01-26 14:12] LABS: PHOSPHORUS 2.1 mg/dL (2.5-5.0)
[2025-01-26 15:09] LABS: OSMOLALITY 321 mOsmol/kg (280-301); OSMOLALITY URINE 528 mOsmol/kg (.)
[2025-01-26] MEDS: CHOLESTYRAMINE 4 GM PACKET PO SCH (15:13)
[2025-01-26] MEDS: CALAMINE/ZINC OXIDE 177 ML BOTTLE TOP PRN (15:17)
--- NOTE | 2025-01-26 16:06 | PT Plan of Care ---
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 MEDICAL/SURGICAL HISTORY Medical History (Updated 01/26/25 @ 12:35 by Owen Nick) Colon polyp Obstructive sleep apnea Chest pain Decompensated liver disease Cholelithiasis (11/13/18) Cholecystitis, acute (01/16/19) Cellulitis of left lower limb (10/07/22) Bright red blood per rectum (04/13/23) H/O renal calculi Surgical History History of esophagogastroduodenoscopy (EGD) H/O colonoscopy Hx of cholecystectomy H/O laparoscopy abdominal cyst H/O shoulder surgery right x3 S/P right rotator cuff repair History of open reduction and internal fixation (ORIF) procedure left ankle Hx of appendectomy H/O arthroscopy of right knee History of carpal tunnel release right hand BALANCE/FUNCTIONAL RESULTS Sitting Balance: Good Standing Balance: Fair ASSESSMENT Assessment: The pt is a 74 y/o M who arrived to the ED on 01/24/25 due to fever and AMS, he was hospitalized with sepsis UTI, and RAMSES. Of note he did have a urological procedure with stent placement on 01/19/25, on 01/21/25 he removed the stent as directed. PMH includes DM2, MASH, hypothyroidism, end stage cirrhosis. Please see chart for complete medical hx. The pt was received sitting up in a recliner while visiting with his brother and S-I-L. He presented today with confusion, decreased B UE and LE strength, poor activity tolerance, LBP, and impaired standing balance all of which limited his tolerance with functional mobility. At this time recommend continued skilled PT intervention while in the acute setting and DC to SNF for further rehab once pt medically stable as he is functioning below his baseline level of Ind. This plan was discussed with the pt and he was in agreement with this. At the end of the session the pt was sitting up in a chair with call light in reach, chair alarm in place and on, and all needs met while visiting with family. RN and PA updated on pt's status and DC rec. PATIENT/FAMILY GOALS Patient/Family Goals: To get strong enough to be able to return home GOALS Improve supine to sit to:: Minimal Assist Improve sit to stand to:: Minimal Assist Improve pivot transfer ability to:: Minimal Assist Improve sit to supine to:: Minimal Assist Improve gait ability to:: Min A Advance Assistive Device to:: Front Wheeled Walker Increase distance walked to (in feet):: 25 PLAN Frequency: 1-2x/day Duration: Until goals are met DISCHARGE RECOMMENDATIONS Discharge Location: Care Home Facility Support/Services Needed: With assist Other Discharge Equipment: pt owns all recommended DME Transport Needs at Discharge: Wheelchair van
[2025-01-26] MEDS ORDERED: ONDANSETRON ODT 4 MG TABLET TL PRN (16:11)
[2025-01-26] MEDS ORDERED: METOCLOPRAMIDE 10 MG TABLET PO PRN (16:11)
[2025-01-26] MEDS: ONDANSETRON 4 MG/2 ML VIAL IVP PRN (16:19)
[2025-01-26] MEDS: SODIUM PHOSPHATE 15 MMOL in SODIUM CHLORIDE 0.9% 250 ML IV ONE (16:32)
[2025-01-26] MEDS: MAGNESIUM OXIDE 400 MG TABLET PO SCH (22:00)
[2025-01-27 06:02] LABS: HCT - HEMATOCRIT 31.5 % (42.0-52.0); HGB - HEMOGLOBIN 9.9 g/dL (14.0-18.0); MEAN PLATELET VOLUME 9.3 fL (7.4-11.4); PLT - PLATELET COUNT 91 10^3/uL (130-450); RED CELL DISTRIBUTION WIDTH 18.6 % (12.0-15.0)
[2025-01-27 06:09] LABS: VBG PH 7.429 (7.31-7.41)
[2025-01-27 06:16] LABS: BASOPHILS # (MANUAL) 0.0 10^3/uL (0-0.1); BUN - BLOOD UREA NITROGEN 16.0 mg/dL (6-20); CARBON DIOXIDE - CO2 24.0 mmol/L (21-32); CREATININE 1.0 mg/dL (0.6-1.3); GFR - MDRD 73.0 (>89); PHOSPHORUS 2.4 mg/dL (2.5-5.0)
[2025-01-27 06:18] LABS: ABNORMAL LYMPHS % (MANUAL) 0 %
[2025-01-27 06:37] LABS: BAND NEUTROPHILS % (MANUAL) 1 %; EOSINOPHILS # (MANUAL) 1.5 10^3/uL (0-0.7); LYMPHOCYTES # (MANUAL) 1.6 10^3/uL (1.5-3.5); LYMPHOCYTES % (MANUAL) 24 %; MONOCYTES # (MANUAL) 0.1 10^3/uL (0.0-1.0); NEUTROPHILS # (MANUAL) 3.5 10^3/uL (1.5-6.6); PLATELET ESTIMATE, MANUAL DECREASED (<130,000) (NORMAL); PLATELET MORPHOLOGY NORMAL APPEARANCE (NORMAL); RBC MORPHOLOGY (MULTIPLE) 1+ HYPOCHROMASIA (NORMAL); WBC MORPHOLOGY (MULTIPLE) NORMAL APPEARANCE (NORMAL)
[2025-01-27] MEDS: NEUTRA-PHOS 250 MG TABLET PO SCH (08:42)
[2025-01-27] MEDS: MAGNESIUM OXIDE 400 MG TABLET PO ONE (08:42)
--- NOTE | 2025-01-27 08:52 | PROVIDER PROGRESS NOTE ---
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 He has been slowly improving during his course of stay. Leukocytosis has improved greatly, but lactate is still slow to clear likely because of liver disease. Pt entered a run of 10-20 beats V-Tach during a witnessed, brief apneic event this morning during sleep; sequela of his sleep apnea, for which he has been continuing his CPAP regimen from home. He has been suffering from high degree of pruritus of his skin that has greatly affected his ADLs over the last year, still unclear exact etiology, but likely bile acid deposition in small vessels. Secondary to this global pruritus, he was witnessed pulling at his IV's this morning; may reconsider soft restraint on IV side. Given difficulty of pt venous access, maintaining patent IVs are a priority. He has also had moderate hypercalcemia, going back to 2022, probably due to primary hyperparathyroidism. Pt and patient family has endorsed history of polydipsia at home and during stay, relating he keeps a gallon of water and drinks from tt constantly. His urine appears concentrated in the Fregoso bag, and is pink/red/orange today, which is a change from the last few days of stay. Consulted with nursing staff this morning to this point and nurse relates she has witnessed him tugging at his catheter or pulling traction against it during movement. Possibly related to this, as his phenazopyradine was discontinued outside the window to be contributing to this color change, and he has had several days of documented yellow urine. We are allowing him to freely drink fluids, and we increased his LR rate to 200ml/hr yesterday. Pt edema has again shifted, worse in lower extremities than upper extremities bilaterally. PT is recommending SNF. Family would like to take this patient home. Their approach to his care overall is palliative but they definitely want to continue with all medical interventions at this time. Current Medications Current Medications Current Medications: Current Medications Generic Name Dose Route Start Last Admin Trade Name Freq PRN Reason Stop Dose Admin Acetaminophen 650 mg 01/24/25 18:19 01/25/25 08:45 Acetaminophen 325 Mg Tablet PO 650 mg Q4HR PRN Administration Pain 1 to 4, or Fever Calamine 1 applic 01/26/25 11:01 01/27/25 03:30 Calamine/Zinc Oxide 177 Ml Bottle TOP 1 applic Q6HR PRN Administration ITCHING Cetirizine HCl 10 mg 01/26/25 11:30 01/27/25 08:42 Cetirizine 10 Mg Tablet PO 10 mg DAILY DAYAMI Administration Cholestyramine/Sucrose 8 gm 01/26/25 16:00 01/27/25 08:31 Cholestyramine 4 Gm Packet PO 8 gm BIDAC DAYAMI Administration Enoxaparin Sodium 40 mg 01/25/25 09:00 01/27/25 08:42 Enoxaparin 40 Mg/0.4 Ml Syringe SUBQ 40 mg DAILY DAYAMI Administration Ceftriaxone Sodium 2 gm/ 100 mls @ 200 mls/hr 01/25/25 18:00 01/26/25 18:40 Sodium Chloride IV 01/29/25 18:29 Infused Q24H DAYAMI Infusion Lactated Ringer's 1,000 mls @ 200 mls/hr 01/25/25 06:00 01/27/25 03:53 Lr IV 200 mls/hr .Q5H DAYAMI Administration Lactulose 20 gm 01/24/25 21:00 01/26/25 20:34 Lactulose 10 Gm /15 Ml Udc PO 20 gm BID DAYAMI Administration Levothyroxine Sodium 100 mcg 01/25/25 07:00 01/27/25 06:01 Levothyroxine 100 Mcg Tablet PO 100 mcg QDAC DAYAMI Administration Metoclopramide HCl 10 mg 01/26/25 16:11 Metoclopramide 10 Mg Tablet PO Q6H PRN Nausea / Vomiting Ondansetron HCl 4 mg 01/26/25 16:11 Ondansetron Odt 4 Mg Tablet TL Q4HR PRN Nausea / Vomiting Ondansetron HCl 4 mg 01/26/25 16:11 01/26/25 16:19 Ondansetron 4 Mg/2 Ml Vial IVP 4 mg Q4HR PRN Administration Nausea / Vomiting Oxycodone HCl 5 mg 01/24/25 18:19 01/27/25 06:00 Oxycodone 5 Mg Tablet PO 5 mg Q4HR PRN Administration Pain 5 to 7 Sodium Chloride 10 ml 01/24/25 18:19 01/25/25 20:44 Sodium Chloride Flush 0.9% 10 Ml Syringe IVP 10 ml PRN PRN Administration NEEDED PER PROVIDER ORDERS Sodium Chloride 10 ml 01/25/25 01:00 01/27/25 08:43 Sodium Chloride Flush 0.9% 10 Ml Syringe IVP 10 ml 0100,0900,1700 DAYAMI Administration Sodium Phosphate 250 mg 01/27/25 08:00 01/27/25 08:42 Neutra-Phos 250 Mg Tablet PO 01/27/25 10:01 250 mg Q2H DAYAMI Administration Protocol Tamsulosin HCl 0.8 mg 01/24/25 21:00 01/26/25 20:35 Tamsulosin 0.4 Mg Capsule PO 0.8 mg HS DAYAMI Administration Trazodone HCl 50 mg 01/24/25 21:00 01/26/25 20:35 Trazodone 50 Mg Tablet PO 50 mg HS DAYAMI Administration Objective Vital Signs/Intake & Output Reviewed Vital Signs: Yes Vital Signs: Vital Signs x48h Temp Pulse Resp BP Pulse Ox 01/27/25 08:00 36.5 C 107 H 18 125/69 95 01/27/25 07:00 36.5 C 105 H 12 117/73 97 01/27/25 06:00 109 H 16 133/72 H 97 01/27/25 05:00 36.7 C 105 H 14 104/65 94 01/27/25 04:00 36.6 C 103 H 18 116/81 95 01/27/25 03:00 36.6 C 103 H 14 112/74 96 01/27/25 02:00 36.5 C 102 H 13 110/82 97 01/27/25 01:00 36.4 C L 103 H 18 122/78 94 Intake & Output: Intake & Output 01/24/25 01/25/25 01/26/25 01/27/25 23:59 23:59 23:59 23:59 Intake Total 3250 / 3250 5560 / 5560 6160 / 6160 1180 / 1180 Output Total 253 / 253 689 / 689 1066 / 1066 372 / 372 Balance 2997 / 2997 4871 / 4871 5094 / 5094 808 / 808 Weight (kg) 109 kg 111 kg 113 kg 119 kg Objective General Appearance: positive Moderate distress Eyes Bilateral: positive Normal inspection and PERRL Neck: positive Nml inspection Respiratory: positive Chest non-tender and Rales (Fine rales in LL bilat) Cardiovascular: positive Regular rate & rhythm; negative No murmur Abdomen: positive Non-tender Skin: positive Color nml; negative No rash Extremities: positive Pedal edema Neurologic/Psychiatric: positive Oriented x3 (Oriented to person, place, month) Lab Results 01/27/25 05:45 01/27/25 05:45 Other Labs: Lab Results x24hrs 01/27/25 01/27/25 01/26/25 Range/Units 05:54 05:45 13:45 WBC 6.6 (4.8-10.8) x10^3/uL RBC 3.04 L (4.70-6.10) 10^6/uL Hgb 9.9 L (14.0-18.0) g/dL Hct 31.5 L (42.0-52.0) % MCV 103.6 H (80.0-94.0) fL MCH 32.6 H (27.0-31.0) pg MCHC 31.4 L (32.0-36.0) g/dL RDW 18.6 H (12.0-15.0) % Plt Count 91 L (130-450) 10^3/uL MPV 9.3 (7.4-11.4) fL Neut # (Auto) Not Reportable Lymph # (Auto) Not Reportable Harlan # (Auto) Not Reportable Eos # (Auto) Not Reportable Baso # (Auto) Not Reportable Absolute Nucleated RBC Not Reportable Total Counted 100 Band Neuts % (Manual) 1 (0 - 10) % Abnorm Lymph % (Manual) 0 % Nucleated RBC % Not Reportable Neutrophils # (Manual) 3.5 (1.5-6.6) 10^3/uL Lymphocytes # (Manual) 1.6 (1.5-3.5) 10^3/uL Monocytes # (Manual) 0.1 (0.0-1.0) 10^3/uL Eosinophils # (Manual) 1.5 H (0-0.7) 10^3/uL Basophils # (Manual) 0.0 (0-0.1) 10^3/uL Differential Comment MANUAL DIFFERENTIAL WBC Morphology NORMAL APPEARANCE (NORMAL) Platelet Estimate DECREASED (<130,000) (NORMAL) Platelet Morphology NORMAL APPEARANCE (NORMAL) RBC Morph Micro Appear 1+ HYPOCHROMASIA (NORMAL) VBG pH 7.429 H 7.651 H* (7.31-7.41) Ionized Calcium 1.56 H* 1.36 H (1.09-1.30) mmol/L Sodium 146 H (135-145) mmol/L Potassium 4.0 4.5 (3.5-4.5) mmol/L Chloride 118 H (101-111) mmol/L Carbon Dioxide 24 (21-32) mmol/L Anion Gap 4.0 L (6-13) BUN 16 (6-20) mg/dL Creatinine 1.0 (0.6-1.3) mg/dL Estimated GFR (MDRD) 73 L (>89) Glucose 86 (74-104) mg/dL Serum Osmolality (280-301) mOsmol/kg Calcium 11.2 H (8.5-10.3) mg/dL Phosphorus 2.4 L 2.1 L (2.5-5.0) mg/dL Magnesium 1.8 2.1 (1.7-2.3) mg/dL Vitamin D 25-Hydroxy (30.0-100.0) ng/mL Urine Osmolality (.) mOsmol/kg 01/26/25 01/24/25 Range/Units 04:48 16:50 WBC (4.8-10.8) x10^3/uL RBC (4.70-6.10) 10^6/uL Hgb (14.0-18.0) g/dL Hct (42.0-52.0) % MCV (80.0-94.0) fL MCH (27.0-31.0) pg MCHC (32.0-36.0) g/dL RDW (12.0-15.0) % Plt Count (130-450) 10^3/uL MPV (7.4-11.4) fL Neut # (Auto) Lymph # (Auto) Harlan # (Auto) Eos # (Auto) Baso # (Auto) Absolute Nucleated RBC Total Counted Band Neuts % (Manual) (0 - 10) % Abnorm Lymph % (Manual) % Nucleated RBC % Neutrophils # (Manual) (1.5-6.6) 10^3/uL Lymphocytes # (Manual) (1.5-3.5) 10^3/uL Monocytes # (Manual) (0.0-1.0) 10^3/uL Eosinophils # (Manual) (0-0.7) 10^3/uL Basophils # (Manual) (0-0.1) 10^3/uL Differential Comment WBC Morphology (NORMAL) Platelet Estimate (NORMAL) Platelet Morphology (NORMAL) RBC Morph Micro Appear (NORMAL) VBG pH (7.31-7.41) Ionized Calcium (1.09-1.30) mmol/L Sodium (135-145) mmol/L Potassium (3.5-4.5) mmol/L Chloride (101-111) mmol/L Carbon Dioxide (21-32) mmol/L Anion Gap (6-13) BUN (6-20) mg/dL Creatinine (0.6-1.3) mg/dL Estimated GFR (MDRD) (>89) Glucose (74-104) mg/dL Serum Osmolality 321 H (280-301) mOsmol/kg Calcium (8.5-10.3) mg/dL Phosphorus (2.5-5.0) mg/dL Magnesium (1.7-2.3) mg/dL Vitamin D 25-Hydroxy 11.5 L (30.0-100.0) ng/mL Urine Osmolality 528 (.) mOsmol/kg Diagnostic Imaging Diagnostic Imaging Results: positive Final report reviewed and Read independently ABX Reporting Has patient been on IV antibiotics over the past 48 hours?: Yes Sepsis Event Note (H) Evaluation Current Stage of Sepsis: Sepsis Possible source of Sepsis: positive Genitourinary Sepsis Criteria Sepsis Criteria: Recorded Heart Rate greater than 90 bpm and 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 Pt continues to be SIRS negative today, with improving vitals and stable normal WBC, no return of fever, and reasonable alternative explanation of mental status changes. Discontinuing lactate trending at this time due to stabilized infective picture. His chest x-ray also showed some interstitial opacities, so ABX coverage has been selected for UTI/pulmonary organism dual coverage. Pt has been on Fregoso catheter for close monitoring I/O and due to acuity. Urine collection bag showing pink/salmon color today without appreciable sludge/clots, possibly due to pulling traction on catheter. Will follow closely with nursing staff today and throughout pt course. Azithromycin 500mg/day IV therapy is complete as of yesterday, and this is day 4/5 Ceftriaxone 2g/day IV. Pt continues to show improvement. Pt Vancomycin was discontinued x2 days prior. Continue to trend lactate. Blood cx yesterday resulted with Gram positive cocci (GBS), and resulted this morning early showing CoNS, so sample contamination cannot be necessarily ruled out, nor can original contamination through uretural stent. Sensitivity studies not yet returned. Pt did already receive x2 days of Vancomycin, which is recommended empiric agent for CoNS with methicillin resistance. F/u blood cx ordered yesterday to try to r/o surface contamination and has not yet resulted. Will continue to try to get more follow up blood cx ongoing. Will determine what appropriate long-term ABX is appropriate once d/c setting is ascertained. Assistance: Systemic infection control, fluid support, IV ABX, metabolic monitoring, lactate monitoring, electrolyte replenishment, RAMSES therapy. Risk: Risk of discontinued care at this time would likely result in worsened sepsis, decompensation, and . Expected LOS: ~2 days Monitor: Vitals, WBC, renal and hepatic function, electrolytes, and infective picture for inadequate ABX coverage or resistance. Evaluate: WBC, CMP, CBC. Assess/add: Blood cx two days prior resulted with Gram positive cocci (GBS), and resulted this yeaterday early showing CoNS, so sample contamination cannot be necessarily ruled out, nor can original contamination through uretural stent. Sensitivity studies not yet returned. Pt did already receive x2 days of Vancomycin, which is recommended empiric agent for CoNS with methicillin resistance. F/u blood cx ordered yesterday which has not resulted, and for later today to try to r/o surface contamination. Continue to assess urine bag collection for gross changes in urine, and clearing/yellowing from today's pink/red finding. Will discuss with provider utility of f/u UA pulled from urine collection today to assess any acute changes. Treat: Azithromycin 500mg/day IV, Ceftriaxone 2g/day IV. Vancomycin d/c'd 11/30 AM Qualifiers: Sepsis acute organ dysfunction status: without acute organ dysfunction Sepsis type: Streptococcus group B Qualified Code(s): A40.1 - Sepsis due to streptococcus, group B (2) Hypercalcemia: Impression: Based on continued refractory asymptomatic hypercalcemia, both in service (11.4- 12 during stay) and extending back to 2022, along with continued nephrolithiasis and elevated PTH (124) we suspect an additional dx of primary hyperparathyroidism. Care team discussed risk/benefit of a bisphosphonate, ordered Zometa today for first infusion to avoid pill esophagitis. Pt is notably not an appropriate candidate for surgical resection at this time. K-Phos has also been discontinued at this time. We will continue to fluid resuscitate, and will reassess more definitive tx measures as pt care progresses. Monitor: Monitor for clinical findings of hypercalcemia and revisit definitive measures. Evaluate: Continue to evaluate fluid/calcium relationship and whether more direct medical management indicated. Assess/add: Assess serum calcium/PTH/phosphate relationship over time. Treat: 4mg Zometa ordered, waiting on formulary preparation. First dose now, trending calcium, phosphate, and PTH post-administration and follow-up dose will be indicated in 3-4wks, assess possibility to bridge to oral dose as pt becomes more dependable to avoid erosive esophagitis. (3) UTI (urinary tract infection): Impression: He is postop day 7 cystoscopy ureteroscopy lithotripsy with stent placement. He has been sick at home for about 4 days, had not getting out of bed and was running a fever. He has had minimal oral intake since the procedure and has not been urinating much at home. On today's exam, pt continued to deny any CVA tenderness, which is an improvement from his original presentation, and this morning denied suprapubic tenderness, matching yesterday. Urine collection bag showing pink/salmon color today without appreciable sludge/clots, possibly due to pulling traction on catheter. Will follow closely with nursing staff today and throughout pt course. His urine culture resulted negative yesterday at 1200, and his blood cultures have returned Gram positive cocci. His urinalysis was significant at admit for a trace of leukocyte esterase, too numerous to count red blood cells 6-10 white blood cells. He has had recent instrumentation of the urinary tract , therefore we covered with one dose Vancomycin 2g IV. He had an E. coli urinary tract infection about a month ago which was pansensitive, and we have also treated with Azithromycin 500mg/day IV, Ceftriaxone 2g/day IV. Pt initially showed a marked reduction in Lactate (7.3 --> 3.4), but has hovered back top the ~4.2 range, and in Leukocytosis (15.3 --> 6.6) in response to ABX therapy, and pt presents an improving clinical picture from an infective standpoint. Patient was discussed throughout care with Chuy La, urology. He has reviewed the CT showing no obstruction, no hydronephrosis, non obstructing ureteral stones, 3mm, on the left side, and no perinephric fat stranding was appreciated by radiology on CT. Monitor: Continue to monitor for infective picture and for s/s of dysuria or any objective urine signs (cloudiness, purulence, nickolas hematuria, brown urine) Evaluate: Given the improving clinical picture of his UTI, we will continue to evaluate for any refractory infection or changes in treatment course. Assess/add: Guideline directed treatment does not indicate a repeat UA at this time for improving treatment, but if picture changes, we may reconsider. Urine output and gross appearance in conjunction with dysuria s/s will be continually assessed, continue to liase with specialists as pertinent. . Treat: Azithromycin 500mg/day IV, Ceftriaxone 2g/day IV, and one dose Vancomycin 2g IV, which has been d/c'd. Qualifiers: Hematuria presence: with hematuria Urinary tract infection type: acute cystitis Qualified Code(s): N30.01 - Acute cystitis with hematuria (4) RAMSES (acute kidney injury): Impression: Likely due to acute illness, dehydration, possibly compounded by diabetic and hepatic histories. Baseline Cr is normal, around 1.0, it is mildly up at 1.4, 40% higher than baseline. Pt microalbumin-creatinine ratio was high at 46.6 on 03/16/24, in conjunction with a non-Anion gap acidosis (albumin-corrected Agap of 15.0mEq/L on the to 7.8mEq/L yesterday and today, based on most recent albumin from 01/25) Will consider changing BMP to CMP for daily liver function markers for ongoing monitoring liver function as indicated. FeNa unavailable due to lack of urine sodium on urine analysis. BUN:Cr is 19.09 We are treating his sepsis and monitoring the ongoing electrolyte derangments of Sodium (146), Potassium (4.0), Chloride (118), and Phosphate (2.4), Calcium (11.2) Sodium is being managed with restricted sodium intake and addressing volume status, due to initial suspicion of contractive etiology. Chloride is likewise being managed with volume increase. Potassium and phosphate have been d/c'd as of yesterday. Calcium is now being managed as per above. (see Hyperkalemia) Volume is being managed LR at a rate of 200ml/hr IV, changed from 125ml/hr today at noon. Will reassess fluid resuscitation requirements throughout treatment course. Urine output ~40cc/hr. Given the color changes noted above, bears close scrutiny today and tomorrow. We will continue to assess and monitor for changes in renal function, and consider alternative treatment course if further pathology develops. Monitor: Monitor urine output, electrolyte balances, acid/base relationship, I/O, and volume status over course of stay. Evaluate: Continue to monitor for improvement/deterioration, consider alternative management. Assess/add: May consider adding a repeat UA if gross urologic changes indicate reevaluation of renal function and if necessary to dx renal syndromes. Treat: Fluid, close electrolyte monitoring, address acidosis if worsens. (5) Cirrhosis: Impression: He has been seen by hepatology at [facility] earlier this month, being treated with BID lactulose, which per their note is appropriate. He has portal HTN, and the recommendation is for EGD annually to assess for esophageal varicies, which remains pending. MELD score is 11, using INR drawn on the 17th of this month and other values from current labs. Child-Steven score grade 3, depending on conservative or liberal interpretation of encephalopathy grading in the presence of concurrent sepsis and azotemia compounding encephalopathy evaluation. He has a hx of pancytopenia. Last seen by Dr Monique of oncology 09/24/2024. Note reviewed. Dr. 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 Pt was positive for fluid wave on admission night, but it is less apparent over the last three days. Pt has had no obvious abd distension suggestive of a high degree of ascites. He has been struggling with severe pruritis, continuing to today's physical exam, which is very lifestyle limiting and making him miserable, and it was recommended that he stop antihistamines due to sedation, but has been started on topical calamine yesterday with little efficacy thus far. Pt observed pulling on IV x2 this morning. Nursing staff apprised. We are continuing Cholestyramine/Sucrose, stepping up from 4g BID to 8g BID for the pruritus, due to suspicion of liver etiology. We are continuing patient's at-home dosing of Lactulose 20g BID. Pt's scleral icterus and global jaundice have improved since admission, but altered mental status continues, with pt alert to person and place and year, but not to day, month, which is consistent with his status yesterday and his baseline per daughter. Ongoing mental status exams being used to monitor if this is a delirium presentation as sepsis/hepatic sequelae, or whether this is baseline. Monitor: Monitor pruritus, mental status, skin findings. Evaluate: Follow skin and eye findings of jaundice, monitor for ascites. Assess/add: CMP for LFTs, could follow ammonia but may be low utility, continue to liase with specialists as pertinent. (5) Hyperparathyroidism: Qualifiers: Hepatic cirrhosis type: due to WAGNER Qualified Code(s): K75.81 - Nonalcoholic steatohepatitis (WAGNER); K74.69 - Other cirrhosis of liver (6) Dermatitis: Impression: Pt dermatitis is non-improved today, and LE bilaterally is worsened slightly today from yesterday. No open wounds appreciated on physical exam today. Pt continues compression stocking use for DVT prophylaxis. Pt reports pruritus likewise non-improved, continuing Cholestyramine/Sucrose at step-up dose at 8mg BID. Pt continues to endorse distressing pruritus. (7) Hyperkalemia: Impression: On admission has a potassium of 4.9, improved over course of stay to 3.9. Likely due to volume contraction. He received 2 L of fluids in the emergency department, and has continued to receive aggressive fluid resuscitation in the ICU, moving from 125mL/hr LR to 200 mL/hr Lr. Will continue to monitor and assess for further treatment need, including any cardiac rhythm changes or further derangement. (8) Hypernatremia: Impression: Sodium of 151 on admission, likely due to volume contraction, stable at 146 today with fluid replenishment, from 147 yesterday. Will continue to monitor and assess for response to volume repletion. (9) Hypothyroid: Impression: Home Synthroid, 100 mcg daily will be resumed once medication reconciliation is complete. May consider adding a TSH/T4/T3 test battery if indicated. 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 Given pt's latest A1C value of 4.2 and repeated euglycemic values, bloog glucose management is being discontinued at this time. (11) Hypertension: Impression: He is tachycardic and hypertensive this evening. At home he is on Lasix 20 mg every other day. This is per the primary care note on 01/06/2025. He is also on lisinopril 20 mg/day. We will resume these home medications when it is appropriate and once medication reconciliation is complete. Qualifiers: Hypertension type: primary hypertension Qualified Code(s): I10 - Essential (primary) hypertension (12) V-tach: Impression: Pt entered a run of 10-20 beats V-Tach during a witnessed, brief apneic event this morning during sleep; sequela of his sleep apnea, for which he has been continuing his CPAP regimen from home. Will continue to monitor on telemetry for any continued/sustained runs of arrhythmia, and will further assess for any follow-up decision making around rate control/calcium effect.
[2025-01-27] MEDS: ZOLEDRONIC ACID 4 MG/100 ML 4 MG/100 ML BAG IV ONE (12:05)
[2025-01-27] MEDS: GABAPENTIN 400 MG CAPSULE PO SCH (20:29)
[2025-01-28 04:38] LABS: HCT - HEMATOCRIT 31.2 % (42.0-52.0); HGB - HEMOGLOBIN 9.6 g/dL (14.0-18.0); MEAN PLATELET VOLUME 10.0 fL (7.4-11.4); PLT - PLATELET COUNT 91 10^3/uL (130-450); RED CELL DISTRIBUTION WIDTH 18.5 % (12.0-15.0)
[2025-01-28 04:41] LABS: INR 1.5 (0.8-1.2); PT - PROTHROMBIN TIME 16.1 secs (9.9-12.6)
[2025-01-28 04:46] LABS: VBG PH 7.414 (7.31-7.41)
[2025-01-28 04:50] LABS: ABNORMAL LYMPHS % (MANUAL) 0 %; BASOPHILS # (MANUAL) 0.0 10^3/uL (0-0.1)
[2025-01-28 04:53] LABS: PHOSPHORUS 2.3 mg/dL (2.5-5.0)
[2025-01-28 05:05] LABS: ALT ALANINE AMINOTRANSFERASE 41.0 IU/L (10-60); AST ASPARTATE AMINOTRANSFERASE 76.0 IU/L (10-42); BUN - BLOOD UREA NITROGEN 13.0 mg/dL (6-20); CARBON DIOXIDE - CO2 25.0 mmol/L (21-32); CREATININE 0.8 mg/dL (0.6-1.3); GFR - MDRD 95.0 (>89)
[2025-01-28] MEDS: NEUTRA-PHOS 250 MG TABLET PO SCH (06:21)
[2025-01-28 06:28] LABS: BAND NEUTROPHILS % (MANUAL) 1 %; EOSINOPHILS # (MANUAL) 2.1 10^3/uL (0-0.7); LYMPHOCYTES # (MANUAL) 1.7 10^3/uL (1.5-3.5); LYMPHOCYTES % (MANUAL) 28 %; METAMYELOCYTES % (MANUAL) 1 %; MONOCYTES # (MANUAL) 0.2 10^3/uL (0.0-1.0); NEUTROPHILS # (MANUAL) 2.0 10^3/uL (1.5-6.6)
[2025-01-28 06:29] LABS: PLATELET ESTIMATE, MANUAL DECREASED (<130,000) (NORMAL); PLATELET MORPHOLOGY NORMAL APPEARANCE (NORMAL); RBC MORPHOLOGY (MULTIPLE) NORMAL APPEARANCE (NORMAL); WBC MORPHOLOGY (MULTIPLE) NORMAL APPEARANCE (NORMAL)
[2025-01-28] MEDS: VANCOMYCIN INJ 2 GM in SODIUM CHLORIDE 0.9% 500 ML IV ONE (11:43)
[2025-01-28] MEDS: LACTULOSE 10 GM /15 ML UDC PO SCH (13:46)
--- NOTE | 2025-01-28 16:33 | PROVIDER PROGRESS NOTE ---
Subjective Prog Note Date Prog Note Date: 01/28/25 Prog Note Time: 08:52 Subjective Pt reports feeling: Improved Subjective: He has been intermittently sleepy today. He is oriented to self only. falls asleep when I am asking him questions. Current Medications Current Medications Current Medications: Current Medications Generic Name Dose Route Start Last Admin Trade Name Freq PRN Reason Stop Dose Admin Acetaminophen 650 mg 01/24/25 18:19 01/25/25 08:45 Acetaminophen 325 Mg Tablet PO 650 mg Q4HR PRN Administration Pain 1 to 4, or Fever Calamine 1 applic 01/26/25 11:01 01/28/25 08:44 Calamine/Zinc Oxide 177 Ml Bottle TOP 1 applic Q6HR PRN Administration ITCHING Cetirizine HCl 10 mg 01/26/25 11:30 01/28/25 08:44 Cetirizine 10 Mg Tablet PO 10 mg DAILY DAYAMI Administration Cholestyramine/Sucrose 8 gm 01/26/25 16:00 01/28/25 16:11 Cholestyramine 4 Gm Packet PO 8 gm BIDAC DAYAMI Administration Enoxaparin Sodium 40 mg 01/25/25 09:00 01/28/25 08:44 Enoxaparin 40 Mg/0.4 Ml Syringe SUBQ 40 mg DAILY DAYAMI Administration Gabapentin 1,200 mg 01/27/25 21:00 01/27/25 20:29 Gabapentin 400 Mg Capsule PO 1,200 mg HS DAYAMI Administration Ceftriaxone Sodium 2 gm/ 100 mls @ 200 mls/hr 01/25/25 18:00 01/27/25 19:05 Sodium Chloride IV 01/29/25 18:29 Infused Q24H DAYAMI Infusion Lactated Ringer's 1,000 mls @ 100 mls/hr 01/25/25 06:00 01/28/25 08:24 Lr IV 100 mls/hr .Q10H DAYAMI Administration Lactulose 20 gm 01/28/25 14:00 01/28/25 13:46 Lactulose 10 Gm /15 Ml Udc PO 20 gm TID DAYAMI Administration Levothyroxine Sodium 100 mcg 01/25/25 07:00 01/28/25 06:21 Levothyroxine 100 Mcg Tablet PO 100 mcg QDAC DAYAMI Administration Metoclopramide HCl 10 mg 01/26/25 16:11 Metoclopramide 10 Mg Tablet PO Q6H PRN Nausea / Vomiting Ondansetron HCl 4 mg 01/26/25 16:11 Ondansetron Odt 4 Mg Tablet TL Q4HR PRN Nausea / Vomiting Ondansetron HCl 4 mg 01/26/25 16:11 01/26/25 16:19 Ondansetron 4 Mg/2 Ml Vial IVP 4 mg Q4HR PRN Administration Nausea / Vomiting Oxycodone HCl 5 mg 01/24/25 18:19 01/27/25 06:00 Oxycodone 5 Mg Tablet PO 5 mg Q4HR PRN Administration Pain 5 to 7 Sodium Chloride 10 ml 01/24/25 18:19 01/28/25 04:11 Sodium Chloride Flush 0.9% 10 Ml Syringe IVP 10 ml PRN PRN Administration NEEDED PER PROVIDER ORDERS Sodium Chloride 10 ml 01/25/25 01:00 01/28/25 08:44 Sodium Chloride Flush 0.9% 10 Ml Syringe IVP 10 ml 0100,0900,1700 DAYAMI Administration Tamsulosin HCl 0.8 mg 01/24/25 21:00 01/27/25 20:31 Tamsulosin 0.4 Mg Capsule PO 0.8 mg HS DAYAMI Administration Trazodone HCl 50 mg 01/24/25 21:00 01/27/25 20:31 Trazodone 50 Mg Tablet PO 50 mg HS DAYAMI Administration Objective Vital Signs/Intake & Output Reviewed Vital Signs: Yes Vital Signs: Vital Signs x48h Temp Pulse Resp BP Pulse Ox 01/28/25 16:00 35.4 C L 79 12 127/65 98 01/28/25 15:00 35.4 C L 83 13 127/72 96 01/28/25 14:00 35.8 C L 86 16 120/58 L 96 01/28/25 13:00 35.8 C L 85 13 120/58 L 96 01/28/25 12:00 35.9 C L 93 20 126/68 95 01/28/25 11:00 36 C L 76 15 116/62 96 01/28/25 10:00 35.9 C L 90 19 113/55 L 94 01/28/25 09:00 36.0 C L 91 12 120/54 L 96 Intake & Output: Intake & Output 11/30/25 12/01/25 12/02/25 12/03/25 23:59 23:59 23:59 23:59 Intake Total 5560 / 5560 6160 / 6160 6960 / 6960 3234 / 3234 Output Total 689 / 689 1066 / 1066 986 / 986 526 / 526 Balance 4871 / 4871 5094 / 5094 5974 / 5974 2708 / 2708 Weight (kg) 111 kg 113 kg 123.5 kg 125.5 kg Objective Skin: positive No rash Comments/Other: General Appearance: positive No acute distress and Alert (He has periods of alertness and periods of somnolence and obtundation) Eyes Bilateral: positive Normal inspection and Conjunctivae nml ENT: positive ENT inspection nml Neck: positive Nml inspection Respiratory: positive No respiratory distress and Breath sounds nml Cardiovascular: positive Regular rate & rhythm Abdomen: positive Non-tender Back: positive Nml inspection Skin: positive Other (Diffuse dry skin) Extremities: positive Non-tender and Pedal edema (Mild to moderate with scaling, Mild erythema) Neurologic/Psychiatric: positive Other ( Oriented to self, not to time and usually to place) Lab Results 01/28/25 04:19 01/28/25 04:19 Other Labs: Lab Results x24hrs 01/28/25 01/28/25 Range/Units 12:34 04:19 WBC 6.1 (4.8-10.8) x10^3/uL RBC 2.94 L (4.70-6.10) 10^6/uL Hgb 9.6 L (14.0-18.0) g/dL Hct 31.2 L (42.0-52.0) % MCV 106.1 H (80.0-94.0) fL MCH 32.7 H (27.0-31.0) pg MCHC 30.8 L (32.0-36.0) g/dL RDW 18.5 H (12.0-15.0) % Plt Count 91 L (130-450) 10^3/uL MPV 10.0 (7.4-11.4) fL Neut # (Auto) Not Reportable Lymph # (Auto) Not Reportable Cass # (Auto) Not Reportable Eos # (Auto) Not Reportable Baso # (Auto) Not Reportable Absolute Nucleated RBC Not Reportable Total Counted 100 Band Neuts % (Manual) 1 (0 - 10) % Abnorm Lymph % (Manual) 0 % Metamyelocytes % 1 H ( - 0) % Nucleated RBC % Not Reportable Neutrophils # (Manual) 2.0 (1.5-6.6) 10^3/uL Lymphocytes # (Manual) 1.7 (1.5-3.5) 10^3/uL Monocytes # (Manual) 0.2 (0.0-1.0) 10^3/uL Eosinophils # (Manual) 2.1 H (0-0.7) 10^3/uL Basophils # (Manual) 0.0 (0-0.1) 10^3/uL Differential Comment MANUAL DIFFERENTIAL WBC Morphology NORMAL APPEARANCE (NORMAL) Platelet Estimate DECREASED (<130,000) (NORMAL) Platelet Morphology NORMAL APPEARANCE (NORMAL) RBC Morph Micro Appear NORMAL APPEARANCE (NORMAL) PT 16.1 H (9.9-12.6) secs INR 1.5 H (0.8-1.2) VBG pH 7.414 H (7.31-7.41) Ionized Calcium 1.50 H (1.09-1.30) mmol/L Sodium 145 (135-145) mmol/L Potassium 4.2 (3.5-4.5) mmol/L Chloride 119 H (101-111) mmol/L Carbon Dioxide 25 (21-32) mmol/L Anion Gap 1.0 L (6-13) BUN 13 (6-20) mg/dL Creatinine 0.8 (0.6-1.3) mg/dL Estimated GFR (MDRD) 95 (>89) Glucose 91 (74-104) mg/dL Calcium 10.4 H (8.5-10.3) mg/dL Phosphorus 2.3 L (2.5-5.0) mg/dL Magnesium 2.0 (1.7-2.3) mg/dL Total Bilirubin 1.4 H (0.2-1.0) mg/dL AST 76 H (10-42) IU/L ALT 41 (10-60) IU/L Alkaline Phosphatase 79 (42-121) IU/L Ammonia 73.7 H (18-72) umol/L Total Protein 4.4 L (6.4-8.9) g/dL Albumin 2.1 L (3.2-5.5) g/dL Globulin 2.3 (2.1-4.2) g/dL Albumin/Globulin Ratio 0.9 L (1.0-2.2) Diagnostic Imaging Diagnostic Imaging Results: positive Final report reviewed and Read independently ABX Reporting Has patient been on IV antibiotics over the past 48 hours?: Yes Sepsis Event Note (H) Evaluation Current Stage of Sepsis: Sepsis Possible source of Sepsis: positive Genitourinary Assessment/Plan Problem List (1) Sepsis: Impression: Condition: Pt presented with positive sepsis criteria of likely urinary source of infection, following a ureteral instrumentation procedure and lithotripsy some 5 days prior and ill-feeling over the last ~3-4 days. Pt continues to be SIRS negative today, with improving vitals and stable normal WBC, no return of fever, and reasonable alternative explanation of mental status changes. No indication to continue to trend lactate. It did not clear but this is due to liver dysfunction. Azithromycin 500mg/day IV 3 days complete, Ceftriaxone 2g daily. Blood culture summary: 01/24: Streptococcus agalactiae (Group B) 2/2 bottles. this was identified via PCR. 01/25 STAPHYLOCOCCUS HAEMOLYTICUS M.I.C. RX --------- --- CLINDAMYCIN >2 R DAPTOMYCIN <=1 S ERYTHROMYCIN >4 R GENTAMICIN 4 S LEVOFLOXACIN 4 R LINEZOLID <=1 S MINOCYCLINE <=1 S MOXIFLOXACIN 1 I OXACILLIN >1 R PENICILLIN >1 R RIFAMPIN <=0.5 S TETRACYCLINE >8 R VANCOMYCIN 1 S Methicillin Resistant Staphylococcus B-Lactamase Positive 2/2 bottles. 01/26: NGTD x2 01/27: GPC in clusters. 1/2 bottles. New information this AM is the sensitivity patterns for the GBS. I have restarted vancomycin on this patient today. Discussed his echocardiogram result with central station operator at [facility] in [place]. Dr. Becerril, he feels that the transthoracic echocardiogram is reassuring. He has very few concerns for valvular vegetation. He mentioned to me that were the patient to need a transesophageal echocardiogram he would require clearance with an EGD preceding that given his liver failure. The patient's cisco network engineer at [facility] has previously requested upper endoscopy to screen for esophageal varices. This has not been completed. I am continuing to speak with staff at [facility] as I believe the patient does require transfer for infectious disease management. Given his persistently positive blood cultures which admittedly are probably inappropriately treated at this juncture given today's culture detail. Discussed with Dr. Celis at [facility] in [place], hospitalist team. He does accept the patient in transfer. Transfer documents were completed. Discussed with patient's Lexi and his daughter Kathryn today. Qualifiers: Sepsis acute organ dysfunction status: without acute organ dysfunction Sepsis type: Streptococcus group B Qualified Code(s): A40.1 - Sepsis due to streptococcus, group B (2) Hypercalcemia: Impression: Based on continued refractory asymptomatic hypercalcemia, both in service (.- 12 during stay) and extending back to 2022, along with continued nephrolithiasis and elevated PTH (124) we suspect an additional dx of primary hyperparathyroidism. Given 4mg Zometa on 01/27. Pt is notably not an appropriate candidate for surgical resection at this time. (3) UTI (urinary tract infection): Impression: 01/19: right ureteroscopy, laser lithotripsy and stent placement. Patient pulled stent at home, as directed on01/21. he was feeling quite ill at that time. He was febrile at home, lethargic, did not take home meds from 01/19 going forward. On presentation had bilateral flank tenderness and UA was positive. trace LE, TNTC RBC, 6-10 WBC. urine culture has shown no growth, however. Qualifiers: Hematuria presence: with hematuria Urinary tract infection type: acute cystitis Qualified Code(s): N30.01 - Acute cystitis with hematuria (4) RAMSES (acute kidney injury): Impression: Likely due to acute illness, dehydration, possibly compounded by diabetic and hepatic histories. Baseline Cr is normal, around 1.0, it is mildly up at 1.4, 40% higher than baseline. resolved quickly with hydration. Laboratory Tests 01/24/25 01/24/25 01/25/25 16:50 21:39 04:27 Creatinine 1.4 H 1.2 1.2 01/25/25 01/25/25 01/26/25 11:59 14:56 04:48 Creatinine 1.1 1.2 1.1 01/27/25 01/28/25 05:45 04:19 Creatinine 1.0 0.8 (5) Cirrhosis: Impression: He has been seen by hepatology at [facility] earlier this month, being treated with BID lactulose, He has portal HTN, and the recommendation is for EGD annually to assess for esophageal varicies, which remains pending. MELD score is 11, Child-Steven score B, He has a hx of pancytopenia. Last seen by Dr Monique of oncology 09/24/2024. Note reviewed. Dr. 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 He has been struggling with severe pruritis, continuing to today's physical exam, which is very lifestyle limiting and making him miserable, and it was recommended that he stop antihistamines due to sedation, but has been started on topical calamine yesterday with little efficacy thus far. We are continuing Cholestyramine, stepping up from 4g BID to 8g BID for the pruritus, due to suspicion of liver etiology. he tells me today that his pruritis is very improved. We are continuing patient's at-home dosing of Lactulose 20g BID. Pt's scleral icterus and global jaundice have improved since admission, but altered mental status continues, with pt alert to person and place and year, but not to day, month, which is consistent with his status yesterday and his baseline per daughter. Ongoing mental status exams being used to monitor if this is a delirium presentation as sepsis/hepatic sequelae, or whether this is baseline. Ammonia today is 73. Laboratory Tests 04/11/24 05/19/24 10/12/24 13:37 08:52 12:01 Ammonia 18.0 28.4 41.2 01/24/25 01/28/25 16:40 12:34 Ammonia 62.4 73.7 H Qualifiers: Hepatic cirrhosis type: due to WAGNER Qualified Code(s): K75.81 - Nonalcoholic steatohepatitis (WAGNER); K74.69 - Other cirrhosis of liver (6) Dermatitis: Impression: Pt dermatitis is non-improved today, and LE bilaterally is worsened slightly today from yesterday. No open wounds appreciated on physical exam today. Pt continues compression stocking use for DVT prophylaxis. Pt reports pruritus likewise non-improved, continuing Cholestyramine/Sucrose at step-up dose at 8mg BID. Pt continues to endorse distressing pruritus. (7) Hyperkalemia: Impression: On admission has a potassium of 4.9, improved over course of stay to 3.9. Likely due to volume contraction. He received 2 L of fluids in the emergency department, and has continued to receive aggressive fluid resuscitation in the ICU. (8) Hypernatremia: Impression: Sodium of 151 on admission, likely due to volume contraction, stable at 146 today with fluid replenishment, from 147 yesterday. Will continue to monitor and assess for response to volume repletion. Laboratory Tests 01/24/25 01/24/25 01/25/25 16:50 21:39 04:27 Sodium 151 H 146 H 147 H 01/25/25 01/25/25 01/26/25 11:59 14:56 04:48 Sodium 146 H 146 H 147 H 01/27/25 01/28/25 05:45 04:19 Sodium 146 H 145 (9) Hypothyroid: Impression: Home Synthroid, 100 mcg daily 2 01/26/25 04:48 TSH 4.64 . 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 Given pt's latest A1C value of 4.2 and repeated euglycemic values, bloog glucose management is being discontinued at this time. (11) Hypertension: Impression: At home he is on Lasix 20 mg every other day. This is per the primary care note on 01/06/2025. He is also on lisinopril 20 mg/day. We will resume these home medications when it is appropriate. Qualifiers: Hypertension type: primary hypertension Qualified Code(s): I10 - Essential (primary) hypertension (12) V-tach: Impression: Pt entered a run of 10-20 beats V-Tach during a witnessed, brief apneic event this morning during sleep; sequela of his sleep apnea, for which he has been continuing his CPAP regimen from home. Will continue to monitor on telemetry for any continued/sustained runs of arrhythmia, and will further assess for any follow-up decision making around rate control/calcium effect. (13) Obstructive sleep apnea: Impression: has been compliant with CPAP while here.
--- NOTE | 2025-01-28 18:51 | Discharge Summary ---
Discharge Summary Admit Date: 12/24/24 Discharge Date: 01/28/25 Discharging Provider: Tori Oliver PA-C Primary Care Provider: KETURAH Epperson Code Status: Do Not Attempt Resuscitation DIAGNOSES Discharge Diagnoses with Status of Each Condition: Sepsis, with persistently positive blood cultures Hypercalcemia Urinary tract infection RAMSES Cirrhosis Dermatitis Hyperkalemia, resolved Hyponatremia, resolved Hypothyroidism Diabetes mellitus, resolved, A1c 4.2% low A1c likely due to liver dysfunction Hypertension, V. tach BONILLA HPI History of Present Illness: 74-year-old male who presents to the emergency department via EMS this evening with fever and altered mental status. He has a past medical history of diabetes, MASH, hypothyroidism. He had a urological procedure on 01/19/2025. This was cystoscopy with right ureteroscopy, laser lithotripsy and right ureteral stent placement. He pulled the stent on 1126 as instructed at home. Since that time he has not been doing well. He has been aching all over and has not gotten out of bed. He has eaten once in the last several days. His family has been concerned and noted his worsening and he has refused to come to the hospital several times. He complains of aching all over. He is not able to give much history he seems to understand my questions but then does not give me an answer.He also complains of itching all over. He has had this problem for many many months. He was recently diagnosed with end-stage cirrhosis and is being treated for hepatic encephalopathy. He is on lactulose 20 g twice daily. He has not had a bowel movement for several days because he is not eating. He has had fever at home. he is not having any cough or cold symptoms. His daughter Kathryn is at the bedside and gives most of the history. She states that he is DNR DNI. She states that his Lexi is his surrogate medical decision maker. He does not have a POLST. 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 Pt continues to be SIRS negative today, with improving vitals and stable normal WBC, no return of fever, and reasonable alternative explanation of mental status changes. No indication to continue to trend lactate. It did not clear but this is due to liver dysfunction. Azithromycin 500mg/day IV 3 days complete, Ceftriaxone 2g daily. Vancomycin restarted today, was given initial dose on admit. Blood culture summary: 01/24: Streptococcus agalactiae (Group B) 2/2 bottles. this was identified via PCR. 01/25 STAPHYLOCOCCUS HAEMOLYTICUS M.I.C. RX --------- --- CLINDAMYCIN >2 R DAPTOMYCIN <=1 S ERYTHROMYCIN >4 R GENTAMICIN 4 S LEVOFLOXACIN 4 R LINEZOLID <=1 S MINOCYCLINE <=1 S MOXIFLOXACIN 1 I OXACILLIN >1 R PENICILLIN >1 R RIFAMPIN <=0.5 S TETRACYCLINE >8 R VANCOMYCIN 1 S Methicillin Resistant Staphylococcus B-Lactamase Positive 2/2 bottles. 01/26: NGTD x2 01/27: GPC in clusters. /2 bottles. New information Am 01/28 is the sensitivity patterns for the GBS. I have restarted vancomycin on this patient today (01/28). Discussed his echocardiogram result with district attorney at [facility] in [place]. Dr. Becerril, he feels that the transthoracic echocardiogram is reassuring. He has very few concerns for valvular vegetation. He mentioned to me that were the patient to need a transesophageal echocardiogram he would require clearance with an EGD preceding that given his liver failure. The patient's worker's compensation claims examiner at [facility] has previously requested upper endoscopy to screen for esophageal varices. This has not been completed. I am continuing to speak with staff at [facility] as I believe the patient does require transfer for infectious disease management. Given his persistently positive blood cultures which admittedly are probably inappropriately treated at this juncture given today's culture detail. Discussed with patient's Lexi and his daughter Kathryn today. Made contact with Dr Cai at [facility] who accepts the patient for transfer to [facility]. (2) Hypercalcemia: Based on continued refractory asymptomatic hypercalcemia, both in service (.- 12 during stay) and extending back to 2022, along with continued nephrolithiasis and elevated PTH (124) we suspect an additional dx of primary hyperparathyroidism. Given 4mg Zometa on 01/27. Pt is notably not an appropriate candidate for surgical resection at this time. Laboratory Tests 01/26/25 04:48 Total Intact PTH 124 H (3) UTI (urinary tract infection): 01/19: right ureteroscopy, laser lithotripsy and stent placement. Patient pulled stent at home, as directed on01/21. he was feeling quite ill at that time. He was febrile at home, lethargic, did not take home meds from 01/19 going forward. On presentation had bilateral flank tenderness and UA was positive. trace LE, TNTC RBC, 6-10 WBC. urine culture has shown no growth, however. (4) RAMSES (acute kidney injury): Likely due to acute illness, dehydration, possibly compounded by diabetic and hepatic histories. Baseline Cr is normal, around 1.0, it is mildly up at 1.4, 40% higher than baseline. resolved quickly with hydration. s 01/24/25 01/24/25 01/25/25 16:50 21:39 04:27 Creatinine 1.4 H 1.2 1.2 01/25/25 01/25/25 01/26/25 11:59 14:56 04:48 Creatinine 1.1 1.2 1.1 01/27/25 01/28/25 05:45 04:19 Creatinine 1.0 0.8 (5) Cirrhosis: He has been seen by hepatology at [facility] earlier this month, being treated with BID lactulose, He has portal HTN, and the recommendation is for EGD annually to assess for esophageal varicies, which remains pending. MELD score is 11, Child-Steven score B, He has a hx of pancytopenia. Last seen by Dr Monique of oncology 09/24/2024. Note reviewed. Dr. 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 He has been struggling with severe pruritis, continuing to today's physical exam, which is very lifestyle limiting and making him miserable, and it was recommended that he stop antihistamines due to sedation, but has been started on topical calamine yesterday with little efficacy thus far. We are continuing Cholestyramine, stepping up from 4g BID to 8g BID for the pruritus, due to suspicion of liver etiology. he tells me today that his pruritis is very improved. We are continuing patient's at-home dosing of Lactulose 20g BID. Pt's scleral icterus and global jaundice have improved since admission, but altered mental status continues, with pt alert to person and place and year, but not to day, month, which is consistent with his status yesterday and his baseline per daughter. Ongoing mental status exams being used to monitor if this is a delirium presentation as sepsis/hepatic sequelae, or whether this is baseline. Ammonia today is 73. Laboratory Tests 04/11/24 05/19/24 10/12/24 13:37 08:52 12:01 Ammonia 18.0 28.4 41.2 01/24/25 01/28/25 16:40 12:34 Ammonia 62.4 73.7 H (6) Dermatitis: Pt dermatitis is non-improved today, and LE bilaterally is worsened slightly today from yesterday. No open wounds appreciated on physical exam today. Pt continues compression stocking use for DVT prophylaxis. Pt reports pruritus likewise non-improved, continuing Cholestyramine/Sucrose at step-up dose at 8mg BID. Pt continues to endorse distressing pruritus. (7) Hyperkalemia: On admission has a potassium of 4.9, improved over course of stay to 3.9. Likely due to volume contraction. He received 2 L of fluids in the emergency department, and has continued to receive aggressive fluid resuscitation in the ICU. (8) Hypernatremia: Sodium of 151 on admission, likely due to volume contraction, stable at 146 today with fluid replenishment, from 147 yesterday. Will continue to monitor and assess for response to volume repletion. Laboratory Tests 01/24/25 01/24/25 01/25/25 16:50 21:39 04:27 Sodium 151 H 146 H 147 H 01/25/25 01/25/25 01/26/25 11:59 14:56 04:48 Sodium 146 H 146 H 147 H 01/27/25 01/28/25 05:45 04:19 Sodium 146 H 145 (9) Hypothyroid: Home Synthroid, 100 mcg daily 01/26/25 04:48 TSH 4.64 . (10) Diabetes mellitus type 2, controlled, with complications: Pt is diabetic, was managing based on established BGL-dependent dosing protocols. Given pt's latest A1C value of 4.2 and repeated euglycemic values, bloog glucose management is being discontinued at this time. (11) Hypertension: At home he is on Lasix 20 mg every other day. This is per the primary care note on 01/06/2025. He is also on lisinopril 20 mg/day. We will resume these home medications when it is appropriate. (12) V-tach: Pt entered a run of 10-20 beats V-Tach during a witnessed, brief apneic event by myself, AM 12/2 during sleep; sequela of his sleep apnea, for which he has been continuing his CPAP regimen from home. Will continue to monitor on telemetry for any continued/sustained runs of arrhythmia,. (13) Obstructive sleep apnea: has been compliant with CPAP while here. ALLERGIES Allergies Allergy/AdvReac Type Severity Reaction Status Date / Time Penicillins Allergy Rash Verified 01/24/25 16:34 MEDICATIONS Ambulatory Orders Medication Instructions Recorded Confirmed tamsulosin 0.4 mg capsule 0.8 mg (2 x 0.4 mg) PO QDAY 30 06/30/24 01/24/25 days #60 caps hydrocortisone 2.5 % topical cream 1 applic MO QDAY MO N itching 14 09/11/24 01/24/25 with perineal applicator days #30 grams Permanent Disabled Placard #1 ea 11/13/24 01/24/25 allopurinol 300 mg tablet 300 mg PO DAILY 90 days #90 tabs 11/13/24 01/24/25 lactulose 10 gram/15 mL oral 20 g (30 mL) PO QAM AND Q HS liver 11/13/24 01/24/25 solution (Enulose) cirrhosis #946 mL levothyroxine 100 mcg tablet 100 mcg PO DAILY 90 days #90 tabs 11/13/24 01/24/25 blood sugar diagnostic (OneTouch #100 ea 11/18/2412/28 Verio test strips) blood-glucose meter (OneTouch #1 ea 11/18/24 01/24/25 Verio Flex Meter) lancets 33 gauge (OneTouch Delica #100 ea 11/18/24 Plus Lancet) trazodone 50 mg tablet 50 mg PO QDAY #90 tabs 01/1401/24/25 phenazopyridine 200 mg tablet 200 mg PO TID PRN pain 9 doses #9 01/19/25 01/24/25 tabs tramadol 50 mg tablet 50 mg PO BID PRN pain #10 ta bs 01/19/25 01/24/25 cyanocobalamin (vitamin B-12) 500 500 mcg PO DAILY 01/25/25 mcg tablet ergocalciferol (vitamin D2) 1,250 50,000 unit PO .WEEK LY 01/25/25 01/25/25 mcg (50,000 unit) capsule (Vitamin D2) furosemide 20 mg tablet 20 mg PO Q OTHER DAY 5 01/25/25 gabapentin 300 mg capsule 1,200 mg PO HS 01/25/2512/29 hydroxyzine pamoate 25 mg capsule 25 mg PO BID PRN itc jeffrey 01/25/25 01/25/25 lisinopril 20 mg tablet 20 mg PO DAILY 01/25/2512/29 metformin 500 mg tablet,extended 1,000 mg PO BID 01/2501/25/25 release 24 hr (Glucophage XR) omeprazole 20 mg capsule,delayed 20 mg PO BID RE 01/2501/25/25 release PHYSICAL EXAM AT DISCHARGE Vital Signs: Vital Signs x48h Temp Pulse Resp BP Pulse Ox 01/29/25 13:09 35.8 C L 88 17 108/54 L 97 01/29/25 13:00 88 19 108/54 L 98 01/29/25 12:00 36.3 C L 95 23 106/57 L 97 General Appearance: positive No acute distress and Alert (He has periods of alertness and periods of somnolence and obtundation) Eyes Bilateral: positive Normal inspection and Conjunctivae nml ENT: positive ENT inspection nml Neck: positive Nml inspection Respiratory: positive No respiratory distress and Breath sounds nml Cardiovascular: positive Regular rate & rhythm Abdomen: positive Non-tender Back: positive Nml inspection Skin: positive Other (Diffuse dry skin) Extremities: positive Non-tender and Pedal edema (Mild to moderate with scaling, Mild erythema) Neurologic/Psychiatric: positive Other ( Oriented to self, not to time and usually to place) LABS 01/29/25 04:50 01/29/25 04:50 DIAGNOSTIC IMAGING Diagnostic Imaging Results Comments: CT abdomen pelvis: No acute abnormality. No hydronephrosis. Nonobstructing left-sided kidney stones that measure up to [address]: Negative Chest x-ray: Mild interstitial opacity may represent pulmonary edema versus atypical infection. Patient was given 3 days of IV Zithromax at the time of admission. SEPSIS Current Stage of Sepsis: Sepsis Possible source of Sepsis: Genitourinary TIME SPENT Time Spent in Discharge (Minutes): 50 Discharge Plan Discharge Patient Disposition: 02 Transfer Acute Care Hosp Condition: Stable Prescriptions: No Action tamsulosin 0.4 mg capsule 0.8 mg PO QDAY 30 Days Qty: 60 2RF (DME) lancets [OneTouch Delica Plus Lancet] 33 gauge misc See Rx Instructions .Route Qty: 100 2RF Rx Instructions: Test Blood Sugar 3 times daily (DME) OneTouch Verio test strips Strip See Rx Instructions .Route Qty: 100 3RF Rx Instructions: Test Blood Sugar 3 times daily (DME) blood-glucose meter [OneTouch Verio Flex meter] Misc See Rx Instructions .Route Qty: 1 0RF Rx Instructions: Test Blood Sugar 3 times daily trazodone 50 mg tablet 50 mg PO QDAY Qty: 90 0RF phenazopyridine 200 mg tablet 200 mg PO TID PRN (Reason: pain) Qty: 9 0RF tramadol 50 mg tablet 50 mg PO BID PRN (Reason: pain) Qty: 10 0RF cyanocobalamin (vitamin B-12) 500 mcg tablet 500 mcg PO DAILY Rx Instructions: Take 1 tablet by mouth every evening. furosemide 20 mg tablet 20 mg PO Q OTHER DAY Patient Comments: take 1 tablet by mouth every other day ergocalciferol (vitamin D2) [Vitamin D2] 1,250 mcg (50,000 unit) capsule 50,000 unit PO .WEEKLY Patient Comments: TAKE 1 CAPSULE BY MOUTH EVERY 1 WEEK hydroxyzine pamoate 25 mg capsule 25 mg PO BID PRN (Reason: itching) Patient Comments: take 1 capsule by mouth twice a day if needed for itching lisinopril 20 mg tablet 20 mg PO DAILY Patient Comments: take 1 tablet by mouth once daily gabapentin 300 mg capsule 1,200 mg PO HS omeprazole 20 mg capsule,delayed release(DR/EC) 20 mg PO BID metformin [Glucophage XR] 500 mg tablet extended release 24 hr 1,000 mg PO BID hydrocortisone 2.5 % cream with perineal applicator 1 applic MO QDAY PRN (Reason: itching) 14 Days Qty: 30 1RF lactulose [Enulose] 10 gram/15 mL solution 20 g PO QAM AND QHS Qty: 946 3RF allopurinol 300 mg tablet 300 mg PO DAILY 90 Days Qty: 90 1RF levothyroxine 100 mcg tablet 100 mcg PO DAILY 90 Days Qty: 90 1RF (DME) Permanent Disabled Placard Misc See Rx Instructions .MEDSUPPLY Qty: 1 0RF Rx Instructions: Length of need: Permanent Activity Restrictions: Activity as Tolerated Diet: Regular Print Language: Peruvian Follow-up Care: Nate Limon FNP [Primary Care Provider, Family Practice] Report called to and time (if no answer, doc. time of each call attempted): Nitish cotter RN at 1210 Vitals documented within 30 minutes of discharge?: Yes
[2025-01-29 05:17] LABS: HCT - HEMATOCRIT 30.0 % (42.0-52.0); HGB - HEMOGLOBIN 9.5 g/dL (14.0-18.0); MEAN PLATELET VOLUME 9.6 fL (7.4-11.4); PLT - PLATELET COUNT 94 10^3/uL (130-450); RED CELL DISTRIBUTION WIDTH 17.9 % (12.0-15.0)
[2025-01-29 05:18] LABS: PHOSPHORUS 1.6 mg/dL (2.5-5.0)
[2025-01-29 05:33] LABS: BUN - BLOOD UREA NITROGEN 13.0 mg/dL (6-20); CARBON DIOXIDE - CO2 25.0 mmol/L (21-32); CREATININE 0.8 mg/dL (0.6-1.3); GFR - MDRD 95.0 (>89)
[2025-01-29 05:35] LABS: VBG PH 7.475 (7.31-7.41)
[2025-01-29 05:39] LABS: ABNORMAL LYMPHS % (MANUAL) 0 %; BAND NEUTROPHILS % (MANUAL) 0 %; BASOPHILS # (MANUAL) 0.0 10^3/uL (0-0.1)
[2025-01-29 06:22] LABS: EOSINOPHILS # (MANUAL) 2.8 10^3/uL (0-0.7); LYMPHOCYTES # (MANUAL) 1.6 10^3/uL (1.5-3.5); LYMPHOCYTES % (MANUAL) 20 %; METAMYELOCYTES % (MANUAL) 1 %; MONOCYTES # (MANUAL) 0.3 10^3/uL (0.0-1.0); MYELOCYTES % (MANUAL) 1 %; NEUTROPHILS # (MANUAL) 3.2 10^3/uL (1.5-6.6); PLATELET ESTIMATE, MANUAL DECREASED (<130,000) (NORMAL); PLATELET MORPHOLOGY NORMAL APPEARANCE (NORMAL); RBC MORPHOLOGY (MULTIPLE) NORMAL APPEARANCE (NORMAL)
[2025-01-29 06:23] LABS: WBC MORPHOLOGY (MULTIPLE) NORMAL APPEARANCE (NORMAL)
[2025-01-29] MEDS: NEUTRA-PHOS 250 MG TABLET PO SCH (06:39)
[2025-01-29] MEDS: VANCOMYCIN INJ 1 GM, VANCOMYCIN INJ 500 MG in SODIUM CHLORIDE 0.9% 500 ML IV SCH (10:55)
[2025-01-29 13:01] VITALS: BP 108/54
[2025-01-29 13:10] VITALS: TEMP 96.4; O2SAT 97
== END 2025-01-29 13:11 | disposition short-term general hospital (02) | DRG 871 ==
LOC: ED 16:25 → ICU 18:18
PROVIDERS: ADMIT Physician Assistant Medical; ATTEND Physician Assistant Medical
DX: L30.9 Dermatitis, unspecified; G47.33 Obstructive sleep apnea (adult) (pediatric); E03.9 Hypothyroidism, unspecified; Z79.84 Long term (current) use of oral hypoglycemic drugs; N39.0 Urinary tract infection, site not specified; K75.81 Nonalcoholic steatohepatitis (NASH); E87.5 Hyperkalemia; D61.818 Other pancytopenia; L29.9 Pruritus, unspecified; K74.60 Unspecified cirrhosis of liver; D64.9 Anemia, unspecified; A40.1 Sepsis due to streptococcus, group B; Z87.891 Personal history of nicotine dependence; A41.9 Sepsis, unspecified organism; K76.82 Hepatic encephalopathy; R00.8 Other abnormalities of heart beat; R01.1 Cardiac murmur, unspecified; Z66 Do not resuscitate; R00.0 Tachycardia, unspecified; E11.9 Type 2 diabetes mellitus without complications; R41.82 Altered mental status, unspecified; N17.9 Acute kidney failure, unspecified; R65.21 Severe sepsis with septic shock; I47.20 Ventricular tachycardia, unspecified; K72.10 Chronic hepatic failure without coma; N20.0 Calculus of kidney; K76.6 Portal hypertension; E86.0 Dehydration; I10 Essential (primary) hypertension; E87.0 Hyperosmolality and hypernatremia; E83.52 Hypercalcemia